=== PATIENT | male | born 1940 | race Caucasian/White ===

== ENCOUNTER → 2023-10-19 09:55 | Outpatient (REF) | payer MEDICARE, OTHER, SELFPAY ==
[2023-10-19 10:10] VITALS: BP 165/54; BP_SYST 64
== END ==
LOC: RADI 09:55
PROVIDERS: ATTENDING PHYSICIAN Student in an Organized Health Care Education/Training Program
DX: Z49.01 Encounter for fitting and adjustment of extracorporeal dialysis catheter (principal); N18.6 End stage renal disease
CPT/HCPCS: 36589

== ENCOUNTER 2023-11-13 21:46 | Emergency (ER) | payer MEDICARE, OTHER, SELFPAY ==
[2023-11-13 21:49] VITALS: BP 161/70
[2023-11-13 22:17] VITALS: BP 190/59
[2023-11-13] MEDS: NSS 1000 IV (22:21)
[2023-11-13] MEDS: ZOFRAN 4 MG IV (22:28)
[2023-11-13 22:29] LABS: % Basophils 0.3 % (0-2); % Eosinophils 1.6 % (0-6); % Immature Granulocytes 0.2 % (0-0.5); % Monocytes 6.4 % (1.7-9.3); % Neutrophils 86.5 % (42.2-75.2); Absolute Eosinophils 0.2 10^3/uL (0-0.7); Absolute Lymphocytes 0.5 10^3/uL (1.2-3.4); Absolute Monocytes 0.6 10^3/uL (0.1-0.6); Absolute Neutrophils 8.4 10^3/uL (1.4-6.5); Hematocrit 34.9 % (39.0-52.0); Mean Corp Hgb Conc. 34.4 g/dL (33.0-37.0); Mean Corpuscular Hgb 33.7 pg (27.0-31.0); Mean Platelet Volume 10.5 fL (7.4-10.4); Nucleated Red Blood Cells % 0 % (-); Platelet Count 221 10^3/uL (130-400); Red Blood Cell Count 3.56 10^6/uL (4.70-6.10); Red Cell Dist. Width 12.8 % (11.5-14.5); White Blood Cell Count 9.7 10^3/uL (4.8-10.8)
[2023-11-13 22:42] LABS: ALT (SGPT) 11 U/L (0-50); AST (SGOT) 19 U/L (17-59); Albumin 4.6 g/dl (3.5-5.0); Alkaline Phosphatase 82 U/L (38-126); Blood Urea Nitrogen 59 mg/dl (9-20); Calcium 10.2 mg/dl (8.4-10.2); Carbon Dioxide 31 mmol/L (22-30); Chloride 93 mmol/L (98-107); Glucose 119 mg/dl (70-99); Lipase 138 U/L (23-300); Potassium 5.3 mmol/L (3.5-5.1); Sodium 133 mmol/L (135-145); Total Bilirubin 0.8 mg/dl (0.2-1.3); Total Protein 7.2 g/dl (6.3-8.2); eGFR 14.86
--- NOTE | 2023-11-13 22:45 | ED.GENMED ---
History of Present Illness
General
Chief Complaint: Abdominal Symptoms
Source: patient and spouse
Exam Limitations: none
Time Seen by Provider: 11/13/23 22:07
Travel History
Have you had any contact with someone who has COVID-19?: No
Do you have any symptoms of coronavirus? Fever > 100 degrees, chills, cough, shortness of breath, sore throat, loss of taste or smell, muscle aches, or headache?: No
History of Present Illness
History of Present Illness:
This is a 82 year old male that comes in with c/o vomiting and diarrhea. states that he went to bed at 8pm and he called her later and said that he was wet and that he had diarrhea. States that he did vomited and had the diarrhea just one.
States that his stool was loose during the week and he was going 3-4 times daily. Denies any fever, chills, chest pain, SOB, abd pain, headache, dizziness, urinary burning.
Past History
Past History
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
ED Past Surgical History: Appendectomy, Cardiac (Angioplasty September 2021, stenting 2020 X 2), Orthopedic (Cervical spine surgery), Tonsilectomy, Urological (Prostatectomy) and Other ( dialysis catheter 2018, port for dialysis March 2021,
deviated septum repair 2004)
Social History
Tobacco: Former smoker
Alcohol: None
Drug: None
Personal:
Living: with family
Employment: Retired
Family History
Family History: Other (reviewed and noncontributory)
Review of Systems
Review of Systems
Other source history: family
All Other Systems: ROS reviewed and negative except as documented in HPI and ROS
Constitutional: Reports no symptoms; Denies fever or chills
EENT: Reports no symptoms
Respiratory: Reports no symptoms; Denies cough or trouble breathing
Cardiac: Reports no symptoms; Denies chest pain
ABD/GI: Reports nausea, vomiting and diarrhea; Denies abdominal pain
: Reports no symptoms
Musculoskeletal: Reports no symptoms
Skin: Reports no symptoms
Neurological: Reports no symptoms; Denies dizzy or headache
Psychiatric: Reports no symptoms
Phy Exam
General Physical Exam
General Presentation: no apparent distress
General age: appears stated age
General Skin: warm and dry
General Habitus: elderly
General Mental: alert
General Hydration: dry mucous membranes
ENT Exam
ENT Exam: pharynx normal and neck supple
Additional ENT: Bilaeral Hearing aids
Eye Exam
Eye Exam: other (Blind and keeps his eyes closed)
Cardiovascular Exam
Cardiovascular Exam: regular rate/rhythm, no edema, normal peripheral pulses and other (Murmur)
Pulmonary Exam
Pulmonary Exam: lungs clear, no respiratory distress, no rales, chest non tender, no crackles, no rhonchi, no wheezing and no cough
Gastrointestinal Exam
Gastrointestinal Exam: normal bowel sounds, soft, no organomegaly, no pulsatile mass, non distended and tender (RUQ tenderness with palpation)
Musculoskeletal Exam
Musculoskeletal Exam: full ROM and no edema
Skin Exam
Skin Exam: normal color, warm/dry, no rash, no petechia and other (Left upper arm dialysis Graft with good bruits and thrill )
Psychiatric Exam
Psychiatric Exam: normal mood/affect
Course
Orders/Labs/Results
Orders:
Orders
11/13/23 22:20
0.9% Sodium Chloride 1000 ml [Nss] 1,000 ml IV BOLUS
11/13/23 22:23
Complete Blood Count/With Diff Urgent
Comprehensive Metabolic Panel Urgent
Lipase Urgent
11/13/23 22:27
Ondansetron Injectable [Zofran] 4 mg .ROUTE .STK-MED ONE
Ondansetron Injectable [Zofran] 4 mg IV NOW STA
11/13/23 22:47
Dicyclomine [Bentyl] 10 mg PO NOW STA
11/13/23 22:58
Electrocardiogram (*1) Urgent
Reason for Study: Abdominal Pain
EKG- Treatment ONCE
11/13/23 22:59
COVID-19 Antigen Urgent
Source: Nasal Swab
11/14/23 22:45
US Abdomen Complete/Upper Urgent
Reason For Exam: Right upper abd pain
Abnormal Lab Results
11/13/23
22:23
RBC 3.56 L 10^6/uL
(4.70-6.10)
Hgb 12.0 L g/dL
(13.0-18.0)
Hct 34.9 L %
(39.0-52.0)
MCV 98.0 H fL
(80.0-94.0)
MCH 33.7 H pg
(27.0-31.0)
MPV 10.5 H fL
(7.4-10.4)
Absolute Neuts (auto) 8.4 H 10^3/uL
(1.4-6.5)
Absolute Lymphs (auto) 0.5 L 10^3/uL
(1.2-3.4)
Neutrophils % 86.5 H %
(42.2-75.2)
Lymphocytes % 5.0 L %
(20.5-51.1)
Sodium 133 L mmol/L
(135-145)
Potassium 5.3 H mmol/L
(3.5-5.1)
Chloride 93 L mmol/L
(98-107)
Carbon Dioxide 31 H mmol/L
(22-30)
BUN 59 H mg/dl
(9-20)
Creatinine 3.9 H mg/dL
(0.7-1.3)
Glucose 119 H mg/dl
(70-99)
11/13/23 22:23
11/13/23 22:23
H/H slighty low. Anemic, Sodium slightly low. Hyperkalemia, Chloride low. Chronic renal failure, Glucose nonfasting. Lipase normal at 138
Vital Signs
Initial and Last Documented VS:
Initial Vital Signs
Temp Pulse Resp BP Pulse Ox
98.1 F 74 19 161/70 99
11/13/23 21:49 11/13/23 21:49 11/13/23 21:49 11/13/23 21:49 11/13/23 21:49
Last Documented Vital Signs
Temp Pulse Resp BP Pulse Ox
98.1 F 85 16 171/69 99
11/13/23 21:49 11/14/23 00:15 11/14/23 00:15 11/14/23 00:00 11/14/23 00:15
MDM/Problems Addressed
Differential Diagnosis Includes:
Gi viral syndrome. Gallbladder disease.
MDM/Problems Addressed:
This is a 82 year old male that comes in with c/o vomiting and diarrhea. state that he went to bed at 8pm and he called her later and said that he went in his pants. States that he had diarrhea and then also vomited.
Will get labs, US.
Back into see patient and family. Explained that his WBC are normal. He has anemia and his Chronic renal failure. Patients US shows that he has gallstones but there is no wall thickening or CBD dilation. This is most likely the GI virusl. Patient to
stay away from milk and milk products until the diarrhea stops. Follow up with the family doctor for recheck Will sent a prescription for Zofran to the Pharmacy to help with any nausea/vomiting. Patient to return with any concerns.
Chronic conditions affecting care: DM and Kidney disease
Acute Exacerbation and/or Progression of Chronic Illness: Kidney disease
*Radiology
Radiology exam reviewed: radiology read reviewed (US [place]=No acute findiings. Cholelithiasis without clear secondary findings to suggest cholecystitis. Multiple gallstones within the gallbladder. No appreciable gallbladder wall thickening or
Pericholecystic fluid. Negatibe sonographic Myers's sign per report. CBD measures 3mm in diameter ) and other (US cont- which is within normal limits. Visualized pancreas and liver appear normal. Atrophc kidneys with increased cortical
echogenicity, in keeping with chronic renal disease. Small cyst in the right kidney. Normal size spleen, No appreciable free fluid. )
*Pulse Oximetry
Patient hypoxic: no
*EKG
Interpreted by ED Provider?: Yes
Heart Rate: 82
Rate: normal
Rhythm: sinus
[place]: left axis deviation
Interval: first degree heart block
QRS Pattern: right bundle branch block
Ischemia: T-wave inversion
*[employer] Interpretation
Rate: normal
Heart Rate: 78
Rhythm: sinus
*Critical Care Note
Total Time (30-74mins, 75-104mins- exclusive of procedures): Not Applicable
ED Attending Note
-
Portions of this chart may have been created with voice recognition software.� Occasional wrong word or��sound alike� substitutions may have occurred due to the inherent limitations of voice recognition software.
Discharge Plan
Departure
Patient Disposition: Home (Routine Discharge)
Date of Disposition: 11/14/23
Time of Disposition: 02:13
Patient with high blood pressure during this ER visit?: Yes
Condition: Good
Covid-19: Negative COVID-19
Discharge Problem:
Vomiting and diarrhea
Instructions: Diarrhea in adolescents and adults, Nausea and Vomiting, Adult (DC)
Prescriptions:
New
ondansetron 4 mg tablet,disintegrating
4 mg PO Q8H PRN (Reason: nausea and vomiting) Qty: 7 0RF
No Action
brinzolamide [Azopt] 1 % Drops,Suspension
1 drp BOTH EYES TID
famotidine [Pepcid] 20 mg Tablet
20 mg PO HS
Livalo 2 mg Tablet
2 mg PO MOTUWETHFR@2200
calcitriol 0.25 mcg Capsule
0.5 mcg PO QPM
sevelamer carbonate 800 mg tablet
3,200 mg PO AC
Lumigan 0.01 % Drops
1 drp BOTH EYES HS
Rhopressa 0.02 % Drops
1 drp BOTH EYES DAILY
docusate sodium [Colace] 100 mg Capsule
200 mg PO DAILY
folic acid 1 mg Tablet
1 mg PO QPM
midodrine 2.5 mg Tablet
2.5 mg PO DAILYPRN PRN (Reason: BP<140/90)
Rx Instructions:
BP < 140/90
polyethylene glycol 3350 [Miralax] 17 gram Powder In Packet
17 g PO DAILY PRN (Reason: constipation)
torsemide 20 mg tablet
80 mg PO DAILY
aspirin 81 mg tablet,delayed release (DR/EC)
81 mg PO DAILY
brimonidine-timolol [Combigan] 0.2-0.5 % drops
1 drp BOTH EYES TID
cholecalciferol (vitamin D3) [Vitamin D3] 50 mcg (2,000 unit) Tablet
50 mcg PO DAILY
sodium chloride [Chris 128] 5 % Drops
1 drp BOTH EYES TID
melatonin 3 mg Tablet
3 mg PO HS
ranolazine 500 mg Tablet Extended Release 12 Hr
500 mg PO BID
Probiotic
1 tab PO DAILY
Liquacel 16-100 gram-kcal/30 mL Liquid
30 ml PO SUTUTHSA
acetaminophen 650 mg Tablet Extended Release
650 mg PO BID PRN (Reason: Pain) Qty: 0 0RF
Rx Instructions:
Pt's states he takes it every morning and he also takes it in the evenings on dialysis days.
isosorbide mononitrate 30 mg tablet extended release 24 hr
30 mg PO DAILY Qty: 0 0RF
Rx Instructions:
hold for SBP<100 or DBP<50
amlodipine 5 mg tablet
5 mg PO QPM Qty: 0 0RF
metoprolol tartrate 25 mg tablet
25 mg PO HS Qty: 0 0RF
Referrals:
Pepe Riley MD [Family Provider] - Follow up in 2-3 days
Activity Restrictions/Additional Instructions:
As discussed, your blood work shows a normal white blood cell count. You are anemic and have chronic renal failure. Your Ultrasound shows that you have gallstones but there is no wall thickening or common bile duct dilation. This may be the GI viral
syndrome that is going around. Please stay away form milk and milk products as long as the diarrhea continues. Nancy has protein, soups and increase his diet as tolerated. Chicken, rice and potatoes are easily digested. Follow up with the family
doctor for recheck. A prescription for Zofran has been sent to your Pharmacy. This will help any nausea/vomiting. IF YOU HAVE ANY OTHER CONCERNS PLEASE RETURN TO THE EMERGENCY ROOM.
Interventions
Interventions:
*Risk Screen - Suicide Last Done: 11/13/23 22:32
*General Assessment Last Done: 11/13/23 21:51
*Neglect/Abuse Screening Last Done: 11/13/23 22:32
ED- Fall Risk Assessment Last Done: 11/13/23 22:32
*ED COVID-19 Vaccine History Last Done: 11/13/23 21:51
NH-Plsvih-Odryclient Assessment Last Done: 11/13/23 22:15
Discharge Date and Time
Print Language: TURKMEN
[2023-11-13] MEDS: BENTYL 10 MG PO (22:52)
[2023-11-13 23:00] VITALS: BP 173/68
[2023-11-13 23:18] LABS: COVID-19 Antigen Negative (Negative)
[2023-11-14] VITALS: BP 171/69
== END 2023-11-14 02:37 | disposition home or self-care (01) ==
LOC: EMR 21:46
PROVIDERS: Clinical Nurse Specialist Family Health; Emergency Medicine; EMERGENCY PHYSICIAN Emergency Medicine; FAMILY PHYSICIAN Internal Medicine Geriatric Medicine
DX: R11.2 Nausea with vomiting, unspecified (principal); R19.7 Diarrhea, unspecified; R10.11 Right upper quadrant pain; D64.9 Anemia, unspecified; Z11.52 Encounter for screening for COVID-19; E87.5 Hyperkalemia; K80.20 Calculus of gallbladder without cholecystitis without obstruction; N28.1 Cyst of kidney, acquired; I44.0 Atrioventricular block, first degree; I45.10 Unspecified right bundle-branch block; I25.10 Atherosclerotic heart disease of native coronary artery without angina pectoris; I12.0 Hypertensive chronic kidney disease with stage 5 chronic kidney disease or end stage renal disease; N18.6 End stage renal disease; E11.22 Type 2 diabetes mellitus with diabetic chronic kidney disease; G47.30 Sleep apnea, unspecified; E11.319 Type 2 diabetes mellitus with unspecified diabetic retinopathy without macular edema; E03.9 Hypothyroidism, unspecified; E78.00 Pure hypercholesterolemia, unspecified; F41.9 Anxiety disorder, unspecified; Z99.2 Dependence on renal dialysis; Z79.82 Long term (current) use of aspirin; Z95.5 Presence of coronary angioplasty implant and graft; Z87.440 Personal history of urinary (tract) infections; Z85.46 Personal history of malignant neoplasm of prostate; Z86.73 Personal history of transient ischemic attack (TIA), and cerebral infarction without residual deficits; Z87.891 Personal history of nicotine dependence; Z90.79 Acquired absence of other genital organ(s); Z88.1 Allergy status to other antibiotic agents; Z88.8 Allergy status to other drugs, medicaments and biological substances; Z91.048 Other nonmedicinal substance allergy status
CPT/HCPCS: 76700; 80053; 83690; 85025; 87811; 93005; 96361; 96374; 99284

== ENCOUNTER → 2023-12-23 08:47 | Outpatient (REF) | payer MEDICARE, OTHER, SELFPAY | LOC: RAD 08:47 | PROVIDERS: ATTENDING PHYSICIAN Podiatrist Foot & Ankle Surgery; FAMILY PHYSICIAN Internal Medicine Geriatric Medicine | DX: E11.51 Type 2 diabetes mellitus with diabetic peripheral angiopathy without gangrene (principal); L97.522 Non-pressure chronic ulcer of other part of left foot with fat layer exposed | CPT/HCPCS: 93922; 93925 ==

== ENCOUNTER → 2024-04-06 12:48 | Outpatient (REF) | payer MEDICARE, OTHER, SELFPAY | LOC: RAD 12:48 | PROVIDERS: ATTENDING PHYSICIAN Registered Nurse; FAMILY PHYSICIAN Internal Medicine Geriatric Medicine | DX: I77.0 Arteriovenous fistula, acquired (principal) | CPT/HCPCS: 93990 ==

== ENCOUNTER 2024-08-10 05:06 | Inpatient (IN) | payer MEDICARE, OTHER, SELFPAY ==
[2024-08-09 22:08] VITALS: BP 159/86
[2024-08-10] VITALS (43 sets, daily range): BP systolic 113–180; BP diastolic 41–98; BMI 23.1; BMI 23.7
--- NOTE | 2024-08-10 01:36 | ED.GENMED ---
History of Present Illness
General
Chief Complaint: Extremity Pain (non-traumatic)
Source: patient (Offers little history as he has dementia), spouse (Reports left arm swelling since 7 or 8 PM tonight. Notes patient had dialysis on Wednesday) and family
Exam Limitations: none
Time Seen by Provider: 08/10/24 01:20
Nursing documentation reviewed up to this point in time: agreed with
History of Present Illness
History of Present Illness:
83-year-old male presents emergency department due to left arm swelling and redness
Past History
Past History
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
ED Past Surgical History: Appendectomy, Cardiac (Angioplasty September 2021, stenting 2020 X 2), Orthopedic (Cervical spine surgery), Tonsilectomy, Urological (Prostatectomy) and Other ( dialysis catheter 2018, port for dialysis March 2021,
deviated septum repair 2004)
Social History
Tobacco: Former smoker
Alcohol: None
Drug: None
Personal:
Living: with family
Employment: Retired
Family History
Family History: Other (reviewed and noncontributory)
Review of Systems
Review of Systems
Allergies reviewed?: Yes
All Other Systems: Not applicable
Constitutional: Reports no symptoms; Denies fever
EENT: Reports no symptoms
Respiratory: Reports no symptoms
Cardiac: Reports no symptoms
ABD/GI: Reports no symptoms
: Reports no symptoms
Musculoskeletal: Reports edema
Skin: Reports rash
Neurological: Reports no symptoms
Endocrine: Reports no symptoms
Hematologic/Lymphatic: Reports no symptoms
Psychiatric: Reports no symptoms
Phy Exam
Physical Exam
Physical Exam:
Physical Exam
General: no apparent distress, not acutely ill
Neck: supple. no meningeal signs. normal posterior pharynx
Heart: s1/s2 regular rate and rhythm, no murmur. equal radial
pulses.
HEENT: Pupils equal round reactive to light, EOMI
Lungs: no acute respiratory distress. clear bilaterally
Abdomen: normal bowel sounds. not tender. no CVAT
Neuro: alert and oriented. no focal neurological deficits cranial nerves II through XII intact
Skin: Erythema and swelling of left arm
Psychiatric: well kept. interactive and cooperative
Extremities: Left arm edema. no calf tenderness. negative homans. good distal pulses, AV fistula with audible bruit left arm
Course
Orders/Labs/Results
Orders:
Orders
08/09/24 22:15
Complete Blood Count/With Diff Urgent
Comprehensive Metabolic Panel Urgent
08/09/24 22:31
US Arms, Left [US Periph Venous UPPER Ext LT] Urgent
Comment:
Reason For Exam: swelling/pain
08/10/24 01:34
Vascular Exam Limited US [US Vascular Exam Limited] Urgent
Comment: evaluate for pseudoaneurysm
Reason For Exam: left AV fistula
08/10/24 03:44
Vancomycin 1 Gram/200 ml [Vancocin] 1 gram in 200 ml IV NOW
08/10/24 03:45
Piperacillin/Tazo 2.25 Gram [Zosyn] 2.25 grams in 50 ml IV NOW
08/10/24 04:00
Flush (0.9% Sodium Chloride) [Flush (Nss)] See Dose Instructions IV PER PROTOCOL
08/10/24 04:48
Admit/Transfer Patient As Directed
Co-Sign Provider:
Level of Care: Inpatient admission
Assign to:: IMU- Intermediate Care
Physician / Group: Roberto
Diagnosis: LUE Hematoma +/- Cellulitis
Reason for Hospitalization: LUE Hematoma +/- Cellulitis
Expected length of stay greater than two midnights?: Yes
ELOS- Estimated Length of Stay in days: 3
I certify the patient meets the requirements for IP care: Yes
08/10/24 04:49
PRN Pain Medication Management As Directed
May give lesser potent ordered pain med per pt: Yes
preference::
Protocol:: Medication orders for pain may be administered in a
manner that supports deferring to patient preference
when the pt is:
- Requesting an ordered lesser potent pain medication.
Least to most potent pain medications are defined
as: acetaminophen < NSAID < tramadol < opioids
(morphine, oxycodone, hydromorphone).
- Requesting a lesser dose of the same medication IF
ORDERED.
- Requesting a less intrusive route of administration
if both routes are prescribed by the provider (PO <
IV).
08/10/24 04:53
Code Status As Directed
Resuscitation Status: Full Code
08/10/24 06:03
Acetaminophen [Tylenol] 650 mg PO Q4HPRN PRN
Abnormal Lab Results
08/10/24
01:33
WBC 16.2 H 10^3/uL
(4.8-10.8)
RBC 3.35 L 10^6/uL
(4.70-6.10)
Hgb 11.1 L g/dL
(13.0-18.0)
Hct 33.3 L %
(39.0-52.0)
MCV 99.4 H fL
(80.0-94.0)
MCH 33.1 H pg
(27.0-31.0)
MPV 10.8 H fL
(7.4-10.4)
Abs Immat Gran (auto) 0.1 H 10^3/uL
(0-0.05)
Absolute Neuts (auto) 15.0 H 10^3/uL
(1.4-6.5)
Absolute Lymphs (auto) 0.5 L 10^3/uL
(1.2-3.4)
Neutrophils % 92.8 H %
(42.2-75.2)
Lymphocytes % 2.8 L %
(20.5-51.1)
Chloride 95 L mmol/L
(98-107)
BUN 71 H mg/dl
(9-20)
Creatinine 4.2 H* mg/dL
(0.7-1.3)
Glucose 160 H mg/dl
(70-99)
Total Protein 6.2 L g/dl
(6.3-8.2)
08/10/24 01:33
08/10/24 01:33
Vital Signs
Initial and Last Documented VS:
Initial Vital Signs
Temp Pulse Resp BP Pulse Ox
97.9 F 97 18 159/86 100
08/09/24 22:08 08/09/24 22:08 08/09/24 22:08 08/09/24 22:08 08/09/24 22:08
Last Documented Vital Signs
Temp Pulse Resp BP Pulse Ox
97.9 F 90 16 132/54 98
08/09/24 22:08 08/10/24 01:44 08/10/24 01:44 08/10/24 01:44 08/10/24 01:44
MDM/Problems Addressed
Differential Diagnosis Includes:
Pseudoaneurysm, thrombosis of fistula
MDM/Problems Addressed:
83-year-old male with cellulitis left arm.
Chronic conditions affecting care: CAD, Arrhythmia and Kidney disease
Acute Exacerbation and/or Progression of Chronic Illness: CAD, Arrhythmia and Kidney disease
*Critical Care Note
Total Time (30-74mins, 75-104mins- exclusive of procedures): Not Applicable
Patient Management
Discussion with other providers: Pack Worker Supervisor (Discussed with Dr. Mcfarland, vascular surgeon, who recommends getting ultrasound to evaluate for pseudoaneurysm/thrombosis)
Escalation/DeEscalation of care consider admission/obs:
admit indicated
ED Attending Note
-
Portions of this chart may have been created with voice recognition software.� Occasional wrong word or��sound alike� substitutions may have occurred due to the inherent limitations of voice recognition software.
Discharge Plan
Departure
Patient Disposition: Admit
Date of Disposition: 08/10/24
Time of Disposition: 03:25
Admit to: Med/Surg
Presentation/result/management discussed w/ accepting MD/DO: Hospitalist
Patient with high blood pressure during this ER visit?: Yes
Condition: Fair
Discharge Problem:
Cellulitis of arm, left
Interventions
Interventions:
*Risk Screen - Suicide Last Done: 08/09/24 22:11
*Neglect/Abuse Screening Last Done: 08/09/24 22:11
ED- Fall Risk Assessment Last Done: 08/10/24 01:55
*ED COVID-19 Vaccine History Last Done: 08/09/24 22:10
ED-Skin Assessment Last Done: 08/10/24 01:55
ED-Peripheral Vascular Assessment Last Done: 08/10/24 01:55
[2024-08-10 02:03] LABS: % Basophils 0.2 % (0-2); % Eosinophils 0.1 % (0-6); % Immature Granulocytes 0.4 % (0-0.5); % Lymphocytes 2.8 % (20.5-51.1); % Monocytes 3.7 % (1.7-9.3); % Neutrophils 92.8 % (42.2-75.2); Absolute Immature Granulocytes 0.1 10^3/uL (0-0.05); Absolute Lymphocytes 0.5 10^3/uL (1.2-3.4); Absolute Monocytes 0.6 10^3/uL (0.1-0.6); Hematocrit 33.3 % (39.0-52.0); Hemoglobin 11.1 g/dL (13.0-18.0); Mean Corp Hgb Conc. 33.3 g/dL (33.0-37.0); Mean Corpuscular Hgb 33.1 pg (27.0-31.0); Mean Corpuscular Volume 99.4 fL (80.0-94.0); Mean Platelet Volume 10.8 fL (7.4-10.4); Nucleated Red Blood Cells % 0.2 % (-); Platelet Count 194 10^3/uL (130-400); Red Blood Cell Count 3.35 10^6/uL (4.70-6.10); Red Cell Dist. Width 13.1 % (11.5-14.5); White Blood Cell Count 16.2 10^3/uL (4.8-10.8)
[2024-08-10 02:23] LABS: ALT (SGPT) 11 U/L (0-50); AST (SGOT) 18 U/L (17-59); Alkaline Phosphatase 89 U/L (38-126); Blood Urea Nitrogen 71 mg/dl (9-20); Calcium 9.8 mg/dl (8.4-10.2); Carbon Dioxide 28 mmol/L (22-30); Chloride 95 mmol/L (98-107); Estimated Creatinine Clearance 14 ml/min; Glucose 160 mg/dl (70-99); Potassium 4.4 mmol/L (3.5-5.1); Sodium 136 mmol/L (135-145); Total Bilirubin 0.7 mg/dl (0.2-1.3); Total Protein 6.2 g/dl (6.3-8.2); eGFR 13.51
--- NOTE | 2024-08-10 03:12 | PTCARENOTE ---
Limited vascular ultrasound preformed (left arm AVF) Prelim, No Pseudaneurysm seen or DVT
[2024-08-10] MEDS: ZOSYN 50 IV (04:17)
[2024-08-10] MEDS: VANCOCIN 200 IV (04:44)
--- NOTE | 2024-08-10 04:57 | HPS.HSE ---
Family Physician
-
Family Physician: Pepe Riley
Chief Complaint
-
LUE Swelling
History of Present Illness
Patient is an 83y M with PMH significant for hypertension, ESRD on HD and blindness who presents to ED for evaluation of LUE swelling. History obtained from ED staff as patient seems confused / unable to contribute to this history. According to
family, patient had HD last on Wednesday of this week with no issues. Over the past 24 hours, they noted marked swelling and discoloration in the LUE from the shoulder to the wrist. Pateint himself complains of some discomfort in the L neck /
shoulder area. He does not offer any other complaints.
No other noted recent symptoms of cough, N/V/D, fevers / chills, etc.
Medical History
Past Medical History
Past Medical History: Reports Other
Additional Past Medical History:
ESRD on HD ([facility])
Cervical Cord Compression with LLE Weakness
Left Heel Gangrene / Wound
ASCVD (CAD, CVA and PAD)
Diabetes Mellitus
Hx PD Site Infections (Recurrent)
Hypothyroidism
Benign Hypertension
SARA on CPAP
SVT
Prostate Cancer s/p Prostatectomy
Past Surgical History: Reports Other
Additional Past Surgical History:
L IJ Tunneled HD Cath
LUE AVF
PTCA with Stents
Appendectomy
Prostatectomy
T&A
Urethral Meatotomy
Herniorrhaphy
Cervical Discectomy / Fusion
Septoplasty
Social History
Tobacco: Former Smoker
Alcohol: None
Living: With Family
Family History
Family History: Not pertinent
Allergies / Home Medications
Allergies reflects when Allergies were last updated in [facility].
Home Medications with original date entered in [facility]
Allergy/Medication List:
Allergies
Allergy/AdvReac Type Severity Reaction Status Date / Time
adhesive tape Allergy blisters Verified 06/07/23 08:06
if kept on
for long
time;rash
ciprofloxacin [From Cipro] Allergy burning of Verified 06/07/23 08:06
vein from
IV
erythromycin base Allergy Hives Verified 06/07/23 08:06
lisinopril Allergy cough Verified 06/07/23 08:06
tetracycline Allergy Hives Verified 06/07/23 08:06
tigecycline [From Tygacil] Allergy patient Verified 06/07/23 08:06
unaware of
this
allergy
Home Medications
bimatoprost 0.01 % eye drops (Lumigan) 1 drp BOTH EYES HS Eye condition 06/29/22
brinzolamide 1 % eye drops,suspension (Azopt) 1 drp BOTH EYES TID Eye condition 06/29/22
calcitriol 0.25 mcg capsule 0.5 mcg PO QPM Kidney Disease 06/29/22
famotidine 20 mg tablet (Pepcid) 20 mg PO HS Gastrointestinal issue 06/29/22
netarsudil 0.02 % eye drops (Rhopressa) 1 drp BOTH EYES DAILY Eye condition 06/29/22
pitavastatin calcium 2 mg tablet (Livalo) 2 mg PO MOTUWETHFR@2200 High cholesterol 06/29/22
sevelamer carbonate 800 mg tablet 3,200 mg PO AC Kidney Disease 06/29/22
docusate sodium 100 mg capsule (Colace) 200 mg PO DAILY Constipation 07/27/22
folic acid 1 mg tablet 1 mg PO QPM Supplement 11/23/22
midodrine 2.5 mg tablet 2.5 mg PO DAILYPRN PRN BP<140/90 11/23/22
aspirin 81 mg tablet,delayed release 81 mg PO DAILY Blood Clot Prevention/Tx 02/08/23
brimonidine 0.2 %-timolol 0.5 % eye drops (Combigan) 1 drp BOTH EYES TID Eye Condition 02/08/23
torsemide 20 mg tablet 80 mg PO DAILY Fluid Retention/Swelling 02/08/23
cholecalciferol (vitamin D3) 50 mcg (2,000 unit) tablet (Vitamin D3) 50 mcg PO DAILY Supplement 05/17/23
ranolazine 500 mg tablet,extended release,12 hr 500 mg PO BID Heart Disease/Condition 05/17/23
sodium chloride 5 % eye drops (Chris 128) 1 drp BOTH EYES TID Eye Condition 05/17/23
Probiotic 1 tab PO DAILY Gastrointestinal Issue 05/20/23
amino acids-protein hydrolysate 16 gram-100 kcal/30 mL oral liquid (Liquacel) 30 ml PO SUTUTHSA Supplement 05/20/23
acetaminophen 650 mg tablet,extended release 650 mg PO BID PRN Pain #0 tabs 06/11/23
isosorbide mononitrate 30 mg tablet,extended release 24 hr 30 mg PO DAILY Heart disease/condition #0 tabs 06/11/23
metoprolol tartrate 25 mg tablet 12.5 mg PO HS Blood pressure 08/10/24
Review of Systems
-
History Source: Patient
A 12 point ROS was completed and negative except as noted: Yes
Constitutional: Denies Fever or Chills
Respiratory: Denies Cough or Trouble Breathing
Cardiac: Denies Chest Pain or Palpitations
Abdomen/GI: Denies Abdominal Pain, Nausea, Vomiting or Diarrhea
Musculoskeletal: Reports Edema and Other (L neck / shoulder pain.)
Psych: Denies Depression or Anxiety
Physical Exam
Vital Signs
Vital Signs
Temp Pulse Resp BP Pulse Ox
97.9 F 90 16 132/54 98
08/09/24 22:08 08/10/24 01:44 08/10/24 01:44 08/10/24 01:44 08/10/24 01:44
Physical Exam
General: Other (83y M in no acute distress.)
HEENT: Moist mucous membranes
Respiratory: Clear; No Wheezes, Rales or Rhonchi
Cardiac: S1/S2 and Regular Rhythm; No Murmur
GI: Soft, Non Tender, Non Distended and Normal Bowel Sounds
Musculoskeletal: Other (Marked LUE edema with ecchymosis and mild increased warmth. )
Neuro: Awake; No Oriented
Hematologic/Lymphatic: Other (Pulses at L wrist / good cap refill.)
Psych: No Agitated or Anxious
Laboratory Results
-
08/10/24:
08/10/24:
Laboratory Results
Total Bilirubin 0.7 mg/dl (0.2-1.3) 08/10/24:
AST 18 U/L (17-59) 08/10/24:
ALT 11 U/L (0-50) 08/10/24:
Alkaline Phosphatase 89 U/L (38-126) 08/10/24:33
Impression/Plan
-
A/P: Patient is an 83y M with PMH significant for ESRD on HD, hypertension and DM-II who presents to ED for evaluation of new LUE swelling.
LUE Swelling / Ecchymosis
- Admit for further evaluation and treatment.
- Appearance seems more c/w subcutaneous bleeding / edema than infection or cellulitis.
- Received initial doses of abx in the ED - hold further dosing for now and can re-dose after next HD if needed.
- US done in the ED this evening reportedly with no evidence of active bleeding / hematoma / collection (unofficial / verbal report).
- Patient not on any OAC.
- Vascular Surgery evaluation for additional recommendations.
- Note prior h/o central stenosis (L brachiocephalic) requiring angioplasty in the past.
- Follow for evidence of neurovascular compromise.
ESRD on HD
- Most recent HD was Wednesday.
- Nephrology evaluation for HD needs during acute hospital stay.
- May require temporary access if LUE AVF cannot be accessed.
Anemia of CKD
- Stable. Follow for changes.
[place]
Blindness
- Patient with limited communication at present due to blindness / hearing loss and absence of his hearing aids at present.
- ? history of dementia but this is unclear.
- Follow for any changes in mood / mentation.
ASCVD
- Stable. No chest pain / dyspnea.
- Continue current CV med regimen including ASA given prior coronary stents.
DM-II
- Stable. Not maintained on any medications for DM.
- Follow glucose and cover with SSI as needed.
- Update A1C.
DVT Prophylaxis: SCDs
Code Status: Full
[2024-08-10] MEDS: TYLENOL 650 MG PO (06:55)
--- NOTE | 2024-08-10 07:47 | W.PN.UPDATE ---
Update Note
Progress Note Update
Seen and examined with PAYAM Sanchez. Full consultation to follow. 83-year-old male known well to me and our service status post multiple left upper extremity AV fistula/AV access interventions. Now presents with swelling in the left arm. 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 From records, patient received dialysis on Wednesday (2 days ago) with no issues. Noted increasing left upper extremity from shoulder to wrist and that is what prompted admission.
On exam/ Tc 101. He is slightly lethargic. He does wake up/arouse. He is hard of hearing so it is difficult to assess how much that is playing into his exam. But he does seem somewhat or slightly confused, although again this may be related to
the hearing issues. His left upper extremity is generally edematous from the shoulder all the way down to the forearm. However, it is very soft. Compartments are all soft. Fistula has an excellent thrill. It is nonpulsatile.
Hand is pink and warm.
WBC 16K.
Duplex reviewed.
Plan/ Left upper extremity swelling. 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 At that time had a catheter
from the left IJ that traversed the left brachiocephalic vein into the SVC. That was likely resulting in stenosis at that time. His presentation now may suggest recurrent stenosis, but not definitively as his arm is very soft and I cannot say
definitively that the physical exam findings appear necessarily acute. However I do not have recent basis for comparison. In addition, I have concerns regarding his overall systemic condition and that he is slightly lethargic and has a fever as
well as elevated white blood cell count. Therefore, while he may benefit from elective fistulogram, would recommend fever workup and then I can perform fistulogram more electively on the next few days (if done during this admission) or
alternatively as outpatient. There is no hematoma or pseudoaneurysm noted on his ultrasound, and therefore I do not think it is unreasonable to continue to access the fistula.
--- NOTE | 2024-08-10 07:57 | CON.VAS ---
Consultation
Consultation Request
Date/Time Consultation Performed: 08/10/24 0800
Requesting Provider: Hospitalist
Performing Provider: Rosy Sanchez, COLLAR STITCHER-C for Sami Cho MD
Reason for Consultation: Left lower extremity swelling with AV fistula
Medical History
-
Chief Complaint: Left upper extremity with AV fistula
History of Present Illness:
This is a 83-year-old male with significant past medical history for SVT, CAD, cancer, stroke, hypertension, hypothyroidism, diabetes, hard of hearing, end-stage renal disease on HD, SARA, PAD, and Cervical Cord Compression who presented to
[facility] today in sampler first hours with reports of LUE swelling. HPI is limited as patient responds minimally to questions, but per chart review patient underwent regularly scheduled HD session on Wednesday without difficulty; however,
over the past 24 hours family has noted marked increase in left upper extremity swelling prompting ED evaluation. Family is currently not at bedside. And patient is awake and oriented to self only. He is minimally interactive, there is some
noting on chart of possible dementia but unclear if this is patient's baseline. When prompted patient offers no complaints, but did endorse that the left upper extremity has more swelling than baseline. Patient is known to our service for multiple
surgical interventions, see history below. ED evaluation significant for leukocytosis and febrile. He does not appear in any pain and is resting in stretcher comfortably.
Past vascular surgical history:
05/22/2021- Aortogram with pelvic angiogram. Left lower extremity arteriogram. Third order vessel catheterization of left posterior tibial artery via right common femoral artery puncture. Balloon angioplasty of left posterior tibial artery and
tibioperoneal trunk with 3 mm angioplasty balloon. - Sami Cho MD
09/25/2021- Aortogram and pelvic angiogram. Left lower extremity arteriogram. Third order vessel catheterization of left posterior tibial and peroneal arteries via right common femoral artery puncture. Balloon angioplasty of left posterior tibial
artery and peroneal artery and tibioperoneal trunk with 3 mm angioplasty balloon. Right femoral angiogram with 6-Macedonian Angio-Seal closure, right groin. Heel debridement approximately 1.5-2 cm diameter circular eschar/gangrene through skin and
subcutaneous tissue. - aSmi Cho MD
11/26/2022- Left upper extremity brachiobasilic arteriovenous fistula creation with single stage basilic vein transposition
12/21/2022- Left upper extremity fistulogram and central venogram. Balloon angioplasty of left brachiocephalic vein severe stenosis with 8 mm, 10 mm, 12 mm angioplasty balloons. Balloon angioplasty of outflow vein stenosis with 8 mm angioplasty
balloon- Sami Cho MD
05/20/2023- Left upper extremity fistulogram and central venogram. Balloon angioplasty of central venous stenosis (central left brachiocephalic vein into the SVC)- Sami Cho MD
Past Medical History
Past Medical History: Arrhythmias (SVT), CAD, Cancer, CVA, HTN, Hypothyroidism, NIDDM, Renal Failure and Other (SARA, PAD, Cervical Cord Compression with LLE Weakness)
Past Surgical History: Tonsilectomy and Other (Urethral Meatotomy, Herniorrhaphy, Cervical Discectomy / Fusion, Septoplasty, L IJ Tunneled HD Cath, Prostatectomy)
Social History
Tobacco: Former Smoker
Alcohol: None
Drug: None
Personal:
Living: With Family
Allergies / Home Medications
Allergy/AdvReac Type Severity Reaction Status Date / Time
adhesive tape Allergy blisters Verified 06/07/23 08:06
if kept on
for long
time;rash
ciprofloxacin [From Cipro] Allergy burning of Verified 06/07/23 08:06
vein from
IV
erythromycin base Allergy Hives Verified 06/07/23 08:06
lisinopril Allergy cough Verified 06/07/23 08:06
tetracycline Allergy Hives Verified 06/07/23 08:06
tigecycline [From Tygacil] Allergy patient Verified 06/07/23 08:06
unaware of
this
allergy
�Medication �Instructions �Recorded �Confirmed �Type
bimatoprost 0.01 % eye drops 1 drp BOTH EYES HS Eye condition 06/29/22 08/10/24 History
(Lumigan)
brinzolamide 1 % eye 1 drp BOTH EYES TID Eye condition 06/29/22 08/10/24 History
drops,suspension (Azopt)
calcitriol 0.25 mcg capsule 0.5 mcg PO QPM Kidney Disease 06/29/22 08/10/24 History
famotidine 20 mg tablet (Pepcid) 20 mg PO HS Gastrointestinal issue 06/29/22 08/10/24 History
netarsudil 0.02 % eye drops 1 drp BOTH EYES DAILY Eye condition 06/29/22 08/10/24 History
(Rhopressa)
pitavastatin calcium 2 mg tablet 2 mg PO MOTUWETHFR@2200 High 06/29/22 08/10/24 History
(Livalo) cholesterol
sevelamer carbonate 800 mg tablet 3,200 mg PO AC Kidney Disease 06/29/22 08/10/24 History
docusate sodium 100 mg capsule 200 mg PO DAILY Constipation 07/27/22 08/10/24 History
(Colace)
folic acid 1 mg tablet 1 mg PO QPM Supplement 11/23/22 08/10/24 History
midodrine 2.5 mg tablet 2.5 mg PO DAILYPRN PRN BP<140/90 11/23/22 08/10/24 History
aspirin 81 mg tablet,delayed 81 mg PO DAILY Blood Clot 02/08/23 08/10/24 History
release Prevention/Tx
brimonidine 0.2 %-timolol 0.5 % 1 drp BOTH EYES TID Eye Condition 02/08/23 08/10/24 History
eye drops (Combigan)
torsemide 20 mg tablet 80 mg PO DAILY Fluid 02/08/23 08/10/24 History
Retention/Swelling
cholecalciferol (vitamin D3) 50 50 mcg PO DAILY Supplement 05/17/23 08/10/24 History
mcg (2,000 unit) tablet (Vitamin
D3)
ranolazine 500 mg tablet,extended 500 mg PO BID Heart 05/17/23 08/10/24 History
release,12 hr Disease/Condition
sodium chloride 5 % eye drops 1 drp BOTH EYES TID Eye Condition 05/17/23 08/10/24 History
(Chris 128)
Probiotic 1 tab PO DAILY Gastrointestinal 05/20/23 08/10/24 History
Issue
amino acids-protein hydrolysate 16 30 ml PO SUTUTHSA Supplement 05/20/23 08/10/24 History
gram-100 kcal/30 mL oral liquid
(Liquacel)
acetaminophen 650 mg 650 mg PO BID PRN Pain #0 tabs 06/11/23 08/10/24 Rx
tablet,extended release
isosorbide mononitrate 30 mg 30 mg PO DAILY Heart 06/11/23 08/10/24 Rx
tablet,extended release 24 hr disease/condition #0 tabs
metoprolol tartrate 25 mg tablet 12.5 mg PO HS Blood pressure 08/10/24 08/10/24 History
Review of Systems
-
Unable to obtain full review of systems at this time due to: Dementia
Physical Exam
Vital Signs
Temp Pulse Resp BP Pulse Ox
101 F H 79 17 123/48 95
08/10/24 06:04 08/10/24 07:30 08/10/24 07:30 08/10/24 07:00 08/10/24 07:30
Lab Results
08/10/24 01:33
08/10/24 01:33
Physical Exam
General: No Apparent Distress and Comfortable
HEENT: Normocephalic, Anicteric and Atraumatic
Respiratory: Non Labored Respirations
Cardiac: Negative JVD
GI: Soft, Non Tender and Non Distended
Musculoskeletal: Edema (eft upper extremity is generally edematous from the shoulder all the way down to the forearm. However, it is very soft. Compartments are all soft. Fistula has an excellent thrill. It is nonpulsatile. Hand is pink and
warm.)
Skin: Warm
Neuro: Awake
Assessment / Plan
-
Assessment: Left upper extremity swelling.
Plan:
Reviewed old records and old imaging with Dr. Sami Cho, he does have prior history of central venous angioplasty due to central venous stenosis. At time of prior swelling catheter from the left IJ that traversed the left brachiocephalic vein into
the SVC. That was likely resulting in stenosis at that time. His presentation now may suggest recurrent stenosis, but not definitively as his arm is very soft and cannot say definitively that the physical exam findings appear necessarily acute.
Additionally, there are concerns regarding his overall systemic condition and that he is slightly lethargic and has a fever as well as elevated white blood cell count. Therefore, while he may benefit from elective fistulogram, would recommend fever
workup and then Dr. Cho can perform fistulogram more electively in the next few days (if done during this admission) or alternatively as outpatient. There is no hematoma or pseudoaneurysm noted on his ultrasound, and therefore it is unreasonable to
continue to access the fistula.
I performed this shared service with the attending. I evaluated the patient [id number] and have entered clinical documentation as shown in the encounter note. I performed the following component(s):�history and physical exam. Note that medical
decision making is not final until attested by vascular attending.
[2024-08-10 10:49] LABS: Glucose - Point of Care 94 mg/dl (70-99)
[2024-08-10] MEDS: NOVOLOG FLEXPEN-LOW RESISTANCE SC ×2 (11:03→13:52)
--- NOTE | 2024-08-10 11:03 | PHA.VAN.IN ---
Assessment
- Assessment
Renal Function: Patient has ESRD, on chronic Hemodialysis
Plan
- Plan
Initial / Loading Dose: 1000mg - 08/10 04:44 - will give additional 500mg for loading dose
Maintenance Regimen: dosing by level / HD
Monitoring: random 08/11 0600
Pharmacokinetics Vancomycin I
- -
Patient Age: 83
Patient Sex: Male
Vancomycin Day #: 1
Indication: Skin And Soft Tissue
Requesting Provider: Dr. Beatrice Adams
Pertinent Antimicrobial Allergies:
ciprofloxacin - burning of vein from IV
erythromycin - hives
tetracycline - hives
tigecycline - unknown
Height / Weight:
Height 5 ft 10 in
Actual Weight 73 kg
Pertinent Past Medical History: ESRD on HD, DM II
- Vital Signs / Lab Results
Temp Pulse Resp BP Pulse Ox
101 F H 79 17 123/48 95
08/10/24 06:04 08/10/24 07:30 08/10/24 07:30 08/10/24 07:00 08/10/24 07:30
Lab Results - Hematology
08/10/24
01:33
WBC 16.2 H
Lab Results - Chemistry
08/10/24
01:33
BUN 71 H
Creatinine 4.2 H*
Estimated Creat Clear 14
Albumin 4.0
[2024-08-10] MEDS: STERILE WATER FOR INJECTION 10 ML IV (11:10)
[2024-08-10] MEDS: MAXIPIME 1000 MG IV (11:10)
[2024-08-10] MEDS: RENVELA PO (11:19)
[2024-08-10] MEDS: ASPIR LOW (ENTERIC COATED) 81 MG PO (11:22)
[2024-08-10] MEDS: AZOPT 1% OPHTHALMIC SUSPENSION 1 DROP BOTH EYES ×3 (11:22→21:20)
[2024-08-10] MEDS: DEMADEX 80 MG PO (11:23)
[2024-08-10] MEDS: RANEXA EXTENDED RELEASE 500 MG PO ×2 (11:23→21:19)
--- NOTE | 2024-08-10 12:06 | W.CON.NEPH ---
Consultation
-
Date/Time Consultation Requested: 08/10/2024 10 AM
Date/Time Consultation Performed: 08/10/2024 12 PM
Requesting Provider: Dr. Adams
Performing Provider: Dr. Johnson
Reason for Consultation: ESRD
Medical History
-
Chief Complaint: Left arm edema
History of Present Illness:
This is an 83-year-old gentleman who is well-known to us for his end-stage renal disease on hemodialysis Wednesdays at [facility]. He dialyzes through a left upper extremity AV fistula. He has had no issues with dialysis. His
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 He does use midodrine as needed as a result. He has diabetes mellitus type 2 though not on insulin therapy at this
time. He also has secondary hyperparathyroidism which is controlled with calcitriol. His family brought him to the hospital because they were concerned regarding rather acute increase of swelling in his left upper arm. Patient reports some pain
in the arm though this has improved with pain medication. In the ER he was also noted to be febrile
Past Medical History
ESRD, Diazemuls type II, hypertension, secondary hyperparathyroidism, anemia, prostate cancer status post prostatectomy, arthritis, coronary artery disease with stenting, cervical arthropathy and neuropathy, left upper extremity AV fistula, history
of central stenosis, sciatica, sleep apnea, hypothyroidism, amatory dysfunction, recurrent myoclonus
Social History
Tobacco: Non-Smoker
Alcohol: None
Family History
Family History: Not Pertinent
Allergies / Home Medications
Allergy/AdvReac Type Severity Reaction Status Date / Time
adhesive tape Allergy blisters Verified 06/07/23 08:06
if kept on
for long
time;rash
ciprofloxacin [From Cipro] Allergy burning of Verified 06/07/23 08:06
vein from
IV
erythromycin base Allergy Hives Verified 06/07/23 08:06
lisinopril Allergy cough Verified 06/07/23 08:06
tetracycline Allergy Hives Verified 06/07/23 08:06
tigecycline [From Tygacil] Allergy patient Verified 06/07/23 08:06
unaware of
this
allergy
�Medication �Instructions �Recorded �Confirmed �Type
bimatoprost 0.01 % eye drops 1 drp BOTH EYES HS Eye condition 06/29/22 08/10/24 History
(Lumigan)
brinzolamide 1 % eye 1 drp BOTH EYES TID Eye condition 06/29/22 08/10/24 History
drops,suspension (Azopt)
calcitriol 0.25 mcg capsule 0.5 mcg PO QPM Kidney Disease 06/29/22 08/10/24 History
famotidine 20 mg tablet (Pepcid) 20 mg PO HS Gastrointestinal issue 06/29/22 08/10/24 History
netarsudil 0.02 % eye drops 1 drp BOTH EYES DAILY Eye condition 06/29/22 08/10/24 History
(Rhopressa)
pitavastatin calcium 2 mg tablet 2 mg PO MOTUWETHFR@2200 High 06/29/22 08/10/24 History
(Livalo) cholesterol
sevelamer carbonate 800 mg tablet 3,200 mg PO AC Kidney Disease 06/29/22 08/10/24 History
docusate sodium 100 mg capsule 200 mg PO DAILY Constipation 07/27/22 08/10/24 History
(Colace)
folic acid 1 mg tablet 1 mg PO QPM Supplement 11/23/22 08/10/24 History
midodrine 2.5 mg tablet 2.5 mg PO DAILYPRN PRN BP<140/90 11/23/22 08/10/24 History
aspirin 81 mg tablet,delayed 81 mg PO DAILY Blood Clot 02/08/23 08/10/24 History
release Prevention/Tx
brimonidine 0.2 %-timolol 0.5 % 1 drp BOTH EYES TID Eye Condition 02/08/23 08/10/24 History
eye drops (Combigan)
torsemide 20 mg tablet 80 mg PO DAILY Fluid 02/08/23 08/10/24 History
Retention/Swelling
cholecalciferol (vitamin D3) 50 50 mcg PO DAILY Supplement 05/17/23 08/10/24 History
mcg (2,000 unit) tablet (Vitamin
D3)
ranolazine 500 mg tablet,extended 500 mg PO BID Heart 05/17/23 08/10/24 History
release,12 hr Disease/Condition
sodium chloride 5 % eye drops 1 drp BOTH EYES TID Eye Condition 05/17/23 08/10/24 History
(Chris 128)
Probiotic 1 tab PO DAILY Gastrointestinal 05/20/23 08/10/24 History
Issue
amino acids-protein hydrolysate 16 30 ml PO SUTUTHSA Supplement 05/20/23 08/10/24 History
gram-100 kcal/30 mL oral liquid
(Liquacel)
acetaminophen 650 mg 650 mg PO BID PRN Pain #0 tabs 06/11/23 08/10/24 Rx
tablet,extended release
isosorbide mononitrate 30 mg 30 mg PO DAILY Heart 06/11/23 08/10/24 Rx
tablet,extended release 24 hr disease/condition #0 tabs
metoprolol tartrate 25 mg tablet 12.5 mg PO HS Blood pressure 08/10/24 08/10/24 History
Review of Systems
-
No chest pain or shortness of breath. No dysfunction of the arm. No numbness or weakness of the arm.
All other systems: Negative unless noted
Physical Exam
Vital Signs
Vital Signs
Temp Pulse Resp BP Pulse Ox
101 F H 77 17 119/73 95
08/10/24 06:04 08/10/24 11:23 08/10/24 07:30 08/10/24 11:23 08/10/24 07:30
Lab Results
WBC 16.2 10^3/uL (4.8-10.8) H 08/10/24 01:33
RBC 3.35 10^6/uL (4.70-6.10) L 08/10/24:33
Hgb 11.1 g/dL (13.0-18.0) L 08/10/24 01:33
Hct 33.3 % (39.0-52.0) L 08/10/24 01:33
Plt Count 194 10^3/uL (130-400) 08/10/24:33
Sodium 136 mmol/L (135-145) 08/10/24:
Potassium 4.4 mmol/L (3.5-5.1) 08/10/24:
Chloride 95 mmol/L (98-107) L 08/10/24:
Carbon Dioxide 28 mmol/L (22-30) 08/10/24:33
BUN 71 mg/dl (9-20) H 08/10/24:33
Creatinine 4.2 mg/dL (0.7-1.3) H* 08/10/24:
eGFR 13.51 08/10/24:
Glucose 160 mg/dl (70-99) H 08/10/24:
Calcium 9.8 mg/dl (8.4-10.2) 08/10/24:33
Albumin 4.0 g/dl (3.5-5.0) 08/10/24:33
Physical Exam
Patient is awake alert oriented and in no distress. Mood and affect were pleasant, insight and judgment were good. Pupils are equal round and unreactive to light, extraocular movements are intact, sclera were anicteric. Hearing was drastically
reduced, ears and nose are intact. Oropharynx was clear. Neck was supple with trachea midline and no thyromegaly. Heart was regular rate and rhythm without rubs. Lower extremities without edema. Left upper arm was with 3+ swelling, erythema and
increased warmth. AV fistula in the left upper arm was with excellent thrill and bruit. Lungs were clear to auscultation bilaterally and with normal excursion. Abdomen was soft, nontender, with normal active bowel sounds, and no
hepatosplenomegaly. Skin was without rash and with normal turgor.
Data Reviewed
-
Ultrasound: Report Reviewed by me (Ultrasound left AV fistula on 08/10/2024 shows patent access, no obvious stenosis, subcutaneous edema)
Labs: Labs Reviewed by me
Old Records: Reviewed
Assessment/Plan
-
Assessment
ESRD
Fever
Left upper arm edema, erythema
Diabetes mellitus type 2
CAD
Plan
Evaluation and treatment of likely cellulitis
Outpatient medications may otherwise be continued
Dialysis tomorrow to remain on outpatient schedule
We may try to challenge weight though this has been difficult with intradialytic hypotension.
Eventual AV fistulogram to evaluate for central stenosis
--- NOTE | 2024-08-10 12:54 | W.PN.UPDATE ---
Update Note
Progress Note Update
evidence of sepsis. osurce lue cellulitis, avf in lue with good thrill and bruit, ultrasound without evidence of abscess. reamins to have a good thrill and bruit. likely still able to use but will discuss with neph if a temp hd line is needed
-iv atb, bcx x2
[2024-08-10 13:46] LABS: Glucose - Point of Care 103 mg/dl (70-99)
[2024-08-10] MEDS: RENVELA 3200 MG PO ×2 (13:53→17:41)
[2024-08-10] MEDS: VANCOCIN HCL 500 MG 100 IV (14:31)
--- NOTE | 2024-08-10 16:33 | TRANSFER ---
pt admitted to ICU as IMU overflow to room 3369. admission completed. pt pulled over from stretcher to bed. Pt very [place]. 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 AAOx3, forgetful at times. slightly drowsy, more awake than this morning. eating with assistance. SR on
telemetry heart rate in 70s. Left upper arm +3 edema, + radial pulse, + bruit/thrill. heels boggy- dressings placed. right upper back with old scab.
[2024-08-10] MEDS: ROCALTROL 0.5 MCG PO (17:41)
[2024-08-10] MEDS: TIMOPTIC 0.5% OPHTHALMIC SOLUTION 1 DROP OPHTH ×2 (17:46→21:20)
[2024-08-10] MEDS: ALPHAGAN 0.2% EYE DROPS 1 DROP BOTH EYES ×2 (17:46→21:20)
[2024-08-10 17:53] LABS: Glucose - Point of Care 159 mg/dl (70-99)
[2024-08-10] MEDS: NOVOLOG FLEXPEN-LOW RESISTANCE 1 UNITS SC (18:27)
[2024-08-10] MEDS: LOPRESSOR 12.5 MG PO (21:19)
[2024-08-10] MEDS: PEPCID 20 MG PO (21:19)
[2024-08-10] MEDS: XALATAN OPHTHALMIC SOLUTION 1 DROP BOTH EYES (21:21)
[2024-08-10 21:50] LABS: Glucose - Point of Care 112 mg/dl (70-99)
[2024-08-11] VITALS (52 sets, daily range): BP systolic 115–181; BP diastolic 45–122; BMI 23.8; BMI 23.5
--- NOTE | 2024-08-11 00:46 | PTCARENOTE ---
Pt assessed. Alert and oriented x3. Forgetful. Moves all extremities. Pt blind and profoundly KOI. Pt endorses (+) sensation to extremities x4. Neurovascular checks performed q2. Weak but palpable pulses noted. LUE with +4 edema and erythema noted.
Extremity placed on pillow. NSR on monitor. Resps easy and even. 2L NC placed HS. Pt uses CPAP HS at home. Lungs CTABL. Abd soft nontender. Scab noted to R shoulder. Heels elevated. Heel foams in place due to erythema and bogginess noted on day
shift. No s/s of distress assessed. All meds provided as ordered. Will continue to monitor.
[2024-08-11 05:10] LABS: Hematocrit 29.2 % (39.0-52.0); Hemoglobin 9.9 g/dL (13.0-18.0); Mean Corp Hgb Conc. 33.9 g/dL (33.0-37.0); Mean Corpuscular Volume 97.3 fL (80.0-94.0); Mean Platelet Volume 11.1 fL (7.4-10.4); Platelet Count 165 10^3/uL (130-400); Red Cell Dist. Width 13.1 % (11.5-14.5); White Blood Cell Count 13.1 10^3/uL (4.8-10.8)
--- NOTE | 2024-08-11 05:15 | PTCARENOTE ---
No change in pt status since last assessment. No s/s of distress assessed. Will continue to monitor.
[2024-08-11 05:17] LABS: INR 1.01; PT 13.8 Sec (11.4-14.6)
[2024-08-11 05:18] LABS: APTT 40.6 Sec (23.4-35.0)
[2024-08-11] MEDS: TYLENOL 650 MG PO ×2 (05:36→14:56)
[2024-08-11 05:49] LABS: Vancomycin Random 17.6 ug/ml
[2024-08-11 06:46] LABS: Blood Urea Nitrogen 85 mg/dl (9-20); Glucose 105 mg/dl (70-99)
[2024-08-11 06:47] LABS: Calcium 9.6 mg/dl (8.4-10.2); Carbon Dioxide 24 mmol/L (22-30); Chloride 94 mmol/L (98-107); Estimated Creatinine Clearance 11 ml/min; Magnesium 2.5 mg/dl (1.6-2.3); Phosphorus 5.1 mg/dl (2.5-4.5); Potassium 4.8 mmol/L (3.5-5.1); Sodium 132 mmol/L (135-145); eGFR 9.57
--- NOTE | 2024-08-11 07:00 | PTCARENOTE ---
received report from previous RN. pt resting in bed. arouses to voice. orientedx3. forgetful at times. very KOI, blind. SR on telemetry heart rate 60-70s. pulses palpable. Left arm with +3 edema, redness, warmth. +radial pulse, +bruit/thrill. pt on
room air, sat 96%. lung sounds diminished. active bowel sounds. denies urge to void, oliguric, for dialysis today at 12:30. see worklist for full nursing assessment and interventions.
[2024-08-11] MEDS: DEMADEX 80 MG PO (07:15)
[2024-08-11] MEDS: RENVELA 3200 MG PO ×3 (07:15→17:36)
[2024-08-11] MEDS: RANEXA EXTENDED RELEASE 500 MG PO ×2 (07:16→21:39)
[2024-08-11] MEDS: TIMOPTIC 0.5% OPHTHALMIC SOLUTION 1 DROP OPHTH ×3 (07:16→21:40)
[2024-08-11] MEDS: ASPIR LOW (ENTERIC COATED) 81 MG PO (07:16)
[2024-08-11] MEDS: ALPHAGAN 0.2% EYE DROPS 1 DROP BOTH EYES ×3 (07:17→21:40)
[2024-08-11] MEDS: AZOPT 1% OPHTHALMIC SUSPENSION 1 DROP BOTH EYES ×3 (07:19→21:40)
--- NOTE | 2024-08-11 08:05 | PTCARENOTE ---
vitals captured from previous shift
--- NOTE | 2024-08-11 08:49 | PHA.VAN.FU ---
Vancomycin Assessment / Plan
- Assessment
Renal Function: SCR Increasing
Hemodialysis Schedule: MWF
WBC's are: Trending Down
In the past 24 hrs, patient has been: Afebrile
Concomitant Antimicrobials: Cefepime 1000mg Q24H
- Assessment - Therapeutic Drug Monitoring
Random Level: 17.6 on 08/11/24
- Dosing Plan
Dosing by Level: Re-dose today (HD today. Will give 500mg post HD)
- Monitoring Plan
No level(s) ordered at this time: Will obtain random level prior next HD session
- Follow Up
Pharmacy will continue to follow.
Vancomycin Follow UP
- -
Patient Age: 83
Patient Sex: Male
Vancomycin Day #: 2
Indication: Skin And Soft Tissue
Requesting Provider: Dr. Beatrice Adams
Pertinent Antimicrobial Allergies:
ciprofloxacin - burning of vein from IV
erythromycin - hives
tetracycline - hives
tigecycline - unknown
Height / Weight:
Height 5 ft 10 in
Actual Weight 75.2 kg
Pertinent Past Medical History: ESRD on HD, DM II
- Vital Signs / Lab Results
Temp Pulse Resp BP Pulse Ox
98.0 F 63 13 168/59 100
08/11/24 08:24 08/11/24 08:00 08/11/24 08:00 08/11/24 08:00 08/11/24 07:30
Lab Results - Hematology
08/10/24 08/11/24
01:33 04:41
WBC 16.2 H 13.1 H
Lab Results - Chemistry
08/10/24 08/11/24
01:33 04:41
BUN 71 H 85 H
Creatinine 4.2 H* 5.6 H*
Estimated Creat Clear 14 11
Albumin 4.0
Therapeutic Drug Monitoring
Random Vancomycin 17.6 ug/ml 08/11/24 04:41
[2024-08-11 09:11] LABS: Glucose - Point of Care 102 mg/dl (70-99)
--- NOTE | 2024-08-11 09:30 | PTCARENOTE ---
pt transferred to IMU, report given to [place] RIZZO
--- NOTE | 2024-08-11 09:47 | PTCARENOTE ---
Received patient from ICU. Patient to get HD today via left AV fistula with Myra RIZZO. Left arm firm and swollen. OK to use for HD. US negative for clot. Patient alert and oriented. 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 VS stable.
[2024-08-11] MEDS: NOVOLOG FLEXPEN-LOW RESISTANCE SC ×2 (09:55→14:31)
[2024-08-11 11:32] LABS: Glycohemoglobin (HgbA1c) 5.1 % (4.0-5.6)
[2024-08-11] MEDS: ProAmatine 10 MG PO (11:50)
--- NOTE | 2024-08-11 12:02 | CM ---
CM following re: discharge planning.
Reviewed chart, met with pt.
Pt is an 83 year old male, admitted with primary dx of LUE Hematoma.
Patient and live in a 2-story home with a ramp to enter and a stair glide to the second floor, they have supportive son.
Per spouse pt has been independent at baseline with ADLs and ambulation using a rolling walker, has a wheelchair. He has mostly been getting around with his transport chair/wheelchair. History of [facility]. History of [facility] and
[facility].
Patient's or private caregiver drive the to [place] [facility] on , , , chair time 11:45 a.m. and his private caregiver assists him in getting in/out of the car. Per spouse private caregiver helps the pt during HD days. Per spouse pt has
13 hours [facility] caregiver services per week provided by [facility]. Pt's spouse stated she feels that pt will return back home at discharge with [facility] and caregiver services. At the same time pt's spouse stated if SNF level of care
recommended than pt needs to go to a SNF.
PT and OT will evaluate the pt to determine a level of care at discharge.
PCP is Dr. Pepe Riley
Pharmacy: [facility] ([facility].
D/C plan: home with [facility], resumptions of outpatient HD treatment and caregiver/family support. Awaiting for PT evaluation to clarify discharge plan.
CM will follow with discharge plan updates as hospitalization progresses
--- NOTE | 2024-08-11 12:23 | W.PN.NEPH.HD ---
Assessment
-
pt seen during HD
vitals stable post midodrine
AVF functions fine so far
AVF gram timing per vascular
abx per primary for cellulitis
Progress Note - Hemodialysis
-
Date of Service: August 11, 2024
Duration: 45 minutes and 3 hours
Potassium Bath: 2
Calcium Bath: 2.5
Opti-Dialyzer: 160
Ultrafiltration: Other (2-2.5kg)
Blood Flow: 400
Dialysate Flow: 600
Heparin: no
EPO: no
[2024-08-11 12:27] LABS: Glucose - Point of Care 101 mg/dl (70-99)
[2024-08-11] MEDS: VANCOCIN 200 IV (13:23)
[2024-08-11] MEDS: VANCOCIN HCL 500 MG 100 IV (14:30)
[2024-08-11] MEDS: MAXIPIME 1000 MG IV (14:31)
[2024-08-11] MEDS: STERILE WATER FOR INJECTION 10 ML IV (14:31)
[2024-08-11] MEDS: FLUSH (NSS) 2 FLUSH IV (14:32)
--- NOTE | 2024-08-11 16:04 | PN.CDI ---
CDI
- -
CDI:
Physician Documentation Request
Admit Date: 08/10/24 05:06
Dear Doctor Bryan,
Please review the following and provide your response in the progress notes.
Clinical Indicators:
Pt admitted with sepsis 2/2 LUE cellulitis
Documented per nursing wound care notes , ' Present on admission bilateral heel... Pressure injury stage 1 ..Heel foams applied.'
Physician documentation of the type and location of wounds is required for compliant documentation. Based on the above clinical findings and your assessment, please provide the following in your progress note:
1. Location of the ulcer/wound, including laterality.
2. Type (etiology) of ulcer/wound:
- Pressure (decubitus) ulcer
- Non-pressure ulcer
- Other ( please specify)
Use of terms such as suspected, likely, concern for, or probable (associated with a specific diagnosis that is being evaluated, monitored, or treated as if it exists) are acceptable and can be coded in the inpatient setting, when documented at the
time of discharge.
Thank you,
Ailyn Seaman RN
CDI Specialist
[place] [facility]
Please use your independent medical judgment in providing your response.
*Source: National Pressure Ulcer Advisory Panel (NPUAP)
--- NOTE | 2024-08-11 17:31 | W.PN.HOSP.TC ---
Today's Communication/Plan
-
Assessment / Plan
Assessment / Plan
Left upper extremity cellulitis
-Continue vancomycin dosed on HD days continue cefepime
-Follow-up blood cultures
ESRD on HD, left upper extremity AV fistula
-Nephrology following continue HD per nephrology recommendations continue binders
Hard of hearing and blind
-Unclear history of dementia
-Follow changes in mood mentation
DM type II
-Accu-Chek sliding scale A1c 1 40-1 80
-Carb controlled diet
CAD
Continue aspirin Ranexa, continue beta-stephan
GERD
-Continue PPI
Anticipated Discharge: 24 - 48 hours
Subjective/Interval History
-
Date of Service: August 11, 2024
Seen and examined. Left upper extremity remains swollen however tolerating hemodialysis well via left upper extremity AV fistula
Extremely hard of hearing have to yell in the ears
Objective Data
-
Labs:
Laboratory Results
08/11/24
04:41
Sodium 132 L
Potassium 4.8
Chloride 94 L
Carbon Dioxide 24
BUN 85 H
Creatinine 5.6 H*
Glucose 105 H
Calcium 9.6
Vital Signs:
Vital Signs
Temp Pulse Resp BP Pulse Ox
97.5 F 66 16 151/55 95
08/11/24 11:05 08/11/24 17:15 08/11/24 17:15 08/11/24 17:00 08/11/24 16:12
Physical Exam
-
General: No Apparent Distress and Appears Chronically Ill
HEENT: Normocephalic and Atraumatic
Respiratory: Clear to Auscultation
Cardiac: Regular Rhythm and S1/S2
GI: Soft, Nontender and Nondistended
Musculoskeletal: Edema, Left Upper Extrem
Neuro: Awake and Alert
Psych: Calm
[2024-08-11] MEDS: ROCALTROL 0.5 MCG PO (17:36)
[2024-08-11] MEDS: NOVOLOG FLEXPEN-LOW RESISTANCE 1 UNITS SC (17:48)
--- NOTE | 2024-08-11 18:00 | PTCARENOTE ---
Patient tolerated HD. 2 KG removed today. Appetite good. Patient needs assistance with meals. He is being transferred to [address] [place] [address] 341. Report given to Ami RIZZO.
[2024-08-11 18:04] LABS: Glucose - Point of Care 152 mg/dl (70-99)
--- NOTE | 2024-08-11 20:11 | PTCARENOTE ---
Patient arrived to 334 from IMU, patient appears to be lethargic, opens eyes to stimuli but not holding conversation at this time. Initiated on bods developer #7 on arrival, HR 60s, NSR with BBBC. Left arm fistula present, +bruit/+thrill, bandage
CDI. Bed alarm applied. Call silva in reach, will continue to monitor.
[2024-08-11] MEDS: LOPRESSOR 12.5 MG PO (21:39)
[2024-08-11] MEDS: XALATAN OPHTHALMIC SOLUTION 1 DROP BOTH EYES (21:40)
[2024-08-11 21:50] LABS: Glucose - Point of Care 110 mg/dl (70-99)
[2024-08-12] VITALS (8 sets, daily range): BP systolic 157–185; BP diastolic 59–89; PULSE 70
--- NOTE | 2024-08-12 08:25 | PHA.VAN.FU ---
Vancomycin Assessment / Plan
- Assessment
Renal Function: No New Labs Today
Hemodialysis Schedule: MWF
In the past 24 hrs, patient has been: Afebrile
Concomitant Antimicrobials: Cefepime
- Dosing Plan
Continue: Dose by level PRN HD MWF
- Monitoring Plan
No level(s) ordered at this time: Will order Random level for 1/6 AM
- Follow Up
Pharmacy will continue to follow.
Vancomycin Follow UP
- -
Patient Age: 83
Patient Sex: Male
Vancomycin Day #: 3
Indication: Skin And Soft Tissue
Requesting Provider: Dr. Beatrice Adams
Pertinent Antimicrobial Allergies:
ciprofloxacin - burning of vein from IV
erythromycin - hives
tetracycline - hives
tigecycline - unknown
Height / Weight:
Height 5 ft 10 in
Actual Weight 74.191 kg
Pertinent Past Medical History: ESRD on HD, DM II
- Vital Signs / Lab Results
Temp Pulse Resp BP Pulse Ox
98.2 F 70 17 166/89 96
08/12/24 03:11 08/12/24 03:11 08/12/24 03:11 08/12/24 03:11 08/12/24 03:11
Lab Results - Hematology
08/10/24 08/11/24
01:33 04:41
WBC 16.2 H 13.1 H
Lab Results - Chemistry
08/10/24 08/11/24
01:33 04:41
BUN 71 H 85 H
Creatinine 4.2 H* 5.6 H*
Estimated Creat Clear 14 11
Albumin 4.0
Microbiology Results
08/10/24 14:30 MRSA Screen - Final
Nose No Methicillin Resistant Staphylococcus aureus isolated.
08/10/24 11:16 Blood Culture - Preliminary
Blood/Venous No Growth in 24 hours- Final report to follow
08/10/24 10:29 Blood Culture - Preliminary
Blood/Venous No Growth in 24 hours- Final report to follow
Therapeutic Drug Monitoring
Random Vancomycin 17.6 ug/ml 08/11/24 04:41
[2024-08-12 09:20] LABS: Glucose - Point of Care 97 mg/dl (70-99)
[2024-08-12] MEDS: RENVELA 3200 MG PO ×2 (09:22→12:41)
[2024-08-12] MEDS: RANEXA EXTENDED RELEASE 500 MG PO ×2 (09:23→21:41)
[2024-08-12] MEDS: ZOFRAN 4 MG IV (09:23)
[2024-08-12] MEDS: DEMADEX 80 MG PO (09:23)
[2024-08-12] MEDS: ASPIR LOW (ENTERIC COATED) 81 MG PO (09:23)
[2024-08-12] MEDS: TIMOPTIC 0.5% OPHTHALMIC SOLUTION 1 DROP OPHTH ×3 (09:24→21:40)
[2024-08-12] MEDS: ALPHAGAN 0.2% EYE DROPS 1 DROP BOTH EYES ×3 (09:24→21:40)
[2024-08-12] MEDS: AZOPT 1% OPHTHALMIC SUSPENSION 1 DROP BOTH EYES ×3 (09:24→21:39)
[2024-08-12] MEDS: NOVOLOG FLEXPEN-LOW RESISTANCE SC ×3 (09:26→18:00)
[2024-08-12 12:24] LABS: Glucose - Point of Care 90 mg/dl (70-99)
[2024-08-12] MEDS: MAXIPIME 1000 MG IV (12:42)
[2024-08-12] MEDS: STERILE WATER FOR INJECTION 10 ML IV (12:42)
--- NOTE | 2024-08-12 14:29 | W.PN.HOSP.TC ---
Today's Communication/Plan
-
Assessment / Plan
Assessment / Plan
General: No Apparent Distress and Appears Chronically Ill
HEENT: Normocephalic and Atraumatic
Respiratory: Clear to Auscultation
Cardiac: Regular Rhythm and S1/S2
GI: Soft, Nontender and Nondistended
Musculoskeletal: Edema, Left Upper Extrem with cellulitis changes
Neuro: Awake and Alert
Psych: Calm
Left upper extremity cellulitis
-Continue vancomycin dosed on HD days continue cefepime
-Follow-up blood cultures
-Vascular surgery considering angiogram. Will discuss this with them of when
ESRD on HD, left upper extremity AV fistula
-Nephrology following continue HD per nephrology recommendations continue binders
Hard of hearing and blind
-Unclear history of dementia
-Follow changes in mood mentation
DM type II
-Accu-Chek sliding scale A1c 1 40-1 80
-Carb controlled diet
CAD
Continue aspirin Ranexa, continue beta-stephan
GERD
-Continue PPI
Anticipated Discharge: > 48 hours
Subjective/Interval History
-
Date of Service: August 12, 2024
Seen and examined. No new complaints. No acute overnight events.
Objective Data
-
Vital Signs:
Vital Signs
Temp Pulse Resp BP Pulse Ox
97.5 F 61 16 157/59 100
08/12/24 11:00 08/12/24 11:00 08/12/24 11:00 08/12/24 11:00 08/12/24 11:00
I&O
08/11/24 08/12/24 08/13/24
06:59 06:59 06:59
Intake Total 1315 / 1315
Balance 1315 / 1315
--- NOTE | 2024-08-12 15:57 | PTCARENOTE ---
Pt continuing to take telemetry monitoring off and getting very agitated about the electrodes sticking on his skin. This RN messaged the MD and asked if pt could come off telemetry. MD said pt can come off telemetry.
--- NOTE | 2024-08-12 16:42 | RESPNOTE ---
1600 - Attempted to initiate CPAP with patient per Neurology suggestion. Patient is partially deaf , partially blind and confused. I could not convince patient to keep mask on as he continually removes mask. RN notified of situation. I suggested
a 1:1 if this tx is required. Hospitalist stated order is QHS and PRN. RN/RT unsuccessful in attempt.
--- NOTE | 2024-08-12 16:51 | W.PN.NEPH.PH ---
Today's Communication / Plan
-
HD Wednesday
Assessment/Plan
-
Assessment
ESRD
Fever
Left upper arm edema, erythema
Diabetes mellitus type 2
CAD
Plan
cont abx for cellulitis of AVF arm, fistula functioning
requests to resume CPAP as he seem to be confused
We may try to challenge weight though this has been difficult with intradialytic hypotension.
Eventual AV fistulogram to evaluate for central stenosis-timing per vasc
renal diet and FR
-
-
Date of Service: August 12, 2024
CC / HPI / ROS
-
Chief Complaint:
ESRD
History of Present Illness:
no fever, BP high but has historically labile trend
Review of Systems:
confused per family and hallucinating
did not use CPAP in 3days
Labs
-
Labs:
WBC 13.1 10^3/uL (4.8-10.8) H 08/11/24 04:41
RBC 3.00 10^6/uL (4.70-6.10) L 08/11/24 04:41
Hgb 9.9 g/dL (13.0-18.0) L 08/11/24 04:41
Hct 29.2 % (39.0-52.0) L 08/11/24 04:41
Plt Count 165 10^3/uL (130-400) 08/11/24 04:41
Sodium 132 mmol/L (135-145) L 08/11/24 04:41
Potassium 4.8 mmol/L (3.5-5.1) 08/11/24 04:41
Chloride 94 mmol/L (98-107) L 08/11/24 04:41
Carbon Dioxide 24 mmol/L (22-30) 08/11/24 04:41
BUN 85 mg/dl (9-20) H 08/11/24 04:41
Creatinine 5.6 mg/dL (0.7-1.3) H* 08/11/24 04:41
eGFR 9.57 08/11/24 04:41
Glucose 105 mg/dl (70-99) H 08/11/24 04:41
Calcium 9.6 mg/dl (8.4-10.2) 08/11/24 04:41
Phosphorus 5.1 mg/dl (2.5-4.5) H 08/11/24 04:41
Albumin 4.0 g/dl (3.5-5.0) 08/10/24 01:33
Physical Exam
-
Vital Signs:
Vital Signs
Temp Pulse Resp BP Pulse Ox
97.7 F 71 16 171/78 97
08/12/24 15:00 08/12/24 15:00 08/12/24 15:00 08/12/24 15:00 08/12/24 15:00
Cardiovascular:: Regular rate and rhythm
Respiratory:: Bilateral: CTA
Lung Excursion:: Normal
Abdomen:: Nontender and Soft
Extremity Edema:: None: Bilateral:
Maguire Catheter: No
Other Findings::
AVF arm edema same, erythema better
[2024-08-12] MEDS: RENVELA PO (18:09)
[2024-08-12] MEDS: ROCALTROL PO (18:10)
[2024-08-12 21:18] LABS: Glucose - Point of Care 93 mg/dl (70-99)
[2024-08-12] MEDS: XALATAN OPHTHALMIC SOLUTION 1 DROP BOTH EYES (21:39)
[2024-08-12] MEDS: PEPCID 20 MG PO (21:39)
[2024-08-12] MEDS: LOPRESSOR 12.5 MG PO (21:39)
[2024-08-13 04:50] VITALS: BP 190/62
--- NOTE | 2024-08-13 05:09 | PTCARENOTE ---
Addendum entered by Radhika Hidalgo RN 08/13/24 06:18:
Tylenol administered, see OCT. BP rechecked, still elevated at 178/62 manual check. Patient is only receiving 12.5mg Lopressor at HS, no morning medications ordered. MICHELLE Mantilla on floor at this time, will discuss with dayshift team regarding
BPs -- have been elevated since admission with no change in medications. Patient in bed, restless and remains with hallucinations at this time. Patient is grabbing at the air and unable to follow commands. Bed alarm maintained. Will continue to
monitor.
Original Note:
Patient with elevated BP, 190/62 manual check after high automatic reading during VS checks. Patient remains restless in bed, was just hallucinating approx 1 hour prior to high BP, stating 'Help me! There are so many cats. There are cats all around
me and I am scared.' Patient responding to simple questions throughout shift, unable to hold a conversation at this time. Left arm +4 pitting edema, very red and firm, elevated on pillows but needing to reposition arm throughout the evening as
patient is too restless for it to stay elevated in place. Notified TRIMMER LOADER Adelaida Mantilla regarding high BPs. Will give PRN Tylenol now, recheck BPs and monitor. Bed alarm in place, will monitor patient.
[2024-08-13] MEDS: TYLENOL 650 MG PO (05:21)
[2024-08-13 06:00] VITALS: BMI 23.3
[2024-08-13 06:01] LABS: Hematocrit 31.1 % (39.0-52.0); Hemoglobin 10.8 g/dL (13.0-18.0); Mean Corp Hgb Conc. 34.7 g/dL (33.0-37.0); Mean Corpuscular Hgb 32.9 pg (27.0-31.0); Mean Corpuscular Volume 94.8 fL (80.0-94.0); Platelet Count 152 10^3/uL (130-400); Red Blood Cell Count 3.28 10^6/uL (4.70-6.10); Red Cell Dist. Width 12.9 % (11.5-14.5); White Blood Cell Count 7.1 10^3/uL (4.8-10.8)
[2024-08-13 06:05] VITALS: BP 178/62
[2024-08-13 06:24] LABS: Blood Urea Nitrogen 63 mg/dl (9-20); Calcium 9.7 mg/dl (8.4-10.2); Carbon Dioxide 26 mmol/L (22-30); Chloride 93 mmol/L (98-107); Estimated Creatinine Clearance 13 ml/min; Glucose 97 mg/dl (70-99); Potassium 4.8 mmol/L (3.5-5.1); Sodium 134 mmol/L (135-145); eGFR 11.81
[2024-08-13 07:00] VITALS: BP 135/68
[2024-08-13 08:23] LABS: Glucose - Point of Care 97 mg/dl (70-99)
[2024-08-13] MEDS: NOVOLOG FLEXPEN-LOW RESISTANCE SC ×3 (08:36→17:46)
--- NOTE | 2024-08-13 08:56 | PHA.VAN.FU ---
Vancomycin Assessment / Plan
- Assessment
Hemodialysis Schedule: MWF
WBC's are: Trending Down
In the past 24 hrs, patient has been: Afebrile
Concomitant Antimicrobials: Cefepime
- Dosing Plan
Continue: PRN HD MWF
Dosing by Level: Hold off on dosing today
- Monitoring Plan
Random Level: 1/6 AM
- Follow Up
Pharmacy will continue to follow.
Vancomycin Follow UP
- -
Patient Age: 83
Patient Sex: Male
Vancomycin Day #: 4
Indication: Skin And Soft Tissue
Requesting Provider: Dr. Beatrice Admas
Pertinent Antimicrobial Allergies:
ciprofloxacin - burning of vein from IV
erythromycin - hives
tetracycline - hives
tigecycline - unknown
Height / Weight:
Height 5 ft 10 in
Actual Weight 73.709 kg
Pertinent Past Medical History: ESRD on HD, DM II
- Vital Signs / Lab Results
Temp Pulse Resp BP Pulse Ox
98.3 F 66 22 135/68 97
08/13/24 07:00 08/13/24 07:00 08/13/24 07:00 08/13/24 07:00 08/13/24 07:00
Lab Results - Hematology
08/11/24 08/13/24
04:41 05:38
WBC 13.1 H 7.1
Lab Results - Chemistry
08/11/24 08/13/24
04:41 05:38
BUN 85 H 63 H
Creatinine 5.6 H* 4.7 H*
Estimated Creat Clear 11 13
Microbiology Results
08/10/24 11:16 Blood Culture - Preliminary
Blood/Venous No Growth in 48 hours- Final report to follow
08/10/24 10:29 Blood Culture - Preliminary
Blood/Venous No Growth in 48 hours- Final report to follow
08/10/24 14:30 MRSA Screen - Final
Nose No Methicillin Resistant Staphylococcus aureus isolated.
Therapeutic Drug Monitoring
Random Vancomycin 17.6 ug/ml 08/11/24 04:41
[2024-08-13] MEDS: RANEXA EXTENDED RELEASE PO ×3 (09:02→20:48)
[2024-08-13] MEDS: DEMADEX PO ×2 (09:02→16:58)
[2024-08-13] MEDS: RENVELA PO ×4 (09:03→17:47)
[2024-08-13] MEDS: ASPIR LOW (ENTERIC COATED) PO ×2 (09:03→16:59)
[2024-08-13] MEDS: ALPHAGAN 0.2% EYE DROPS 1 DROP BOTH EYES ×3 (09:04→21:42)
[2024-08-13] MEDS: AZOPT 1% OPHTHALMIC SUSPENSION 1 DROP BOTH EYES ×3 (09:04→21:42)
[2024-08-13] MEDS: TIMOPTIC 0.5% OPHTHALMIC SOLUTION 1 DROP OPHTH ×3 (09:05→21:42)
[2024-08-13] MEDS: MAXIPIME 1000 MG IV (11:07)
[2024-08-13] MEDS: STERILE WATER FOR INJECTION 10 ML IV (11:09)
[2024-08-13] MEDS: FLUSH (NSS) 2 FLUSH IV (11:11)
[2024-08-13 13:40] LABS: Glucose - Point of Care 97 mg/dl (70-99)
[2024-08-13 15:40] VITALS: BP 186/71
--- NOTE | 2024-08-13 16:14 | W.PN.NEPH.PH ---
Today's Communication / Plan
-
HD tomorrow
Assessment/Plan
-
Assessment
ESRD
Fever
Left upper arm edema, erythema
Diabetes mellitus type 2
CAD
Plan
cont abx for cellulitis of AVF arm, fistula functioning
Emla cream prior HD-ordered
We may try to challenge weight though this has been difficult with intradialytic hypotension.
Eventual AV fistulogram to evaluate for central stenosis-timing per vasc
renal diet and FR
-
-
Date of Service: August 13, 2024
CC / HPI / ROS
-
Chief Complaint:
ESRD
History of Present Illness:
BP labile trend-chronic
hb 10.8, k normal
Review of Systems:
sleeping with CPAP, [place]
no fever
Labs
-
Labs:
WBC 7.1 10^3/uL (4.8-10.8) 08/13/24 05:38
RBC 3.28 10^6/uL (4.70-6.10) L 08/13/24 05:38
Hgb 10.8 g/dL (13.0-18.0) L 08/13/24 05:38
Hct 31.1 % (39.0-52.0) L 08/13/24 05:38
Plt Count 152 10^3/uL (130-400) 08/13/24 05:38
Sodium 134 mmol/L (135-145) L 08/13/24 05:38
Potassium 4.8 mmol/L (3.5-5.1) 08/13/24 05:38
Chloride 93 mmol/L (98-107) L 08/13/24 05:38
Carbon Dioxide 26 mmol/L (22-30) 08/13/24 05:38
BUN 63 mg/dl (9-20) H 08/13/24 05:38
Creatinine 4.7 mg/dL (0.7-1.3) H* 08/13/24 05:38
eGFR 11.81 08/13/24 05:38
Glucose 97 mg/dl (70-99) 08/13/24 05:38
Calcium 9.7 mg/dl (8.4-10.2) 08/13/24 05:38
Phosphorus 5.1 mg/dl (2.5-4.5) H 08/11/24 04:41
Albumin 4.0 g/dl (3.5-5.0) 08/10/24 01:33
Physical Exam
-
Vital Signs:
Vital Signs
Temp Pulse Resp BP Pulse Ox
97.4 F 61 17 186/71 95
08/13/24 15:40 08/13/24 15:40 08/13/24 15:40 08/13/24 15:40 08/13/24 15:40
Cardiovascular:: Regular rate and rhythm
Respiratory:: Bilateral: CTA (anteriorly)
Lung Excursion:: Normal
Abdomen:: Nontender and Soft
Extremity Edema:: None: Bilateral:
Maguire Catheter: No
Other Findings::
left UE edema no change
--- NOTE | 2024-08-13 16:57 | W.PN.HOSP.TC ---
Today's Communication/Plan
-
Continue IV antibiotics
Continue hemodialysis
Will need to rediscuss on Wednesday with vascular surgery if they still want to do a fistulogram
Assessment / Plan
Assessment / Plan
General: No Apparent Distress and Appears Chronically Ill
HEENT: Normocephalic and Atraumatic
Respiratory: Clear to Auscultation
Cardiac: Regular Rhythm and S1/S2
GI: Soft, Nontender and Nondistended
Musculoskeletal: Edema, Left Upper ExtremE with cellulitis changes
Neuro: Awake and Alert
Psych: Calm
Left upper extremity cellulitis�improving
-Continue vancomycin dosed on HD days continue cefepime
-Follow-up blood cultures
-Vascular surgery considering angiogram. Will discuss this with them of when
ESRD on HD, left upper extremity AV fistula
-Nephrology following continue HD per nephrology recommendations continue binders
Hard of hearing and blind
-Unclear history of dementia
-Follow changes in mood mentation
DM type II
-Accu-Chek sliding scale A1c 1 40-1 80
-Carb controlled diet
CAD
Continue aspirin Ranexa, continue beta-stephan
GERD
-Continue PPI
SARA
-Continue CPAP
Anticipated Discharge: 24 - 48 hours
Subjective/Interval History
-
Date of Service: August 13, 2024
Seen and examined. No new complaints. No acute overnight events.
Objective Data
-
Labs:
Laboratory Results
08/13/24
05:38
WBC 7.1
Hgb 10.8 L
Hct 31.1 L
Plt Count 152
Sodium 134 L
Potassium 4.8
Chloride 93 L
Carbon Dioxide 26
BUN 63 H
Creatinine 4.7 H*
Glucose 97
Calcium 9.7
Vital Signs:
Vital Signs
Temp Pulse Resp BP Pulse Ox
97.4 F 61 17 186/71 95
08/13/24 15:40 08/13/24 15:40 08/13/24 15:40 08/13/24 15:40 08/13/24 15:40
I&O
08/12/24 08/13/24 08/14/24
06:59 06:59 06:59
Intake Total 1315 / 1315 120 / 120
Balance 1315 / 1315 120 / 120
[2024-08-13 17:21] LABS: Glucose - Point of Care 97 mg/dl (70-99)
[2024-08-13] MEDS: ROCALTROL PO (17:53)
[2024-08-13 18:34] VITALS: BP 164/68
[2024-08-13 21:25] LABS: Glucose - Point of Care 86 mg/dl (70-99)
[2024-08-13] MEDS: LOPRESSOR PO (21:41)
[2024-08-13] MEDS: XALATAN OPHTHALMIC SOLUTION 1 DROP BOTH EYES (21:42)
[2024-08-13 23:50] VITALS: BP 169/75
[2024-08-14 06:00] VITALS: BMI 23.3
[2024-08-14 06:38] LABS: Vancomycin Random 12.5 ug/ml
[2024-08-14 06:56] LABS: Blood Urea Nitrogen 73 mg/dl (9-20); Calcium 9.6 mg/dl (8.4-10.2); Carbon Dioxide 24 mmol/L (22-30); Chloride 92 mmol/L (98-107); Estimated Creatinine Clearance 10 ml/min; Glucose 76 mg/dl (70-99); Potassium 4.9 mmol/L (3.5-5.1); Sodium 135 mmol/L (135-145); eGFR 8.63
[2024-08-14 07:24] LABS: Hematocrit 33.3 % (39.0-52.0); Hemoglobin 11.1 g/dL (13.0-18.0); Mean Corp Hgb Conc. 33.3 g/dL (33.0-37.0); Mean Corpuscular Hgb 32.7 pg (27.0-31.0); Mean Corpuscular Volume 98.2 fL (80.0-94.0); Mean Platelet Volume 10.6 fL (7.4-10.4); Platelet Count 231 10^3/uL (130-400); Red Blood Cell Count 3.39 10^6/uL (4.70-6.10); Red Cell Dist. Width 12.8 % (11.5-14.5); White Blood Cell Count 8.5 10^3/uL (4.8-10.8)
[2024-08-14 07:47] VITALS: BP 126/99
--- NOTE | 2024-08-14 08:03 | PHA.VAN.FU ---
Vancomycin Assessment / Plan
- Assessment
Hemodialysis Schedule: MWF
WBC's are: WNL
In the past 24 hrs, patient has been: Afebrile
Concomitant Antimicrobials: cefepime
- Dosing Plan
Continue: dosing by random level HD days
Dosing by Level: Re-dose today (500 mg x 1 dose post HD today)
- Monitoring Plan
No level(s) ordered at this time: obtain random level prior to next HD session
- Follow Up
Pharmacy will continue to follow.
Vancomycin Follow UP
- -
Patient Age: 83
Patient Sex: Male
Vancomycin Day #: 5
Indication: Skin And Soft Tissue
Requesting Provider: Dr. Beatrice Adams
Pertinent Antimicrobial Allergies:
ciprofloxacin - burning of vein from IV
erythromycin - hives
tetracycline - hives
tigecycline - unknown
Height / Weight:
Height 5 ft 10 in
Actual Weight 73.652 kg
Pertinent Past Medical History: ESRD on HD, DM II
- Vital Signs / Lab Results
Temp Pulse Resp BP Pulse Ox
97.8 F 89 13 126/99 98
08/14/24 07:47 08/14/24 07:47 08/14/24 07:47 08/14/24 07:47 08/14/24 07:47
Lab Results - Hematology
08/13/24 08/14/24
05:38 05:56
WBC 7.1 8.5
Lab Results - Chemistry
08/13/24 08/14/24
05:38 05:56
BUN 63 H 73 H
Creatinine 4.7 H* 6.1 H*
Estimated Creat Clear 13 10
Microbiology Results
08/10/24 11:16 Blood Culture - Preliminary
Blood/Venous No Growth in 72 hours- Final report to follow
08/10/24 10:29 Blood Culture - Preliminary
Blood/Venous No Growth in 72 hours- Final report to follow
Therapeutic Drug Monitoring
Random Vancomycin 12.5 ug/ml 08/14/24 05:56
--- NOTE | 2024-08-14 08:14 | W.PN.HOSP.TC ---
Today's Communication/Plan
-
.
Assessment / Plan
Assessment / Plan
Mr. Clyde Molina is an 83yo M pmh SVT, ESRD, HTN, NIDDM, HLD, PAD admitted for cellulitis of L arm.
Left upper extremity cellulitis
�improving
-Continue vancomycin dosed on HD days continue cefepime
-blood cx - no growth at 4 days
-Vascular surgery - fistulogram
ESRD on HD, left upper extremity AV fistula
-Nephrology following continue HD per nephrology recommendations continue binders
Hard of hearing and blind
-Unclear history of dementia
-Follow changes in mood mentation
DM type II
-Accu-Chek sliding scale A1c 1 40-1 80
-Carb controlled diet
CAD
-Continue aspirin Ranexa, continue beta-stephan
GERD
-Continue PPI
SARA
-Continue CPAP
Diet: diabetic
DVT ppx: SCDs
Code status: FULL CODE
Anticipated Discharge: > 48 hours
Subjective/Interval History
-
Date of Service: August 14, 2024
Mr. Clyde Molina is an 83yo M pmh SVT, ESRD, HTN, NIDDM, HLD, PAD admitted for cellulitis of L arm. Pt has not been taking all of his medications due to acuity.
Objective Data
-
Labs:
Laboratory Results
08/14/24
05:56
WBC 8.5
Hgb 11.1 L
Hct 33.3 L
Plt Count 231 D
Sodium 135
Potassium 4.9
Chloride 92 L
Carbon Dioxide 24
BUN 73 H
Creatinine 6.1 H*
Glucose 76
Calcium 9.6
Vital Signs:
Vital Signs
Temp Pulse Resp BP Pulse Ox
97.8 F 89 13 126/99 98
01/06/25 07:47 08/14/24 07:47 08/14/24 07:47 08/14/24 07:47 08/14/24 07:47
I&O
08/13/24 08/14/24 08/15/24
06:59 06:59 06:59
Intake Total 120 / 120
Balance 120 / 120
Review of Systems
-
Unable to obtain full review of systems at this time due to: Patient Non-verbal
Physical Exam
-
General: Well Developed and Well Nourished
HEENT: Normocephalic, Atraumatic and Other (CPAP)
Respiratory: Clear to Auscultation
Cardiac: Regular Rhythm and S1/S2
Musculoskeletal: No Clubbing, No Cyanosis and No Edema
Skin: Warm, Dry and Rash
[2024-08-14 09:14] LABS: Glucose - Point of Care 86 mg/dl (70-99)
[2024-08-14] MEDS: NOVOLOG FLEXPEN-LOW RESISTANCE SC ×3 (10:02→17:13)
[2024-08-14] MEDS: RENVELA PO ×3 (10:17→17:18)
[2024-08-14] MEDS: ASPIR LOW (ENTERIC COATED) PO (10:17)
[2024-08-14] MEDS: DEMADEX PO (10:18)
[2024-08-14] MEDS: RANEXA EXTENDED RELEASE PO ×2 (10:18→20:00)
[2024-08-14] MEDS: ALPHAGAN 0.2% EYE DROPS 1 DROP BOTH EYES ×3 (10:21→21:44)
[2024-08-14] MEDS: TIMOPTIC 0.5% OPHTHALMIC SOLUTION 1 DROP OPHTH ×3 (10:22→21:39)
[2024-08-14] MEDS: AZOPT 1% OPHTHALMIC SUSPENSION 1 DROP BOTH EYES ×3 (10:23→21:41)
--- NOTE | 2024-08-14 10:45 | PTCARENOTE ---
Upon AM assessment, RN found patient unable to follow commands, not responding to voice. RN took vital signs- 127/99; HR 89; RR 18; 97.8F; 100% room air. PO medications were not administered due to patient not following swallowing commands. Of note,
patient has not had PO torsemide, aspirin, Ranexa, and Renvela in two days now. Creatinine worse on labs work this am. RN Relayed all the above information to Hospitalist team.
RN also spoke with who endorsed that this presentation is a change from his baseline status, however, it is not uncommon for him to present like this on Mondays as his last HD session is usually on Fridays.
[2024-08-14] MEDS: MAXIPIME 1000 MG IV (11:02)
[2024-08-14] MEDS: STERILE WATER FOR INJECTION 10 ML IV (11:03)
--- NOTE | 2024-08-14 11:21 | W.PN.UPDATE ---
Update Note
Progress Note Update
I saw and evaluated the patient. I reviewed the resident�s note and agree with findings and plan as documented in the resident�s note.
Gen: NAD, appears chronically ill
Neck: supple.
CV: RRR, +S1/S2, no m/r/g.
Resp: CTAB anteriorly, no rales, wheezes, or rhonchi.
Skin: 3+ LUE edema, skin discoloration consistent with resolving cellulitis
Neuro: CN 2-12 intact, non-focal.
Psych: Normal mood and affect.
08/10/24 10:29 Blood/Venous Blood Culture - Preliminary
No Growth in 4 days- Final report to follow
08/10/24 11:16 Blood/Venous Blood Culture - Preliminary
No Growth in 72 hours- Final report to follow
08/10/24 14:30 Nose MRSA Screen - Final
No Methicillin Resistant Staphylococcus aureus isolated.
LUE cellulitis:
-Continue vancomycin/cefepime
-BCxs NGTD
-leukocytosis has resolved
-Vascular surgery considering angiogram
-appears to have intermittent acute metabolic encephalopathy
Other problems:
ESRD: cont HD via AVF, renal following
Hard of hearing and blind
Unclear if h/o dementia
DM2: SSI/accuchecks
CAD: Cont ASA/BB/Ranexa
GERD: cont PPI
SARA: cont CPAP
FULL
Currently not on DVT prophylaxis, start Heparin
[2024-08-14 11:45] LABS: Glucose - Point of Care 89 mg/dl (70-99)
--- NOTE | 2024-08-14 12:42 | CM ---
Patient seen at bedside, resting. Patient may benefit from PT/OT assessment. CM sent tt to physician and resident, await response. CM will call to patient family to confirm plan remains to come home with VN from [facility]. CM will continue to follow
for discharge planning needs.
Plan; home with VN vs SNF pending PT/OT assessment and medical treatment plan
--- NOTE | 2024-08-14 13:41 | W.PN.NEPH.HD ---
Assessment
-
Patient seen on HD
sbp 141 at current u/f
access with good function despite massive LUE edema
remains more confused
Progress Note - Hemodialysis
-
Date of Service: August 14, 2024
Duration: 4 hours
Potassium Bath: 2
Opti-Dialyzer: 160
Ultrafiltration: Other (3kg)
Blood Flow: 400
Dialysate Flow: 600
Heparin: 500 times two
EPO: none
[2024-08-14] MEDS: HEPARIN 500 UNITS IV ×2 (14:23→14:24)
[2024-08-14 15:00] VITALS: BP 184/66
--- NOTE | 2024-08-14 16:32 | PTCARENOTE ---
RN called down to [facility] for tubing for SCD sleeve connection as there are non stocked on unit.
[2024-08-14 17:07] LABS: Glucose - Point of Care 92 mg/dl (70-99)
[2024-08-14] MEDS: VANCOCIN HCL 500 MG 100 IV (17:13)
[2024-08-14] MEDS: ROCALTROL PO (17:18)
[2024-08-14 17:28] VITALS: BP 135/105
[2024-08-14 21:20] VITALS: PULSE 87
[2024-08-14 21:40] LABS: Glucose - Point of Care 100 mg/dl (70-99)
[2024-08-14] MEDS: XALATAN OPHTHALMIC SOLUTION 1 DROP BOTH EYES (21:40)
[2024-08-14] MEDS: HEPARIN 5000 UNITS SC (21:45)
[2024-08-14] MEDS: LOPRESSOR PO (22:00)
[2024-08-14] MEDS: PEPCID PO (22:00)
[2024-08-14 23:19] VITALS: BP 110/86
[2024-08-15 06:00] VITALS: BMI 22.6
[2024-08-15 06:12] LABS: Hematocrit 35.1 % (39.0-52.0); Mean Corp Hgb Conc. 34.2 g/dL (33.0-37.0); Mean Corpuscular Hgb 33.1 pg (27.0-31.0); Mean Platelet Volume 10.7 fL (7.4-10.4); Platelet Count 185 10^3/uL (130-400); Red Blood Cell Count 3.62 10^6/uL (4.70-6.10); White Blood Cell Count 5.7 10^3/uL (4.8-10.8)
[2024-08-15 06:53] LABS: Blood Urea Nitrogen 50 mg/dl (9-20); Calcium 9.7 mg/dl (8.4-10.2); Carbon Dioxide 22 mmol/L (22-30); Chloride 95 mmol/L (98-107); Estimated Creatinine Clearance 13 ml/min; Glucose 80 mg/dl (70-99); Potassium 4.8 mmol/L (3.5-5.1); Sodium 137 mmol/L (135-145); eGFR 12.44
[2024-08-15 08:00] VITALS: BP 124/77
[2024-08-15 08:15] LABS: Glucose - Point of Care 95 mg/dl (70-99)
--- NOTE | 2024-08-15 08:22 | W.PN.HOSP.TC ---
Today's Communication/Plan
-
.
Assessment / Plan
Assessment / Plan
Mr. Clyde Molina is an 83yo M pmh SVT, ESRD, HTN, NIDDM, HLD, PAD admitted for cellulitis of L arm.
Left upper extremity cellulitis
�improving
-Continue vancomycin dosed on HD days continue cefepime
-blood cx - no growth at 4 days
-Vascular surgery - fistulogram
ESRD on HD, left upper extremity AV fistula
-Nephrology following continue HD per nephrology recommendations continue binders
- MWF schedule
Hard of hearing and blind
-Unclear history of dementia
-Follow changes in mood mentation
DM type II
-Accu-Chek sliding scale A1c 1 40-1 80
-Carb controlled diet
CAD
-Continue aspirin Ranexa, continue beta-stephan
GERD
-Continue PPI
SARA
-Continue CPAP
Diet: diabetic
DVT ppx: SCDs
Code status: FULL CODE
Anticipated Discharge: 24 - 48 hours
Subjective/Interval History
-
Date of Service: August 15, 2024
Mr. Clyde Molina is an 83yo M pmh SVT, ESRD, HTN, NIDDM, HLD, PAD admitted for cellulitis of L arm. Swelling in arm is worse today, his wrist band had to be cut and reattached.
Objective Data
-
Labs:
Laboratory Results
08/15/24
05:36
WBC 5.7
Hgb 12.0 L
Hct 35.1 L
Plt Count 185
Sodium 137
Potassium 4.8
Chloride 95 L
Carbon Dioxide 22
BUN 50 H
Creatinine 4.5 H*
Glucose 80
Calcium 9.7
Vital Signs:
Vital Signs
Temp Pulse Resp BP Pulse Ox
97.9 F 90 16 124/77 99
08/15/24 08:00 08/15/24 08:00 08/15/24 08:00 08/15/24 08:00 08/15/24 08:00
I&O
08/14/24 08/15/24 08/16/24
06:59 06:59 06:59
Intake Total 0 / 0
Balance 0 / 0
Review of Systems
-
Unable to obtain full review of systems at this time due to: Acuity and Patient Non-verbal
History Source: Patient
Physical Exam
-
General: Well Developed and Well Nourished
HEENT: Normocephalic and Atraumatic
Respiratory: Clear to Auscultation
Cardiac: Regular Rhythm and S1/S2
GI: Soft, Nontender, Nondistended and Normal Bowel Sounds
Musculoskeletal: Edema, Left Upper Extrem
Skin: Warm, Dry and Rash
[2024-08-15] MEDS: NOVOLOG FLEXPEN-LOW RESISTANCE SC ×3 (09:16→17:22)
[2024-08-15] MEDS: ASPIR LOW (ENTERIC COATED) PO (09:17)
[2024-08-15] MEDS: RENVELA PO ×3 (09:17→16:28)
[2024-08-15] MEDS: DEMADEX PO (09:22)
[2024-08-15] MEDS: RANEXA EXTENDED RELEASE PO ×2 (09:22→20:21)
--- NOTE | 2024-08-15 09:26 | PN.CDI ---
CDI
- -
CDI:
Physician Documentation Request
Admit Date: 08/10/24 05:06
Dear Doctor Jamal,
Please review the following and provide your response in the progress notes.
Clinical Indicators:
Pt admitted with LUE cellulitis/HX of DM/ ESRD on HD
Documented per update note 08/10, ' evidence of sepsis. source lue cellulitis...'
On admission Tmax 101, WBC 16.2,HR 97
Please clarify which of the following most accurately describes the status of the patient's infection:
Sepsis-POA -Still being monitored /treated
- Systemic manifestations of infection, with 2 or more SIRS criteria which include:
- Fever >100.4 degrees F or hypothermia < 96.8 degrees F
- Leukocytosis - WBC > 12,000 or leukopenia - WBC < 4,000 or > 10% bands
- Tachycardia > 90 beats per minute
- Tachypnea - RR > 20 breaths per minute or PaCO2 , 32mmHg
Source: Merck Manual 2013
Sepsis-Resolved
Sepsis -ruled out
Other
Use of terms such as suspected, likely, concern for, or probable (associated with a specific diagnosis that is being evaluated, monitored, or treated as if it exists) are acceptable and can be coded in the inpatient setting, when documented at the
time of discharge.
Thank you,
Ailyn Seaman RN
CDI Specialist
[place] [facility]
Please use your independent medical judgment in providing your response.
--- NOTE | 2024-08-15 09:33 | PN.CDI ---
CDI
- -
CDI:
Physician Documentation Request
Admit Date: 08/10/24 05:06
Dear Doctor Jamal,
Please review the following and provide your response in the progress notes.
Clinical Indicators:
Pt admitted with sepsis 2/2 LUE cellulitis
Documented per nursing wound care notes , ' Present on admission bilateral heel... Pressure injury stage 1 ..Heel foams applied.'
Physician documentation of the type and location of wounds is required for compliant documentation. Based on the above clinical findings and your assessment, please provide the following in your progress note:
1. Location of the ulcer/wound, including laterality.
2. Type (etiology) of ulcer/wound:
- Pressure (decubitus) ulcer
- Non-pressure ulcer
- Other ( please specify)
Use of terms such as suspected, likely, concern for, or probable (associated with a specific diagnosis that is being evaluated, monitored, or treated as if it exists) are acceptable and can be coded in the inpatient setting, when documented at the
time of discharge.
Thank you,
Ailyn Seaman RN
CDI Specialist
[place] [facility]
Please use your independent medical judgment in providing your response.
*Source: National Pressure Ulcer Advisory Panel (NPUAP)
[2024-08-15] MEDS: ALPHAGAN 0.2% EYE DROPS 1 DROP BOTH EYES ×3 (09:59→20:21)
[2024-08-15] MEDS: TIMOPTIC 0.5% OPHTHALMIC SOLUTION 1 DROP OPHTH ×3 (09:59→20:22)
[2024-08-15] MEDS: AZOPT 1% OPHTHALMIC SUSPENSION 1 DROP BOTH EYES ×3 (10:00→20:22)
[2024-08-15] MEDS: HEPARIN 5000 UNITS SC ×2 (10:03→20:20)
--- NOTE | 2024-08-15 10:42 | PTCARENOTE ---
Relayed to MD Shetty that pt has worsening LUE edema- just had to cut off his wrist band because it was digging into edema. He is moving his left arm less this morning compared to yesterday. Also, this is his 3rd day now without any of his PO meds;
fluids; food. RN asked UC to call ICU and see if we can get our unit doppler back to RN can check radial pulse.
[2024-08-15 12:22] LABS: Glucose - Point of Care 102 mg/dl (70-99)
[2024-08-15] MEDS: STERILE WATER FOR INJECTION 10 ML IV (12:26)
[2024-08-15] MEDS: MAXIPIME 1000 MG IV (12:26)
--- NOTE | 2024-08-15 12:34 | W.PN.UPDATE ---
Addendum entered and electronically signed by Jay Berry MD 08/15/24 14:48:
B/L heels with stage 1 PIs, POA
sepsis, POA
Original Note:
Update Note
Progress Note Update
I saw and evaluated the patient. I reviewed the resident�s note and agree with findings and plan as documented in the resident�s note.
Gen: NAD, appears chronically ill
Neck: supple.
CV: remains RRR, +S1/S2, no m/r/g.
Resp: remains CTAB anteriorly, no rales, wheezes, or rhonchi.
Skin: 3+ LUE edema, skin discoloration consistent with resolved cellulitis
Neuro: CN 2-12 intact, non-focal.
Psych: Normal mood and affect.
08/10/24 11:16 Blood/Venous Blood Culture - Final
No Growth - Final Report
08/10/24 10:29 Blood/Venous Blood Culture - Final
No Growth - Final Report
08/10/24 14:30 Nose MRSA Screen - Final
No Methicillin Resistant Staphylococcus aureus isolated.
LUE cellulitis:
-Continue cefepime
-BCxs NGTD
-leukocytosis has resolved
-Vascular surgery to do angiogram/fistulogram tomorrow
Acute encephalopathy:
-etiology unclear
-electrolytes unremarkable for a dialysis pt
-afebrile, hemodynamically stable
-c/s neuro
-check CT brain
-could be acute toxic encephalopathy due to Cefepime. Stop Cefepime, start Ancef
Other problems:
ESRD: cont HD via AVF, renal following
Hard of hearing and blind
Unclear if h/o dementia
DM2: SSI/accuchecks
CAD: Cont ASA/BB/Ranexa
GERD: cont PPI
SARA: cont CPAP
Pt's and son updated extensively at bedside.
FULL/Heparin
Total time spent on today's encounter was 50 minutes which included time spent in counseling the patient/family regarding diagnosis and treatment plan as listed above, goals of care, and symptom management. Case was discussed with nursing staff,
specialists, and care coordinators/case management. All labs and imaging personally reviewed by me. Remainder the time spent in detailed review of previous records, lab data, imaging, and other medical provider documentation.
[2024-08-15] MEDS: NSS 1000 IV (13:30)
--- NOTE | 2024-08-15 15:21 | W.PN.NEPH.PH ---
Today's Communication / Plan
-
Dialysis tomorrow
Okay to continue low-dose IV fluids while n.p.o.
For CAT scan of head
Assessment/Plan
-
Assessment
ESRD
Fever
Left upper arm edema, erythema
Diabetes mellitus type 2
CAD
Plan
continue abx for cellulitis of AVF arm, fistula functioning
Emla cream prior HD-ordered
We may try to challenge weight though this has been difficult with intradialytic hypotension.
Eventual AV fistulogram to evaluate for central stenosis-timing per vasc
renal diet and FR
Patient mental status remains significantly depressed
He has poor p.o. intake
IV fluids running all essentially n.p.o.
Dialysis tomorrow orders written
-
-
Date of Service: August 15, 2024
CC / HPI / ROS
-
Chief Complaint:
ESRD
History of Present Illness:
BP labile -chronic due to autonomic dysfunction
hb 12, k normal
Review of Systems:
sleeping , [place]
Blind
no fever
Mental status remains compromised
Labs
-
Labs:
WBC 5.7 10^3/uL (4.8-10.8) 08/15/24 05:36
RBC 3.62 10^6/uL (4.70-6.10) L 08/15/24 05:36
Hgb 12.0 g/dL (13.0-18.0) L 08/15/24 05:36
Hct 35.1 % (39.0-52.0) L 08/15/24 05:36
Plt Count 185 10^3/uL (130-400) 08/15/24 05:36
Sodium 137 mmol/L (135-145) 08/15/24 05:36
Potassium 4.8 mmol/L (3.5-5.1) 08/15/24 05:36
Chloride 95 mmol/L (98-107) L 08/15/24 05:36
Carbon Dioxide 22 mmol/L (22-30) 08/15/24 05:36
BUN 50 mg/dl (9-20) H 08/15/24 05:36
Creatinine 4.5 mg/dL (0.7-1.3) H* 08/15/24 05:36
eGFR 12.44 08/15/24 05:36
Glucose 80 mg/dl (70-99) 08/15/24 05:36
Calcium 9.7 mg/dl (8.4-10.2) 08/15/24 05:36
Phosphorus 5.1 mg/dl (2.5-4.5) H 08/11/24 04:41
Albumin 4.0 g/dl (3.5-5.0) 08/10/24 01:33
Physical Exam
-
Vital Signs:
Vital Signs
Temp Pulse Resp BP Pulse Ox
97.9 F 90 16 124/77 99
08/15/24 08:00 08/15/24 08:00 08/15/24 08:00 08/15/24 08:00 08/15/24 08:00
Cardiovascular:: Regular rate and rhythm
Respiratory:: Bilateral: CTA (anteriorly)
Lung Excursion:: Normal
Abdomen:: Nontender and Soft
Extremity Edema:: None: Bilateral:
Maguire Catheter: No
Other Findings::
left UE edema no change
[2024-08-15 15:27] VITALS: BP 131/86
--- NOTE | 2024-08-15 16:00 | CM ---
Addendum entered by Mare Mckeon 08/15/24 16:08:
Patient , called back to indicated that [facility] and she had not been unhappy there and would like to consider [facility]. Patient states that patient has a brace for his drop foot at home and she will bring brace
from home when therapy is ready to do assessment. Patient had home care supports previously per but she is hopeful that therapy assessment will confirm need for VN vs SNF when able to be completed.
Original Note:
Patient has not been participating with therapy, pending further testing. VM left for patient to follow up on discharge planning needs. CM will continue to follow for discharge planning needs.
Plan: SNF vs home with VN
[2024-08-15] MEDS: ROCALTROL PO (16:30)
--- NOTE | 2024-08-15 16:31 | PTCARENOTE ---
IVF initiated per order, patient taken to CT head scan, antibiotics switched, new order for NPO tomorrow 08/16 at breakfast per vascular.
[2024-08-15 17:09] LABS: Glucose - Point of Care 94 mg/dl (70-99)
[2024-08-15] MEDS: ANCEF 5 IV (17:34)
--- NOTE | 2024-08-15 19:33 | CON.NEURO ---
Consultation
Order
Date of Consultation: 08/15/24
Requesting Provider: Jay Berry MD
Reason for Consult: Acute encephalopathy
Neurology Consultation Note.
HPI: This is an 83-year-old man who presented to [facility] on 08/09/2024 with left upper arm cellulitis.
According to medical personnel Mr. Molina he was reportedly following commands three days ago. The patient has not been taking any oral medications, food, or fluids for the past two days. He is arousable and will open his eyes to deep pain.
The patient has a history of left MCA stroke in 2021 that he was discharged on Brilinta.
EKG: Normal sinus rhythm with first-degree AV block, QTc Int : 486 ms
PDMP: No recently prescribed medication
Labs: Creatinine�4.5, normal sodium, WBCs, platelets, glucose,
CT head wo contrast(08/15/2024)-chronic 3 mm lacunar infarct in the right globus pallidus, moderate diffuse cortical atrophy
CTA head/neck
PMH: Left MCA stroke (2021) cervical myelopathy, PAD, ESRD on HD, CHF, Hypothyroidism , SARA, GERD, Vitamin D insufficiency , glaucoma, chronic pain syndrome
PSH: C 5-6 ACDF, tonsillectomy, prostatectomy, deviated septum repair, AV fistula, Urethral meatotomy, left [employer]SEKEEPING STAFF and tibioperoneal trunk
SH: ; former smoker
All: Lisinopril, tetracycline, erythromycin, ciprofloxacin,tigecycline, Morphine
ROS: Unable due to encephalopathy
General: Well developed. In no acute distress.
Cardio: Regular rate. Extremities are without cyanosis or edema.
Neuro:
Mental Status: Stuporous. Does not follow requests. No verbal output
Cranial Nerves: Orthophoric primary gaze. Bilateral corneal opacification. No nystagmus. Corneals�positive bilaterally.
Motor: Distal and proximal leg atrophy. Minimal movements within bed plane of upper extremities
Reflexes: Bilateral patellar's 1+
Sensory: Does not localize noxious stimuli
Coordination: Intermittent myoclonic movements in upper extremities.
Gait: deferred
Bilateral pes cavus, hammertoes.
Assessment and Plan:
I. Multifactorial encephalopathy (metabolic, infectious).
II. Probable metabolic myoclonus
III. History of L MCA stroke(05/2022)
IV. History of cervical myelopathy, s/p remote C5-6 ACDF
-Aspiration precautions.
-please check ABG, TSH, free T4, vit B12, ammonia, CK
-Avoid medications, known to lower seizure threshold(cefepime).
-Brain MRI wo roxann
-Routine EEG
-Will consider CSF testing if the above results are unremarkable.
-Will obtain collateral history from patient's family regarding cognitive and functional baseline.
-DVT prophylaxis.
I personally reviewed all radiology and labs along with past medical records pertinent to current medical problems. Total time spent in patient care is 61 minutes.
Thank you for allowing us to participate in the care of this patient. We will continue to follow. Please do not hesitate to contact us with any questions or concerns.
Subjective/Objective
Subjective Data
Date of Service: August 15, 2024
Objective Data
Vital Signs
Temp Pulse Resp BP Pulse Ox
36.6 C 88 16 131/86 97
08/15/24 15:27 08/15/24 15:27 08/15/24 15:27 08/15/24 15:27 08/15/24 15:27
Lab Results
08/15/24 05:36
08/15/24 05:36
PT 13.8 Sec (11.4-14.6) 08/11/24 04:41
INR 1.01 08/11/24 04:41
APTT 40.6 Sec (23.4-35.0) H 08/11/24 04:41
Sodium 137 mmol/L (135-145) 08/15/24 05:36
Potassium 4.8 mmol/L (3.5-5.1) 08/15/24 05:36
BUN 50 mg/dl (9-20) H 08/15/24 05:36
Glucose 80 mg/dl (70-99) 08/15/24 05:36
Calcium 9.7 mg/dl (8.4-10.2) 08/15/24 05:36
Phosphorus 5.1 mg/dl (2.5-4.5) H 08/11/24 04:41
Patient Allergies
adhesive tape Allergy (Verified 06/07/23 08:06)
blisters if kept on for long time;rash
ciprofloxacin [From Cipro] Allergy (Verified 06/07/23 08:06)
burning of vein from IV
erythromycin base Allergy (Verified 06/07/23 08:06)
Hives
lisinopril Allergy (Verified 06/07/23 08:06)
cough
tetracycline Allergy (Verified 06/07/23 08:06)
Hives
tigecycline [From Tygacil] Allergy (Verified 06/07/23 08:06)
patient unaware of this allergy
Medications
-
Active Medications
Generic Name Dose Route Start Last Admin
Trade Name Freq PRN Reason Stop Dose Admin
Acetaminophen 650 mg 08/10/24 06:03 08/13/24 05:21
Acetaminophen 325 Mg Tablet PO 09/07/24 06:02 650 mg
Q4HPRN PRN Administration
Mild Pain / Temp > 101
Aspirin 81 mg 08/10/24 08:21 08/15/24 09:17
Aspirin 81 Mg (Enteric Coated) Tablet PO 09/07/24 08:20 Not Given
DAILY JOVON
Brimonidine Tartrate 0 drop 08/10/24 16:00 08/15/24 16:29
Brimonidine 0.2% (Ophthalmic Solution) Bottle BOTH EYES 09/07/24 15:59 1 drop
TID JOVON Administration
Brinzolamide 0 drop 08/10/24 08:21 08/15/24 16:29
Brinzolamide 1% (Ophthalmic Suspension) 15 Ml Bottle BOTH EYES 09/07/24 08:20 1 drop
TID JOVON Administration
Calcitriol 0.5 mcg 08/10/24 18:00 08/15/24 16:30
Calcitriol 0.25 Microgram Capsule PO 09/07/24 17:59 Not Given
QPM JOVON
Dextrose 12.5 grams 08/10/24 08:21
Dextrose 50% (0.5 Grams/Ml) 50 Ml Syringe IV 09/07/24 08:20
[id number] PRN
hypoglycemia
Protocol
Famotidine 20 mg 08/12/24 22:00 08/14/24 22:00
Famotidine 20 Mg Tablet PO 09/09/24 21:59 Not Given
Q48H JOVON
Glucagon 1 mg 08/10/24 08:21
Glucagon 1 Mg Vial IM 09/07/24 08:20
PRN PRN
hypoglycemia
Protocol
Heparin Sodium 5,000 units 08/14/24 20:00 08/15/24 10:03
Heparin 5,000 Units/Ml 1 Ml Vial SC 09/11/24 19:59 5,000 units
Q12 JOVON Administration
Heparin Sodium 500 units 08/16/24 08:00
Heparin (1000 Units/Ml) 10,000 Units/10 Ml Vial IV 08/16/24 08:01
HD-ONCE ONE
Heparin Sodium 500 units 08/16/24 08:00
Heparin (1000 Units/Ml) 10,000 Units/10 Ml Vial IV 08/16/24 08:01
HD-ONCE ONE
Cefazolin Sodium 1 gram in 5 mls @ 60 mls/hr 08/15/24 18:00 08/15/24 17:34
Ancef IV 5 mls
Q24H JOVON Administration
Sodium Chloride 1,000 mls @ 60 mls/hr 08/15/24 13:15 08/15/24 13:30
Nss IV 1,000 mls
[id number] JOVON Administration
Insulin Aspart 0 units 08/10/24 08:21 08/15/24 17:22
Insulin Aspart Low Resistance 300 Units/3 Ml Pen.Injctr SC 09/07/24 08:20 Not Given
AC JOVON
Protocol
Latanoprost 0 drop 08/10/24 22:00 08/14/24 21:40
Latanoprost 0.005% (Ophthalmic Solution) 2.5 Ml Bottle BOTH EYES 09/07/24 21:59 1 drop
HS JOVON Administration
Lidocaine/Prilocaine 0 gram 08/13/24 11:48
Lidocaine 2.5%/Prilocaine 2.5% (Cream) 5 Gram Tube TOPICAL 09/10/24 11:47
PRN PRN
30min prior HD
Mannitol 12.5 grams 08/16/24 08:00
Mannitol 25% (12.5 Grams/50 Ml) Vial IV 08/16/24 23:59
HD-Q1HPRN PRN
SBP < 90 mmHg
Metoprolol Tartrate 12.5 mg 08/10/24 22:00 08/14/24 22:00
Metoprolol 25 Mg Regular Release Tablet PO 09/07/24 21:59 Not Given
HS JOVON
Midodrine 2.5 mg 08/10/24 08:21
Midodrine 2.5 Mg Tablet PO
DAILYPRN PRN
BP<140/90
Netarsudil [ 0 drop 08/10/24 22:00
Rhopressa] 0.02 % BOTH EYES 09/07/24 21:59
Drops - 1 Drop Both HS JOVON
Eyes Hs
Ondansetron HCl 4 mg 08/12/24 08:41 08/12/24 09:23
Ondansetron 4 Mg/2 Ml Vial IV 09/09/24 08:40 4 mg
Q6HPRN PRN Administration
NAUSEA/VOMITING
Ranolazine 500 mg 08/10/24 08:21 08/15/24 09:22
Ranolazine 500 Mg Extended Release Tablet PO 09/07/24 08:20 Not Given
BID JOVON
Sevelamer Carbonate 3,200 mg 08/10/24 08:21 08/15/24 16:28
Sevelamer Carbonate (Renvela) 800 Mg Tablet PO 09/07/24 08:20 Not Given
AC JOVON
Sodium Chloride 0 flush 08/10/24 04:00 08/13/24 11:11
Sodium Chloride 0.9% (Flush) Syringe IV 09/07/24 03:59 2 flush
PER PROTOCOL JOVON Administration
Sodium Chloride 10 ml 08/16/24 08:00
Sodium Chloride (4 Meq/Ml) 30 Ml Vial *For Hemodialysis* IV 08/16/24 23:59
HD-Q1HPRN PRN
cramps
Timolol Maleate 0 drop 08/10/24 16:00 08/15/24 16:28
Timolol 0.5% (Ophthalmic Solution) Bottle OPHTH 09/07/24 15:59 1 drop
TID JOVON Administration
Torsemide 80 mg 08/10/24 08:21 08/15/24 09:22
Torsemide 20 Mg Tablet PO 09/07/24 08:20 Not Given
DAILY JOVON
Home Medications
�Medication �Instructions �Recorded
bimatoprost 0.01 % eye drops 1 drp BOTH EYES HS Eye condition 06/29/22
(Lumigan)
brinzolamide 1 % eye 1 drp BOTH EYES TID Eye condition 06/29/22
drops,suspension (Azopt)
calcitriol 0.25 mcg capsule 0.5 mcg PO QPM Kidney Disease 06/29/22
famotidine 20 mg tablet (Pepcid) 20 mg PO HS Gastrointestinal issue 06/29/22
netarsudil 0.02 % eye drops 1 drp BOTH EYES DAILY Eye condition 06/29/22
(Rhopressa)
pitavastatin calcium 2 mg tablet 2 mg PO MOTUWETHFR@2200 High 06/29/22
(Livalo) cholesterol
sevelamer carbonate 800 mg tablet 3,200 mg PO AC Kidney Disease 06/29/22
docusate sodium 100 mg capsule 200 mg PO DAILY Constipation 07/27/22
(Colace)
folic acid 1 mg tablet 1 mg PO QPM Supplement 11/23/22
midodrine 2.5 mg tablet 2.5 mg PO DAILYPRN PRN BP<140/90 11/23/22
aspirin 81 mg tablet,delayed 81 mg PO DAILY Blood Clot 02/08/23
release Prevention/Tx
brimonidine 0.2 %-timolol 0.5 % 1 drp BOTH EYES TID Eye Condition 02/08/23
eye drops (Combigan)
torsemide 20 mg tablet 80 mg PO DAILY Fluid 02/08/23
Retention/Swelling
cholecalciferol (vitamin D3) 50 50 mcg PO DAILY Supplement 05/17/23
mcg (2,000 unit) tablet (Vitamin
D3)
ranolazine 500 mg tablet,extended 500 mg PO BID Heart 05/17/23
release,12 hr Disease/Condition
sodium chloride 5 % eye drops 1 drp BOTH EYES TID Eye Condition 05/17/23
(Chris 128)
Probiotic 1 tab PO DAILY Gastrointestinal 05/20/23
Issue
amino acids-protein hydrolysate 16 30 ml PO SUTUTHSA Supplement 05/20/23
gram-100 kcal/30 mL oral liquid
(Liquacel)
acetaminophen 650 mg 650 mg PO BID PRN Pain #0 tabs 06/11/23
tablet,extended release
isosorbide mononitrate 30 mg 30 mg PO DAILY Heart 06/11/23
tablet,extended release 24 hr disease/condition #0 tabs
metoprolol tartrate 25 mg tablet 12.5 mg PO HS Blood pressure 08/10/24
[2024-08-15] MEDS: LOPRESSOR PO (20:21)
[2024-08-15] MEDS: XALATAN OPHTHALMIC SOLUTION 1 DROP BOTH EYES (20:23)
[2024-08-15 20:31] VITALS: PULSE 78
[2024-08-15 22:10] LABS: Glucose - Point of Care 86 mg/dl (70-99)
[2024-08-15 22:40] LABS: Ammonia < 9 umol/L (9-30)
[2024-08-15 22:45] LABS: Creatine Phosphokinase 61 U/L (55-170)
[2024-08-15 23:16] LABS: TSH Reflex To Free T4 1.71 uIU/ml (0.47-4.68)
[2024-08-15 23:25] VITALS: BP 182/78
[2024-08-15 23:45] VITALS: BP 182/66
--- NOTE | 2024-08-15 23:51 | PTCARENOTE ---
Orion MARTINEZ made aware of pt's elevated BP, inability to take PO meds, including BP meds since Wednesday. No new orders received.
[2024-08-16 06:20] LABS: Hematocrit 34.1 % (39.0-52.0); Hemoglobin 11.3 g/dL (13.0-18.0); Mean Corp Hgb Conc. 33.1 g/dL (33.0-37.0); Mean Corpuscular Hgb 32.9 pg (27.0-31.0); Mean Corpuscular Volume 99.4 fL (80.0-94.0); Mean Platelet Volume 10.5 fL (7.4-10.4); Platelet Count 191 10^3/uL (130-400); Red Blood Cell Count 3.43 10^6/uL (4.70-6.10); White Blood Cell Count 5.2 10^3/uL (4.8-10.8)
[2024-08-16 06:23] VITALS: BMI 23.4
[2024-08-16] MEDS: NSS 1000 IV (06:32)
[2024-08-16 06:48] LABS: Blood Urea Nitrogen 66 mg/dl (9-20); Calcium 9.5 mg/dl (8.4-10.2); Carbon Dioxide 23 mmol/L (22-30); Chloride 97 mmol/L (98-107); Estimated Creatinine Clearance 9 ml/min; Glucose 86 mg/dl (70-99); Sodium 138 mmol/L (135-145); eGFR 8.31
--- NOTE | 2024-08-16 07:09 | W.PN.UPDATE ---
Update Note
Progress Note Update
I saw and evaluated the patient. I reviewed the resident�s note and agree with findings and plan as documented in the resident�s note.
Currently encephalopathic.
Gen: NAD, appears chronically ill
Neck: supple.
CV: continues to remain RRR, +S1/S2, no m/r/g.
Resp: continues to remain CTAB anteriorly, no rales, wheezes, or rhonchi.
Skin: 3+ LUE edema, skin discoloration consistent with resolved cellulitis
Neuro: CN 2-12 intact, non-focal.
Psych: Normal mood and affect.
08/10/24 11:16 Blood/Venous Blood Culture - Final
No Growth - Final Report
08/10/24 10:29 Blood/Venous Blood Culture - Final
No Growth - Final Report
08/10/24 14:30 Nose MRSA Screen - Final
No Methicillin Resistant Staphylococcus aureus isolated.
CT brain: No acute intracranial abnormalities. Old 3 mm lacunar infarct in the right globus pallidus. There is moderate diffuse cortical atrophy with mild nonspecific white matter changes.
LUE cellulitis:
-Continue Ancef for today
-BCxs NGTD
-leukocytosis has resolved
-Vascular surgery to do angiogram/fistulogram today
Acute encephalopathy:
-could be acute toxic encephalopathy due to Cefepime which was stopped 08/15/24, pt now on Ancef
-electrolytes unremarkable for a dialysis pt
-afebrile, hemodynamically stable
-TSH, NH3, CPK normal
-check MRI brain, EEG
-neuro following
Other problems:
ESRD: cont HD via AVF, renal following
Hard of hearing and blind
Unclear if h/o dementia
DM2: SSI/accuchecks
CAD: Cont ASA/BB/Ranexa
GERD: cont PPI
SARA: cont CPAP
Pt's and son updated extensively at bedside.
FULL/Heparin
Total time spent on today's encounter was 51 minutes which included time spent in counseling the patient/family regarding diagnosis and treatment plan as listed above, goals of care, and symptom management. Case was discussed with nursing staff,
specialists, and care coordinators/case management. All labs and imaging personally reviewed by me. Remainder the time spent in detailed review of previous records, lab data, imaging, and other medical provider documentation.
[2024-08-16 08:05] VITALS: BP 204/103
[2024-08-16 08:21] LABS: Glucose - Point of Care 89 mg/dl (70-99)
[2024-08-16] MEDS: HEPARIN 500 UNITS IV ×2 (08:25→09:25)
[2024-08-16] MEDS: NOVOLOG FLEXPEN-LOW RESISTANCE SC ×3 (08:39→16:43)
--- NOTE | 2024-08-16 08:41 | W.PN.HOSP.TC ---
Today's Communication/Plan
-
.
Assessment / Plan
Assessment / Plan
Mr. Clyde Molina is an 83yo M pmh SVT, ESRD, HTN, NIDDM, HLD, PAD admitted for cellulitis of L arm.
Left upper extremity cellulitis
�improving
-Continue vancomycin dosed on HD days continue ancef
-blood cx - no growth at 4 days
-Vascular surgery - fistulogram today
Acute encephalopathy
- could be from cefepime, switched abx to ancef
- electrolyte wnl for dialysis pt
- TSH, ammonia, CK wnl
- MRI brain, EEG
- neurology following
Anemia
- stable
ESRD on HD, left upper extremity AV fistula
-Nephrology following continue HD per nephrology recommendations continue binders
- MWF schedule
Hard of hearing and blind
-Unclear history of dementia
-Follow changes in mood mentation
DM type II
-Accu-Chek sliding scale A1c 1 40-1 80
-Carb controlled diet
CAD
-Continue aspirin Ranexa, continue beta-stephan
GERD
-Continue PPI
SARA
-Continue CPAP
Diet: diabetic
DVT ppx: SCDs
Code status: FULL CODE
Anticipated Discharge: 24 - 48 hours
Subjective/Interval History
-
Date of Service: August 16, 2024
Mr. Clyde Molina is an 83yo M pmh SVT, ESRD, HTN, NIDDM, HLD, PAD admitted for cellulitis of L arm. No acute overnight events. Pt receiving dialysis.
Objective Data
-
Labs:
Laboratory Results
08/16/24
05:46
WBC 5.2
Hgb 11.3 L
Hct 34.1 L
Plt Count 191
Sodium 138
Potassium 5.0
Chloride 97 L
Carbon Dioxide 23
BUN 66 H
Creatinine 6.3 H*
Glucose 86
Calcium 9.5
Vital Signs:
Vital Signs
Temp Pulse Resp BP Pulse Ox
97.7 F 82 16 204/103 97
08/16/24 08:05 08/16/24 08:05 08/16/24 08:05 08/16/24 08:05 08/16/24 08:05
I&O
08/15/24 08/16/24 08/17/24
06:59 06:59 06:59
Intake Total 0 / 0 1080 / 1080
Output Total 0 / 0
Balance 0 / 0 1080 / 1080
Review of Systems
-
Unable to obtain full review of systems at this time due to: Patient Non-verbal
Physical Exam
-
General: Well Developed and Well Nourished
HEENT: Normocephalic, Atraumatic and Anicteric
Respiratory: Clear to Auscultation
Cardiac: Regular Rhythm and S1/S2
GI: Soft, Nontender, Nondistended and Normal Bowel Sounds
Musculoskeletal: Edema, Left Upper Extrem
Skin: Warm, Dry, Rash and IV Access / Catheter Site
--- NOTE | 2024-08-16 10:07 | W.PN.NEPH.HD ---
Addendum entered and electronically signed by Katie Sorensen MD 08/16/24 14:19:
since pt is NPO, ok for gentle IVF
Original Note:
Assessment
-
pt seen during HD
vitals stable
UF as toelrates
PO intake is poor with AMS-for MRI per neuro
AVF functions well
potential fistulogram tomorrow
Progress Note - Hemodialysis
-
Date of Service: August 16, 2024
Duration: 4 hours
Potassium Bath: 2
Calcium Bath: 2.5
Opti-Dialyzer: 160
Ultrafiltration: Other (2-2.5kg)
Blood Flow: 400
Dialysate Flow: 600
Heparin: yesx2
EPO: no
--- NOTE | 2024-08-16 10:42 | W.PN.NEURO.1 ---
Today's Communication / Plan
-
.
Subjective/Objective
Subjective Data
Date of Service: August 16, 2024
Neurology follow-up note.
24h events: hypertensive up to 204/103, afebrile, 97% on room air
According to Ms. Ana Gamboa prior to admission patient was ambulating with a walker, required assistance with medication administration and ADLs due to blindness and was able to hold conversation and had no perceivable cognitive deficits.
CT head wo contrast(08/15/2024)-chronic 3 mm lacunar infarct in the right globus pallidus, moderate diffuse cortical atrophy.
Labs: Creatinine�6.3, ammonia less than 9, creatinine kinase�61, normal TSH.
PMH: Left MCA stroke (2021), autonomic dysfunction, PAD, ESRD on HD, CHF, Hypothyroidism, SARA, GERD, Vitamin D insufficiency, glaucoma, chronic pain syndrome
PSH: C5-6 ACDF(2017), tonsillectomy, prostatectomy, deviated septum repair, AV fistula, Urethral meatotomy, left [employer] PULLER and tibioperoneal trunk
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
All: Lisinopril, tetracycline, erythromycin, ciprofloxacin,tigecycline, Morphine
ROS: Unable due to encephalopathy, positive for chronic L foot drop
General: Getting dialysis.
Cardio: Regular rate. Extremities are without cyanosis or edema.
Neuro:
Mental Status: Stuporous. Does not follow requests. No verbal o.utput
Cranial Nerves: Orthophoric primary gaze. Bilateral corneal opacification. No nystagmus. Corneals�positive bilaterally.
Motor: Distal and proximal leg atrophy. Minimal movements within bed plane of upper extremities
Reflexes: Bilateral patellar's 1+.
Sensory: Does not localize noxious stimuli
Coordination: Intermittent myoclonic movements in upper extremities.
Gait: deferred
Bilateral pes cavus, hammertoes.
Assessment and Plan:
I. Multifactorial encephalopathy (metabolic, infectious).
II. Probable metabolic myoclonus
III. History of L MCA stroke(05/2022)
IV. History of C5-6 ACDF
-Aspiration precautions.
-Avoid medications, known to lower seizure threshold(cefepime).
-Brain MRI wo roxann
-Routine EEG
-Will consider CSF testing if the above results are unremarkable.
-Will obtain collateral history from patient's family regarding cognitive and functional baseline.
-DVT prophylaxis.
I personally reviewed all radiology and labs along with past medical records pertinent to current medical problems. Total time spent in patient care is 36 minutes.
Thank you for allowing us to participate in the care of this patient. We will continue to follow. Please do not hesitate to contact us with any questions or concerns.
Objective Data
Vital Signs
Temp Pulse Resp BP Pulse Ox
36.5 C 82 16 204/103 97
08/16/24 08:05 08/16/24 08:05 08/16/24 08:05 08/16/24 08:05 08/16/24 08:05
Lab Results
08/16/24 05:46
08/16/24 05:46
PT 13.8 Sec (11.4-14.6) 08/11/24 04:41
INR 1.01 08/11/24 04:41
APTT 40.6 Sec (23.4-35.0) H 08/11/24 04:41
Sodium 138 mmol/L (135-145) 08/16/24 05:46
Potassium 5.0 mmol/L (3.5-5.1) 08/16/24 05:46
BUN 66 mg/dl (9-20) H 08/16/24 05:46
Glucose 86 mg/dl (70-99) 08/16/24 05:46
Calcium 9.5 mg/dl (8.4-10.2) 08/16/24 05:46
Phosphorus 5.1 mg/dl (2.5-4.5) H 08/11/24 04:41
Patient Allergies
adhesive tape Allergy (Verified 06/07/23 08:06)
blisters if kept on for long time;rash
ciprofloxacin [From Cipro] Allergy (Verified 06/07/23 08:06)
burning of vein from IV
erythromycin base Allergy (Verified 06/07/23 08:06)
Hives
lisinopril Allergy (Verified 06/07/23 08:06)
cough
tetracycline Allergy (Verified 06/07/23 08:06)
Hives
tigecycline [From Tygacil] Allergy (Verified 06/07/23 08:06)
patient unaware of this allergy
[2024-08-16] MEDS: ASPIR LOW (ENTERIC COATED) PO (11:29)
[2024-08-16] MEDS: DEMADEX PO (11:29)
[2024-08-16] MEDS: HEPARIN SC (11:29)
[2024-08-16] MEDS: RENVELA PO ×3 (11:29→15:36)
[2024-08-16] MEDS: RANEXA EXTENDED RELEASE PO ×2 (11:30→20:43)
[2024-08-16] MEDS: TIMOPTIC 0.5% OPHTHALMIC SOLUTION 1 DROP OPHTH ×3 (11:30→21:07)
[2024-08-16] MEDS: AZOPT 1% OPHTHALMIC SUSPENSION 1 DROP BOTH EYES ×3 (11:31→21:07)
[2024-08-16] MEDS: ALPHAGAN 0.2% EYE DROPS 1 DROP BOTH EYES ×3 (11:31→21:06)
[2024-08-16 12:02] LABS: Glucose - Point of Care 85 mg/dl (70-99)
--- NOTE | 2024-08-16 14:22 | CM ---
Patient lethargic and has not participated in therapy per Physical therapy. Patient intrested in [facility] when medically appropriate. Patient would benefit from PT/OT assessments. CM will continue to follow for discharge planning needs.
Plan; SNF pending functional assessments
--- NOTE | 2024-08-16 14:37 | EEGC.RPT ---
Continuous EEG Report
Recording
Start Date of Data Reviewed: 08/16/24
Done with Video Recording: Yes
Electrocardiogram: Unremarkable
Report
�TECHNICAL REMARKS:��This is a technically satisfactory eighteen channel record employing 21 disc electrodes applied according to a measured international 10-20 electrode placement system.��There were no significant technical difficulties.��The
study was done on a [employer] System.
STUDY DURATION: 29 min 35 sec
MEDICATIONS: off Cefepime
CLINICAL HISTORY: This is an 83-year-old man with encephalopathy this study was requested to look for epileptiform activity.
REPORT: �At the onset of the EEG, the patient is in altered mental status. The background activity consists of 4-4.5 Hz, impersistent, posteriorly dominant, moderate amplitude, symmetric, and rhythmic activity. Continuous generalized, 2-3 Hz, 30-50
uV polymorphic delta activity with frequent triphasic waves was seen.� Stepwise intermittent photic stimulation did not induce additional abnormalities. Hyperventilation was not performed. No epileptiform activity was seen.
�
IMPRESSION: �This is an abnormal EEG recorded in altered mental status due to a moderate to severe generalized slowing and triphasic waves. This finding indicates diffuse cerebral dysfunction, nonspecific in terms of etiology.
--- NOTE | 2024-08-16 14:40 | PTCARENOTE ---
RN called bed transporter to get air bed for patient sure to stage one sacral ulcer. RN was informed we do not have any extra beds at this time, RN placed a bariatric air chair cushion under patient's sacrum to alleviate pressure. B/l heel protector
foams in place as well as sacral foam changed.
[2024-08-16 15:30] VITALS: BP 176/73
[2024-08-16 16:41] LABS: Glucose - Point of Care 102 mg/dl (70-99)
[2024-08-16] MEDS: ROCALTROL PO (17:39)
[2024-08-16] MEDS: ANCEF 5 IV (17:40)
[2024-08-16] MEDS: HEPARIN 5000 UNITS SC (20:43)
[2024-08-16] MEDS: PEPCID PO (21:06)
[2024-08-16] MEDS: LOPRESSOR PO (21:06)
[2024-08-16] MEDS: XALATAN OPHTHALMIC SOLUTION 1 DROP BOTH EYES (21:07)
[2024-08-16 21:18] LABS: Glucose - Point of Care 87 mg/dl (70-99)
[2024-08-16 23:19] VITALS: BP 110/73
[2024-08-17] VITALS: PULSE 77
[2024-08-17 03:38] VITALS: BP 144/60
[2024-08-17 04:00] VITALS: PULSE 79
[2024-08-17 05:53] LABS: Hematocrit 36.8 % (39.0-52.0); Hemoglobin 12.4 g/dL (13.0-18.0); Mean Corp Hgb Conc. 33.7 g/dL (33.0-37.0); Mean Corpuscular Hgb 33.1 pg (27.0-31.0); Mean Corpuscular Volume 98.1 fL (80.0-94.0); Mean Platelet Volume 10.5 fL (7.4-10.4); Platelet Count 187 10^3/uL (130-400); Red Blood Cell Count 3.75 10^6/uL (4.70-6.10); White Blood Cell Count 5.8 10^3/uL (4.8-10.8)
[2024-08-17 06:00] VITALS: BMI 22.5
[2024-08-17 06:17] LABS: Blood Urea Nitrogen 38 mg/dl (9-20); Calcium 9.3 mg/dl (8.4-10.2); Carbon Dioxide 25 mmol/L (22-30); Chloride 98 mmol/L (98-107); Estimated Creatinine Clearance 15 ml/min; Glucose 80 mg/dl (70-99); Potassium 4.3 mmol/L (3.5-5.1); Sodium 140 mmol/L (135-145); eGFR 14.33
[2024-08-17 06:34] LABS: Glucose - Point of Care 79 mg/dl (70-99)
[2024-08-17 07:10] VITALS: BP 165/70
[2024-08-17 08:12] LABS: Glucose - Point of Care 73 mg/dl (70-99)
[2024-08-17] MEDS: AZOPT 1% OPHTHALMIC SUSPENSION 1 DROP BOTH EYES ×3 (08:13→21:14)
[2024-08-17] MEDS: ALPHAGAN 0.2% EYE DROPS 1 DROP BOTH EYES ×3 (08:13→21:14)
[2024-08-17] MEDS: HEPARIN 5000 UNITS SC ×2 (08:13→19:32)
[2024-08-17] MEDS: RENVELA PO ×3 (08:13→15:49)
[2024-08-17] MEDS: TIMOPTIC 0.5% OPHTHALMIC SOLUTION 1 DROP OPHTH ×3 (08:13→21:14)
[2024-08-17] MEDS: DEMADEX PO (08:14)
[2024-08-17] MEDS: ASPIR LOW (ENTERIC COATED) PO (08:14)
[2024-08-17] MEDS: RANEXA EXTENDED RELEASE PO ×2 (08:14→19:32)
--- NOTE | 2024-08-17 08:23 | W.PN.HOSP.TC ---
Today's Communication/Plan
-
.
Assessment / Plan
Assessment / Plan
Mr. Clyde Molina is an 83yo M pmh SVT, ESRD, HTN, NIDDM, HLD, PAD admitted for cellulitis of L arm.
Left upper extremity cellulitis
�improving
-Continue vancomycin dosed on HD days continue ancef
-blood cx - no growth at 4 days
-Vascular surgery - fistulogram today
Acute encephalopathy
- could be from cefepime, switched abx to ancef
- electrolyte wnl for dialysis pt
- TSH, ammonia, CK wnl
- EEG: abnormal EEG recorded in altered mental status due to a moderate to severe generalized slowing and triphasic waves. This finding indicates diffuse cerebral dysfunction, nonspecific in terms of etiology.
- MRI brain pending
- neurology following
Normocytic Anemia
- stable
- monitor cbc
ESRD on HD, left upper extremity AV fistula
-Nephrology following continue HD per nephrology recommendations continue binders
- MWF schedule
Hard of hearing and blind
-Unclear history of dementia
-Follow changes in mood mentation
DM type II
-Accu-Chek sliding scale A1c 1 40-1 80
-Carb controlled diet
CAD
-Continue aspirin Ranexa, continue beta-stephan
GERD
-Continue PPI
SARA
-Continue CPAP
Diet: diabetic
DVT ppx: SCDs
Code status: FULL CODE
Anticipated Discharge: > 48 hours
Subjective/Interval History
-
Date of Service: August 17, 2024
Mr. Clyde Molina is an 83yo M pmh SVT, ESRD, HTN, NIDDM, HLD, PAD admitted for cellulitis of L arm. No acute overnight events
Objective Data
-
Labs:
Laboratory Results
08/17/24
05:28
WBC 5.8
Hgb 12.4 L
Hct 36.8 L
Plt Count 187
Sodium 140
Potassium 4.3
Chloride 98
Carbon Dioxide 25
BUN 38 H
Creatinine 4.0 H
Glucose 80
Calcium 9.3
Vital Signs:
Vital Signs
Temp Pulse Resp BP Pulse Ox
97.6 F 71 16 165/70 92
08/17/24 07:10 08/17/24 07:10 08/17/24 07:10 08/17/24 07:10 08/17/24 07:10
I&O
08/16/24 08/17/24 08/18/24
06:59 06:59 06:59
Intake Total 1080 / 1080
Output Total 0 / 0
Balance 1080 / 1080
Review of Systems
-
Unable to obtain full review of systems at this time due to: Patient Non-verbal
History Source: Patient
Physical Exam
-
General: Well Developed and Well Nourished
HEENT: Normocephalic, Atraumatic and Anicteric
Respiratory: Clear to Auscultation
Cardiac: Regular Rhythm and S1/S2
GI: Soft, Nontender, Nondistended and Normal Bowel Sounds
Musculoskeletal: No Clubbing, No Cyanosis and Edema, Left Upper Extrem
Skin: Warm, Dry, Rash and IV Access / Catheter Site
--- NOTE | 2024-08-17 09:48 | W.PN.UPDATE ---
Update Note
Progress Note Update
I saw and evaluated the patient. I reviewed the resident�s note and agree with findings and plan as documented in the resident�s note.
Currently encephalopathic.
Gen: NAD, appears chronically ill
Neck: supple.
CV: RRR, +S1/S2, no m/r/g.
Resp: CTAB anteriorly, no rales, wheezes, or rhonchi.
Skin: 3+ LUE edema, skin discoloration consistent with resolved cellulitis
Neuro: CN 2-12 intact, non-focal.
Psych: calm
08/10/24 11:16 Blood/Venous Blood Culture - Final
No Growth - Final Report
08/10/24 10:29 Blood/Venous Blood Culture - Final
No Growth - Final Report
08/10/24 14:30 Nose MRSA Screen - Final
No Methicillin Resistant Staphylococcus aureus isolated.
CT brain: No acute intracranial abnormalities. Old 3 mm lacunar infarct in the right globus pallidus. There is moderate diffuse cortical atrophy with mild nonspecific white matter changes.
MRI brain: No evidence of acute intracranial abnormality. 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 Moderate stable atrophy. Moderate leukomalacia. Of note, the callosal angle appears normal, and findings are not considered highly
suggestive of normal pressure hydrocephalus.
Transverse focus of signal abnormality traversing the inferior aspect of the dens, suggestive of a fracture, age uncertain. This appears to be new compared to MRI examination in 2021. As warranted, consider further evaluation with CT of the cervical
spine.
LUE cellulitis:
-stop Ancef at the end of today's date
-BCxs NGTD
-leukocytosis has resolved
-Vascular surgery to do angiogram/fistulogram today
Acute encephalopathy:
-could be acute toxic encephalopathy due to Cefepime which was stopped 08/15/24, pt now on Ancef
-electrolytes unremarkable for a dialysis pt
-afebrile, hemodynamically stable
-TSH, NH3, CPK normal
-EEG without seizure activity
-MRI brain above, checking CT C-spine regarding possible dens fx (discussed with radiology and neurology)
-neuro following
Other problems:
ESRD: cont HD via AVF, renal following
Hard of hearing and blind
Unclear if h/o dementia
DM2: SSI/accuchecks
CAD: Cont ASA/BB/Ranexa
GERD: cont PPI
SARA: cont CPAP
FULL/Heparin
Total time spent on today's encounter was 53 minutes which included time spent in counseling the patient/family regarding diagnosis and treatment plan as listed above, goals of care, and symptom management. Case was discussed with nursing staff,
specialists, and care coordinators/case management. All labs and imaging personally reviewed by me. Remainder the time spent in detailed review of previous records, lab data, imaging, and other medical provider documentation.
--- NOTE | 2024-08-17 10:35 | CM ---
Patient off floor for further testing. CM will continue to follow for discharge planning needs.
Plan; SNF vs home with VN pending medical treatment plan
[2024-08-17 11:18] LABS: Glucose - Point of Care 72 mg/dl (70-99)
--- NOTE | 2024-08-17 11:50 | W.PN.NEURO.1 ---
Today's Communication / Plan
-
.
Subjective/Objective
Subjective Data
Date of Service: August 17, 2024
Neurology follow-up note.
24h events: hypertensive up to 204/103, afebrile, 97% on room air
Brain MRI showed chronic multiple lacunar infarcts, atrophy and possible inferior fracture of the dens, age-indeterminate
According to Eliza Ana Gamboa prior to admission patient was ambulating with a walker, required assistance with medication administration and ADLs due to blindness and was able to hold conversation and had no perceivable cognitive deficits.
Routine EEG(08/16/2024) generalized slowing, triphasic's.
Labs: Creatinine 6.3�4.0
PMH: Left MCA stroke (2021), autonomic dysfunction, PAD, ESRD on HD, CHF, Hypothyroidism, SARA, GERD, Vitamin D insufficiency, glaucoma, chronic pain syndrome
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
All: Lisinopril, tetracycline, erythromycin, ciprofloxacin,tigecycline, Morphine
ROS: Unable due to encephalopathy, positive for chronic L foot drop
General: Getting dialysis.
Cardio: Regular rate. Extremities are without cyanosis or edema.
Neuro:
Mental Status: Awakens to tactile stimuli. Attends briefly. Oriented to name, perseverates 'I am Clyde'. Follows simple requests intermittently.
Cranial Nerves: Orthophoric primary gaze. Bilateral corneal opacification. No nystagmus. No clear facial weakness. Hearing is preserved.
Motor: Distal and proximal leg atrophy. Minimal movements within bed plane of upper extremities
Reflexes: Bilateral patellar's 1+.
Sensory: Does not localize noxious stimuli
Coordination: Intermittent myoclonic movements in upper extremities.
Gait: deferred
Bilateral pes cavus, hammertoes.
Assessment and Plan:
I. Multifactorial encephalopathy (metabolic, infectious, chronic vascular), clinically improved
II. Probable metabolic myoclonus
III. History of L MCA stroke(05/2022)
IV. History of C5-6 ACDF
V. Possible inferior fracture of the dens
-Aspiration precautions.
-Avoid neurotoxic medications
-Please contact neurology service with any questions or concerns
I personally reviewed all radiology and labs along with past medical records pertinent to current medical problems. Total time spent in patient care is 36 minutes.
Thank you for allowing us to participate in the care of this patient. Please do not hesitate to contact us with any questions or concerns.
Objective Data
Vital Signs
Temp Pulse Resp BP Pulse Ox
36.4 C 71 16 165/70 92
08/17/24 07:10 08/17/24 07:10 08/17/24 07:10 08/17/24 07:10 08/17/24 07:10
Lab Results
08/17/24 05:28
08/17/24 05:28
PT 13.8 Sec (11.4-14.6) 08/11/24 04:41
INR 1.01 08/11/24 04:41
APTT 40.6 Sec (23.4-35.0) H 08/11/24 04:41
Sodium 140 mmol/L (135-145) 08/17/24 05:28
Potassium 4.3 mmol/L (3.5-5.1) 08/17/24 05:28
BUN 38 mg/dl (9-20) H 08/17/24 05:28
Glucose 80 mg/dl (70-99) 08/17/24 05:28
Calcium 9.3 mg/dl (8.4-10.2) 08/17/24 05:28
Phosphorus 5.1 mg/dl (2.5-4.5) H 08/11/24 04:41
Patient Allergies
adhesive tape Allergy (Verified 06/07/23 08:06)
blisters if kept on for long time;rash
ciprofloxacin [From Cipro] Allergy (Verified 06/07/23 08:06)
burning of vein from IV
erythromycin base Allergy (Verified 06/07/23 08:06)
Hives
lisinopril Allergy (Verified 06/07/23 08:06)
cough
tetracycline Allergy (Verified 06/07/23 08:06)
Hives
tigecycline [From Tygacil] Allergy (Verified 06/07/23 08:06)
patient unaware of this allergy
Vital Signs and Labs
-
Vital Signs and Labs:
Vital Signs
Temp Pulse Resp BP Pulse Ox
36.4 C 71 16 165/70 92
08/17/24 07:10 08/17/24 07:10 08/17/24 07:10 08/17/24 07:10 08/17/24 07:10
Lab Results
08/17/24 05:28
08/17/24 05:28
PT 13.8 Sec (11.4-14.6) 08/11/24 04:41
INR 1.01 08/11/24 04:41
APTT 40.6 Sec (23.4-35.0) H 08/11/24 04:41
Sodium 140 mmol/L (135-145) 08/17/24 05:28
Potassium 4.3 mmol/L (3.5-5.1) 08/17/24 05:28
BUN 38 mg/dl (9-20) H 08/17/24 05:28
Glucose 80 mg/dl (70-99) 08/17/24 05:28
Calcium 9.3 mg/dl (8.4-10.2) 08/17/24 05:28
Phosphorus 5.1 mg/dl (2.5-4.5) H 08/11/24 04:41
Medications
-
Medications:
Generic Name Dose Route Start Last Admin
Trade Name Freq PRN Reason Stop Dose Admin
Acetaminophen 650 mg 08/10/24 06:03 08/13/24 05:21
Acetaminophen 325 Mg Tablet PO 09/07/24 06:02 650 mg
Q4HPRN PRN Administration
Mild Pain / Temp > 101
Aspirin 81 mg 08/10/24 08:21 08/17/24 08:14
Aspirin 81 Mg (Enteric Coated) Tablet PO 09/07/24 08:20 Not Given
DAILY JOVON
Brimonidine Tartrate 0 drop 08/10/24 16:00 08/17/24 08:13
Brimonidine 0.2% (Ophthalmic Solution) Bottle BOTH EYES 09/07/24 15:59 1 drop
TID JOVON Administration
Brinzolamide 0 drop 08/10/24 08:21 08/17/24 08:13
Brinzolamide 1% (Ophthalmic Suspension) 15 Ml Bottle BOTH EYES 09/07/24 08:20 1 drop
TID JOVON Administration
Calcitriol 0.5 mcg 08/10/24 18:00 08/16/24 17:39
Calcitriol 0.25 Microgram Capsule PO 09/07/24 17:59 Not Given
QPM JOVON
Dextrose 12.5 grams 08/10/24 08:21
Dextrose 50% (0.5 Grams/Ml) 50 Ml Syringe IV 09/07/24 08:20
[id number] PRN
hypoglycemia
Protocol
Famotidine 20 mg 08/12/24 22:00 08/16/24 21:06
Famotidine 20 Mg Tablet PO 09/09/24 21:59 Not Given
Q48H JOVON
Glucagon 1 mg 08/10/24 08:21
Glucagon 1 Mg Vial IM 09/07/24 08:20
PRN PRN
hypoglycemia
Protocol
Heparin Sodium 5,000 units 08/14/24 20:00 08/17/24 08:13
Heparin 5,000 Units/Ml 1 Ml Vial SC 09/11/24 19:59 5,000 units
Q12 JOVON Administration
Cefazolin Sodium 1 gram in 5 mls @ 60 mls/hr 08/15/24 18:00 08/16/24 17:40
Ancef IV 5 mls
Q24H JOVON Administration
Insulin Aspart 0 units 08/17/24 07:00 08/17/24 11:20
Insulin Aspart Low Resistance 300 Units/3 Ml Pen.Injctr SC 09/14/24 06:59 Not Given
Q6 JOVON
Protocol
Latanoprost 0 drop 08/10/24 22:00 08/16/24 21:07
Latanoprost 0.005% (Ophthalmic Solution) 2.5 Ml Bottle BOTH EYES 09/07/24 21:59 1 drop
HS JOVON Administration
Lidocaine/Prilocaine 0 gram 08/13/24 11:48
Lidocaine 2.5%/Prilocaine 2.5% (Cream) 5 Gram Tube TOPICAL 09/10/24 11:47
PRN PRN
30min prior HD
Metoprolol Tartrate 12.5 mg 08/10/24 22:00 08/16/24 21:06
Metoprolol 25 Mg Regular Release Tablet PO 09/07/24 21:59 Not Given
HS JOVON
Midodrine 2.5 mg 08/10/24 08:21
Midodrine 2.5 Mg Tablet PO
DAILYPRN PRN
BP<140/90
Netarsudil [ 0 drop 08/10/24 22:00
Rhopressa] 0.02 % BOTH EYES 09/07/24 21:59
Drops - 1 Drop Both HS JOVON
Eyes Hs
Ondansetron HCl 4 mg 08/12/24 08:41 08/12/24 09:23
Ondansetron 4 Mg/2 Ml Vial IV 09/09/24 08:40 4 mg
Q6HPRN PRN Administration
NAUSEA/VOMITING
Ranolazine 500 mg 08/10/24 08:21 08/17/24 08:14
Ranolazine 500 Mg Extended Release Tablet PO 09/07/24 08:20 Not Given
BID JOVON
Sevelamer Carbonate 3,200 mg 08/10/24 08:21 08/17/24 10:31
Sevelamer Carbonate (Renvela) 800 Mg Tablet PO 09/07/24 08:20 Not Given
AC JOVON
Sodium Chloride 0 flush 08/10/24 04:00 08/13/24 11:11
Sodium Chloride 0.9% (Flush) Syringe IV 09/07/24 03:59 2 flush
PER PROTOCOL JOVON Administration
Timolol Maleate 0 drop 08/10/24 16:00 08/17/24 08:13
Timolol 0.5% (Ophthalmic Solution) Bottle OPHTH 09/07/24 15:59 1 drop
TID JOVON Administration
Torsemide 80 mg 08/10/24 08:21 08/17/24 08:14
Torsemide 20 Mg Tablet PO 09/07/24 08:20 Not Given
DAILY JOVON
Home Medications
-
Home Medications
bimatoprost 0.01 % eye drops (Lumigan) 1 drp BOTH EYES HS Eye condition 06/29/22
brinzolamide 1 % eye drops,suspension (Azopt) 1 drp BOTH EYES TID Eye condition 06/29/22
calcitriol 0.25 mcg capsule 0.5 mcg PO QPM Kidney Disease 06/29/22
famotidine 20 mg tablet (Pepcid) 20 mg PO HS Gastrointestinal issue 06/29/22
netarsudil 0.02 % eye drops (Rhopressa) 1 drp BOTH EYES DAILY Eye condition 06/29/22
pitavastatin calcium 2 mg tablet (Livalo) 2 mg PO MOTUWETHFR@2200 High cholesterol 06/29/22
sevelamer carbonate 800 mg tablet 3,200 mg PO AC Kidney Disease 06/29/22
docusate sodium 100 mg capsule (Colace) 200 mg PO DAILY Constipation 07/27/22
folic acid 1 mg tablet 1 mg PO QPM Supplement 11/23/22
midodrine 2.5 mg tablet 2.5 mg PO DAILYPRN PRN BP<140/90 11/23/22
aspirin 81 mg tablet,delayed release 81 mg PO DAILY Blood Clot Prevention/Tx 02/08/23
brimonidine 0.2 %-timolol 0.5 % eye drops (Combigan) 1 drp BOTH EYES TID Eye Condition 02/08/23
torsemide 20 mg tablet 80 mg PO DAILY Fluid Retention/Swelling 02/08/23
cholecalciferol (vitamin D3) 50 mcg (2,000 unit) tablet (Vitamin D3) 50 mcg PO DAILY Supplement 05/17/23
ranolazine 500 mg tablet,extended release,12 hr 500 mg PO BID Heart Disease/Condition 05/17/23
sodium chloride 5 % eye drops (Chris 128) 1 drp BOTH EYES TID Eye Condition 05/17/23
Probiotic 1 tab PO DAILY Gastrointestinal Issue 05/20/23
amino acids-protein hydrolysate 16 gram-100 kcal/30 mL oral liquid (Liquacel) 30 ml PO SUTUTHSA Supplement 05/20/23
acetaminophen 650 mg tablet,extended release 650 mg PO BID PRN Pain #0 tabs 06/11/23
isosorbide mononitrate 30 mg tablet,extended release 24 hr 30 mg PO DAILY Heart disease/condition #0 tabs 06/11/23
metoprolol tartrate 25 mg tablet 12.5 mg PO HS Blood pressure 08/10/24
--- NOTE | 2024-08-17 11:50 | W.PN.UPDATE ---
Update Note
Progress Note Update
Patient presented to the preoperative area for fistulogram. He is lethargic. I noted now that he has had mental status changes over the last couple days. Has been seen by neurology. Being worked up. I was not made aware of this prior. Just
looking at him and trying to arouse him, is sometimes difficult. He is not fully responsive. I have great concerns about doing this elective procedure in this state. If we do it under sedation, the sedative medications could make his situation
worse and certainly would pose a potential aspiration risk. I think general anesthesia is high risk for him. In addition if we did it just under local anesthesia which may not be sufficient, he still would be an aspiration risk. From the notes
from nephrology from yesterday the fistula is working well. The main impetus for performing procedure was due to recurrent arm swelling. Therefore this can be done more electively. Would wait for full recovery from a cognitive/mental status
standpoint. Discussed with hospitalist. He is in agreement.
[2024-08-17 11:56] VITALS: BMI 22.5
[2024-08-17 15:10] VITALS: BP 165/59
[2024-08-17 17:08] LABS: Glucose - Point of Care 62 mg/dl (70-99)
[2024-08-17] MEDS: DEXTROSE 50% SYRINGE 12.5 GRAMS IV (17:11)
[2024-08-17] MEDS: ROCALTROL PO (17:23)
[2024-08-17] MEDS: ANCEF 5 IV (17:29)
[2024-08-17 17:36] LABS: Glucose - Point of Care 106 mg/dl (70-99)
--- NOTE | 2024-08-17 17:48 | W.PN.NEPH.PH ---
Today's Communication / Plan
-
HD tomorrow
Assessment/Plan
-
Assessment
ESRD
Fever
Left upper arm edema, erythema
Diabetes mellitus type 2
CAD
Plan
continue abx for cellulitis of AVF arm, fistula functioning
Emla cream prior HD-ordered
Eventual AV fistulogram to evaluate for central stenosis-likely out pt per vasc
AMS-MRI no acute finding but dens fx -?old
renal diet and FR
He has poor p.o. intake
IV fluids running essentially n.p.o.
Dialysis tomorrow orders written
-
-
Date of Service: August 17, 2024
CC / HPI / ROS
-
Chief Complaint:
ESRD
History of Present Illness:
BP labile -chronic due to autonomic dysfunction
unable to take po meds with current MS
hb 12, k normal
Review of Systems:
sleeping , RAMONA
Blind
no fever
Mental status remains compromised
asking to drink fluids
Labs
-
Labs:
WBC 5.8 10^3/uL (4.8-10.8) 08/17/24 05:28
RBC 3.75 10^6/uL (4.70-6.10) L 08/17/24 05:28
Hgb 12.4 g/dL (13.0-18.0) L 08/17/24 05:28
Hct 36.8 % (39.0-52.0) L 08/17/24 05:28
Plt Count 187 10^3/uL (130-400) 08/17/24 05:28
Sodium 140 mmol/L (135-145) 08/17/24 05:28
Potassium 4.3 mmol/L (3.5-5.1) 08/17/24 05:28
Chloride 98 mmol/L (98-107) 08/17/24 05:28
Carbon Dioxide 25 mmol/L (22-30) 08/17/24 05:28
BUN 38 mg/dl (9-20) H 08/17/24 05:28
Creatinine 4.0 mg/dL (0.7-1.3) H 08/17/24 05:28
eGFR 14.33 08/17/24 05:28
Glucose 80 mg/dl (70-99) 08/17/24 05:28
Calcium 9.3 mg/dl (8.4-10.2) 08/17/24 05:28
Phosphorus 5.1 mg/dl (2.5-4.5) H 08/11/24 04:41
Albumin 4.0 g/dl (3.5-5.0) 08/10/24 01:33
Physical Exam
-
Vital Signs:
Vital Signs
Temp Pulse Resp BP Pulse Ox
98.3 F 72 16 165/59 98
08/17/24 15:10 08/17/24 15:10 08/17/24 15:10 08/17/24 15:10 08/17/24 15:10
Cardiovascular:: Regular rate and rhythm
Respiratory:: Bilateral: CTA (anteriorly)
Lung Excursion:: Normal
Abdomen:: Nontender and Soft
Extremity Edema:: None: Bilateral:
Maguire Catheter: No
Other Findings::
left arm edema improving slowly,erythema better
--- NOTE | 2024-08-17 17:56 | PTCARENOTE ---
Pt blood glucose 62 at 1705. Pt lethargic and only arousable to painful stimuli, which is baseline for the past few days. Pt has poor PO intake and on Aspiration precautions, so IV dextrose given. Repeat blood glucose taken 15 minutes later; 102.
[2024-08-17] MEDS: NSS 1000 IV (18:35)
[2024-08-17] MEDS: XALATAN OPHTHALMIC SOLUTION 1 DROP BOTH EYES (21:14)
[2024-08-17] MEDS: LOPRESSOR PO (21:35)
[2024-08-17 23:00] VITALS: BP 163/66
[2024-08-17 23:06] LABS: Glucose - Point of Care 95 mg/dl (70-99)
[2024-08-18 00:22] LABS: Glucose - Point of Care 70 mg/dl (70-99)
[2024-08-18 05:08] LABS: Glucose - Point of Care 76 mg/dl (70-99)
[2024-08-18 05:36] VITALS: BMI 22.1
[2024-08-18 06:43] LABS: Hematocrit 35.1 % (39.0-52.0); Hemoglobin 11.8 g/dL (13.0-18.0); Mean Corp Hgb Conc. 33.6 g/dL (33.0-37.0); Mean Corpuscular Hgb 32.8 pg (27.0-31.0); Mean Corpuscular Volume 97.5 fL (80.0-94.0); Mean Platelet Volume 10.6 fL (7.4-10.4); Platelet Count 192 10^3/uL (130-400); White Blood Cell Count 4.2 10^3/uL (4.8-10.8)
[2024-08-18 07:13] LABS: Blood Urea Nitrogen 50 mg/dl (9-20); Calcium 9.2 mg/dl (8.4-10.2); Carbon Dioxide 23 mmol/L (22-30); Chloride 100 mmol/L (98-107); Estimated Creatinine Clearance 11 ml/min; Glucose 70 mg/dl (70-99); Potassium 4.5 mmol/L (3.5-5.1); Sodium 140 mmol/L (135-145); eGFR 9.99
--- NOTE | 2024-08-18 08:38 | W.PN.HOSP.TC ---
Today's Communication/Plan
-
.
Assessment / Plan
Assessment / Plan
Mr. Clyde Molina is an 83yo M pmh SVT, ESRD, HTN, NIDDM, HLD, PAD admitted for cellulitis of L arm.
Left upper extremity cellulitis
�improving
-Continue vancomycin dosed on HD days continue ancef
-blood cx - no growth
-Vascular surgery - fistulogram postponed due to acute encephalopathy progressing
Acute encephalopathy
- could be from cefepime, switched abx to ancef
- electrolyte wnl for dialysis pt
- TSH, ammonia, CK wnl
- EEG: abnormal EEG recorded in altered mental status due to a moderate to severe generalized slowing and triphasic waves. This finding indicates diffuse cerebral dysfunction, nonspecific in terms of etiology.
- MRI brain: No evidence of acute intracranial abnormality. 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 Moderate stable atrophy. Moderate leukomalacia. Of note, the callosal angle appears normal, and findings are not considered highly
suggestive of normal pressure hydrocephalus. Transverse focus of signal abnormality traversing the inferior aspect of the dens, suggestive of a fracture, age uncertain. This appears to be new compared to MRI examination in 2021. As warranted,
consider further evaluation with CT of the cervical spine.
- cervical spine CT pending
- neurology following
Normocytic Anemia
- stable
- monitor cbc
ESRD on HD, left upper extremity AV fistula
-Nephrology following continue HD per nephrology recommendations continue binders
- MWF schedule
Hard of hearing and blind
-Unclear history of dementia
-Follow changes in mood mentation
DM type II
-Accu-Chek sliding scale A1c 1 40-1 80
-Carb controlled diet
CAD
-Continue aspirin Ranexa, continue beta-stephan
GERD
-Continue PPI
SARA
-Continue CPAP
Diet: diabetic
DVT ppx: SCDs
Code status: FULL CODE
Anticipated Discharge: > 48 hours
Subjective/Interval History
-
Date of Service: August 18, 2024
Mr. Clyde Molina is an 83yo M pmh SVT, ESRD, HTN, NIDDM, HLD, PAD admitted for cellulitis of L arm. Pt able to follow directions with eye drop administration. Pt receiving dialysis today.
Objective Data
-
Labs:
Laboratory Results
08/18/24
05:52
WBC 4.2 L
Hgb 11.8 L
Hct 35.1 L
Plt Count 192
Sodium 140
Potassium 4.5
Chloride 100
Carbon Dioxide 23
BUN 50 H
Creatinine 5.4 H*
Glucose 70
Calcium 9.2
Vital Signs:
Vital Signs
Temp Pulse Resp BP Pulse Ox
97.8 F 66 12 163/66 99
08/17/24 23:00 08/17/24 23:00 08/17/24 23:00 08/17/24 23:00 08/17/24 23:00
Review of Systems
-
Unable to obtain full review of systems at this time due to: Acuity and Patient Non-verbal
Physical Exam
-
General: Well Developed and Well Nourished
HEENT: Normocephalic, Atraumatic and Anicteric
Respiratory: Clear to Auscultation
Cardiac: Regular Rhythm, S1/S2, Murmur and Other (b/l radial pulse 2+)
GI: Soft, Nontender, Nondistended and Normal Bowel Sounds
Musculoskeletal: No Clubbing, No Cyanosis and Edema, Left Upper Extrem
Skin: Warm, Dry and Rash
Hematologic / Lymphatic: Other
[2024-08-18] MEDS: RENVELA PO ×3 (08:41→17:19)
[2024-08-18] MEDS: HEPARIN SC (08:42)
[2024-08-18] MEDS: HEPARIN 500 UNITS IV (08:43)
[2024-08-18] MEDS: ALPHAGAN 0.2% EYE DROPS 1 DROP BOTH EYES ×3 (08:43→22:00)
[2024-08-18] MEDS: AZOPT 1% OPHTHALMIC SUSPENSION 1 DROP BOTH EYES ×3 (08:44→21:50)
[2024-08-18] MEDS: TIMOPTIC 0.5% OPHTHALMIC SOLUTION 1 DROP OPHTH ×3 (08:44→22:01)
[2024-08-18] MEDS: RANEXA EXTENDED RELEASE PO ×2 (08:45→20:41)
[2024-08-18] MEDS: ASPIR LOW (ENTERIC COATED) PO (08:45)
[2024-08-18] MEDS: DEMADEX PO (08:45)
--- NOTE | 2024-08-18 09:28 | W.PN.NEPH.HD ---
Assessment
-
Systolic blood pressure stable at 154 current UF
Patient seen on dialysis
Mental status seems to be slowly improving
Question if patient is candidate for rehab if he can participate in physical therapy
Progress Note - Hemodialysis
-
Date of Service: August 18, 2024
Duration: 4 hours
Potassium Bath: 2
Calcium Bath: 2.5
Opti-Dialyzer: 160
Ultrafiltration: Other (2 kg as hemodynamically tolerated)
Blood Flow: 400
Dialysate Flow: 600
Heparin: 500 x 2
EPO: None
--- NOTE | 2024-08-18 10:37 | CM ---
Patient continues with lethargy but did respond today with nursing, currently on HD, awaiting PT/OT assessment to confirm discharge planning needs. Patient family would be open to [facility] referral when medically appropriate. CM will continue
to follow for discharge planning needs.
Plan; SNF referral when medically appropriate.
[2024-08-18 11:42] LABS: Glucose - Point of Care 59 mg/dl (70-99)
[2024-08-18] MEDS: DEXTROSE 50% SYRINGE 12.5 GRAMS IV ×2 (11:49→18:18)
--- NOTE | 2024-08-18 11:51 | W.PN.UPDATE ---
Update Note
Progress Note Update
I saw and evaluated the patient. I reviewed the resident�s note and agree with findings and plan as documented in the resident�s note.
Patient currently not answering questions but as per discussion with the dialysis nurse at bedside the patient's alertness has improved. She states he is 'selective' as to when he answers questions.
Gen: NAD, appears chronically ill
Neck: supple.
CV: Remains RRR, +S1/S2, no m/r/g.
Resp: Remains CTAB anteriorly, no rales, wheezes, or rhonchi.
Skin: 3+ LUE edema, skin discoloration consistent with resolved cellulitis
Neuro: CN 2-12 intact, non-focal.
Psych: calm
08/10/24 11:16 Blood/Venous Blood Culture - Final
No Growth - Final Report
08/10/24 10:29 Blood/Venous Blood Culture - Final
No Growth - Final Report
08/10/24 14:30 Nose MRSA Screen - Final
No Methicillin Resistant Staphylococcus aureus isolated.
CT brain: No acute intracranial abnormalities. Old 3 mm lacunar infarct in the right globus pallidus. There is moderate diffuse cortical atrophy with mild nonspecific white matter changes.
MRI brain: No evidence of acute intracranial abnormality. 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 Moderate stable atrophy. Moderate leukomalacia. Of note, the callosal angle appears normal, and findings are not considered highly
suggestive of normal pressure hydrocephalus.
Transverse focus of signal abnormality traversing the inferior aspect of the dens, suggestive of a fracture, age uncertain. This appears to be new compared to MRI examination in 2021. As warranted, consider further evaluation with CT of the cervical
spine.
LUE cellulitis:
-stop Ancef
-BCxs NGTD
-leukocytosis has resolved
Acute encephalopathy:
-could be acute toxic encephalopathy due to Cefepime which was stopped 08/15/24, pt now on Ancef
-electrolytes unremarkable for a dialysis pt
-afebrile, hemodynamically stable
-TSH, NH3, CPK normal
-EEG without seizure activity
-MRI brain above, checking CT C-spine regarding possible dens fx (discussed with radiology and neurology)
-neuro following
Other problems:
ESRD: cont HD via AVF, renal following
Hard of hearing and blind
Unclear if h/o dementia
DM2: SSI/accuchecks
CAD: Cont ASA/BB/Ranexa
GERD: cont PPI
SARA: cont CPAP
FULL/Heparin
[2024-08-18 12:18] LABS: Glucose - Point of Care 81 mg/dl (70-99)
--- NOTE | 2024-08-18 13:01 | PTCARENOTE ---
Pt blood glucose 59 at 1141. Pt lethargic and arousable to voice and moderate stimuli. Pt was on HD at the time. Pt has poor PO intake and on Aspiration precautions, so IV dextrose given. Repeat blood glucose taken 15 minutes later, 81.
[2024-08-18] MEDS: D5/0.9% SODIUM CHLORIDE 1000 IV (14:05)
[2024-08-18 15:40] VITALS: BP 168/62
[2024-08-18] MEDS: ROCALTROL PO (17:20)
[2024-08-18 18:09] LABS: Glucose - Point of Care 66 mg/dl (70-99)
[2024-08-18 18:44] LABS: Glucose - Point of Care 103 mg/dl (70-99)
[2024-08-18] MEDS: PEPCID PO (20:41)
[2024-08-18] MEDS: LOPRESSOR PO (20:41)
[2024-08-18] MEDS: HEPARIN 5000 UNITS SC (20:44)
[2024-08-18 21:41] LABS: Glucose - Point of Care 95 mg/dl (70-99)
[2024-08-18] MEDS: XALATAN OPHTHALMIC SOLUTION 1 DROP BOTH EYES (22:01)
[2024-08-18 23:28] VITALS: BP 153/58
[2024-08-18 23:56] LABS: Glucose - Point of Care 97 mg/dl (70-99)
[2024-08-19 05:40] LABS: Glucose - Point of Care 92 mg/dl (70-99)
[2024-08-19 06:00] VITALS: BMI 21.8
[2024-08-19 07:00] VITALS: BP 183/74
[2024-08-19 07:02] LABS: Hematocrit 35.3 % (39.0-52.0); Mean Corpuscular Hgb 32.6 pg (27.0-31.0); Mean Corpuscular Volume 95.9 fL (80.0-94.0); Mean Platelet Volume 10.3 fL (7.4-10.4); Platelet Count 192 10^3/uL (130-400); Red Blood Cell Count 3.68 10^6/uL (4.70-6.10); White Blood Cell Count 3.8 10^3/uL (4.8-10.8)
--- NOTE | 2024-08-19 07:04 | PTCARENOTE ---
Pt awake this am asking for staff to call his because he needs to eat. Cursing at staff. Explained to pt that physician needs to see him and clear him to eat. Continues to be belligerent with staff.
[2024-08-19] MEDS: RENVELA PO ×3 (07:38→17:33)
[2024-08-19] MEDS: DEMADEX PO (07:39)
[2024-08-19] MEDS: ASPIR LOW (ENTERIC COATED) PO (07:39)
[2024-08-19] MEDS: RANEXA EXTENDED RELEASE PO (07:41)
--- NOTE | 2024-08-19 09:04 | W.PN.HOSP.TC ---
Today's Communication/Plan
-
speech and swallow eval
Assessment / Plan
Assessment / Plan
Mr. Clyde Molina is an 83yo M pmh SVT, ESRD, HTN, NIDDM, HLD, PAD admitted for cellulitis of L arm.
Left upper extremity cellulitis
�improving
-Continue vancomycin dosed on HD days continue ancef
-blood cx - no growth
-Vascular surgery - fistulogram postponed due to acute encephalopathy progressing
Acute encephalopathy
- could be from cefepime, switched abx to ancef
- electrolyte wnl for dialysis pt
- TSH, ammonia, CK wnl
- EEG: abnormal EEG recorded in altered mental status due to a moderate to severe generalized slowing and triphasic waves. This finding indicates diffuse cerebral dysfunction, nonspecific in terms of etiology.
- MRI brain: No evidence of acute intracranial abnormality. 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 Moderate stable atrophy. Moderate leukomalacia. Of note, the callosal angle appears normal, and findings are not considered highly
suggestive of normal pressure hydrocephalus. Transverse focus of signal abnormality traversing the inferior aspect of the dens, suggestive of a fracture, age uncertain. This appears to be new compared to MRI examination in 2021. As warranted,
consider further evaluation with CT of the cervical spine.
- cervical spine CT: Type II odontoid fracture
- neurology following
- speech and swallow eval
Normocytic Anemia
- stable
- monitor cbc
ESRD on HD, left upper extremity AV fistula
-Nephrology following continue HD per nephrology recommendations continue binders
- MWF schedule
Hard of hearing and blind
-Unclear history of dementia
-Follow changes in mood mentation
DM type II
-Accu-Chek sliding scale A1c 1 40-1 80
-Carb controlled diet
CAD
-Continue aspirin Ranexa, continue beta-stephan
GERD
-Continue PPI
SARA
-Continue CPAP
Diet: diabetic
DVT ppx: SCDs
Code status: FULL CODE
Anticipated Discharge: > 48 hours
Subjective/Interval History
-
Date of Service: August 19, 2024
Mr. Clyde Molina is an 83yo M h SVT, ESRD, HTN, NIDDM, HLD, PAD admitted for cellulitis of L arm. Pt awake and agitated with staff. Pt nonverbal with this provider.
Objective Data
-
Labs:
Laboratory Results
08/19/24 08/19/24 08/19/24
06:27 08:25 08:41
WBC 3.8 L
Hgb 12.0 L
Hct 35.3 L
Plt Count 192
Sodium Cancelled Cancelled Pending
Potassium Cancelled Cancelled Pending
Chloride Cancelled Cancelled Pending
Carbon Dioxide Cancelled Cancelled Pending
BUN Cancelled Cancelled Pending
Creatinine Cancelled Cancelled Pending
Glucose Cancelled Cancelled Pending
Calcium Cancelled Cancelled Pending
Vital Signs:
Vital Signs
Temp Pulse Resp BP Pulse Ox
98.0 F 73 17 183/74 92
08/19/24 07:00 08/19/24 07:00 08/19/24 07:00 08/19/24 07:00 08/19/24 07:00
I&O
08/18/24 08/19/24 08/20/24
06:59 06:59 06:59
Intake Total 600 / 600
Balance 600 / 600
Review of Systems
-
Unable to obtain full review of systems at this time due to: Patient Non-verbal
Physical Exam
-
General: Well Developed and Well Nourished
HEENT: Normocephalic, Atraumatic and Anicteric
Respiratory: Clear to Auscultation
Cardiac: Regular Rhythm, S1/S2 and Murmur
GI: Soft, Nontender, Nondistended and Normal Bowel Sounds
Musculoskeletal: No Clubbing, No Cyanosis and Edema, Left Upper Extrem
Skin: Warm, Dry, Rash and IV Access / Catheter Site
[2024-08-19] MEDS: HEPARIN 5000 UNITS SC ×2 (09:24→22:13)
[2024-08-19] MEDS: TIMOPTIC 0.5% OPHTHALMIC SOLUTION 1 DROP OPHTH ×2 (09:27→22:12)
[2024-08-19] MEDS: ALPHAGAN 0.2% EYE DROPS 1 DROP BOTH EYES ×2 (09:27→22:12)
[2024-08-19] MEDS: AZOPT 1% OPHTHALMIC SUSPENSION 1 DROP BOTH EYES ×2 (09:28→22:12)
[2024-08-19 09:39] LABS: Blood Urea Nitrogen 28 mg/dl (9-20); Carbon Dioxide 30 mmol/L (22-30); Chloride 97 mmol/L (98-107); Estimated Creatinine Clearance 15 ml/min; Glucose 118 mg/dl (70-99); Potassium 3.4 mmol/L (3.5-5.1); Sodium 138 mmol/L (135-145); eGFR 15.24
--- NOTE | 2024-08-19 10:45 | W.PN.UPDATE ---
Update Note
Progress Note Update
I saw and evaluated the patient. I reviewed the resident�s note and agree with findings and plan as documented in the resident�s note.
Patient awake and talking but is confused
Gen: NAD, awake and alert, appears chronically ill
Neck: supple.
CV: RRR, +S1/S2, no m/r/g.
Resp: CTAB, no rales, wheezes, or rhonchi.
Abd: +BS, soft, NT, ND
Skin: No rashes.
Neuro: CN 2-12 intact, non-focal.
Psych: Normal mood and affect.
08/10/24 11:16 Blood/Venous Blood Culture - Final
No Growth - Final Report
08/10/24 10:29 Blood/Venous Blood Culture - Final
No Growth - Final Report
08/10/24 14:30 Nose MRSA Screen - Final
No Methicillin Resistant Staphylococcus aureus isolated.
CT brain: No acute intracranial abnormalities. Old 3 mm lacunar infarct in the right globus pallidus. There is moderate diffuse cortical atrophy with mild nonspecific white matter changes.
MRI brain: No evidence of acute intracranial abnormality. 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 Moderate stable atrophy. Moderate leukomalacia. Of note, the callosal angle appears normal, and findings are not considered highly
suggestive of normal pressure hydrocephalus. Transverse focus of signal abnormality traversing the inferior aspect of the dens, suggestive of a fracture, age uncertain. This appears to be new compared to MRI examination in 2021. As warranted,
consider further evaluation with CT of the cervical spine.
CT C-spine: Type II odontoid fracture with approximately 5 cm of distraction. Anterior fusion change at C5-6 without overt complication. Grade 1 anterolisthesis of C4 on C5. Moderate multilevel degenerative disc disease. The prevertebral soft
tissues are unremarkable. Hypoattenuating left thyroid lobe nodule measures up to 1.7 cm.
Acute encephalopathy:
-could be acute toxic encephalopathy due to Cefepime which was stopped 08/15/24, pt now on Ancef
-electrolytes unremarkable for a dialysis pt
-afebrile, hemodynamically stable
-TSH, NH3, CPK normal
-EEG without seizure activity
-MRI brain above and without acute findings to explain encephalopathy
-neuro following
Type II Odontoid fx:
[facility] will see in [facility]/s
LUE cellulitis:
-completed a course of Ancef
-BCxs NG
-leukocytosis has resolved
Other problems:
ESRD: cont HD via AVF, renal following
Hard of hearing and blind
Unclear if h/o dementia
DM2: SSI/accuchecks
CAD: Cont ASA/BB/Ranexa
GERD: cont PPI
SARA: cont CPAP
FULL/Heparin
Total time spent on today's encounter was 50 minutes which included time spent in counseling the patient/family regarding diagnosis and treatment plan as listed above, goals of care, and symptom management. Case was discussed with nursing staff,
specialists, and care coordinators/case management. All labs and imaging personally reviewed by me. Remainder the time spent in detailed review of previous records, lab data, imaging, and other medical provider documentation.
--- NOTE | 2024-08-19 11:57 | W.PN.UPDATE ---
Update Note
Progress Note Update
Case discussed with Dr. Cruz. 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 Recommends soft C-collar which has been ordered. Full c/s to follow.
[2024-08-19 12:22] LABS: Glucose - Point of Care 100 mg/dl (70-99)
--- NOTE | 2024-08-19 12:40 | W.PN.NEPH.PH ---
Today's Communication / Plan
-
Next dialysis will be on Wednesday
Assessment/Plan
-
Assessment
ESRD
Fever
Left upper arm edema, erythema
Diabetes mellitus type 2
CAD
Plan
Status post antibiotic for cellulitis of AVF arm, fistula functioning
Emla cream prior HD-ordered
Eventual AV fistulogram to evaluate for central stenosis-likely out pt per vasc
AMS-MRI no acute finding but dens fx -?old: for surgical evaluation now with C collar
renal diet and FR
He has poor p.o. intake
IV fluids running essentially n.p.o.
Dialysis next will be on Wednesday
-
-
Date of Service: August 19, 2024
CC / HPI / ROS
-
Chief Complaint:
ESRD
History of Present Illness:
BP labile -chronic due to autonomic dysfunction
unable to take po meds with current MS
hb 12, k normal
Review of Systems:
sleeping , [employer] [place]
Blind
no fever
Mental status remains compromised but improving, now swearing at nursing staff
asking to drink fluids
Labs
-
Labs:
WBC 3.8 10^3/uL (4.8-10.8) L 08/19/24 06:27
RBC 3.68 10^6/uL (4.70-6.10) L 08/19/24 06:27
Hgb 12.0 g/dL (13.0-18.0) L 08/19/24 06:27
Hct 35.3 % (39.0-52.0) L 08/19/24 06:27
Plt Count 192 10^3/uL (130-400) 08/19/24 06:27
Sodium 138 mmol/L (135-145) 08/19/24 09:14
Potassium 3.4 mmol/L (3.5-5.1) L 08/19/24 09:14
Chloride 97 mmol/L (98-107) L 08/19/24 09:14
Carbon Dioxide 30 mmol/L (22-30) 08/19/24 09:14
BUN 28 mg/dl (9-20) H 08/19/24 09:14
Creatinine 3.8 mg/dL (0.7-1.3) H 08/19/24 09:14
eGFR 15.24 08/19/24 09:14
Glucose 118 mg/dl (70-99) H 08/19/24 09:14
Calcium 9.0 mg/dl (8.4-10.2) 08/19/24 09:14
Phosphorus 5.1 mg/dl (2.5-4.5) H 08/11/24 04:41
Albumin 4.0 g/dl (3.5-5.0) 08/10/24 01:33
Physical Exam
-
Vital Signs:
Vital Signs
Temp Pulse Resp BP Pulse Ox
98.0 F 73 17 183/74 92
08/19/24 07:00 08/19/24 07:00 08/19/24 07:00 08/19/24 07:00 08/19/24 07:00
Cardiovascular:: Regular rate and rhythm
Respiratory:: Bilateral: CTA (anteriorly)
Lung Excursion:: Normal
Abdomen:: Nontender and Soft
Extremity Edema:: None: Bilateral:
Maguire Catheter: No
Other Findings::
left arm edema improving slowly,erythema better
[2024-08-19 14:42] VITALS: BP 130/60; BP 176/66; PULSE 65; O2SAT 92
[2024-08-19 15:00] VITALS: BP 169/59
[2024-08-19] MEDS: D5/0.9% SODIUM CHLORIDE 1000 IV (15:47)
--- NOTE | 2024-08-19 16:49 | PTOTSP ---
SPEECH THERAPY SWALLOW EVALUATION:
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 Patient is at risk for aspiration and related
complications due to confusion and impulsivity. Recommend IDDSI Level 4 Puree diet, thin liquids. Medications crushed in puree. Aspiration and Reflux precautions: Upright positioning; Small single sips/bites; Slow rate of intake; 100% supervision
and assistance to ensure use of safe swallow strategies; Ensure pt swallows prior to next bite; Remain upright 30 minutes after eating/drinking; Only feed when awake/alert; Monitor for signs of aspiration and d/c oral diet if ANY decline in
mental/respiratory status. Oral care 3x/day to reduce risk for nosocomial infection. ST to follow, assess diet tolerance, determine indication for instrumental assessment of swallowing as appropriate.
RECOMMEND:
1) IDDSI Level 4 Puree diet, thin liquids
2) Medications crushed in puree
3) Aspiration and Reflux precautions: Upright positioning; Small single sips/bites; Slow rate of intake; 100% supervision and assistance to ensure use of safe swallow strategies; Ensure pt swallows prior to next bite; Remain upright 30 minutes after
eating/drinking; Only feed when awake/alert; Monitor for signs of aspiration and d/c oral diet if ANY decline in mental/respiratory status
4) Oral care 3x/day
5) ST to follow
[2024-08-19] MEDS: TIMOPTIC 0.5% OPHTHALMIC SOLUTION OPHTH (17:37)
[2024-08-19] MEDS: AZOPT 1% OPHTHALMIC SUSPENSION BOTH EYES (17:38)
[2024-08-19] MEDS: ALPHAGAN 0.2% EYE DROPS BOTH EYES (17:38)
[2024-08-19 18:33] LABS: Glucose - Point of Care 109 mg/dl (70-99)
[2024-08-19] MEDS: ROCALTROL 0.5 MCG PO (18:43)
[2024-08-19 21:37] LABS: Glucose - Point of Care 137 mg/dl (70-99)
[2024-08-19] MEDS: XALATAN OPHTHALMIC SOLUTION 1 DROP BOTH EYES (22:12)
[2024-08-19] MEDS: RANEXA EXTENDED RELEASE 500 MG PO (22:12)
[2024-08-19] MEDS: LOPRESSOR 12.5 MG PO (22:13)
[2024-08-19 23:00] VITALS: BP 167/63
[2024-08-20 06:00] VITALS: BMI 22.1
[2024-08-20 07:00] VITALS: BP 141/80
[2024-08-20 07:20] LABS: Hematocrit 34.8 % (39.0-52.0); Hemoglobin 11.5 g/dL (13.0-18.0); Mean Corpuscular Hgb 32.8 pg (27.0-31.0); Mean Corpuscular Volume 99.1 fL (80.0-94.0); Mean Platelet Volume 10.5 fL (7.4-10.4); Platelet Count 201 10^3/uL (130-400); Red Blood Cell Count 3.51 10^6/uL (4.70-6.10); White Blood Cell Count 4.1 10^3/uL (4.8-10.8)
--- NOTE | 2024-08-20 08:03 | W.PN.HOSP.TC ---
Today's Communication/Plan
-
.
Assessment / Plan
Assessment / Plan
Mr. Clyde Molina is an 83yo M pmh SVT, ESRD, HTN, NIDDM, HLD, PAD admitted for cellulitis of L arm.
Left upper extremity cellulitis
�improving
-Continue vancomycin dosed on HD days continue ancef
-blood cx - no growth
-Vascular surgery - fistulogram postponed due to acute encephalopathy progressing
Acute encephalopathy
- could be from cefepime, switched abx to ancef
- electrolyte wnl for dialysis pt
- TSH, ammonia, CK wnl
- EEG: abnormal EEG recorded in altered mental status due to a moderate to severe generalized slowing and triphasic waves. This finding indicates diffuse cerebral dysfunction, nonspecific in terms of etiology.
- MRI brain: No evidence of acute intracranial abnormality. 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 Moderate stable atrophy. Moderate leukomalacia. Of note, the callosal angle appears normal, and findings are not considered highly
suggestive of normal pressure hydrocephalus. Transverse focus of signal abnormality traversing the inferior aspect of the dens, suggestive of a fracture, age uncertain. This appears to be new compared to MRI examination in 2021. As warranted,
consider further evaluation with CT of the cervical spine.
- cervical spine CT: Type II odontoid fracture
- neurology following
- speech and swallow eval
Type II odontoid fracture
- neurosurgery consult
- soft c-collar
Normocytic Anemia
- stable
- monitor cbc
ESRD on HD, left upper extremity AV fistula
-Nephrology following continue HD per nephrology recommendations continue binders
- MWF schedule
Hard of hearing and blind
-Unclear history of dementia
-Follow changes in mood mentation
DM type II
-Accu-Chek sliding scale A1c 1 40-1 80
-Carb controlled diet
CAD
-Continue aspirin Ranexa, continue beta-stephan
GERD
-Continue PPI
SARA
-Continue CPAP
Diet: pureed
DVT ppx: SCDs
Code status: FULL CODE
Anticipated Discharge: > 48 hours
Subjective/Interval History
-
Date of Service: August 20, 2024
Mr. Clyde Molina is an 83yo M pmh SVT, ESRD, HTN, NIDDM, HLD, PAD admitted for cellulitis of L arm. Pt selectively talking, does not always make sense. Refuses to wear soft c-collar.
Objective Data
-
Labs:
Laboratory Results
08/20/24
06:52
WBC 4.1 L
Hgb 11.5 L
Hct 34.8 L
Plt Count 201
Sodium Pending
Potassium Pending
Chloride Pending
Carbon Dioxide Pending
BUN Pending
Creatinine Pending
Glucose Pending
Calcium Pending
Vital Signs:
Vital Signs
Temp Pulse Resp BP Pulse Ox
98.2 F 76 14 167/63 97
08/20/24 01:20 08/19/24 23:00 08/19/24 23:00 08/19/24 23:00 08/19/24 23:00
I&O
08/19/24 08/20/24 08/21/24
06:59 06:59 06:59
Intake Total 600 / 600 1140 / 1140
Balance 600 / 600 1140 / 1140
Review of Systems
-
Unable to obtain full review of systems at this time due to: Patient Non-verbal
Physical Exam
-
General: Well Developed and Well Nourished
HEENT: Normocephalic, Atraumatic and Anicteric
Respiratory: Clear to Auscultation
Cardiac: Regular Rhythm, S1/S2 and Murmur
GI: Soft, Nontender, Nondistended and Normal Bowel Sounds
Musculoskeletal: No Clubbing, No Cyanosis and Edema, Left Upper Extrem
Skin: Warm, Dry and Rash
Neuro: Awake
--- NOTE | 2024-08-20 08:10 | W.PN.UPDATE ---
Update Note
Progress Note Update
I saw and evaluated the patient. I reviewed the resident�s note and agree with findings and plan as documented in the resident�s note.
Patient awake and talking but remains confused
Gen: NAD, awake and alert, appears chronically ill
Neck: supple.
CV: RRR, +S1/S2, 1/6 systolic murmur
Resp: CTAB anteriorly, no rales, wheezes, or rhonchi.
Abd: +BS, soft, NT, ND
Skin: No rashes.
Neuro: CN 2-12 intact, non-focal.
Psych: Normal mood and affect.
08/10/24 11:16 Blood/Venous Blood Culture - Final
No Growth - Final Report
08/10/24 10:29 Blood/Venous Blood Culture - Final
No Growth - Final Report
08/10/24 14:30 Nose MRSA Screen - Final
No Methicillin Resistant Staphylococcus aureus isolated.
CT brain: No acute intracranial abnormalities. Old 3 mm lacunar infarct in the right globus pallidus. There is moderate diffuse cortical atrophy with mild nonspecific white matter changes.
MRI brain: No evidence of acute intracranial abnormality. 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 Moderate stable atrophy. Moderate leukomalacia. Of note, the callosal angle appears normal, and findings are not considered highly
suggestive of normal pressure hydrocephalus. Transverse focus of signal abnormality traversing the inferior aspect of the dens, suggestive of a fracture, age uncertain. This appears to be new compared to MRI examination in 2021. As warranted,
consider further evaluation with CT of the cervical spine.
CT C-spine: Type II odontoid fracture with approximately 5 cm of distraction. Anterior fusion change at C5-6 without overt complication. Grade 1 anterolisthesis of C4 on C5. Moderate multilevel degenerative disc disease. The prevertebral soft
tissues are unremarkable. Hypoattenuating left thyroid lobe nodule measures up to 1.7 cm.
Acute encephalopathy:
-could have been acute toxic encephalopathy due to Cefepime which was stopped 08/15/24
-electrolytes unremarkable for a dialysis pt
-afebrile, hemodynamically stable
-TSH, NH3, CPK normal
-EEG without seizure activity
-MRI brain above and without acute findings to explain encephalopathy
-neuro saw in consult and signed off
-currently confusion is likely hospital acquired delirium
Type II Odontoid fx:
-Case discussed with Dr. Cruz on 08/19/24 and 08/20/24. 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 Recommends soft C-collar which has been ordered. Full c/s to follow.
LUE cellulitis:
-completed a course of Ancef
-BCxs NG
-leukocytosis has resolved
Other problems:
ESRD: cont HD via AVF, renal following
Hard of hearing and blind
Unclear if h/o dementia
DM2: SSI/accuchecks
CAD: Cont ASA/BB/Ranexa
GERD: cont PPI
SARA: cont CPAP
FULL/Heparin
Dispo: neurosurgical c/s. Discharge planning.
[2024-08-20 08:17] LABS: Blood Urea Nitrogen 38 mg/dl (9-20); Calcium 9.6 mg/dl (8.4-10.2); Carbon Dioxide 28 mmol/L (22-30); Chloride 96 mmol/L (98-107); Estimated Creatinine Clearance 11 ml/min; Glucose 119 mg/dl (70-99); Potassium 3.6 mmol/L (3.5-5.1); Sodium 140 mmol/L (135-145); eGFR 10.96
[2024-08-20] MEDS: RANEXA EXTENDED RELEASE PO ×2 (08:17→20:53)
[2024-08-20] MEDS: RENVELA PO ×3 (08:18→16:37)
[2024-08-20] MEDS: DEMADEX 80 MG PO (08:25)
[2024-08-20] MEDS: HEPARIN 5000 UNITS SC ×2 (08:26→20:44)
[2024-08-20] MEDS: TIMOPTIC 0.5% OPHTHALMIC SOLUTION 1 DROP OPHTH ×3 (08:26→21:26)
[2024-08-20] MEDS: ALPHAGAN 0.2% EYE DROPS 1 DROP BOTH EYES ×3 (08:26→21:26)
[2024-08-20] MEDS: AZOPT 1% OPHTHALMIC SUSPENSION 1 DROP BOTH EYES ×3 (08:26→21:26)
[2024-08-20] MEDS: ASPIR LOW (ENTERIC COATED) 81 MG PO (08:27)
[2024-08-20] MEDS: NOVOLOG FLEXPEN-LOW RESISTANCE SC ×2 (08:27→13:37)
[2024-08-20 08:30] LABS: Glucose - Point of Care 102 mg/dl (70-99)
--- NOTE | 2024-08-20 08:44 | CM ---
Addendum entered by Anna Anthony 08/20/24 14:43:
, Dolores, notified via phone #[phone] (she was happy to hear that referral was accepted)
will follow up with patient and spouse when bed is available
Addendum entered by Anna Anthony 08/20/24 14:34:
[facility] accepted SNF referral pending bed availability and will submit for onsite HD approval
Addendum entered by Anna Anthony 08/20/24 14:26:
Per Attending, patient is stable for discharge
Original Note:
Referral sent to [facility]
Plan: Discharge to SNF that can support HD treatments when medically stable; pending bed availability
--- NOTE | 2024-08-20 09:56 | CON.NS ---
Chief Complaint
-
C2 fracture
History of Present Illness
This is [id number] male admitted with cellulitis of the left upper extremity. He was found to be encephalopathic and MRI of the brain was completed. On sagittal imaging there was question of a C2 fracture which led to a CT of the cervical spine.
CT of the cervical spine show type II odontoid fracture. Currently denies any neck pain. He is unable to provide any history.
Review of Systems
-
10 point review of systems is unable to be completed secondary to patient's mental status
Medication and Allergies
Home Medications
Home Medications
�Medication �Instructions �Recorded
bimatoprost 0.01 % eye drops 1 drp BOTH EYES HS Eye condition 06/29/22
(Lumigan)
brinzolamide 1 % eye 1 drp BOTH EYES TID Eye condition 06/29/22
drops,suspension (Azopt)
calcitriol 0.25 mcg capsule 0.5 mcg PO QPM Kidney Disease 06/29/22
famotidine 20 mg tablet (Pepcid) 20 mg PO HS Gastrointestinal issue 06/29/22
netarsudil 0.02 % eye drops 1 drp BOTH EYES DAILY Eye condition 06/29/22
(Rhopressa)
pitavastatin calcium 2 mg tablet 2 mg PO MOTUWETHFR@2200 High 06/29/22
(Livalo) cholesterol
sevelamer carbonate 800 mg tablet 3,200 mg PO AC Kidney Disease 06/29/22
docusate sodium 100 mg capsule 200 mg PO DAILY Constipation 07/27/22
(Colace)
folic acid 1 mg tablet 1 mg PO QPM Supplement 11/23/22
midodrine 2.5 mg tablet 2.5 mg PO DAILYPRN PRN BP<140/90 11/23/22
aspirin 81 mg tablet,delayed 81 mg PO DAILY Blood Clot 02/08/23
release Prevention/Tx
brimonidine 0.2 %-timolol 0.5 % 1 drp BOTH EYES TID Eye Condition 02/08/23
eye drops (Combigan)
torsemide 20 mg tablet 80 mg PO DAILY Fluid 02/08/23
Retention/Swelling
cholecalciferol (vitamin D3) 50 50 mcg PO DAILY Supplement 05/17/23
mcg (2,000 unit) tablet (Vitamin
D3)
ranolazine 500 mg tablet,extended 500 mg PO BID Heart 05/17/23
release,12 hr Disease/Condition
sodium chloride 5 % eye drops 1 drp BOTH EYES TID Eye Condition 05/17/23
(Chris 128)
Probiotic 1 tab PO DAILY Gastrointestinal 05/20/23
Issue
amino acids-protein hydrolysate 16 30 ml PO SUTUTHSA Supplement 05/20/23
gram-100 kcal/30 mL oral liquid
(Liquacel)
acetaminophen 650 mg 650 mg PO BID PRN Pain #0 tabs 06/11/23
tablet,extended release
isosorbide mononitrate 30 mg 30 mg PO DAILY Heart 06/11/23
tablet,extended release 24 hr disease/condition #0 tabs
metoprolol tartrate 25 mg tablet 12.5 mg PO HS Blood pressure 08/10/24
Allergies
Allergies
Allergy/AdvReac Type Severity Reaction Status Date / Time
adhesive tape Allergy blisters Verified 06/07/23 08:06
if kept on
for long
time;rash
ciprofloxacin [From Cipro] Allergy burning of Verified 06/07/23 08:06
vein from
IV
erythromycin base Allergy Hives Verified 06/07/23 08:06
lisinopril Allergy cough Verified 06/07/23 08:06
tetracycline Allergy Hives Verified 06/07/23 08:06
tigecycline [From Tygacil] Allergy patient Verified 06/07/23 08:06
unaware of
this
allergy
Physical Exam
-
Exam:
He is moving all extremities however does not follow commands fully
He is able to move his upper extremities and his lower extremities however unable to cooperate fully for full motor strength testing.
There is no pain to palpation at the craniocervical junction.
Passive and active range of motion of the neck does not elicit pain
CT of the cervical spine shows distracted type II odontoid fracture. C1-C2 articulations appear well aligned. In my opinion there appears to be cortical healing of both fracture fragments suggesting that this fracture is old
Problems
-
Problem Status Onset Code
Cellulitis of arm, left L03.114
Assessment / Plan
-
Type II odontoid fracture
1. Given patient's lack of neck pain and CT findings which in my opinion represent old chronic fracture recommend patient wear soft cervical collar when out of bed at all times. We will have him follow-up as an outpatient to conduct
flexion-extension x-rays to see if there is any instability.
2. No acute neurosurgical interventions at this time.
3. Neurosurgery will sign off, patient to follow-up in 6 weeks as outpatient
--- NOTE | 2024-08-20 11:24 | W.PN.NEPH.PH ---
Today's Communication / Plan
-
Dialysis tomorrow
Assessment/Plan
-
Assessment
ESRD
Fever
Left upper arm edema, erythema
Diabetes mellitus type 2
CAD
Plan
Status post antibiotic for cellulitis of AVF arm, fistula functioning
Emla cream prior HD-ordered, dialysis tomorrow, orders provided
Eventual AV fistulogram to evaluate for central stenosis-likely out pt per vasc
AMS-MRI no acute finding but dens fx -?old: S/p surgical evaluation, now with C collar
renal diet and FR
He has poor p.o. intake
Mental status waxes and wanes
-
-
Date of Service: August 20, 2024
CC / HPI / ROS
-
Chief Complaint:
ESRD
History of Present Illness:
BP labile -chronic due to autonomic dysfunction
ESRD Wednesday
Review of Systems:
sleeping , [facility]
Blind
no fever
Mental status remains compromised but improving,
asking to drink fluids
Labs
-
Labs:
WBC 4.1 10^3/uL (4.8-10.8) L 08/20/24 06:52
RBC 3.51 10^6/uL (4.70-6.10) L 08/20/24 06:52
Hgb 11.5 g/dL (13.0-18.0) L 08/20/24 06:52
Hct 34.8 % (39.0-52.0) L 08/20/24 06:52
Plt Count 201 10^3/uL (130-400) 08/20/24 06:52
Sodium 140 mmol/L (135-145) 08/20/24 06:52
Potassium 3.6 mmol/L (3.5-5.1) 08/20/24 06:52
Chloride 96 mmol/L (98-107) L 08/20/24 06:52
Carbon Dioxide 28 mmol/L (22-30) 08/20/24 06:52
BUN 38 mg/dl (9-20) H 08/20/24 06:52
Creatinine 5.0 mg/dL (0.7-1.3) H* 08/20/24 06:52
eGFR 10.96 08/20/24 06:52
Glucose 119 mg/dl (70-99) H 08/20/24 06:52
Calcium 9.6 mg/dl (8.4-10.2) 08/20/24 06:52
Phosphorus 5.1 mg/dl (2.5-4.5) H 08/11/24 04:41
Albumin 4.0 g/dl (3.5-5.0) 08/10/24 01:33
Physical Exam
-
Vital Signs:
Vital Signs
Temp Pulse Resp BP Pulse Ox
98.4 F 70 18 141/80 96
08/20/24 07:00 08/20/24 07:00 08/20/24 07:00 08/20/24 08:25 08/20/24 07:00
Cardiovascular:: Regular rate and rhythm
Respiratory:: Bilateral: CTA (anteriorly)
Lung Excursion:: Normal
Abdomen:: Nontender and Soft
Extremity Edema:: None: Bilateral:
Maguire Catheter: No
Other Findings::
left arm edema improving slowly,erythema better
[2024-08-20 13:04] LABS: Glucose - Point of Care 136 mg/dl (70-99)
[2024-08-20 15:00] VITALS: BP 165/66
[2024-08-20] MEDS: ROCALTROL 0.5 MCG PO (16:37)
[2024-08-20] MEDS: NOVOLOG FLEXPEN-LOW RESISTANCE 1 UNITS SC (16:41)
[2024-08-20 16:42] LABS: Glucose - Point of Care 171 mg/dl (70-99)
[2024-08-20] MEDS: XALATAN OPHTHALMIC SOLUTION 1 DROP BOTH EYES (21:26)
[2024-08-20 21:27] LABS: Glucose - Point of Care 148 mg/dl (70-99)
[2024-08-20] MEDS: PEPCID 20 MG PO (21:38)
[2024-08-20] MEDS: LOPRESSOR 12.5 MG PO (21:38)
[2024-08-20 23:36] VITALS: BP 124/87
[2024-08-21 05:47] LABS: Hematocrit 33.5 % (39.0-52.0); Hemoglobin 11.3 g/dL (13.0-18.0); Mean Corp Hgb Conc. 33.7 g/dL (33.0-37.0); Mean Corpuscular Hgb 33.1 pg (27.0-31.0); Mean Corpuscular Volume 98.2 fL (80.0-94.0); Mean Platelet Volume 10.7 fL (7.4-10.4); Platelet Count 191 10^3/uL (130-400); Red Blood Cell Count 3.41 10^6/uL (4.70-6.10); Red Cell Dist. Width 12.9 % (11.5-14.5); White Blood Cell Count 6.6 10^3/uL (4.8-10.8)
[2024-08-21 06:00] VITALS: BMI 23.0
[2024-08-21 06:12] LABS: Blood Urea Nitrogen 48 mg/dl (9-20); Calcium 9.2 mg/dl (8.4-10.2); Carbon Dioxide 28 mmol/L (22-30); Chloride 99 mmol/L (98-107); Estimated Creatinine Clearance 10 ml/min; Glucose 110 mg/dl (70-99); Potassium 4.4 mmol/L (3.5-5.1); Sodium 140 mmol/L (135-145); eGFR 8.99
[2024-08-21 08:53] LABS: B.E. 3.4 mmol/L; HCO3 26.7 mmol/L (21-28); O2 Saturation % 96.6 % (94-98); PCO2 35 mmHg (35-48); PO2 121 mmHg (83-108); pH 7.49 (7.35-7.45)
[2024-08-21 09:28] VITALS: BP 142/80
[2024-08-21 09:33] LABS: Glucose - Point of Care 101 mg/dl (70-99)
[2024-08-21] MEDS: NOVOLOG FLEXPEN-LOW RESISTANCE SC ×3 (09:43→17:15)
[2024-08-21] MEDS: ALPHAGAN 0.2% EYE DROPS BOTH EYES (09:44)
[2024-08-21] MEDS: RENVELA PO ×3 (09:44→17:00)
[2024-08-21] MEDS: RANEXA EXTENDED RELEASE PO (09:45)
[2024-08-21] MEDS: ASPIR LOW (ENTERIC COATED) PO (09:45)
[2024-08-21] MEDS: AZOPT 1% OPHTHALMIC SUSPENSION BOTH EYES (09:45)
[2024-08-21] MEDS: DEMADEX PO (09:45)
[2024-08-21] MEDS: TIMOPTIC 0.5% OPHTHALMIC SOLUTION OPHTH (09:46)
[2024-08-21] MEDS: HEPARIN SC (09:51)
[2024-08-21] MEDS: TYLENOL 650 MG PO (10:47)
--- NOTE | 2024-08-21 11:34 | W.PN.NEPH.HD ---
Assessment
-
Seen on dialysis tolerating treatment
Progress Note - Hemodialysis
-
Date of Service: August 21, 2024
Duration: 4 hours
Potassium Bath: 2
Calcium Bath: 2.5
Opti-Dialyzer: 160
Ultrafiltration: Other (2 kg as hemodynamically tolerated)
Blood Flow: 400
Dialysate Flow: 600
Heparin: 500 x 2
EPO: None
[2024-08-21 11:39] LABS: Glucose - Point of Care 95 mg/dl (70-99)
--- NOTE | 2024-08-21 12:43 | W.PN.HOSP.TC ---
Today's Communication/Plan
-
Assessment / Plan
Assessment / Plan
Mr. Clyde Molina is an 83yo M pmh SVT, ESRD, HTN, NIDDM, HLD, PAD admitted for cellulitis of L arm.
Left upper extremity cellulitis
�improving
-Continue vancomycin dosed on HD days continue ancef
-blood cx - no growth
-Vascular surgery - fistulogram postponed due to acute encephalopathy progressing
Acute encephalopathy
- could be from cefepime, switched abx to ancef
- electrolyte wnl for dialysis pt
- TSH, ammonia, CK wnl
- EEG: abnormal EEG recorded in altered mental status due to a moderate to severe generalized slowing and triphasic waves. This finding indicates diffuse cerebral dysfunction, nonspecific in terms of etiology.
- MRI brain: No evidence of acute intracranial abnormality. 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 Moderate stable atrophy. Moderate leukomalacia. Of note, the callosal angle appears normal, and findings are not considered highly
suggestive of normal pressure hydrocephalus. Transverse focus of signal abnormality traversing the inferior aspect of the dens, suggestive of a fracture, age uncertain. This appears to be new compared to MRI examination in 2021. As warranted,
consider further evaluation with CT of the cervical spine.
- cervical spine CT: Type II odontoid fracture
- neurology following, asked neurology to reevaluate
- speech and swallow eval
-Consult psychiatry
-Avoid sedatives
-Ordered ABG to assess for hypercapnia, however CO2 was 35
Type II odontoid fracture
- neurosurgery consult
- soft c-collar when out of bed
Normocytic Anemia
- stable
- monitor cbc
ESRD on HD, left upper extremity AV fistula
-Nephrology following continue HD per nephrology recommendations continue binders
- MWF schedule
Hard of hearing and blind
-Unclear history of dementia
-Follow changes in mood mentation
DM type II
-Accu-Chek sliding scale A1c 1 40-1 80
-Carb controlled diet
CAD
-Continue aspirin Ranexa, continue beta-stephan
GERD
-Continue PPI
SARA
-Continue CPAP
Diet: pureed
DVT ppx: SCDs
Code status: FULL CODE
Anticipated Discharge: > 48 hours
Subjective/Interval History
-
Date of Service: August 21, 2024
Seen and examined. Definitely significant change in mental status compared to previous 1 week ago. Now verbally abusive. In restraints while on hemodialysis.
Objective Data
-
Labs:
Laboratory Results
08/21/24 08/21/24
05:16 08:42
WBC 6.6
Hgb 11.3 L
Hct 33.5 L
Plt Count 191
HCO3 26.7
Sodium 140
Potassium 4.4
Chloride 99
Carbon Dioxide 28
BUN 48 H
Creatinine 5.9 H*
Glucose 110 H
Calcium 9.2
Vital Signs:
Vital Signs
Temp Pulse Resp BP Pulse Ox
97.4 F 72 18 142/80 91
08/20/24 23:36 08/21/24 09:28 08/21/24 09:28 08/21/24 09:28 08/21/24 09:28
I&O
08/20/24 08/21/24 08/22/24
06:59 06:59 06:59
Intake Total 1140 / 1140 1260 / 1260
Balance 1140 / 1140 1260 / 1260
Physical Exam
-
General: No Apparent Distress and Other (Blind and hard of hearing, restrained on hemodialysis)
HEENT: Atraumatic and Hearing Impaired
Respiratory: Clear to Auscultation
Cardiac: Regular Rhythm, S1/S2 and Murmur (Right upper sternal border THANH)
GI: Soft, Nontender, Nondistended and Normal Bowel Sounds
Skin: Warm and Dry
Neuro: Awake, Alert, Oriented and AO x 3
Psych: Calm
--- NOTE | 2024-08-21 14:36 | W.PN.NEURO.1 ---
Today's Communication / Plan
-
.
Subjective/Objective
Subjective Data
Date of Service: August 21, 2024
\\Neurology Follow up Note.
No acute events overnight.
Routine EEG(08/16/2024) generalized slowing, triphasic's.
Labs: Creatinine 6.3�4.0
PMH: Left MCA stroke (2021), autonomic dysfunction, PAD, ESRD on HD, CHF, Hypothyroidism, SARA, GERD, Vitamin D insufficiency, glaucoma, chronic pain syndrome
PSH: C5-6 ACDF(2017), tonsillectomy, prostatectomy, deviated septum repair, AV fistula, Urethral meatotomy, left [employer] CLERK and tibioperoneal trunk
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
All: Lisinopril, tetracycline, erythromycin, ciprofloxacin,tigecycline, Morphine
ROS: Unable due to encephalopathy, positive for chronic L foot drop
General: Getting dialysis.
Cardio: Regular rate. Extremities are without cyanosis or edema.
Neuro:
Mental Status: Awakens to verbal stimuli. Attends briefly. Oriented to name, hospital. Labile mood. Follows simple requests intermittently.
Cranial Nerves: Orthophoric primary gaze. Bilateral corneal opacification. No nystagmus. No clear facial weakness. Hearing is poor
Motor: Distal and proximal leg atrophy. Minimal movements within bed plane of upper extremities
Reflexes: Bilateral patellar's 1+.
Sensory: Does not localize noxious stimuli
Coordination:no tremors or myoclonic movements
Gait: deferred
Bilateral pes cavus, hammertoes.
Assessment and Plan:
I. Multifactorial encephalopathy (metabolic, infectious, chronic vascular), clinically improved
II. Probable metabolic myoclonus
III. History of L MCA stroke(05/2022)
IV. History of C5-6 ACDF
V. Possible inferior fracture of the dens
-Aspiration precautions.
-Avoid neurotoxic medications
-PT
-Please contact neurology service with any questions or concerns
I personally reviewed all radiology and labs along with past medical records pertinent to current medical problems. Total time spent in patient care is 36 minutes.
Thank you for allowing us to participate in the care of this patient. Please do not hesitate to contact us with any questions or concerns
Objective Data
Vital Signs
Temp Pulse Resp BP Pulse Ox
36.3 C 72 18 142/80 91
08/20/24 23:36 08/21/24 09:28 08/21/24 09:28 08/21/24 09:28 08/21/24 09:28
Lab Results
08/21/24 05:16
08/21/24 05:16
PT 13.8 Sec (11.4-14.6) 08/11/24 04:41
INR 1.01 08/11/24 04:41
APTT 40.6 Sec (23.4-35.0) H 08/11/24 04:41
Sodium 140 mmol/L (135-145) 08/21/24 05:16
Potassium 4.4 mmol/L (3.5-5.1) 08/21/24 05:16
BUN 48 mg/dl (9-20) H 08/21/24 05:16
Glucose 110 mg/dl (70-99) H 08/21/24 05:16
Calcium 9.2 mg/dl (8.4-10.2) 08/21/24 05:16
Phosphorus 5.1 mg/dl (2.5-4.5) H 08/11/24 04:41
Patient Allergies
adhesive tape Allergy (Verified 06/07/23 08:06)
blisters if kept on for long time;rash
ciprofloxacin [From Cipro] Allergy (Verified 06/07/23 08:06)
burning of vein from IV
erythromycin base Allergy (Verified 06/07/23 08:06)
Hives
lisinopril Allergy (Verified 06/07/23 08:06)
cough
tetracycline Allergy (Verified 06/07/23 08:06)
Hives
tigecycline [From Tygacil] Allergy (Verified 06/07/23 08:06)
patient unaware of this allergy
--- NOTE | 2024-08-21 14:45 | CM ---
JONNY follwojbg re: discharge planning.
Reviewed pt's chart, met with pt.
JONNY spoke to [facility] liaison Blank and she confirmed that pt will be accepted for a short term rehab and she is working on approval for their onsite dialysis unit.
D/C plan: [facility] with onsite HD treatment when medically stable.
CM will follow to assist pt with discharge to [facility] with HD onsite.
[2024-08-21 15:07] LABS: Glucose - Point of Care 85 mg/dl (70-99)
[2024-08-21 15:09] VITALS: BP 166/64
[2024-08-21 15:28] VITALS: BP 160/74
[2024-08-21 16:02] VITALS: BP 130/60; BP 176/66; PULSE 65; O2SAT 92
[2024-08-21 16:29] LABS: B.E. 6.3 mmol/L; HCO3 30.6 mmol/L (21-28); O2 Saturation % 96.1 % (94-98); O2 Therapy 21; PCO2 42 mmHg (35-48); PO2 100 mmHg (83-108); pH 7.47 (7.35-7.45)
[2024-08-21 16:45] LABS: Glucose - Point of Care 117 mg/dl (70-99)
[2024-08-21] MEDS: ROCALTROL 0.5 MCG PO (17:10)
[2024-08-21] MEDS: AZOPT 1% OPHTHALMIC SUSPENSION 1 DROP BOTH EYES ×2 (17:11→21:07)
[2024-08-21] MEDS: ALPHAGAN 0.2% EYE DROPS 1 DROP BOTH EYES ×2 (17:11→21:07)
[2024-08-21] MEDS: TIMOPTIC 0.5% OPHTHALMIC SOLUTION 1 DROP OPHTH ×2 (17:12→21:07)
[2024-08-21] MEDS: HEPARIN 5000 UNITS SC (21:05)
[2024-08-21] MEDS: RANEXA EXTENDED RELEASE 500 MG PO (21:06)
[2024-08-21] MEDS: XALATAN OPHTHALMIC SOLUTION 1 DROP BOTH EYES (21:08)
[2024-08-21] MEDS: LOPRESSOR 12.5 MG PO (21:09)
[2024-08-22 00:22] VITALS: BP 162/58
[2024-08-22 06:21] LABS: Hematocrit 34.2 % (39.0-52.0); Hemoglobin 11.6 g/dL (13.0-18.0); Mean Corp Hgb Conc. 33.9 g/dL (33.0-37.0); Mean Corpuscular Hgb 33.2 pg (27.0-31.0); Mean Platelet Volume 10.6 fL (7.4-10.4); Platelet Count 196 10^3/uL (130-400); Red Blood Cell Count 3.49 10^6/uL (4.70-6.10); Red Cell Dist. Width 12.9 % (11.5-14.5)
[2024-08-22 07:05] VITALS: BP 125/66
[2024-08-22 07:10] LABS: Blood Urea Nitrogen 27 mg/dl (9-20); Calcium 9.3 mg/dl (8.4-10.2); Carbon Dioxide 28 mmol/L (22-30); Chloride 96 mmol/L (98-107); Estimated Creatinine Clearance 17 ml/min; Glucose 99 mg/dl (70-99); Potassium 4.1 mmol/L (3.5-5.1); Sodium 136 mmol/L (135-145); eGFR 16.26
[2024-08-22 07:53] LABS: Glucose - Point of Care 89 mg/dl (70-99)
[2024-08-22] MEDS: NOVOLOG FLEXPEN-LOW RESISTANCE SC (08:58)
--- NOTE | 2024-08-22 10:04 | CM ---
JONNY spoke with Clyde's , Dolores, via telephone today. She was advised by JONNY that [facility] has confirmed that Clyde will be accepted for a short term rehab and [facility] is currently working on approval for their onsite dialysis unit.
plans to visit today since Clyde does not have dialysis today and they will be able to be together.
Plan: [facility] SNF with dialysis once approval obtained by dialysis unit.
[2024-08-22] MEDS: RANEXA EXTENDED RELEASE PO (10:22)
[2024-08-22] MEDS: TIMOPTIC 0.5% OPHTHALMIC SOLUTION 1 DROP OPHTH ×3 (10:22→22:18)
[2024-08-22] MEDS: HEPARIN 5000 UNITS SC ×2 (10:22→22:17)
[2024-08-22] MEDS: ASPIR LOW (ENTERIC COATED) 81 MG PO (10:23)
[2024-08-22] MEDS: RENVELA PO ×2 (10:23→14:40)
[2024-08-22] MEDS: ALPHAGAN 0.2% EYE DROPS 1 DROP BOTH EYES ×3 (10:23→22:19)
[2024-08-22] MEDS: AZOPT 1% OPHTHALMIC SUSPENSION 1 DROP BOTH EYES ×3 (10:23→22:19)
[2024-08-22] MEDS: DEMADEX 80 MG PO (10:23)
--- NOTE | 2024-08-22 10:31 | CS.PSYCHR ---
Consult Summary - Psychiatry
-
Pt is an 83 yo male, with ESRD on HD for years, blindness and severe hearing impairment, admitted with LUE cellulitis. Psychiatry asked to see for progressive encephalopathy, reviewed with nursing staff. Pt was more agitated yesterday, yelling
and cursing for hours, pulling at lines and his neck collar. Pt reportedly c/o that he hates HD, that his coerced him into it. HD nurse knows pt well, reported that he goes through cycles of encephalopathy, becomes more irritable, then clears.
Pt seen resting/sleeping quietly, not able to interview. Nursing reports pt appeared 'unresponsive' after HD yesterday, but then nurse was able to wake him and he ate. Head CT was done- showed no acute abnormality, small old lacunar infarcts,
diffuse cortical atrophy, ischemic changes in the periventricular and subcortical white matter bilaterally.
Psych Hx: none known. Pt has hx of TME with hallucination
PMH: ESRD on HD, Cervical Cord Compression with LLE Weakness, ASCVD (CAD, CVA and PAD) Diabetes Mellitus, Hx of PD Site Infections (Recurrent), Hypothyroidism, Hypertension, SARA on CPAP, SVT, hx of Prostate Cancer s/p Prostatectomy
SH: lives with , has private caregiver
MSE: very hard of hearing, currently calm, sleeping. No signs of psychosis, no agitation at present
Imp: Encephalopathy, with intermittent agitation
Rec: would continue current management and avoid sedating agents as much as possible
If agitation compromises pt's care, would try low dose of Ativan prn
Psychiatry will sign off
--- NOTE | 2024-08-22 11:46 | W.PN.NEPH.PH ---
Today's Communication / Plan
-
Dialysis tomorrow
Assessment/Plan
-
Assessment
ESRD
Fever
Left upper arm edema, erythema
Diabetes mellitus type 2
CAD
Plan
Status post antibiotic for cellulitis of AVF arm, fistula functioning
Emla cream prior HD-ordered, dialysis tomorrow, orders provided
Eventual AV fistulogram to evaluate for central stenosis-likely out pt per vasc
AMS-MRI no acute finding but dens fx -?old: S/p surgical evaluation, now with C collar
renal diet and FR
He has poor p.o. intake
Mental status waxes and wanes
No acute need for dialysis today
-
-
Date of Service: August 22, 2024
CC / HPI / ROS
-
Chief Complaint:
ESRD
History of Present Illness:
BP labile -chronic due to autonomic dysfunction
ESRD Wednesday
Review of Systems:
sleeping , [place]
Blind
no fever
Labs
-
Labs:
WBC 5.0 10^3/uL (4.8-10.8) 08/22/24 05:40
RBC 3.49 10^6/uL (4.70-6.10) L 08/22/24 05:40
Hgb 11.6 g/dL (13.0-18.0) L 08/22/24 05:40
Hct 34.2 % (39.0-52.0) L 08/22/24 05:40
Plt Count 196 10^3/uL (130-400) 08/22/24 05:40
Sodium 136 mmol/L (135-145) 08/22/24 05:40
Potassium 4.1 mmol/L (3.5-5.1) 08/22/24 05:40
Chloride 96 mmol/L (98-107) L 08/22/24 05:40
Carbon Dioxide 28 mmol/L (22-30) 08/22/24 05:40
BUN 27 mg/dl (9-20) H 08/22/24 05:40
Creatinine 3.6 mg/dL (0.7-1.3) H 08/22/24 05:40
eGFR 16.26 08/22/24 05:40
Glucose 99 mg/dl (70-99) 08/22/24 05:40
Calcium 9.3 mg/dl (8.4-10.2) 08/22/24 05:40
Phosphorus 5.1 mg/dl (2.5-4.5) H 08/11/24 04:41
Albumin 4.0 g/dl (3.5-5.0) 08/10/24 01:33
Physical Exam
-
Vital Signs:
Vital Signs
Temp Pulse Resp BP Pulse Ox
98.0 F 76 19 125/66 93
08/22/24 07:05 08/22/24 07:05 08/22/24 07:05 08/22/24 07:05 08/22/24 07:05
Cardiovascular:: Regular rate and rhythm
Respiratory:: Bilateral: CTA (anteriorly)
Lung Excursion:: Normal
Abdomen:: Nontender and Soft
Extremity Edema:: None: Bilateral:
Maguire Catheter: No
Other Findings::
left arm edema improving slowly,erythema better
--- NOTE | 2024-08-22 12:14 | PTOTSP ---
ST Follow-Up
Pt currently presenting with clinical signs of mild oropharyngeal dysphagia characterized by prolonged mastication and bolus formation, need for single sips of thin liquid ingestion as well as occasional brief throat clearing with thin liquid
ingestion. Pt is at an elevated risk for aspiration given pt's waxing and waning mental status as well as his occasional impulsivity with bite/sip sizes.
Recommendations:
- Upgrade diet to SOFT BITE SIZED SOLIDS, continue with thin liquids with SINGLE SIPS ONLY, and continue with meds WHOLE IN PUREE.
- Aspiration precautions: close supervision/assistance, small bites/sips, alternate bites/sips, and slow intake rate.
- POSTPARTUM NURSE to f/u re: diet tolerance and to determine if pt would benefit from an instrumental swallow study.
--- NOTE | 2024-08-22 12:51 | W.PN.HOSP.TC ---
Today's Communication/Plan
-
DC to SNF when bed available.
More than 30 minutes spent in discharge including
Final examination of the patient
Summarizing hospital stay
Instructions for continuing care to all relevant caregivers
Preparation of discharge records, prescriptions, and referral forms
Total time spent (in minutes): 33min
Assessment / Plan
Assessment / Plan
Mr. Clyde Molina is an 83yo M pmh SVT, ESRD, HTN, NIDDM, HLD, PAD admitted for cellulitis of L arm.
NAD
Scleral Anicteric, cornea cloudy
MMM
No JVD
CTABL
RRR, S1/S2, murmur at the right upper sternal border
Soft, NT, ND, BS+
Warm, Dry, left arm swollen however without erythema no warmth, AV fistula with good thrill bruit
AAOx3
Calm
Left upper extremity cellulitis
�improving
-Continue vancomycin dosed on HD days continue ancef
-blood cx - no growth
-Vascular surgery - fistulogram postponed due to acute encephalopathy progressing
Acute encephalopathy - Resolved, back at baseline
- could be from cefepime, switched abx to ancef
- electrolyte wnl for dialysis pt
- TSH, ammonia, CK wnl
- EEG: abnormal EEG recorded in altered mental status due to a moderate to severe generalized slowing and triphasic waves. This finding indicates diffuse cerebral dysfunction, nonspecific in terms of etiology.
- MRI brain: No evidence of acute intracranial abnormality. 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 Moderate stable atrophy. Moderate leukomalacia. Of note, the callosal angle appears normal, and findings are not considered highly
suggestive of normal pressure hydrocephalus. Transverse focus of signal abnormality traversing the inferior aspect of the dens, suggestive of a fracture, age uncertain. This appears to be new compared to MRI examination in 2021. As warranted,
consider further evaluation with CT of the cervical spine.
- cervical spine CT: Type II odontoid fracture
Type II odontoid fracture
- neurosurgery consult
- soft c-collar when out of bed
Normocytic Anemia
- stable
- monitor cbc
ESRD on HD, left upper extremity AV fistula
-Nephrology following continue HD per nephrology recommendations continue binders
- MWF schedule
Hard of hearing and blind
-Unclear history of dementia
-Follow changes in mood mentation
DM type II
-Accu-Chek sliding scale A1c 1 40-1 80
-Carb controlled diet
CAD
-Continue aspirin Ranexa, continue beta-stephan
GERD
-Continue PPI
SARA
-Continue CPAP
Diet: pureed
DVT ppx: SCDs
Code status: FULL CODE
I called his Dolores update was provided. Reviewed what was baseline for him in terms of his mental status. Suspect he is getting frustrated just being in the hospital. She states that he gets annoyed and frustrated while on hemodialysis. But
he is eating better which is a good sign. He will need to continue wearing his CPAP with a setting of 4.
Anticipated Discharge: Today
Subjective/Interval History
-
Date of Service: August 22, 2024
Seen and examined. No new complaints. No acute overnight events.
States he is at [facility] knows that we are in 2024
Eating breakfast tolerating pur�ed diet well
Per nursing staff when drinking/using straw began coughing violently.
Objective Data
-
Labs:
Laboratory Results
08/22/24
05:40
WBC 5.0
Hgb 11.6 L
Hct 34.2 L
Plt Count 196
Sodium 136
Potassium 4.1
Chloride 96 L
Carbon Dioxide 28
BUN 27 H
Creatinine 3.6 H
Glucose 99
Calcium 9.3
Vital Signs:
Vital Signs
Temp Pulse Resp BP Pulse Ox
98.0 F 76 19 125/66 93
08/22/24 07:05 08/22/24 07:05 08/22/24 07:05 08/22/24 07:05 08/22/24 07:05
I&O
08/21/24 08/22/24 08/23/24
06:59 06:59 06:59
Intake Total 1260 / 1260 60 / 60
Balance 1260 / 1260 60 60
--- NOTE | 2024-08-22 12:55 | W.DCSUMMARY ---
Discharge Summary
Discharge Data
Date of Admission: 08/10/24
Date of Discharge: 08/22/24
-
Pending Results: No
Hospital Course
Presented with left arm swelling was found to have cellulitis started on IV antibiotics with cefepime and transition to Ancef. Hospital course was complicated by acute encephalopathy that was initially suspected to be related to cefepime. An
extensive workup was completed with EEG and MRI without acute abnormalities noted. Though on the MRI multiple foci of old lacunar infarcts were described. Additionally noted to have a age-indeterminate fracture of the inferior aspect of the
denssuggestiveoffracture followed up with neurosurgery and CT of cervical spine. Neurosurgery did not believe any surgical intervention was required and recommended soft c-collar with activity and outpatient neurosurgical follow-up.
Was evaluated by physical therapy that recommended discharge to SNF.
Has a history of CPAP he uses CPAP nightly with a setting of 4
Is active while sleeping and can roll out of bed therefore he will need railings when he sleeps to prevent any further falls
Evaluated by speech therapy recommended IDDSI 4 pur�ed diet thin liquids no straw
Will need outpatient follow-up with PCP neurosurgery nephrology speech therapy PT OT
CTBrain
IMPRESSION:
There are no acute intracranial abnormalities.
There is old 3 mm lacunar infarct in the right globus pallidus
There is moderate diffuse cortical atrophy with mild nonspecific white matter changes as described above.
MRIBrain
IMPRESSION: No evidence of acute intracranial abnormality.
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
Moderate stable atrophy. Moderate leukomalacia. Of note, the callosal angle appears normal, and findings are not considered highly suggestive of normal pressure hydrocephalus.
Transverse focus of signal abnormality traversing the inferior aspect of the dens, suggestive of a fracture, age uncertain. This appears to be new compared to MRI examination in 2021. As warranted, consider further evaluation with CT of the cervical
spine.
C-spine CT
IMPRESSION:
Type II odontoid fracture.
Hypoattenuating left thyroid lobe nodule measures up to 1.7 cm. Recommend outpatient workup with dedicated thyroid ultrasound if not previously performed.
HeadCT
IMPRESSION:
No acute intracranial hemorrhage.
Suspected small bilateral old lacunar infarcts, as noted above.
Discharge Plan
-
Patient Disposition: [facility]/SNF
Discharge Diagnosis/Procedures: Cellulitis of left arm, acute encephalopathy
Condition: Fair
Diet: As tolerated and Diabetic, Carb Controlled
Activity: With assistance and As tolerated
Driving Restrictions: No driving
Activity Restrictions/Additional Instructions:
83y M with PMH significant for hypertension, ESRD on HD and blindness
Presented with left arm swelling was found to have cellulitis started on IV antibiotics with cefepime and transition to Ancef. Hospital course was complicated by acute encephalopathy that was initially suspected to be related to cefepime. An
extensive workup was completed with EEG and MRI without acute abnormalities noted. Though on the MRI multiple foci of old lacunar infarcts were described. Additionally noted to have a age-indeterminate fracture of the inferior aspect of the
denssuggestiveoffracture followed up with neurosurgery and CT of cervical spine. Neurosurgery did not believe any surgical intervention was required and recommended soft c-collar with activity and outpatient neurosurgical follow-up.
Was evaluated by physical therapy that recommended discharge to SNF.
Has a history of CPAP he uses CPAP nightly with a setting of 4
Is active while sleeping and can roll out of bed therefore he will need railings when he sleeps to prevent any further falls
Evaluated by speech therapy recommended IDDSI 4 pur�ed diet thin liquids no straw
Will need outpatient follow-up with PCP neurosurgery nephrology speech therapy PT OT
CTBrain
IMPRESSION:
There are no acute intracranial abnormalities.
There is old 3 mm lacunar infarct in the right globus pallidus
There is moderate diffuse cortical atrophy with mild nonspecific white matter changes as described above.
MRIBrain
IMPRESSION: No evidence of acute intracranial abnormality.
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
Moderate stable atrophy. Moderate leukomalacia. Of note, the callosal angle appears normal, and findings are not considered highly suggestive of normal pressure hydrocephalus.
Transverse focus of signal abnormality traversing the inferior aspect of the dens, suggestive of a fracture, age uncertain. This appears to be new compared to MRI examination in 2021. As warranted, consider further evaluation with CT of the cervical
spine.
C-spine CT
IMPRESSION:
Type II odontoid fracture.
Hypoattenuating left thyroid lobe nodule measures up to 1.7 cm. Recommend outpatient workup with dedicated thyroid ultrasound if not previously performed.
HeadCT
IMPRESSION:
No acute intracranial hemorrhage.
Suspected small bilateral old lacunar infarcts, as noted above.
Instructions: Neck Fracture (DC), Cellulitis (skin infection) in adults - Discharge instructions, Toxic-metabolic encephalopathy
Referrals:
Jerzy Cruz DO [Active] - in six weeks
Pepe Riley MD [Family Provider] - in one week
Prescriptions:
Continued
brinzolamide [Azopt] 1 % Drops,Suspension
1 drp BOTH EYES TID
famotidine [Pepcid] 20 mg Tablet
20 mg PO HS
pitavastatin calcium [Livalo] 2 mg Tablet
2 mg PO MOTUWETHFR@2200
calcitriol 0.25 mcg Capsule
0.5 mcg PO QPM
sevelamer carbonate 800 mg tablet
3,200 mg PO AC
Rx Instructions:
10 min before he eats
Lumigan 0.01 % Drops
1 drp BOTH EYES HS
Rhopressa 0.02 % Drops
1 drp BOTH EYES DAILY
docusate sodium [Colace] 100 mg Capsule
200 mg PO DAILY
folic acid 1 mg Tablet
1 mg PO QPM
midodrine 2.5 mg Tablet
2.5 mg PO DAILYPRN PRN (Reason: BP<140/90)
Rx Instructions:
BP < 140/90
torsemide 20 mg tablet
80 mg PO DAILY
aspirin 81 mg tablet,delayed release (DR/EC)
81 mg PO DAILY
brimonidine-timolol [Combigan] 0.2-0.5 % drops
1 drp BOTH EYES TID
cholecalciferol (vitamin D3) [Vitamin D3] 50 mcg (2,000 unit) Tablet
50 mcg PO DAILY
sodium chloride [Chris 128] 5 % Drops
1 drp BOTH EYES TID
ranolazine 500 mg Tablet Extended Release 12 Hr
500 mg PO BID
Probiotic
1 tab PO DAILY
Liquacel 16-100 gram-kcal/30 mL Liquid
30 ml PO SUTUTHSA
acetaminophen 650 mg Tablet Extended Release
650 mg PO BID PRN (Reason: Pain) Qty: 0 0RF
Rx Instructions:
Pt's states he takes it every morning and he also takes it in the evenings on dialysis days.
isosorbide mononitrate 30 mg tablet extended release 24 hr
30 mg PO DAILY Qty: 0 0RF
Rx Instructions:
hold for SBP<100 or DBP<50
metoprolol tartrate 25 mg tablet
12.5 mg PO HS
Discharge Orders:
Discharge Patient (As Directed); Ordered 08/22/24
Ordered By: Erick Adams
Discharge Date and Time
Print Language: JAPANESE
--- NOTE | 2024-08-22 14:10 | CM ---
Addendum entered by Cheryl Acosta 08/22/24 14:42:
CM following for transfer to [facility] once dialysis has been arranged and bed available (anticipated bed availability is 08/25/2024). Dialysis records requested to be sent have not been received per [facility] Liaison
([phone]). CM contacted prior CM to check on status of records which were not received. Prior CM advised he was not asked for records.
This CM contacted [facility] and spoke with Pat ([phone]) who advised she would send the requested records (HD Flow Sheets, Hep B surface antibodies, Renal Consult and H&P). CM will send Nephrology consult and current
hospitalization H&P via fax ([phone]).
Original Note:
CM following for transfer to [facility] once dialysis has been arranged. Dialysis records requested to be sent have not been received per [facility] Liaison ([phone]) CM contacted prior CM to check on status of records; he
will follow up.
[2024-08-22] MEDS: TYLENOL 650 MG PO (14:21)
[2024-08-22] MEDS: NOVOLOG FLEXPEN-LOW RESISTANCE 1 UNITS SC ×2 (14:35→17:19)
[2024-08-22 14:40] LABS: Glucose - Point of Care 181 mg/dl (70-99)
[2024-08-22 15:08] VITALS: BP 154/66
[2024-08-22 17:14] LABS: Glucose - Point of Care 150 mg/dl (70-99)
[2024-08-22] MEDS: RENVELA 3200 MG PO (17:19)
[2024-08-22] MEDS: ROCALTROL 0.5 MCG PO (17:22)
[2024-08-22 21:36] LABS: Glucose - Point of Care 115 mg/dl (70-99)
[2024-08-22] MEDS: RANEXA EXTENDED RELEASE 500 MG PO (22:17)
[2024-08-22] MEDS: LOPRESSOR 12.5 MG PO (22:17)
[2024-08-22] MEDS: PEPCID 20 MG PO (22:17)
[2024-08-22] MEDS: XALATAN OPHTHALMIC SOLUTION 1 DROP BOTH EYES (22:19)
[2024-08-22 23:26] VITALS: BP 170/67
[2024-08-23] MEDS: TYLENOL 650 MG PO (06:03)
[2024-08-23 06:29] VITALS: BMI 22.3
[2024-08-23] MEDS: DEMADEX 80 MG PO (08:02)
[2024-08-23] MEDS: RENVELA 3200 MG PO ×3 (08:02→16:07)
[2024-08-23] MEDS: RANEXA EXTENDED RELEASE 500 MG PO ×2 (08:02→20:30)
[2024-08-23] MEDS: ALPHAGAN 0.2% EYE DROPS 1 DROP BOTH EYES ×3 (08:03→21:23)
[2024-08-23] MEDS: AZOPT 1% OPHTHALMIC SUSPENSION 1 DROP BOTH EYES ×3 (08:03→21:23)
[2024-08-23] MEDS: TIMOPTIC 0.5% OPHTHALMIC SOLUTION 1 DROP OPHTH ×3 (08:03→21:23)
[2024-08-23] MEDS: ASPIR LOW (ENTERIC COATED) 81 MG PO (08:03)
[2024-08-23] MEDS: HEPARIN 5000 UNITS SC ×2 (08:04→20:29)
[2024-08-23 08:12] VITALS: BP 194/78
[2024-08-23 08:26] LABS: Glucose - Point of Care 101 mg/dl (70-99)
[2024-08-23] MEDS: NOVOLOG FLEXPEN-LOW RESISTANCE SC ×2 (08:44→12:42)
[2024-08-23 08:51] LABS: Hemoglobin 10.6 g/dL (13.0-18.0); Mean Corp Hgb Conc. 33.1 g/dL (33.0-37.0); Mean Corpuscular Hgb 32.9 pg (27.0-31.0); Mean Corpuscular Volume 99.4 fL (80.0-94.0); Mean Platelet Volume 10.9 fL (7.4-10.4); Platelet Count 207 10^3/uL (130-400); Red Blood Cell Count 3.22 10^6/uL (4.70-6.10); Red Cell Dist. Width 12.8 % (11.5-14.5); White Blood Cell Count 3.9 10^3/uL (4.8-10.8)
[2024-08-23] MEDS: MANNITOL 25% 12.5 GRAMS IV ×2 (09:14→10:20)
[2024-08-23 10:58] LABS: Blood Urea Nitrogen 41 mg/dl (9-20); Calcium 9.3 mg/dl (8.4-10.2); Carbon Dioxide 28 mmol/L (22-30); Chloride 94 mmol/L (98-107); Estimated Creatinine Clearance 11 ml/min; Glucose 104 mg/dl (70-99); Potassium 4.4 mmol/L (3.5-5.1); Sodium 134 mmol/L (135-145)
--- NOTE | 2024-08-23 11:17 | W.PN.NEPH.HD ---
Assessment
-
Patient seen on dialysis
Systolic blood pressure 119 at current UF
Patient will be discharged after dialysis
Access with good function
Progress Note - Hemodialysis
-
Date of Service: August 23, 2024
Duration: 4 hours
Potassium Bath: 2
Opti-Dialyzer: 160
Ultrafiltration: Other (1 kilogram as hemodynamically top)
Blood Flow: 400
Dialysate Flow: 600
Heparin: None
EPO: None
[2024-08-23 11:41] LABS: Glucose - Point of Care 130 mg/dl (70-99)
--- NOTE | 2024-08-23 15:26 | W.PN.HOSP.TC ---
Today's Communication/Plan
-
Assessment / Plan
Assessment / Plan
Mr. Clyde Molina is an 83yo M pmh SVT, ESRD, HTN, NIDDM, HLD, PAD admitted for cellulitis of L arm.
NAD
Scleral Anicteric, cornea cloudy
MMM
No JVD
CTABL
RRR, S1/S2, murmur at the right upper sternal border
Soft, NT, ND, BS+
Warm, Dry, left arm swollen however without erythema no warmth, AV fistula with good thrill bruit
AAOx3
Calm
Left upper extremity cellulitis
�improving
-Continue vancomycin dosed on HD days continue ancef
-blood cx - no growth
-Vascular surgery - fistulogram postponed due to acute encephalopathy progressing
Acute encephalopathy - Resolved, back at baseline
- could be from cefepime, switched abx to ancef
- electrolyte wnl for dialysis pt
- TSH, ammonia, CK wnl
- EEG: abnormal EEG recorded in altered mental status due to a moderate to severe generalized slowing and triphasic waves. This finding indicates diffuse cerebral dysfunction, nonspecific in terms of etiology.
- MRI brain: No evidence of acute intracranial abnormality. 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 Moderate stable atrophy. Moderate leukomalacia. Of note, the callosal angle appears normal, and findings are not considered highly
suggestive of normal pressure hydrocephalus. Transverse focus of signal abnormality traversing the inferior aspect of the dens, suggestive of a fracture, age uncertain. This appears to be new compared to MRI examination in 2021. As warranted,
consider further evaluation with CT of the cervical spine.
- cervical spine CT: Type II odontoid fracture
Type II odontoid fracture
- neurosurgery consult
- soft c-collar when out of bed
Normocytic Anemia
- stable
- monitor cbc
ESRD on HD, left upper extremity AV fistula
-Nephrology following continue HD per nephrology recommendations continue binders
- MWF schedule
Hard of hearing and blind
-Unclear history of dementia
-Follow changes in mood mentation
DM type II
-Accu-Chek sliding scale A1c 1 40-1 80
-Carb controlled diet
CAD
-Continue aspirin Ranexa, continue beta-stephan
GERD
-Continue PPI
SARA
-Continue CPAP - EPAP 4
Diet: pureed
DVT ppx: SCDs
Code status: FULL CODE
Awaiting DC to SNF when bed available
Anticipated Discharge: > 48 hours
Subjective/Interval History
-
Date of Service: August 23, 2024
Seen and examined on bedside hemodialysis
Objective Data
-
Labs:
Laboratory Results
08/23/24
08:32
WBC 3.9 L
Hgb 10.6 L
Hct 32.0 L
Plt Count 207
Sodium 134 L
Potassium 4.4
Chloride 94 L
Carbon Dioxide 28
BUN 41 H
Creatinine 5.1 H*
Glucose 104 H
Calcium 9.3
Vital Signs:
Vital Signs
Temp Pulse Resp BP Pulse Ox
97.5 F 63 16 194/78 99
08/23/24 08:12 08/23/24 08:12 08/23/24 08:12 08/23/24 08:12 08/23/24 08:12
I&O
08/22/24 08/23/24 08/24/24
06:59 06:59 06:59
Intake Total 60 / 60 900 / 900
Balance 60 / 60 900 / 900
[2024-08-23 15:32] VITALS: BP 143/54
[2024-08-23] MEDS: ROCALTROL 0.5 MCG PO (16:08)
[2024-08-23 16:29] LABS: Glucose - Point of Care 152 mg/dl (70-99)
[2024-08-23] MEDS: NOVOLOG FLEXPEN-LOW RESISTANCE 1 UNITS SC (16:40)
[2024-08-23 20:40] VITALS: BP 153/58
[2024-08-23] MEDS: LOPRESSOR 12.5 MG PO (21:22)
[2024-08-23] MEDS: XALATAN OPHTHALMIC SOLUTION 1 DROP BOTH EYES (21:24)
[2024-08-23 21:34] LABS: Glucose - Point of Care 134 mg/dl (70-99)
[2024-08-23 23:00] VITALS: BP 153/58
[2024-08-24 06:00] VITALS: BMI 22.1
[2024-08-24 07:05] VITALS: BP 168/69
[2024-08-24] MEDS: RANEXA EXTENDED RELEASE 500 MG PO ×2 (07:23→19:35)
[2024-08-24] MEDS: RENVELA 3200 MG PO ×3 (07:23→15:53)
[2024-08-24] MEDS: HEPARIN 5000 UNITS SC ×2 (07:24→19:34)
[2024-08-24] MEDS: ALPHAGAN 0.2% EYE DROPS 1 DROP BOTH EYES ×3 (07:24→20:52)
[2024-08-24] MEDS: ASPIR LOW (ENTERIC COATED) 81 MG PO (07:24)
[2024-08-24] MEDS: DEMADEX 80 MG PO (07:25)
[2024-08-24] MEDS: AZOPT 1% OPHTHALMIC SUSPENSION 1 DROP BOTH EYES ×3 (07:25→20:51)
[2024-08-24] MEDS: TIMOPTIC 0.5% OPHTHALMIC SOLUTION 1 DROP OPHTH ×3 (07:25→20:51)
[2024-08-24 08:01] LABS: Glucose - Point of Care 101 mg/dl (70-99)
[2024-08-24] MEDS: NOVOLOG FLEXPEN-LOW RESISTANCE SC ×3 (08:05→17:16)
--- NOTE | 2024-08-24 11:26 | CM ---
Addendum entered by Gillian Hilliard 08/24/24 15:10:
Blank poole called states the patient needs updated (within 30 days) Hep B - Surface AB & Surface AG-Dr. Che made aware.
Awaiting chair approval-will notify CM tomorrow
Original Note:
Spoke with Blank poole at [facility] - states still waiting approval for HD chair
She states she has all information needed. She states she will call CM back.
Spoke with Dolores & updated.
PLAN: [facility] - waiting for approval for HD chair
Report #: [phone] Fax #: [phone]
[2024-08-24 12:11] LABS: Glucose - Point of Care 133 mg/dl (70-99)
--- NOTE | 2024-08-24 12:53 | W.PN.NEPH.PH ---
Today's Communication / Plan
-
Dialysis tomorrow
Assessment/Plan
-
Assessment
ESRD
Fever
Left upper arm edema, erythema
Diabetes mellitus type 2
CAD
Plan
Status post antibiotic for cellulitis of AVF arm, fistula functioning
Emla cream prior HD-ordered, dialysis tomorrow, orders provided
Eventual AV fistulogram to evaluate for central stenosis-likely out pt per vasc
Midodrine support for autonomic dysfunction secondary neuropathy
AMS-MRI no acute finding but dens fx -?old: S/p surgical evaluation, now with C collar
renal diet and FR
He has poor p.o. intake
Mental status waxes and wanes
Dialysis tomorrow
Placement issues and plan
DILAN provided for anemia
-
-
Date of Service: August 24, 2024
CC / HPI / ROS
-
Chief Complaint:
ESRD
History of Present Illness:
BP labile -chronic due to autonomic dysfunction
ESRD Wednesday
Review of Systems:
sleeping , PECHANGA
Blind
no fever
Labs
-
Labs:
WBC 3.9 10^3/uL (4.8-10.8) L 08/23/24 08:32
RBC 3.22 10^6/uL (4.70-6.10) L 08/23/24 08:32
Hgb 10.6 g/dL (13.0-18.0) L 08/23/24 08:32
Hct 32.0 % (39.0-52.0) L 08/23/24 08:32
Plt Count 207 10^3/uL (130-400) 08/23/24 08:32
Sodium 134 mmol/L (135-145) L 08/23/24 08:32
Potassium 4.4 mmol/L (3.5-5.1) 08/23/24 08:32
Chloride 94 mmol/L (98-107) L 08/23/24 08:32
Carbon Dioxide 28 mmol/L (22-30) 08/23/24 08:32
BUN 41 mg/dl (9-20) H 08/23/24 08:32
Creatinine 5.1 mg/dL (0.7-1.3) H* 08/23/24 08:32
eGFR 10.70 08/23/24 08:32
Glucose 104 mg/dl (70-99) H 08/23/24 08:32
Calcium 9.3 mg/dl (8.4-10.2) 08/23/24 08:32
Phosphorus 5.1 mg/dl (2.5-4.5) H 08/11/24 04:41
Albumin 4.0 g/dl (3.5-5.0) 08/10/24 01:33
Physical Exam
-
Vital Signs:
Vital Signs
Temp Pulse Resp BP Pulse Ox
97.8 F 66 17 168/69 99
08/24/24 07:05 08/24/24 07:25 08/24/24 07:05 08/24/24 07:25 08/24/24 07:05
Cardiovascular:: Regular rate and rhythm
Respiratory:: Bilateral: CTA (anteriorly)
Lung Excursion:: Normal
Abdomen:: Nontender and Soft
Extremity Edema:: None: Bilateral:
Maguire Catheter: No
Other Findings::
left arm edema improving slowly,erythema better
--- NOTE | 2024-08-24 14:56 | W.PN.HOSP.TC ---
Today's Communication/Plan
-
Assessment / Plan
Assessment / Plan
Mr. Clyde Molina is an 83yo M pmh SVT, ESRD, HTN, NIDDM, HLD, PAD admitted for cellulitis of L arm.
NAD
Scleral Anicteric, cornea cloudy
MMM
No JVD
CTABL
RRR, S1/S2, murmur at the right upper sternal border
Soft, NT, ND, BS+
Warm, Dry, left arm swollen however without erythema no warmth, AV fistula with good thrill bruit
AAOx3
Calm
Left upper extremity cellulitis
�improving
-Continue vancomycin dosed on HD days continue ancef
-blood cx - no growth
-Vascular surgery - fistulogram postponed due to acute encephalopathy progressing
Acute encephalopathy - Resolved, back at baseline
- could be from cefepime, switched abx to ancef
- electrolyte wnl for dialysis pt
- TSH, ammonia, CK wnl
- EEG: abnormal EEG recorded in altered mental status due to a moderate to severe generalized slowing and triphasic waves. This finding indicates diffuse cerebral dysfunction, nonspecific in terms of etiology.
- MRI brain: No evidence of acute intracranial abnormality. 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 Moderate stable atrophy. Moderate leukomalacia. Of note, the callosal angle appears normal, and findings are not considered highly
suggestive of normal pressure hydrocephalus. Transverse focus of signal abnormality traversing the inferior aspect of the dens, suggestive of a fracture, age uncertain. This appears to be new compared to MRI examination in 2021. As warranted,
consider further evaluation with CT of the cervical spine.
- cervical spine CT: Type II odontoid fracture
Type II odontoid fracture
- neurosurgery consult
- soft c-collar when out of bed
Normocytic Anemia
- stable
- monitor cbc
ESRD on HD, left upper extremity AV fistula
-Nephrology following continue HD per nephrology recommendations continue binders
- MWF schedule
Hard of hearing and blind
-Unclear history of dementia
-Follow changes in mood mentation
DM type II
-Accu-Chek sliding scale A1c 1 40-1 80
-Carb controlled diet
CAD
-Continue aspirin Ranexa, continue beta-stephan
GERD
-Continue PPI
SARA
-Continue CPAP - EPAP 4
Diet: pureed
DVT ppx: SCDs
Code status: FULL CODE
Awaiting DC to SNF when bed available
Anticipated Discharge: Within 24 hours
Subjective/Interval History
-
Date of Service: August 24, 2024
Seen and examined. No new complaints. No acute overnight events
Objective Data
-
Vital Signs:
Vital Signs
Temp Pulse Resp BP Pulse Ox
97.8 F 66 17 168/69 99
08/24/24 07:05 08/24/24 07:25 08/24/24 07:05 08/24/24 07:25 08/24/24 07:05
I&O
08/23/24 08/24/24 08/25/24
06:59 06:59 06:59
Intake Total 900 / 900 420 / 420
Balance 900 / 900 420 / 420
[2024-08-24 15:05] VITALS: BP 139/52
[2024-08-24] MEDS: ROCALTROL 0.5 MCG PO (15:52)
[2024-08-24 17:12] LABS: Glucose - Point of Care 148 mg/dl (70-99)
[2024-08-24] MEDS: PEPCID 20 MG PO (20:50)
[2024-08-24] MEDS: LOPRESSOR 12.5 MG PO (20:51)
[2024-08-24] MEDS: XALATAN OPHTHALMIC SOLUTION 1 DROP BOTH EYES (20:51)
[2024-08-24] MEDS: TYLENOL 650 MG PO (20:53)
[2024-08-24 21:30] LABS: Glucose - Point of Care 150 mg/dl (70-99)
[2024-08-24 23:26] VITALS: BP 168/60
[2024-08-25 05:14] VITALS: BMI 22.2
[2024-08-25 08:18] VITALS: BP 186/75
[2024-08-25 08:32] LABS: Hemoglobin 10.4 g/dL (13.0-18.0)
[2024-08-25 08:41] LABS: Carbon Dioxide 28 mmol/L (22-30); Chloride 93 mmol/L (98-107); Potassium 4.4 mmol/L (3.5-5.1); Sodium 133 mmol/L (135-145)
[2024-08-25 08:46] LABS: Glucose - Point of Care 95 mg/dl (70-99)
[2024-08-25] MEDS: RETACRIT 6000 UNITS IV (09:05)
--- NOTE | 2024-08-25 09:40 | W.PN.NEPH.HD ---
Progress Note - Hemodialysis
-
Date of Service: August 25, 2024
Duration: 4 hours
Potassium Bath: 2
Opti-Dialyzer: 160
Ultrafiltration: Other (1 kilogram as hemodynamically top)
Blood Flow: 400
Dialysate Flow: 600
Heparin: None
EPO: None
[2024-08-25] MEDS: TYLENOL 650 MG PO (09:49)
--- NOTE | 2024-08-25 11:02 | W.PN.HOSP.TC ---
Today's Communication/Plan
-
dc gto snf today
More than 30 minutes spent in discharge including
Final examination of the patient
Summarizing hospital stay
Instructions for continuing care to all relevant caregivers
Preparation of discharge records, prescriptions, and referral forms
Total time spent (in minutes): 33mins
Assessment / Plan
Assessment / Plan
Mr. Clyde Molina is an 83yo M pmh SVT, ESRD, HTN, NIDDM, HLD, PAD admitted for cellulitis of L arm.
NAD
Scleral Anicteric, cornea cloudy
MMM
No JVD
CTABL
RRR, S1/S2, murmur at the right upper sternal border
Soft, NT, ND, BS+
Warm, Dry, left arm swollen however without erythema no warmth, AV fistula with good thrill bruit
AAOx3
Calm
Left upper extremity cellulitis
�improving
-Continue vancomycin dosed on HD days continue ancef
-blood cx - no growth
-Vascular surgery - fistulogram postponed due to acute encephalopathy progressing
Acute encephalopathy - Resolved, back at baseline
- could be from cefepime, switched abx to ancef
- electrolyte wnl for dialysis pt
- TSH, ammonia, CK wnl
- EEG: abnormal EEG recorded in altered mental status due to a moderate to severe generalized slowing and triphasic waves. This finding indicates diffuse cerebral dysfunction, nonspecific in terms of etiology.
- MRI brain: No evidence of acute intracranial abnormality. 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 Moderate stable atrophy. Moderate leukomalacia. Of note, the callosal angle appears normal, and findings are not considered highly
suggestive of normal pressure hydrocephalus. Transverse focus of signal abnormality traversing the inferior aspect of the dens, suggestive of a fracture, age uncertain. This appears to be new compared to MRI examination in 2021. As warranted,
consider further evaluation with CT of the cervical spine.
- cervical spine CT: Type II odontoid fracture
Type II odontoid fracture
- neurosurgery consult
- soft c-collar when out of bed
Normocytic Anemia
- stable
- monitor cbc
ESRD on HD, left upper extremity AV fistula
-Nephrology following continue HD per nephrology recommendations continue binders
- MWF schedule
Hard of hearing and blind
-Unclear history of dementia
-Follow changes in mood mentation
DM type II
-Accu-Chek sliding scale A1c 1 40-1 80
-Carb controlled diet
CAD
-Continue aspirin Ranexa, continue beta-stephan
GERD
-Continue PPI
SARA
-Continue CPAP - EPAP 4
Diet: pureed
DVT ppx: SCDs
Code status: FULL CODE
DC to SNF
Anticipated Discharge: Today
Subjective/Interval History
-
Date of Service: August 25, 2024
Seen and examined on hemodialysis that was at bedside. Without evidence of agitation. Again states that he [facility]
Objective Data
-
Labs:
Laboratory Results
08/25/24
08:06
Hgb 10.4 L
Hct 31.0 L
Sodium 133 L
Potassium 4.4
Chloride 93 L
Carbon Dioxide 28
Vital Signs:
Vital Signs
Temp Pulse Resp BP Pulse Ox
98.1 F 67 14 186/75 98
08/24/24 23:26 08/25/24 08:18 08/25/24 08:18 08/25/24 08:18 08/25/24 08:18
I&O
08/24/24 08/25/24 08/26/24
06:59 06:59 06:59
Intake Total 420 / 420 780 / 780
Balance 420 / 420 780 / 780
--- NOTE | 2024-08-25 11:04 | W.DCSUMMARY ---
Discharge Summary
Discharge Data
Date of Admission: 08/10/24
Date of Discharge: 08/25/24
-
Pending Results: No
Hospital Course
83y M with PMH significant for hypertension, ESRD on HD and blindness
Presented with left arm swelling was found to have cellulitis started on IV antibiotics with cefepime and transition to Ancef. Hospital course was complicated by acute encephalopathy that was initially suspected to be related to cefepime. An
extensive workup was completed with EEG and MRI without acute abnormalities noted. Though on the MRI multiple foci of old lacunar infarcts were described. Additionally noted to have a age-indeterminate fracture of the inferior aspect of the
denssuggestiveoffracture followed up with neurosurgery and CT of cervical spine. Neurosurgery did not believe any surgical intervention was required and recommended soft c-collar with activity and outpatient neurosurgical follow-up.
Was evaluated by physical therapy that recommended discharge to SNF.
Has a history of CPAP he uses CPAP nightly with a setting of 4
Is active while sleeping and can roll out of bed therefore he will need railings when he sleeps to prevent any further falls
Evaluated by speech therapy recommended soft bite sized, thin liquids, meds whole in pur�e as well as aspiration precautions head of bed fully upright, single sips only, alternate solids/slips
Will need outpatient follow-up with PCP neurosurgery nephrology speech therapy PT OT
CTBrain
IMPRESSION:
There are no acute intracranial abnormalities.
There is old 3 mm lacunar infarct in the right globus pallidus
There is moderate diffuse cortical atrophy with mild nonspecific white matter changes as described above.
MRIBrain
IMPRESSION: No evidence of acute intracranial abnormality.
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
Moderate stable atrophy. Moderate leukomalacia. Of note, the callosal angle appears normal, and findings are not considered highly suggestive of normal pressure hydrocephalus.
Transverse focus of signal abnormality traversing the inferior aspect of the dens, suggestive of a fracture, age uncertain. This appears to be new compared to MRI examination in 2021. As warranted, consider further evaluation with CT of the cervical
spine.
C-spine CT
IMPRESSION:
Type II odontoid fracture.
Hypoattenuating left thyroid lobe nodule measures up to 1.7 cm. Recommend outpatient workup with dedicated thyroid ultrasound if not previously performed.
HeadCT
IMPRESSION:
No acute intracranial hemorrhage.
Suspected small bilateral old lacunar infarcts, as noted above.
Discharge Plan
-
Patient Disposition: Skilled Nursing/SNF
Discharge Diagnosis/Procedures: Cellulitis of left arm, acute encephalopathy
Condition: Fair
Diet: As tolerated and Diabetic, Carb Controlled
Activity: With assistance and As tolerated
Driving Restrictions: No driving
Activity Restrictions/Additional Instructions:
83y M with PMH significant for hypertension, ESRD on HD and blindness
Presented with left arm swelling was found to have cellulitis started on IV antibiotics with cefepime and transition to Ancef. Hospital course was complicated by acute encephalopathy that was initially suspected to be related to cefepime. An
extensive workup was completed with EEG and MRI without acute abnormalities noted. Though on the MRI multiple foci of old lacunar infarcts were described. Additionally noted to have a age-indeterminate fracture of the inferior aspect of the
denssuggestiveoffracture followed up with neurosurgery and CT of cervical spine. Neurosurgery did not believe any surgical intervention was required and recommended soft c-collar with activity and outpatient neurosurgical follow-up.
Was evaluated by physical therapy that recommended discharge to SNF.
Has a history of CPAP he uses CPAP nightly with a setting of 4
Is active while sleeping and can roll out of bed therefore he will need railings when he sleeps to prevent any further falls
Evaluated by speech therapy recommended soft bite sized, thin liquids, meds whole in pur�e as well as aspiration precautions head of bed fully upright, single sips only, alternate solids/slips
Will need outpatient follow-up with PCP neurosurgery nephrology speech therapy PT OT
CTBrain
IMPRESSION:
There are no acute intracranial abnormalities.
There is old 3 mm lacunar infarct in the right globus pallidus
There is moderate diffuse cortical atrophy with mild nonspecific white matter changes as described above.
MRIBrain
IMPRESSION: No evidence of acute intracranial abnormality.
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
Moderate stable atrophy. Moderate leukomalacia. Of note, the callosal angle appears normal, and findings are not considered highly suggestive of normal pressure hydrocephalus.
Transverse focus of signal abnormality traversing the inferior aspect of the dens, suggestive of a fracture, age uncertain. This appears to be new compared to MRI examination in 2021. As warranted, consider further evaluation with CT of the cervical
spine.
C-spine CT
IMPRESSION:
Type II odontoid fracture.
Hypoattenuating left thyroid lobe nodule measures up to 1.7 cm. Recommend outpatient workup with dedicated thyroid ultrasound if not previously performed.
HeadCT
IMPRESSION:
No acute intracranial hemorrhage.
Suspected small bilateral old lacunar infarcts, as noted above.
Instructions: Neck Fracture (DC), Cellulitis (skin infection) in adults - Discharge instructions, Toxic-metabolic encephalopathy
Referrals:
Jerzy Cruz DO [Active] - in six weeks
Pepe Riley MD [Family Provider] - in one week
Prescriptions:
Continued
brinzolamide [Azopt] 1 % Drops,Suspension
1 drp BOTH EYES TID
famotidine [Pepcid] 20 mg Tablet
20 mg PO HS
pitavastatin calcium [Livalo] 2 mg Tablet
2 mg PO MOTUWETHFR@2200
calcitriol 0.25 mcg Capsule
0.5 mcg PO QPM
sevelamer carbonate 800 mg tablet
3,200 mg PO AC
Rx Instructions:
10 min before he eats
Lumigan 0.01 % Drops
1 drp BOTH EYES HS
Rhopressa 0.02 % Drops
1 drp BOTH EYES DAILY
docusate sodium [Colace] 100 mg Capsule
200 mg PO DAILY
folic acid 1 mg Tablet
1 mg PO QPM
midodrine 2.5 mg Tablet
2.5 mg PO DAILYPRN PRN (Reason: BP<140/90)
Rx Instructions:
BP < 140/90
torsemide 20 mg tablet
80 mg PO DAILY
aspirin 81 mg tablet,delayed release (DR/EC)
81 mg PO DAILY
brimonidine-timolol [Combigan] 0.2-0.5 % drops
1 drp BOTH EYES TID
cholecalciferol (vitamin D3) [Vitamin D3] 50 mcg (2,000 unit) Tablet
50 mcg PO DAILY
sodium chloride [Chris 128] 5 % Drops
1 drp BOTH EYES TID
ranolazine 500 mg Tablet Extended Release 12 Hr
500 mg PO BID
Probiotic
1 tab PO DAILY
Liquacel 16-100 gram-kcal/30 mL Liquid
30 ml PO SUTUTHSA
acetaminophen 650 mg Tablet Extended Release
650 mg PO BID PRN (Reason: Pain) Qty: 0 0RF
Rx Instructions:
Pt's states he takes it every morning and he also takes it in the evenings on dialysis days.
isosorbide mononitrate 30 mg tablet extended release 24 hr
30 mg PO DAILY Qty: 0 0RF
Rx Instructions:
hold for SBP<100 or DBP<50
metoprolol tartrate 25 mg tablet
12.5 mg PO HS
Discharge Orders:
Discharge Patient (As Directed); Ordered 08/25/24
Ordered By: Erick Adams
Discharge Date and Time
Print Language: COOK ISLANDER
[2024-08-25 11:06] LABS: Glucose - Point of Care 93 mg/dl (70-99)
--- NOTE | 2024-08-25 11:47 | CM ---
Addendum entered by Karli Benito 08/25/24 15:46:
CM spoke with facility, unable to accept until Wednesday due to safety concerns as expressed concern for patient climbing out of bed/falling out of bed at facilities in the past. Update to , update to Hospitalist.
Plan; [facility] 08/28/24
Addendum entered by Karli Benito 08/25/24 14:12:
[facility]. CM spoke with patients , Dolores, agreeable to discharge to [facility], patient will require ambulance transport. IMM reviewed verbally, placed in chart.
[facility]:
Report: [phone]

[facility]
Original Note:
CM placed call to Blank at [facility], per Blank, no available HD chair and unsure at this time when will have availability. Call to patients , Dolores, additional referrals sent to [facility] and [facility], inquiring if
[facility] can transport patient to dialysis center. CM will continue to follow for all discharge planning needs.
Plan; SNF pending accepting facility, will need HD
[2024-08-25] MEDS: NOVOLOG FLEXPEN-LOW RESISTANCE SC ×3 (12:03→18:45)
[2024-08-25] MEDS: RENVELA 3200 MG PO ×2 (12:47→16:15)
[2024-08-25] MEDS: RENVELA PO (12:47)
[2024-08-25] MEDS: DEMADEX 80 MG PO (12:48)
[2024-08-25] MEDS: RANEXA EXTENDED RELEASE 500 MG PO (12:55)
[2024-08-25] MEDS: ASPIR LOW (ENTERIC COATED) 81 MG PO (12:55)
[2024-08-25] MEDS: ALPHAGAN 0.2% EYE DROPS 1 DROP BOTH EYES ×2 (12:56→16:20)
[2024-08-25] MEDS: TIMOPTIC 0.5% OPHTHALMIC SOLUTION 1 DROP OPHTH ×2 (12:56→16:20)
[2024-08-25] MEDS: HEPARIN 5000 UNITS SC (12:56)
[2024-08-25] MEDS: AZOPT 1% OPHTHALMIC SUSPENSION 1 DROP BOTH EYES ×2 (12:57→16:20)
[2024-08-25 14:57] VITALS: BP 117/43
--- NOTE | 2024-08-25 15:39 | CM ---
Spoke with liaison from [facility].
After spouse spoke with nursing supervisor sanding at the facility, nursing supervisor sanding said they are unable to accept until Wednesday due to safety concerns.
Spouse told facility patient has had multiple falls at the prior facility and needed side rails and mats for patient, and patient is blind.
Per liaison, Physical therapy will need to evaluate patient on arrival to the facility to set up safety measures.
Per liaison they will be able to accept Wednesday even though it is a holiday.
[2024-08-25] MEDS: ROCALTROL 0.5 MCG PO (16:16)
[2024-08-25 18:46] LABS: Glucose - Point of Care 120 mg/dl (70-99)
[2024-08-25] MEDS: HEPARIN SC (20:59)
[2024-08-25] MEDS: RANEXA EXTENDED RELEASE PO (21:00)
[2024-08-25] MEDS: ALPHAGAN 0.2% EYE DROPS BOTH EYES (21:12)
[2024-08-25] MEDS: AZOPT 1% OPHTHALMIC SUSPENSION BOTH EYES (21:13)
[2024-08-25] MEDS: TIMOPTIC 0.5% OPHTHALMIC SOLUTION OPHTH (21:14)
[2024-08-25] MEDS: XALATAN OPHTHALMIC SOLUTION BOTH EYES (21:14)
[2024-08-25] MEDS: LOPRESSOR PO (21:14)
--- NOTE | 2024-08-26 02:52 | PTCARENOTE ---
Patient agitated from start of shift. Refusing any care including vital signs, case managers, accucheck. When staff encourages patient to cooperate with care, patient states 'fucking bitch, get the fuck out!' will continue to monitor.
[2024-08-26 07:00] VITALS: BP 175/68
[2024-08-26 08:22] LABS: Glucose - Point of Care 92 mg/dl (70-99)
--- NOTE | 2024-08-26 10:58 | CM ---
Received call from patient's , Dolores, who had questions about patient transport on Wednesday. She was advised that patient will most likely have to take a w/c van and she agreed to pay the approx fee. She stated that she will meet patient over at
facility to sign paperwork.
Plan: Case management will continue to follow and assist with discharge planning. [facility] on Wednesday.
[2024-08-26] MEDS: RENVELA PO (11:02)
[2024-08-26] MEDS: NOVOLOG FLEXPEN-LOW RESISTANCE SC ×3 (11:02→17:07)
[2024-08-26] MEDS: ALPHAGAN 0.2% EYE DROPS 1 DROP BOTH EYES ×2 (11:03→17:00)
[2024-08-26] MEDS: AZOPT 1% OPHTHALMIC SUSPENSION 1 DROP BOTH EYES ×2 (11:03→17:00)
[2024-08-26] MEDS: DEMADEX 80 MG PO (11:03)
[2024-08-26] MEDS: TIMOPTIC 0.5% OPHTHALMIC SOLUTION 1 DROP OPHTH ×2 (11:03→17:00)
[2024-08-26] MEDS: HEPARIN 5000 UNITS SC ×2 (11:06→21:26)
[2024-08-26] MEDS: ASPIR LOW (ENTERIC COATED) 81 MG PO (11:07)
[2024-08-26] MEDS: RANEXA EXTENDED RELEASE 500 MG PO ×2 (11:07→21:27)
--- NOTE | 2024-08-26 11:08 | W.PN.HOSP.TC ---
Today's Communication/Plan
-
Assessment / Plan
Assessment / Plan
Mr. Clyde Molina is an 83yo M pmh SVT, ESRD, HTN, NIDDM, HLD, PAD admitted for cellulitis of L arm.
NAD
Scleral Anicteric, cornea cloudy
MMM
No JVD
CTABL
RRR, S1/S2, murmur at the right upper sternal border
Soft, NT, ND, BS+
Warm, Dry, left arm swollen however without erythema no warmth, AV fistula with good thrill bruit
AAOx3
Calm
Left upper extremity cellulitis
�improving
-Continue vancomycin dosed on HD days continue ancef
-blood cx - no growth
-Vascular surgery - fistulogram postponed due to acute encephalopathy progressing
Acute encephalopathy - Resolved, back at baseline
- could be from cefepime, switched abx to ancef
- electrolyte wnl for dialysis pt
- TSH, ammonia, CK wnl
- EEG: abnormal EEG recorded in altered mental status due to a moderate to severe generalized slowing and triphasic waves. This finding indicates diffuse cerebral dysfunction, nonspecific in terms of etiology.
- MRI brain: No evidence of acute intracranial abnormality. 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 Moderate stable atrophy. Moderate leukomalacia. Of note, the callosal angle appears normal, and findings are not considered highly
suggestive of normal pressure hydrocephalus. Transverse focus of signal abnormality traversing the inferior aspect of the dens, suggestive of a fracture, age uncertain. This appears to be new compared to MRI examination in 2021. As warranted,
consider further evaluation with CT of the cervical spine.
- cervical spine CT: Type II odontoid fracture
Type II odontoid fracture
- neurosurgery consult
- soft c-collar when out of bed
Normocytic Anemia
- stable
- monitor cbc
ESRD on HD, left upper extremity AV fistula
-Nephrology following continue HD per nephrology recommendations continue binders
- MWF schedule
Hard of hearing and blind
-Unclear history of dementia
-Follow changes in mood mentation
DM type II
-Accu-Chek sliding scale A1c 1 40-1 80
-Carb controlled diet
CAD
-Continue aspirin Ranexa, continue beta-stephan
GERD
-Continue PPI
SARA
-Continue CPAP - EPAP 4
Diet: pureed
DVT ppx: SCDs
Code status: FULL CODE
DC to SNF
Plan was to discharge to SNF yesterday however [facility] called back stating that they were unable to take him until Wednesday as they would need physical therapy to evaluate him once he is at the facility as his had called [facility] stating
that he would need a bed with bed rails and precautions as he is a fall risk and falls out of bed
Anticipated Discharge: > 48 hours
Subjective/Interval History
-
Date of Service: August 26, 2024
seen and exmaned.
askibg for codd
no acue overnight events
Objective Data
-
Vital Signs:
Vital Signs
Temp Pulse Resp BP Pulse Ox
97.7 F 66 16 175/68 100
08/26/24 07:00 08/26/24 07:00 08/26/24 07:00 08/26/24 07:00 08/26/24 07:00
I&O
08/25/24 08/26/24 08/27/24
06:59 06:59 06:59
Intake Total 780 / 780
Balance 780 / 780
[2024-08-26 11:58] LABS: Glucose - Point of Care 123 mg/dl (70-99)
[2024-08-26] MEDS: RENVELA 3200 MG PO ×2 (12:51→17:07)
--- NOTE | 2024-08-26 13:55 | W.PN.NEPH.PH ---
Today's Communication / Plan
-
dialysis Wednesday
Assessment/Plan
-
Assessment
ESRD
Fever
Left upper arm edema, erythema
Diabetes mellitus type 2
CAD
Plan
Status post antibiotic for cellulitis of AVF arm, fistula functioning
Emla cream prior HD-ordered, dialysis tomorrow, orders provided
Eventual AV fistulogram to evaluate for central stenosis-likely out pt per vasc
Midodrine support for autonomic dysfunction secondary neuropathy
AMS-MRI no acute finding but dens fx -?old: S/p surgical evaluation, now with C collar
renal diet and FR
He has poor p.o. intake
Mental status waxes and wanes
Dialysis Wednesday and likely discharge after dialysis to rehab
DILAN provided for anemia
-
-
Date of Service: August 26, 2024
CC / HPI / ROS
-
Chief Complaint:
ESRD
History of Present Illness:
BP labile -chronic due to autonomic dysfunction
ESRD Wednesday
Review of Systems:
sleeping , [place]
Blind
no fever
Labs
-
Labs:
WBC 3.9 10^3/uL (4.8-10.8) L 08/23/24 08:32
RBC 3.22 10^6/uL (4.70-6.10) L 08/23/24 08:32
Hgb 10.4 g/dL (13.0-18.0) L 08/25/24 08:06
Hct 31.0 % (39.0-52.0) L 08/25/24 08:06
Plt Count 207 10^3/uL (130-400) 08/23/24 08:32
Sodium 133 mmol/L (135-145) L 08/25/24 08:06
Potassium 4.4 mmol/L (3.5-5.1) 08/25/24 08:06
Chloride 93 mmol/L (98-107) L 08/25/24 08:06
Carbon Dioxide 28 mmol/L (22-30) 08/25/24 08:06
BUN 41 mg/dl (9-20) H 08/23/24 08:32
Creatinine 5.1 mg/dL (0.7-1.3) H* 08/23/24 08:32
eGFR 10.70 08/23/24 08:32
Glucose 104 mg/dl (70-99) H 08/23/24 08:32
Calcium 9.3 mg/dl (8.4-10.2) 08/23/24 08:32
Phosphorus 5.1 mg/dl (2.5-4.5) H 08/11/24 04:41
Albumin 4.0 g/dl (3.5-5.0) 08/10/24 01:33
Physical Exam
-
Vital Signs:
Vital Signs
Temp Pulse Resp BP Pulse Ox
97.7 F 66 16 175/68 100
08/26/24 07:00 08/26/24 11:03 08/26/24 07:00 08/26/24 11:03 08/26/24 07:00
Cardiovascular:: Regular rate and rhythm
Respiratory:: Bilateral: CTA
Lung Excursion:: Normal
Abdomen:: Nontender and Soft
Extremity Edema:: None: Bilateral:
Maguire Catheter: No
Other Findings::
left arm edema improving slowly,erythema better
[2024-08-26 15:00] VITALS: BP 141/51
[2024-08-26 16:59] LABS: Glucose - Point of Care 143 mg/dl (70-99)
[2024-08-26] MEDS: ROCALTROL 0.5 MCG PO (17:16)
[2024-08-26] MEDS: PEPCID 20 MG PO (21:30)
[2024-08-26] MEDS: XALATAN OPHTHALMIC SOLUTION BOTH EYES ×2 (21:34→22:12)
[2024-08-26] MEDS: ALPHAGAN 0.2% EYE DROPS BOTH EYES ×2 (21:34→22:13)
[2024-08-26] MEDS: TIMOPTIC 0.5% OPHTHALMIC SOLUTION OPHTH ×2 (21:35→22:12)
[2024-08-26] MEDS: AZOPT 1% OPHTHALMIC SUSPENSION BOTH EYES ×2 (21:35→22:13)
[2024-08-26 21:44] LABS: Glucose - Point of Care 119 mg/dl (70-99)
[2024-08-26] MEDS: LOPRESSOR PO (22:08)
[2024-08-26 23:16] VITALS: BP 175/57
[2024-08-27 07:37] VITALS: BP 183/66
[2024-08-27 07:53] LABS: Glucose - Point of Care 90 mg/dl (70-99)
[2024-08-27] MEDS: ASPIR LOW (ENTERIC COATED) 81 MG PO (08:39)
[2024-08-27] MEDS: RANEXA EXTENDED RELEASE 500 MG PO ×2 (08:39→20:42)
[2024-08-27] MEDS: DEMADEX 80 MG PO (08:39)
[2024-08-27] MEDS: ALPHAGAN 0.2% EYE DROPS 1 DROP BOTH EYES ×3 (08:41→22:49)
[2024-08-27] MEDS: RENVELA 3200 MG PO ×3 (08:41→17:22)
[2024-08-27] MEDS: AZOPT 1% OPHTHALMIC SUSPENSION 1 DROP BOTH EYES ×3 (08:41→22:49)
[2024-08-27] MEDS: HEPARIN 5000 UNITS SC ×2 (08:42→20:42)
[2024-08-27] MEDS: TIMOPTIC 0.5% OPHTHALMIC SOLUTION 1 DROP OPHTH ×3 (08:42→22:49)
[2024-08-27] MEDS: NOVOLOG FLEXPEN-LOW RESISTANCE SC ×3 (08:43→17:23)
--- NOTE | 2024-08-27 09:11 | W.PN.HOSP.TC ---
Today's Communication/Plan
-
Pending bed at [facility] and nursing staff at the facility. Case management following.
Continue hemodialysis per nephrology recommendation
Assessment / Plan
Assessment / Plan
Mr. Clyde Molina is an 83yo M pmh SVT, ESRD, HTN, NIDDM, HLD, PAD admitted for cellulitis of L arm.
NAD
Scleral Anicteric, cornea cloudy
MMM
No JVD
CTABL
RRR, S1/S2, murmur at the right upper sternal border
Soft, NT, ND, BS+
Warm, Dry, left arm swollen however without erythema no warmth, AV fistula with good thrill bruit
AAOx3
Calm
Left upper extremity cellulitis
�improving
-Continue vancomycin dosed on HD days continue ancef
-blood cx - no growth
-Vascular surgery - fistulogram postponed due to acute encephalopathy progressing
Acute encephalopathy - Resolved, back at baseline
- could be from cefepime, switched abx to ancef
- electrolyte wnl for dialysis pt
- TSH, ammonia, CK wnl
- EEG: abnormal EEG recorded in altered mental status due to a moderate to severe generalized slowing and triphasic waves. This finding indicates diffuse cerebral dysfunction, nonspecific in terms of etiology.
- MRI brain: No evidence of acute intracranial abnormality. 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 Moderate stable atrophy. Moderate leukomalacia. Of note, the callosal angle appears normal, and findings are not considered highly
suggestive of normal pressure hydrocephalus. Transverse focus of signal abnormality traversing the inferior aspect of the dens, suggestive of a fracture, age uncertain. This appears to be new compared to MRI examination in 2021. As warranted,
consider further evaluation with CT of the cervical spine.
- cervical spine CT: Type II odontoid fracture
Type II odontoid fracture
- neurosurgery consult
- soft c-collar when out of bed
Normocytic Anemia
- stable
- monitor cbc
ESRD on HD, left upper extremity AV fistula
-Nephrology following continue HD per nephrology recommendations continue binders
- MWF schedule
Hard of hearing and blind
-Unclear history of dementia
-Follow changes in mood mentation
DM type II
-Accu-Chek sliding scale A1c 1 40-1 80
-Carb controlled diet
CAD
-Continue aspirin Ranexa, continue beta-stephan
GERD
-Continue PPI
SARA
-Continue CPAP - EPAP 4
Diet: pureed
DVT ppx: SCDs
Code status: FULL CODE
DC to SNF
Plan was to discharge to SNF yesterday however [facility] called back stating that they were unable to take him until Wednesday as they would need physical therapy to evaluate him once he is at the facility as his had called [facility] stating
that he would need a bed with bed rails and precautions as he is a fall risk and falls out of bed
Anticipated Discharge: 24 - 48 hours
Subjective/Interval History
-
Date of Service: August 27, 2024
Seen and examined. No new complaints. No acute events.
Objective Data
-
Vital Signs:
Vital Signs
Temp Pulse Resp BP Pulse Ox
97.5 F 61 16 183/66 99
08/27/24 07:37 08/27/24 08:39 08/27/24 07:37 08/27/24 08:39 08/27/24 07:37
I&O
08/26/24 08/27/24 08/28/24
06:59 06:59 06:59
Intake Total 250 / 250
Output Total 0 / 0
Balance 250 / 250
[2024-08-27 12:07] LABS: Glucose - Point of Care 128 mg/dl (70-99)
--- NOTE | 2024-08-27 14:24 | W.PN.NEPH.PH ---
Today's Communication / Plan
-
dialysis tomorrow
Assessment/Plan
-
Assessment
ESRD
Fever
Left upper arm edema, erythema
Diabetes mellitus type 2
CAD
Plan
Status post antibiotic for cellulitis of AVF arm, fistula functioning
Emla cream prior HD-ordered, dialysis tomorrow, orders provided
Eventual AV fistulogram to evaluate for central stenosis-likely out pt per vasc
Midodrine support for autonomic dysfunction secondary neuropathy
AMS-MRI no acute finding but dens fx -?old: S/p surgical evaluation, now with C collar
renal diet and FR
He has poor p.o. intake
Mental status waxes and wanes
Dialysis Wednesday and likely discharge after dialysis to rehab
DILAN provided for anemia
-
-
Date of Service: August 27, 2024
CC / HPI / ROS
-
Chief Complaint:
ESRD
History of Present Illness:
BP labile -chronic due to autonomic dysfunction
ESRD Wednesday
Review of Systems:
sleeping , [place]
Blind
no fever
Labs
-
Labs:
WBC 3.9 10^3/uL (4.8-10.8) L 08/23/24 08:32
RBC 3.22 10^6/uL (4.70-6.10) L 08/23/24 08:32
Hgb 10.4 g/dL (13.0-18.0) L 08/25/24 08:06
Hct 31.0 % (39.0-52.0) L 08/25/24 08:06
Plt Count 207 10^3/uL (130-400) 08/23/24 08:32
Sodium 133 mmol/L (135-145) L 08/25/24 08:06
Potassium 4.4 mmol/L (3.5-5.1) 08/25/24 08:06
Chloride 93 mmol/L (98-107) L 08/25/24 08:06
Carbon Dioxide 28 mmol/L (22-30) 08/25/24 08:06
BUN 41 mg/dl (9-20) H 08/23/24 08:32
Creatinine 5.1 mg/dL (0.7-1.3) H* 08/23/24 08:32
eGFR 10.70 08/23/24 08:32
Glucose 104 mg/dl (70-99) H 08/23/24 08:32
Calcium 9.3 mg/dl (8.4-10.2) 08/23/24 08:32
Phosphorus 5.1 mg/dl (2.5-4.5) H 08/11/24 04:41
Albumin 4.0 g/dl (3.5-5.0) 08/10/24 01:33
Physical Exam
-
Vital Signs:
Vital Signs
Temp Pulse Resp BP Pulse Ox
97.5 F 61 16 183/66 99
08/27/24 07:37 08/27/24 08:39 08/27/24 07:37 08/27/24 08:39 08/27/24 07:37
Cardiovascular:: Regular rate and rhythm
Respiratory:: Bilateral: CTA
Lung Excursion:: Normal
Abdomen:: Nontender and Soft
Extremity Edema:: None: Bilateral:
Maguire Catheter: No
Other Findings::
left arm edema improving slowly,erythema better
[2024-08-27 15:15] VITALS: BP 174/67
[2024-08-27 17:03] LABS: Glucose - Point of Care 124 mg/dl (70-99)
[2024-08-27] MEDS: ROCALTROL 0.5 MCG PO (17:22)
[2024-08-27] MEDS: XALATAN OPHTHALMIC SOLUTION 1 DROP BOTH EYES (20:43)
[2024-08-27 21:08] LABS: Glucose - Point of Care 110 mg/dl (70-99)
[2024-08-27] MEDS: LOPRESSOR 12.5 MG PO (22:48)
[2024-08-27 23:37] VITALS: BP 166/70
[2024-08-28 07:32] LABS: Glucose - Point of Care 87 mg/dl (70-99)
[2024-08-28 08:00] VITALS: BP 195/80
[2024-08-28] MEDS: NOVOLOG FLEXPEN-LOW RESISTANCE SC ×2 (09:00→11:52)
[2024-08-28] MEDS: RENVELA PO ×2 (09:01→15:41)
[2024-08-28] MEDS: AZOPT 1% OPHTHALMIC SUSPENSION 1 DROP BOTH EYES ×2 (09:11→15:43)
[2024-08-28] MEDS: TIMOPTIC 0.5% OPHTHALMIC SOLUTION 1 DROP OPHTH ×2 (09:11→15:43)
[2024-08-28] MEDS: ALPHAGAN 0.2% EYE DROPS 1 DROP BOTH EYES ×2 (09:11→15:42)
[2024-08-28] MEDS: ASPIR LOW (ENTERIC COATED) 81 MG PO (09:12)
[2024-08-28] MEDS: RANEXA EXTENDED RELEASE 500 MG PO (09:15)
[2024-08-28] MEDS: HEPARIN SC (09:16)
[2024-08-28] MEDS: RETACRIT 6000 UNITS IV (09:16)
--- NOTE | 2024-08-28 09:27 | W.PN.HOSP.TC ---
Addendum entered and electronically signed by Amilcar Mckinnon MD 08/28/24 12:30:
# left thyroid lobe nodule measures up to 1.7 cm
outpatient follow up with US
Original Note:
Today's Communication/Plan
-
waxing and waning mental status
repeat labs
control BP
US venous LUE
Assessment / Plan
Assessment / Plan
83yo M with PMHx of SVT, CVA, ESRD on HD via L AVF, HTN, preDM, HLD, PAD, legally blind came with AMS, found LUE cellulitis and type 2 odontoid Fx. Initially planned for fistulogram, but due to ongoing lethargy, non-responsive status - VascSx
elected to proceed upon mentation recovery. Neurology contributed encephalopathy to multifactorial (metabolic, infectious, vascular) causes. MRI without acute intracranial abnormality. NeuroSx advised soft collar on neck for odontoid Fx.
A/P:
#Acute metabolic encephalopathy, recurrent
MRI brain without caute findings
Neurology followed
TSH WNL
Ammonia WNL
#LUE swelling, posible cellulitis
completed Abx
Art US showed swelling, AVF functioning, concern for venous pathology - US venous LUE
VascSx -postponed fistulogram due to AMS
#Essential HTN with poor BP control
adjust meds
#ESRD on HD
cont HD
midodrine for HD-induced hypotension PRN
Nephrology consult
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
Epo as per nephro
follow CBC
#type II odontoid Fx
soft collar as per neuroSx
#HLD
#Hx of CVA
#PAD
#CAD stable
#Cataract
cont home meds
#PreDM
DM diet, insult SS
Hgba1c 5.1% on 08/11/24
DVT ppx hep
Full code
I have spent at least 55min reviewing chart, test results, communication with consultants and direct patient care
Anticipated Discharge: 24 - 48 hours
Subjective/Interval History
-
Date of Service: August 28, 2024
Objective Data
-
Labs:
Laboratory Results
08/28/24
09:21
WBC Pending
Hgb Pending
Hct Pending
Plt Count Pending
Sodium Pending
Potassium Pending
Chloride Pending
Carbon Dioxide Pending
BUN Pending
Creatinine Pending
Glucose Pending
Calcium Pending
Total Bilirubin Pending
AST Pending
ALT Pending
Alkaline Phosphatase Pending
Vital Signs:
Vital Signs
Temp Pulse Resp BP Pulse Ox
97.6 F 64 14 195/80 100
08/28/24 08:00 08/28/24 08:00 08/28/24 08:00 08/28/24 08:00 08/28/24 08:00
I&O
08/27/24 08/28/24 08/29/24
06:59 06:59 06:59
Intake Total 250 / 250
Output Total 0 / 0
Balance 250 / 250
Review of Systems
-
Unable to obtain full review of systems at this time due to: Patient Non-verbal
Physical Exam
-
General: No Apparent Distress
Respiratory: Clear to Auscultation
Cardiac: Regular Rhythm
Neuro: Alert and Other (lethargic)
Psych: Calm
[2024-08-28 09:43] LABS: % Basophils 1.9 % (0-2); % Eosinophils 2.1 % (0-6); % Immature Granulocytes 0.3 % (0-0.5); % Monocytes 17.2 % (1.7-9.3); % Neutrophils 52.5 % (42.2-75.2); Absolute Basophils 0.1 10^3/uL (0-0.2); Absolute Eosinophils 0.1 10^3/uL (0-0.7); Absolute Monocytes 0.6 10^3/uL (0.1-0.6); Hematocrit 30.3 % (39.0-52.0); Hemoglobin 10.2 g/dL (13.0-18.0); Mean Corp Hgb Conc. 33.7 g/dL (33.0-37.0); Mean Corpuscular Hgb 33.1 pg (27.0-31.0); Mean Corpuscular Volume 98.4 fL (80.0-94.0); Mean Platelet Volume 11.2 fL (7.4-10.4); Nucleated Red Blood Cells % 0 % (-); Platelet Count 230 10^3/uL (130-400); Red Blood Cell Count 3.08 10^6/uL (4.70-6.10); Red Cell Dist. Width 13.1 % (11.5-14.5); White Blood Cell Count 3.7 10^3/uL (4.8-10.8)
[2024-08-28 10:07] LABS: ALT (SGPT) < 10 U/L (0-50); AST (SGOT) 25 U/L (17-59); Albumin 3.3 g/dl (3.5-5.0); Alkaline Phosphatase 74 U/L (38-126); Blood Urea Nitrogen 35 mg/dl (9-20); Calcium 9.3 mg/dl (8.4-10.2); Carbon Dioxide 29 mmol/L (22-30); Chloride 91 mmol/L (98-107); Estimated Creatinine Clearance 11 ml/min; Glucose 91 mg/dl (70-99); Potassium 4.9 mmol/L (3.5-5.1); Sodium 131 mmol/L (135-145); Total Bilirubin 0.5 mg/dl (0.2-1.3); Total Protein 5.5 g/dl (6.3-8.2); eGFR 9.99
[2024-08-28] MEDS: ProAmatine 2.5 MG PO (10:22)
--- NOTE | 2024-08-28 10:50 | PN.CDI ---
CDI
- -
CDI:
Physician Documentation Request
Admit Date: 08/10/24 05:06
Dear Doctor Ino,
Please review the following and provide your response in the progress notes.
Clinical Indicators:
Pt admitted with sepsis 2/2 LUE cellulitis /ESRD on HD
Sodium levels are as below
08/23/24 08/25/24 08/28/24
08:32 08:06 08:00
Sodium 134 L 133 L 131 L
Based on the above, could you clarify in the progress notes, the appropriate diagnosis, if significant, that supports the above abnormalities and additional evaluation, monitoring and/or treatment rendered:
Hyponatremia
Abnormal lab value onlu
Other ( please specify)
Use of terms such as suspected, likely, concern for, or probable (associated with a specific diagnosis that is being evaluated, monitored, or treated as if it exists) are acceptable and can be coded in the inpatient setting, when documented at the
time of discharge.
Thank you,
Ailyn Seaman RN
CDI Specialist
Tony Text
Please use your independent medical judgment in providing your response.
[2024-08-28 11:41] LABS: Glucose - Point of Care 135 mg/dl (70-99)
--- NOTE | 2024-08-28 11:48 | W.PN.NEPH.HD ---
Assessment
-
Seen on HD. no new issues. VSS, access ok
Progress Note - Hemodialysis
-
Date of Service: August 28, 2024
Duration: 4 hours
Potassium Bath: 2
Calcium Bath: 2.5
Opti-Dialyzer: 160
Ultrafiltration: Other (2kg)
Blood Flow: 400
Dialysate Flow: 600
Heparin: no
EPO: 6000 units
--- NOTE | 2024-08-28 13:20 | W.DCSUMMARY ---
Addendum entered and electronically signed by Amilcar Mckinnon MD 08/28/24 13:45:
Will not start Hydralazine as BP significantly dropped after HD
Original Note:
Discharge Summary
Discharge Data
Date of Admission: 08/10/24
Date of Discharge: 08/28/24
-
Pending Results: No
Hospital Course
83yo M with PMHx of SVT, CVA, ESRD on HD via L AVF, HTN, preDM, HLD, PAD, legally blind came with AMS, found LUE cellulitis and type 2 odontoid Fx. Initially planned for fistulogram, but due to ongoing lethargy, non-responsive status - VascSx
elected to proceed upon mentation recovery. Neurology contributed encephalopathy to multifactorial (metabolic, infectious, vascular) causes. MRI without acute intracranial abnormality. NeuroSx advised soft collar on neck for odontoid Fx.Outpatient
thyroid US and neuroSx follow up discussed with over the phone - she verbalized understanding. VascSx will plan for outpatient fistulogram due to recurrent LUE swelling. Medically stable for d/c. Awake and conversant on the day of d/c.
Verbalized no symptoms
I have spent at least 55min reviewing chart, test results, communication with consultants and direct patient care
Patient was managed for:
#mild leukopenia - reactive
#mild hyponatremia - managed with HD
#Acute metabolic encephalopathy, recurrent
#LUE swelling, possible cellulitis
#Essential HTN with poor BP control
#ESRD on HD
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
#type II odontoid Fx
#HLD
#Hx of CVA
#PAD
#CAD stable
#Cataract
#PreDM
#SARA
Discharge Plan
-
Patient Disposition: [facility]/SNF
Discharge Diagnosis/Procedures: Cellulitis of left arm, acute encephalopathy
Condition: Fair
Diet: As tolerated and Diabetic, Carb Controlled
Activity: With assistance and As tolerated
Driving Restrictions: No driving
Instructions: Neck Fracture (DC), Cellulitis (skin infection) in adults - Discharge instructions, Toxic-metabolic encephalopathy
Referrals:
Jerzy Cruz DO [Active] - in six weeks (for odontoid fracture)
Pepe Riley MD [Family Provider] - in one week (schedule US of thyroid for left thyroid lobe nodule measures up to 1.7 cm)
Sami Cho MD [Active] - in three to four weeks (for fistulogram)
Prescriptions:
Continued
brinzolamide [Azopt] 1 % Drops,Suspension
1 drp BOTH EYES TID
famotidine [Pepcid] 20 mg Tablet
20 mg PO HS
pitavastatin calcium [Livalo] 2 mg Tablet
2 mg PO MOTUWETHFR@2200
calcitriol 0.25 mcg Capsule
0.5 mcg PO QPM
sevelamer carbonate 800 mg tablet
3,200 mg PO AC
Rx Instructions:
10 min before he eats
Lumigan 0.01 % Drops
1 drp BOTH EYES HS
Rhopressa 0.02 % Drops
1 drp BOTH EYES DAILY
docusate sodium [Colace] 100 mg Capsule
200 mg PO DAILY
folic acid 1 mg Tablet
1 mg PO QPM
midodrine 2.5 mg Tablet
2.5 mg PO DAILYPRN PRN (Reason: BP<140/90)
Rx Instructions:
BP < 140/90
torsemide 20 mg tablet
80 mg PO DAILY
aspirin 81 mg tablet,delayed release (DR/EC)
81 mg PO DAILY
brimonidine-timolol [Combigan] 0.2-0.5 % drops
1 drp BOTH EYES TID
cholecalciferol (vitamin D3) [Vitamin D3] 50 mcg (2,000 unit) Tablet
50 mcg PO DAILY
sodium chloride [Chris 128] 5 % Drops
1 drp BOTH EYES TID
ranolazine 500 mg Tablet Extended Release 12 Hr
500 mg PO BID
Probiotic
1 tab PO DAILY
Liquacel 16-100 gram-kcal/30 mL Liquid
30 ml PO SUTUTHSA
acetaminophen 650 mg Tablet Extended Release
650 mg PO BID PRN (Reason: Pain) Qty: 0 0RF
Rx Instructions:
Pt's states he takes it every morning and he also takes it in the evenings on dialysis days.
isosorbide mononitrate 30 mg tablet extended release 24 hr
30 mg PO DAILY Qty: 0 0RF
Rx Instructions:
hold for SBP<100 or DBP<50
metoprolol tartrate 25 mg tablet
12.5 mg PO HS
Discharge Orders:
Discharge Patient (As Directed); Ordered 08/28/24
Ordered By: Amilcar Mckinnon
Discharge Date and Time
Print Language: ROMANSH
[2024-08-28 15:30] VITALS: BP 150/47
[2024-08-28] MEDS: DEMADEX PO (15:40)
--- NOTE | 2024-08-28 15:43 | CM ---
entered order for discharge.
Pt had DH today.
Baseline Pt has out pt [facility] at [facility] 11:45 am
Spoke with Kelly Parr she confirmed that pt will be transported to [facility] for HD while at [facility].
Spoke with Dolores several times. She agrees with Dc to [facility] today . She agrees with [facility].
She agrees with [place] continue HD while he is in rehab.
Confirmed with Tisha at out pt [facility] that pt will resume he normal HD starting Wednesday 3 x weekly.
requested ambulance [facility] form completed
[facility]
report [phone]
fax [phone]
PLAN To [facility] Pt
[2024-08-28 16:34] LABS: Glucose - Point of Care 148 mg/dl (70-99)
--- NOTE | 2024-08-28 16:46 | PTCARENOTE ---
called Karolyn Issa 2x to give report, put on hold both times. Call disconnects after approx 5 mins. No one picked up
== END 2024-08-28 16:57 | DRG 871 ==
LOC: 3 WEST ACU 05:06
PROVIDERS: Hospitalist; Internal Medicine; Specialist; Student in an Organized Health Care Education/Training Program; ADMITTING PHYSICIAN Hospitalist; ATTENDING PHYSICIAN Internal Medicine; CONSULT PHYSICIAN Psychiatry & Neurology Neurology; EMERGENCY PHYSICIAN Emergency Medicine; FAMILY PHYSICIAN Internal Medicine Geriatric Medicine; OTHER PHYSICIAN Neurological Surgery; OTHER PHYSICIAN Psychiatry & Neurology Psychiatry; OTHER PHYSICIAN Specialist
PROC: 5A1D70Z Performance of Urinary Filtration, Intermittent, Less than 6 Hours Per Day (ICD-10-PCS; 2024-08-11)
PROC: 5A09357 Assistance with Respiratory Ventilation, Less than 24 Consecutive Hours, Continuous Positive Airway Pressure (ICD-10-PCS; 2024-08-12)
DX: A41.9 Sepsis, unspecified organism (principal); G92.8 Other toxic encephalopathy; N18.6 End stage renal disease; L03.114 Cellulitis of left upper limb; I47.10 Supraventricular tachycardia, unspecified; E87.1 Hypo-osmolality and hyponatremia; M48.52XA Collapsed vertebra, not elsewhere classified, cervical region, initial encounter for fracture; N25.81 Secondary hyperparathyroidism of renal origin; I12.0 Hypertensive chronic kidney disease with stage 5 chronic kidney disease or end stage renal disease; D63.1 Anemia in chronic kidney disease; H54.8 Legal blindness, as defined in USA; I25.10 Atherosclerotic heart disease of native coronary artery without angina pectoris; T36.1X5A Adverse effect of cephalosporins and other beta-lactam antibiotics, initial encounter; L89.621 Pressure ulcer of left heel, stage 1; L89.611 Pressure ulcer of right heel, stage 1; E55.9 Vitamin D deficiency, unspecified; E78.00 Pure hypercholesterolemia, unspecified; R45.1 Restlessness and agitation; E03.9 Hypothyroidism, unspecified; G47.33 Obstructive sleep apnea (adult) (pediatric); G89.4 Chronic pain syndrome; K21.9 Gastro-esophageal reflux disease without esophagitis; R73.03 Prediabetes; Z99.2 Dependence on renal dialysis; Z86.73 Personal history of transient ischemic attack (TIA), and cerebral infarction without residual deficits; Z95.5 Presence of coronary angioplasty implant and graft; Z88.1 Allergy status to other antibiotic agents; Z87.891 Personal history of nicotine dependence; Z85.46 Personal history of malignant neoplasm of prostate; Z79.82 Long term (current) use of aspirin; Z88.8 Allergy status to other drugs, medicaments and biological substances
CPT/HCPCS: 36600; 70450; 70551; 72125; 80048; 80051; 80053; 80202; 82140; 82550; 82805; 82962; 83036; 83735; 84100; 84443; 85014; 85018; 85025; 85027; 85610; 85730; 87040; 87070; 92526; 92610; 93926; 93990; 94660; 95816; 96365; 96367; 97163; 97167; 97530; 97535; 99284; G0257; J1610; P9047; Q5106

== ENCOUNTER 2024-09-25 04:20 | Inpatient (IN) | payer MEDICARE, OTHER, SELFPAY ==
[2024-09-25] VITALS (13 sets, daily range): BP systolic 93–185; BP diastolic 53–90; BMI 25.2; BMI 25.1
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
[2024-09-25 02:24] LABS: % Eosinophils 0.9 % (0-6); % Immature Granulocytes 0.4 % (0-0.5); % Lymphocytes 11.7 % (20.5-51.1); % Monocytes 8.2 % (1.7-9.3); % Neutrophils 77.8 % (42.2-75.2); Absolute Basophils 0.1 10^3/uL (0-0.2); Absolute Eosinophils 0.1 10^3/uL (0-0.7); Absolute Lymphocytes 0.9 10^3/uL (1.2-3.4); Absolute Monocytes 0.6 10^3/uL (0.1-0.6); Hematocrit 34.3 % (39.0-52.0); Hemoglobin 11.6 g/dL (13.0-18.0); Mean Corp Hgb Conc. 33.8 g/dL (33.0-37.0); Mean Corpuscular Hgb 32.9 pg (27.0-31.0); Mean Corpuscular Volume 97.2 fL (80.0-94.0); Mean Platelet Volume 10.5 fL (7.4-10.4); Nucleated Red Blood Cells % 0 % (-); Platelet Count 277 10^3/uL (130-400); Red Blood Cell Count 3.53 10^6/uL (4.70-6.10); Red Cell Dist. Width 14.1 % (11.5-14.5); White Blood Cell Count 7.7 10^3/uL (4.8-10.8)
[2024-09-25] MEDS: PROTONIX IV 80 MG IV (02:24)
[2024-09-25] MEDS: PROTONIX 100 IV (02:25)
[2024-09-25 02:28] LABS: INR 0.91; PT 12.6 Sec (11.4-14.6)
[2024-09-25 02:29] LABS: APTT 30.4 Sec (23.4-35.0)
[2024-09-25 02:37] LABS: ALT (SGPT) 12 U/L (0-50); AST (SGOT) 30 U/L (17-59); Albumin 4.1 g/dl (3.5-5.0); Alkaline Phosphatase 92 U/L (38-126); Blood Urea Nitrogen 65 mg/dl (9-20); Calcium 10.3 mg/dl (8.4-10.2); Carbon Dioxide 30 mmol/L (22-30); Chloride 91 mmol/L (98-107); Estimated Creatinine Clearance 11 ml/min; Glucose 122 mg/dl (70-99); Lipase 90 U/L (23-300); Potassium 4.9 mmol/L (3.5-5.1); Sodium 133 mmol/L (135-145); Total Bilirubin 0.9 mg/dl (0.2-1.3); Total Protein 6.6 g/dl (6.3-8.2); eGFR 11.23
--- NOTE | 2024-09-25 03:44 | HPS.HSE ---
Family Physician
-
Family Physician: Aurelio Navarrete
Chief Complaint
-
Coffee-ground emesis
History of Present Illness
This is 83-year-old with past medical history significant for end-stage renal disease on hemodialysis,Type 2 diabetes, blindness, hearing loss, obstructive sleep apnea, GERD, history of prior prostate cancer, CAD status post NE and a prior CVA who
presents to the emergency department from custodial facility with episode of coffee-ground emesis.
Patient is a fairly poor historian. He remembers getting up in usual state of health. He remembers having breakfast when he attempted to lift breakfast. He reported vomiting all the contents of the breakfast. He stated that he vomited 5 times.
Thereafter he was unable to provide much more history. At the time of my evaluation he reports some nausea. Denies abdominal pain. He is blind and is not aware of any melena. He denies lightheadedness or dizziness. Patient is not on any blood
thinners.
Per the custodial records, he was complaining of nausea and began vomiting coffee-ground emesis. His vitals were stable. He was reported to appear lethargic. Initial vital signs at the custodial showed elevated blood pressure and a normal
oxygen saturation on room air with a blood glucose of 168. Lungs are clear. They noted the nausea and vomiting with hyperactive bowel sounds. He reported to have pain and appeared to be in pain.
He was recently admitted and had an extensive hospital stay for cellulitis. At that time was evaluated for a fistula placement which is still pending. He had a trauma to the odontoid process. He was placed on a c-collar which was ultimately
released. He has ultrasound of the thyroid gland pending.
In the emergency department today, initial blood pressure was 185/70 with a pulse of 75 satting 98% on room air. Temperature was 98.7. CBC had a hemoglobin of 11.6 which is unchanged from prior, platelet count was normal at 277. INR was normal.
Electrolytes with normal and consistent with end-stage renal disease on hemodialysis. Creatinine was 4.9 with a BUN of 65. Glucose was 132.
Medical History
Past Medical History
Past Medical History: Reports Arrhythmia (SVT), CAD (Status post NE, status post stents to LAD), Cancer (History of prostate cancer), CVA, GERD, HTN, NIDDM, Renal Failure (End-stage renal disease on hemodialysis via a left upper extremity AV
fistula) and Other (Macular degeneration,)
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
Social History
Tobacco: Non-smoker
Alcohol: None
Drug: None
Personal:
Living: [facility]
Employment: Retired
Family History
Family History: Not pertinent
Allergies / Home Medications
Allergies reflects when Allergies were last updated in [employer].
Home Medications with original date entered in [employer]
Allergy/Medication List:
Allergies
Allergy/AdvReac Type Severity Reaction Status Date / Time
adhesive tape Allergy blisters Verified 09/25/24 02:00
if kept on
for long
time;rash
ciprofloxacin [From Cipro] Allergy burning of Verified 09/25/24 02:00
vein from
IV
erythromycin base Allergy Hives Verified 09/25/24 02:00
lisinopril Allergy cough Verified 09/25/24 02:00
tetracycline Allergy Hives Verified 09/25/24 02:00
tigecycline [From Tygacil] Allergy patient Verified 09/25/24 02:00
unaware of
this
allergy
Home Medications
bimatoprost 0.01 % eye drops (Lumigan) 1 drp BOTH EYES HS Eye condition 06/29/22
brinzolamide 1 % eye drops,suspension (Azopt) 1 drp BOTH EYES TID Eye condition 06/29/22
calcitriol 0.25 mcg capsule 0.5 mcg PO QPM Kidney Disease 06/29/22
famotidine 20 mg tablet (Pepcid) 20 mg PO HS Gastrointestinal issue 06/29/22
netarsudil 0.02 % eye drops (Rhopressa) 1 drp BOTH EYES DAILY Eye condition 06/29/22
pitavastatin calcium 2 mg tablet (Livalo) 2 mg PO MOTUWETHFR@2200 High cholesterol 06/29/22
sevelamer carbonate 800 mg tablet 3,200 mg PO AC Kidney Disease 06/29/22
docusate sodium 100 mg capsule (Colace) 200 mg PO DAILY Constipation 07/27/22
folic acid 1 mg tablet 1 mg PO QPM Supplement 11/23/22
midodrine 2.5 mg tablet 2.5 mg PO DAILYPRN PRN BP<140/90 11/23/22
aspirin 81 mg tablet,delayed release 81 mg PO DAILY Blood Clot Prevention/Tx 02/08/23
brimonidine 0.2 %-timolol 0.5 % eye drops (Combigan) 1 drp BOTH EYES TID Eye Condition 02/08/23
torsemide 20 mg tablet 80 mg PO DAILY Fluid Retention/Swelling 02/08/23
cholecalciferol (vitamin D3) 50 mcg (2,000 unit) tablet (Vitamin D3) 50 mcg PO DAILY Supplement 05/17/23
ranolazine 500 mg tablet,extended release,12 hr 500 mg PO BID Heart Disease/Condition 05/17/23
sodium chloride 5 % eye drops (Chris 128) 1 drp BOTH EYES TID Eye Condition 05/17/23
Probiotic 1 tab PO DAILY Gastrointestinal Issue 05/20/23
amino acids-protein hydrolysate 16 gram-100 kcal/30 mL oral liquid (Liquacel) 30 ml PO SUTUTHSA Supplement 05/20/23
acetaminophen 650 mg tablet,extended release 650 mg PO BID PRN Pain #0 tabs 06/11/23
isosorbide mononitrate 30 mg tablet,extended release 24 hr 30 mg PO DAILY Heart disease/condition #0 tabs 06/11/23
metoprolol tartrate 25 mg tablet 12.5 mg PO HS Blood pressure 08/10/24
Review of Systems
-
History Source: Patient
Constitutional: Reports No Symptoms
EENT: Reports No Symptoms
Respiratory: Reports No Symptoms
Cardiac: Reports No Symptoms
Abdomen/GI: Reports Nausea and Vomiting
: Reports No Symptoms
Musculoskeletal: Reports No Symptoms
Skin: Reports No Symptoms
Neurological: Reports No Symptoms
Endocrine: Reports No Symptoms
Hematologic/Lymphatic: Reports No Symptoms
Psych: Reports No Symptoms
Physical Exam
Vital Signs
Vital Signs
Temp Pulse Resp BP Pulse Ox
98.7 F 75 20 185/75 98
09/25/24 02:16 09/25/24 02:16 09/25/24 02:16 09/25/24 02:16 09/25/24 02:16
Physical Exam
General: No Apparent Distress and Appears Chronically Ill
HEENT: NormoCephalic, Anicteric, Moist mucous membranes and Atraumatic
Respiratory: Clear
Cardiac: S1/S2 and Regular Rhythm
Breast: Deferred by me
GI: Soft, Non Tender, Non Distended and Normal Bowel Sounds
Rectal: Deferred by Provider
Genito-urinary: Deferred by me
Musculoskeletal: No Clubbing, No Cyanosis and No Edema
Skin: Warm, Dry and Other (LUE AVF)
Neuro: AO x 3 and Nonfocal/grossly intact
Hematologic/Lymphatic: No Lymphadenopathy
Psych: Calm
Laboratory Results
-
09/25/24 02:09
09/25/24 02:09
Laboratory Results
PT 12.6 Sec (11.4-14.6) 09/25/24 02:09
INR 0.91 09/25/24 02:09
APTT 30.4 Sec (23.4-35.0) 09/25/24 02:09
Total Bilirubin 0.9 mg/dl (0.2-1.3) 09/25/24 02:09
AST 30 U/L (17-59) 09/25/24 02:09
ALT 12 U/L (0-50) 09/25/24 02:09
Alkaline Phosphatase 92 U/L (38-126) 09/25/24 02:09
Lipase 90 U/L (23-300) 09/25/24 02:09
Data Reviewed
-
Lab Data: Labs Reviewed by me
Old Records: Reviewed
Impression/Plan
-
IMPRESSION:
83-year-old male with complex past medical history and multiple comorbidities presents to the emergency department with episode of vomiting thought to be coffee-ground emesis x 4. Denies having any abdominal pain currently. Mild nausea.
Hemoglobin is unchanged from prior at 11.6. He is hemodynamically stable with a blood pressure of 150 systolic. Eaves generally ill-appearing but seems to be at baseline. Abdominal exam is benign without any abdominal distention or tenderness to
palpation. His labs are otherwise unremarkable and consistent with ESRD. He is on low-dose aspirin, no blood thinners, reported history of GERD but no history of peptic ulcer disease.
PLAN:
Coffee Ground Emesis -hemodynamically stable, no acute distress, hemoglobin unchanged from prior. No known melena. 4 episodes with no additional episode in the emergency department.
- admit to telemetry
- clear liquid diet for now
- ppi iv bid
- trend h&h q 8
- monitor vitals q 4
- typed and screened
- fecal occult
- hold aspirin for now
ESRD - No indication for emergent HD. [facility]
- nephrology consult
- continue mbd management
- fluid restriction, renal diet when tolerating po
- pending fistulogram as outpatient
SARA
- CPAP 4 HS
DVT PPX - SCDs for now
Code status - full code
--- NOTE | 2024-09-25 07:12 | CON.GI ---
Addendum entered and electronically signed by Mame Franklin MD 09/25/24 13:51:
asking for updates via phone
Addendum entered and electronically signed by Mame Franklin MD 09/25/24 13:50:
The patient was seen and examined by me independently in collaboration with the nurse practitioner.
Past medical history/social history/medications/allergies/family history reviewed.
Lab data and imaging data reviewed.
83 yo M multiple medical issues ESRD on HD here with coffee ground emesis. Patient not able to give much of a history. D/w as well. Abd Xray full of stool suspect cause of vomiting. Plan for bowel regimen.
No need for EGD right now.
Trend Hb low suspicion for GIB.
Defer to hospitalist about mild increase pulmonary vasculature.
Addendum entered and electronically signed by MICHELLE John 09/25/24 13:23:
09/25 obs series
1. There is a mild increase in pulmonary vasculature suggesting congestive heart failure. Please correlate clinically.
2. There is air throughout the small bowel, however loops are nondistended with no evidence of obstruction or perforation. There is much stool in the colon suggesting constipation.
3. There are gallstones.
will add bowel regiment with enema and oral laxatives
will review with hosptialist service with possible CHF
Original Note:
Consultation
-
Date/Time Consultation Requested: 09/25/24 0600
Date/Time Consultation Performed: 09/25/24 0920
Requesting Provider: Celia Berry MD
Performing Provider: MICHELLE Monteiro, Yenny Franklin MD
Reason for Consultation: coffee ground emesis
Medical History
Chief Complaint / HPI
Chief Complaint: vomiting
History of Present Illness:
Pt is a 83yo with hx SVT, CAD with prior stenting, prostates CA with prior prostatectomy, CVA GERD, HTN, NIDDM, ESRD on HD presents with coffee ground emesis. Pt with recent admission in August with lethargy multi factorial related with metabolic,
infection and vascular etiology. Noted Odontoid fx, left upper cellulitis, and midodrine support with hypotension. He was discharged to SNF and now returns with coffee ground emesis. On admission noted with hbg 11.6 with last 10.2 on 08/28/24.
Pt is blind and hard of hearing but per family noted with some constipation and occasional diarrhea. Some hx hemorrhoidal bleeding in past but denies dysphagia, GERD, abdominal pain, or current bleeding. Hx colonoscopy family recalls as stable, No
prior EGD.
Past Medical History
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
retinopathy, orthostatic hypotension, PAD, Sleep apnea, CPAP, UTI, Sciatica)
Past Surgical History: Cardiac (prior angioplasty and stenting), Orthopedic (cervical spine surgery), Tonsilectomy, Urological (prostatectomy) and Other (PD catheter 2018, HD port 2020, deviated septum repair 2004 )
Social History
Tobacco: Non-Smoker
Alcohol: None
Drug: None
Personal:
Living: [facility]
Employment: Retired
Family History
Family History: Other (no family hx GI issues )
Allergies / Home Medications
Allergy/AdvReac Type Severity Reaction Status Date / Time
adhesive tape Allergy blisters Verified 09/25/24 02:00
if kept on
for long
time;rash
ciprofloxacin [From Cipro] Allergy burning of Verified 09/25/24 02:00
vein from
IV
erythromycin base Allergy Hives Verified 09/25/24 02:00
lisinopril Allergy cough Verified 09/25/24 02:00
tetracycline Allergy Hives Verified 09/25/24 02:00
tigecycline [From Tygacil] Allergy patient Verified 09/25/24 02:00
unaware of
this
allergy
�Medication �Instructions �Recorded
bimatoprost 0.01 % eye drops 1 drp BOTH EYES HS Eye condition 06/29/22
(Lumigan)
brinzolamide 1 % eye 1 drp BOTH EYES TID Eye condition 06/29/22
drops,suspension (Azopt)
calcitriol 0.25 mcg capsule 0.5 mcg PO QPM Kidney Disease 06/29/22
famotidine 20 mg tablet (Pepcid) 20 mg PO HS Gastrointestinal issue 06/29/22
netarsudil 0.02 % eye drops 1 drp BOTH EYES DAILY Eye condition 06/29/22
(Rhopressa)
pitavastatin calcium 2 mg tablet 2 mg PO MOTUWETHFR@2200 High 06/29/22
(Livalo) cholesterol
sevelamer carbonate 800 mg tablet 3,200 mg PO AC Kidney Disease 06/29/22
docusate sodium 100 mg capsule 200 mg PO DAILY Constipation 07/27/22
(Colace)
folic acid 1 mg tablet 1 mg PO QPM Supplement 11/23/22
midodrine 2.5 mg tablet 2.5 mg PO DAILYPRN PRN BP<140/90 11/23/22
aspirin 81 mg tablet,delayed 81 mg PO DAILY Blood Clot 02/08/23
release Prevention/Tx
brimonidine 0.2 %-timolol 0.5 % 1 drp BOTH EYES TID Eye Condition 02/08/23
eye drops (Combigan)
torsemide 20 mg tablet 80 mg PO DAILY Fluid 02/08/23
Retention/Swelling
cholecalciferol (vitamin D3) 50 50 mcg PO DAILY Supplement 05/17/23
mcg (2,000 unit) tablet (Vitamin
D3)
ranolazine 500 mg tablet,extended 500 mg PO BID Heart 05/17/23
release,12 hr Disease/Condition
sodium chloride 5 % eye drops 1 drp BOTH EYES TID Eye Condition 05/17/23
(Chris 128)
Probiotic 1 tab PO DAILY Gastrointestinal 05/20/23
Issue
amino acids-protein hydrolysate 16 30 ml PO SUTUTHSA Supplement 05/20/23
gram-100 kcal/30 mL oral liquid
(Liquacel)
acetaminophen 650 mg 650 mg PO BID PRN Pain #0 tabs 06/11/23
tablet,extended release
isosorbide mononitrate 30 mg 30 mg PO DAILY Heart 06/11/23
tablet,extended release 24 hr disease/condition #0 tabs
metoprolol tartrate 25 mg tablet 12.5 mg PO HS Blood pressure 08/10/24
Review of Systems
-
Unable to obtain full review of systems at this time due to: Other (hard of hearing )
History Source: Patient and Family
Constitutional: Reports Weight Loss
EENT: Reports No Symptoms
Respiratory: Reports No Symptoms
Cardiac: Reports No Symptoms
Abdomen/GI: Reports Nausea, Vomiting (coffee ground emesis prior to admission), Diarrhea and Constipated
: Reports Other (chronic HD)
Musculoskeletal: Reports No Symptoms
Skin: Reports No Symptoms and Other (left arm swelling with ongoing issues )
Neurological: Reports Weakness
Endocrine: Reports No Symptoms
Hematologic/Lymphatic: Reports No Symptoms
Vital Signs
Temp Pulse Resp BP Pulse Ox
98.7 F 77 16 173/68 98
09/25/24 02:16 09/25/24 06:00 09/25/24 06:00 09/25/24 05:00 09/25/24 03:45
Physical Exam
Exam
General: Other (elderly male no acute distress, hard of hearing )
HEENT: Normocephalic and Anicteric
Respiratory: Clear
Cardiac: Regular Rhythm
GI: Soft, Non Tender and Non Distended
Skin: Warm and Dry
Neuro: Awake, Alert and Other (answering some questions)
Psych: Calm
Results
WBC 7.7 10^3/uL (4.8-10.8) 09/25/24 02:09
Hgb 11.6 g/dL (13.0-18.0) L 09/25/24 02:09
Hct 34.3 % (39.0-52.0) L 09/25/24 02:09
MCV 97.2 fL (80.0-94.0) H 09/25/24 02:09
Plt Count 277 10^3/uL (130-400) 09/25/24 02:09
Absolute Neuts (auto) 6.0 10^3/uL (1.4-6.5) 09/25/24 02:09
PT 12.6 Sec (11.4-14.6) 09/25/24 02:09
INR 0.91 09/25/24 02:09
APTT 30.4 Sec (23.4-35.0) 09/25/24 02:09
Sodium 133 mmol/L (135-145) L 09/25/24 02:09
Potassium 4.9 mmol/L (3.5-5.1) 09/25/24 02:09
Chloride 91 mmol/L (98-107) L 09/25/24 02:09
Carbon Dioxide 30 mmol/L (22-30) 09/25/24 02:09
BUN 65 mg/dl (9-20) H 09/25/24 02:09
Creatinine 4.9 mg/dL (0.7-1.3) H* 09/25/24 02:09
Calcium 10.3 mg/dl (8.4-10.2) H 09/25/24 02:09
Total Bilirubin 0.9 mg/dl (0.2-1.3) 09/25/24 02:09
AST 30 U/L (17-59) 09/25/24 02:09
ALT 12 U/L (0-50) 09/25/24 02:09
Alkaline Phosphatase 92 U/L (38-126) 09/25/24 02:09
Lipase 90 U/L (23-300) 09/25/24 02:09
Diagnostic Image Results:
11/13- US abdomen
1. There are multiple moderate-sized gallstones but no evidence of acute cholecystitis
2. Both kidneys are small and increased echogenicity suggesting chronic renal disease
3. There is a coarse echotexture of the liver
Prior GI Procedures:
EGD: none
Colonoscopy: in past family recalls as normal
Assessment / Plan
-
Pt is a 83yo with hx SVT, CAD with prior stenting, prostates CA with prior prostatectomy, CVA, GERD, HTN, NIDDM, ESRD on HD presents with coffee ground emesis. Pt with recent admission in August with lethargy multi factorial related with metabolic,
infection and vascular etiology. Noted Odontoid fx, left upper cellulitis, and midodrine support with hypotension. He was discharged to SNF and now returns with coffee ground emesis. On admission noted with hbg 11.6 with last 10.2 on 08/28/24.
Pt is blind and hard of hearing but per family noted with some constipation and occasional diarrhea. Some hx hemorrhoidal bleeding in past but denies dysphagia, GERD, abdominal pain, or current bleeding. Hx colonoscopy family recalls as stable, No
prior EGD.
-coffee ground emesis
-hx occasional constipation and diarrhea
-mild anemia
-recent left upper arm cellulitis
-SVT
-CAD with prior stenting
-prostate CA with prior prostatectomy
-GERD
-HTN
-NIDDM
-ESRD on HD
PLAN:
etiology of coffee ground related constipation, Upper GI bleeding vs other
plan for obstruction series this am
if neg consider EGD
cont PPI
trend hbg
cont NPO
renal to see for timing of HD
updated via phone
-
-
Thank you for consultation and allowing me to participate in the patient's care. Please call the master fire control technician GI physician during the after hours with any questions or concerns.
--- NOTE | 2024-09-25 07:46 | PHANOTE ---
MED REC NOTE- UNABLE TO LOCATE PATIENT [facility] PAPERWORK, PATIENT WAS MOVED FROM TO A DIFFERENT ROOM, BUT STILL CAN NOT FIND PAPERWORK. CALLED OVER TO [facility].
--- NOTE | 2024-09-25 08:30 | PTCARENOTE ---
pt had one episode of moderate coffee ground emesis. md dolan.
--- NOTE | 2024-09-25 08:47 | W.PN.HOSP.TC ---
Addendum entered and electronically signed by Anup Garza MD 09/26/24 11:34:
This is note of 09/26
Original Note:
Today's Communication/Plan
-
f/w neurology recommendations
discharge planning
Assessment / Plan
Assessment / Plan
Physical Exam
General: Awake, No Distress and Nontoxic
HEENT: Anicteric and Facial Symmetry
Respiratory: Clear, Normal Excursion and Nonlabored Respirations
Cardiac: S1/S2 and Regular Rate/Rhythm
Breast: Deferred by me
Abdomen: Soft, Nontender and Nondistended
Musculoskeletal: No Cyanosis, No Edema and Other (left UE edema chronic)
Skin: No Rash
Neuro: Other (difficult to assess )
Psych: Appropriate
# Vomiting, hx of coffee ground emesis.
Seems to resolve
HGB stable
tolerating oral diet
Was seen by GI, seems vomiting caused by nausea/ constipation
Given Laxatives with good response
d/w GI
No indication for EGD
# Possible seizure activity over night
No confusions
seems at baseline which is poor and not very active
reported similar activity during HD in the past
No hypotension during the episode per nurse.
alarm security or surveillance monitor sinus rhythm
CT head no acute findings
Consulted neurology, appreciate help
ESRD - Does get HD via LUE AVF/ M/W/F at [facility]
- nephrology consulted, appreciate help
- continue mbd management
- fluid restriction, renal diet when tolerating po
- pending fistulogram as outpatient
#SARA
- CPAP 4 HS
# Chronic hyponatremia
#HLD
#Hx of CVA
#PAD
#CAD stable
#Cataract, poor vision
# Hard hearing, deaf
DVT PPX - SCDs for now
Code status - full code
Total time spent to see the patient on the floor, examine the patient, review data and lab results, discuss treatment plan with patient, nursing staff around 55 minutes
Anticipated Discharge: Within 24 hours
Subjective/Interval History
-
Date of Service: September 25, 2024
He denies chest pain
Events over night noted
Objective Data
-
Labs:
Laboratory Results
09/25/24 09/25/24 09/25/24
02:09 10:00 18:00
WBC 7.7
Hgb 11.6 L Pending Pending
Hct 34.3 L Pending Pending
Plt Count 277
PT 12.6
INR 0.91
APTT 30.4
Sodium 133 L
Potassium 4.9
Chloride 91 L
Carbon Dioxide 30
BUN 65 H
Creatinine 4.9 H*
Glucose 122 H
Calcium 10.3 H
Total Bilirubin 0.9
AST 30
ALT 12
Alkaline Phosphatase 92
Vital Signs:
Vital Signs
Temp Pulse Resp BP Pulse Ox
98.7 F 77 16 173/68 98
09/25/24 02:16 09/25/24 06:00 09/25/24 06:00 09/25/24 05:00 09/25/24 03:45
[2024-09-25] MEDS: RENVELA PO ×4 (09:28→17:02)
[2024-09-25] MEDS: IMDUR (EXTENDED RELEASE) PO (09:28)
[2024-09-25] MEDS: RANEXA EXTENDED RELEASE PO ×2 (09:28→22:24)
[2024-09-25] MEDS: TIMOPTIC 0.5% OPHTHALMIC SOLUTION 1 DROP BOTH EYES ×3 (09:50→22:28)
[2024-09-25] MEDS: ALPHAGAN 0.2% EYE DROPS 1 DROP BOTH EYES ×3 (09:50→22:28)
[2024-09-25] MEDS: AZOPT 1% OPHTHALMIC SUSPENSION 1 DROP BOTH EYES ×3 (09:50→22:28)
[2024-09-25] MEDS: MURO 128/ADSORBONAC 5% EYE DROPS 1 DROP BOTH EYES ×3 (09:51→22:27)
[2024-09-25 10:34] LABS: Hematocrit 31.3 % (39.0-52.0); Hemoglobin 10.6 g/dL (13.0-18.0)
--- NOTE | 2024-09-25 13:17 | CM ---
Reviewed the chart notes and spoke with the patient's spouse via telephone. Patient was recently hospitalized and discharged to [facility] (08/10-08/28). Prior to SNF stay patient resided with his spouse in a two story home with a ramp to enter.
The patient has a stair glide, rolling walker, wheelchair, and toilet rails in the home. The patient has had [facility] in the past. The patient has been to [facility], and [facility]. The patient receives HD M-W- at [place]
[facility]. continues to be available to patient/family and is monitoring medical plan for needs at discharge.
Plan: Discharge back to [facility] when medically stable to continue with rehab. Referral sent via [facility]. No precert required.
--- NOTE | 2024-09-25 14:20 | W.CON.NEPH ---
Consultation
-
Date/Time Consultation Requested: 09/25/24 0603
Date/Time Consultation Performed: 09/25/24 1330
Requesting Provider: Celia Phillips
Performing Provider: Katie Owens
Reason for Consultation: ESRD
Medical History
-
Chief Complaint: hematemesis
History of Present Illness:
This is an 83-year-old gentleman who is well-known to us for his end-stage renal disease on hemodialysis Wednesdays at [facility]. He dialyzes through a left upper extremity AV fistula. known intradialytic hypotension with
midodrine as needed as a result. He has diabetes mellitus type 2 though not on insulin therapy at this time. He also has secondary hyperparathyroidism which is controlled with calcitriol. Who was recently d/c on 08/28 after treating for U LE AVf
arm cellulitis and AMS which felt to be from metabolic TME. he also incidentally noted odontoid fx for which he is to wear soft c collar. He was supposed to have out pt fistulogram of AVF currently still functioning brought from [place] for hematemesis
of 1 day duration. Pt is poor historial due to [place] and blind. Hb was at 11.6 down to 10.6 since admit. Nephrology asked for HD needs. GI saw the pt and felt possible constipation likely cause of vomiting.
Past Medical History
ESRD, Diazemuls type II, hypertension, secondary hyperparathyroidism, anemia, prostate cancer status post prostatectomy, arthritis, coronary artery disease with stenting, cervical arthropathy and neuropathy, left upper extremity AV fistula, history
of central stenosis, sciatica, sleep apnea, hypothyroidism, amatory dysfunction, recurrent myoclonus
Social History
Tobacco: Non-Smoker
Alcohol: None
Drug: None
Personal:
Living: Half-Way
Family History
Family History: Not Pertinent
Allergies / Home Medications
Allergy/AdvReac Type Severity Reaction Status Date / Time
adhesive tape Allergy blisters Verified 09/25/24 02:00
if kept on
for long
time;rash
ciprofloxacin [From Cipro] Allergy burning of Verified 09/25/24 02:00
vein from
IV
erythromycin base Allergy Hives Verified 09/25/24 02:00
lisinopril Allergy cough Verified 09/25/24 02:00
tetracycline Allergy Hives Verified 09/25/24 02:00
tigecycline [From Tygacil] Allergy patient Verified 09/25/24 02:00
unaware of
this
allergy
�Medication �Instructions �Recorded �Confirmed �Type
bimatoprost 0.01 % eye drops 1 drp BOTH EYES HS Eye condition 06/29/22 08/10/24 History
(Lumigan)
brinzolamide 1 % eye 1 drp BOTH EYES TID Eye condition 06/29/22 08/10/24 History
drops,suspension (Azopt)
calcitriol 0.25 mcg capsule 0.5 mcg PO QPM Kidney Disease 06/29/22 09/25/24 History
famotidine 20 mg tablet (Pepcid) 20 mg PO HS Gastrointestinal issue 06/29/22 08/10/24 History
netarsudil 0.02 % eye drops 1 drp BOTH EYES DAILY Eye condition 06/29/22 08/10/24 History
(Rhopressa)
pitavastatin calcium 2 mg tablet 2 mg PO MOTUWETHFR@2200 High 06/29/22 08/10/24 History
(Livalo) cholesterol
sevelamer carbonate 800 mg tablet 3,200 mg PO AC Kidney Disease 06/29/22 08/10/24 History
docusate sodium 100 mg capsule 200 mg PO DAILY Constipation 07/27/22 09/25/24 History
(Colace)
folic acid 1 mg tablet 1 mg PO QPM Supplement 11/23/22 08/10/24 History
midodrine 2.5 mg tablet 2.5 mg PO DAILYPRN PRN BP<140/90 11/23/22 08/10/24 History
aspirin 81 mg tablet,delayed 81 mg PO DAILY Blood Clot 07/03/23 01/02/25 History
release Prevention/Tx
brimonidine 0.2 %-timolol 0.5 % 1 drp BOTH EYES TID Eye Condition 02/08/23 09/25/24 History
eye drops (Combigan)
torsemide 20 mg tablet 80 mg PO DAILY Fluid 02/08/23 08/10/24 History
Retention/Swelling
cholecalciferol (vitamin D3) 50 50 mcg PO DAILY Supplement 05/17/23 08/10/24 History
mcg (2,000 unit) tablet (Vitamin
D3)
ranolazine 500 mg tablet,extended 500 mg PO BID Heart 05/17/23 08/10/24 History
release,12 hr Disease/Condition
sodium chloride 5 % eye drops 1 drp BOTH EYES TID Eye Condition 05/17/23 08/10/24 History
(Chris 128)
Probiotic 1 tab PO DAILY Gastrointestinal 05/20/23 09/25/24 History
Issue
amino acids-protein hydrolysate 16 30 ml PO SUTUTHSA Supplement 05/20/23 08/10/24 History
gram-100 kcal/30 mL oral liquid
(Liquacel)
acetaminophen 650 mg 650 mg PO BID PRN Pain #0 tabs 06/11/23 09/25/24 Rx
tablet,extended release
isosorbide mononitrate 30 mg 30 mg PO DAILY Heart 06/11/23 08/10/24 Rx
tablet,extended release 24 hr disease/condition #0 tabs
metoprolol tartrate 25 mg tablet 12.5 mg PO HS Blood pressure 08/10/24 09/25/24 History
Review of Systems
-
unable to obtain pt is very [place]
Physical Exam
Vital Signs
Vital Signs
Temp Pulse Resp BP Pulse Ox
97.5 F 77 18 158/61 98
09/25/24 11:49 09/25/24 11:49 09/25/24 11:49 09/25/24 11:49 09/25/24 11:49
Lab Results
WBC 7.7 10^3/uL (4.8-10.8) 09/25/24 02:09
RBC 3.53 10^6/uL (4.70-6.10) L 09/25/24 02:09
Plt Count 277 10^3/uL (130-400) 09/25/24 02:09
Sodium 133 mmol/L (135-145) L 09/25/24 02:09
Potassium 4.9 mmol/L (3.5-5.1) 09/25/24 02:09
Chloride 91 mmol/L (98-107) L 09/25/24 02:09
Carbon Dioxide 30 mmol/L (22-30) 09/25/24 02:09
BUN 65 mg/dl (9-20) H 09/25/24 02:09
Creatinine 4.9 mg/dL (0.7-1.3) H* 09/25/24 02:09
eGFR 11.23 09/25/24 02:09
Glucose 122 mg/dl (70-99) H 09/25/24 02:09
Calcium 10.3 mg/dl (8.4-10.2) H 09/25/24 02:09
Albumin 4.1 g/dl (3.5-5.0) 09/25/24 02:09
chest, abd Xray:
IMPRESSION:
1. There is a mild increase in pulmonary vasculature suggesting congestive heart failure. Please correlate clinically.
2. There is air throughout the small bowel, however loops are nondistended with no evidence of obstruction or perforation. There is much stool in the colon suggesting constipation.
3. There are gallstones.
Physical Exam
General: Awake, No Distress and Nontoxic
HEENT: Anicteric and Facial Symmetry
Respiratory: Clear, Normal Excursion and Nonlabored Respirations
Cardiac: S1/S2 and Regular Rate/Rhythm
Breast: Deferred by me
Abdomen: Soft, Nontender and Nondistended
Musculoskeletal: No Cyanosis, No Edema and Other (left UE edema chronic)
Skin: No Rash
Neuro: Other (difficult to assess )
Psych: Appropriate
Assessment/Plan
-
Assessment:
Coffee Ground Emesis
constipation
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
History CVA
Chronic cerebrovascular disease
Left brachiobasilic AV fistula November 26, 2022,basilic vein angioplasty December 2022.,� s/p angioplasty of central vein stenosis on 05/20
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
Hypertension with orthostatic hypotension in setting of advanced diabetes mellitus
Advanced diabetic retinopathy/neuropathy/blindness
Chronic pain
Anemia of CKD
Secondary hyperparathyroidism
SARA on CPAP
Cervical cord compression with LLE Weakness
odontoid fx-c collar
Ambulatory dysfunction
Hyperphosphatemia
Multivessel CAD and severe PAD
Blind
Bilateral sensorineural hearing loss
Plan
A/w hematemesis from NH
arrange HD today per schedule
AVF arm edema is chronic so far AVF functioned well
need out pt f/u with vasc for AVFgram
Midodrine support for autonomic dysfunction secondary neuropathy when starts PO
UF as able, CXR noted
when resume diet-renal and FR
resume CPAP-known h/o SARA
treat constipation per GI
[2024-09-25] MEDS: MIRALAX 34 GRAMS PO (14:47)
--- NOTE | 2024-09-25 15:44 | W.PN.NEPH.HD ---
Assessment
-
pt seen during HD
vitals stable
UF as tolerates
AVF functions fine
Progress Note - Hemodialysis
-
Date of Service: September 25, 2024
Duration: 30 minutes and 3 hours
Potassium Bath: 2
Calcium Bath: 2.5
Opti-Dialyzer: 160
Ultrafiltration: Other (1.5-2)
Blood Flow: 400
Dialysate Flow: 600
Heparin: no
EPO: no
[2024-09-25] MEDS: ROCALTROL PO (17:02)
[2024-09-25] MEDS: DULCOLAX 10 MG RECTAL (17:02)
[2024-09-25 19:15] LABS: Glucose - Point of Care 117 mg/dl (70-99)
--- NOTE | 2024-09-25 19:34 | W.PN.UPDATE ---
Update Note
Progress Note Update
TAB MACHINE OPERATOR
-Staff is walking into the room for vital signs and noticed the patient with rolling eyes upwards and involuntary body movement for around 1 min and half. Vital signs Bp 105/90, hr 67, 97.8, Spo2 94% RA. Bs 117.
-Patient is not responding to verbal stimuli. Post ictal phase? hard hearing? fatigue after dialysis? currently vital signs within limit. No seizure activity when TAB MACHINE OPERATOR team arrived.
-No history of seizure listed and not currently on seizure meds
Plan
Head CT, chest x-ray, stat lab (CBC, bmp, procalcitonin, mag)
Ativan PRN.
Neurology consult and recommended to check CK
Lab results
(Wbc 6.5, hgb10.6, Na 132, Cr 2.8, K 3.8, Bs 125, procalcitonin 0.23, CK 44)
Head CT No evidence of acute intracranial abnormality.
-Patient started to respond gradually and back to his baseline.
Per chart review patient has similar episode 05/18/2022 during dialysis time. EEG done ( Myoclonic jerking without epileptiform correlate. No seizures were recorded)
[2024-09-25 19:46] LABS: Hematocrit 29.8 % (39.0-52.0); Hemoglobin 10.1 g/dL (13.0-18.0); Mean Corp Hgb Conc. 33.9 g/dL (33.0-37.0); Mean Corpuscular Hgb 33.1 pg (27.0-31.0); Mean Corpuscular Volume 97.7 fL (80.0-94.0); Mean Platelet Volume 10.5 fL (7.4-10.4); Platelet Count 250 10^3/uL (130-400); Red Blood Cell Count 3.05 10^6/uL (4.70-6.10); Red Cell Dist. Width 14.2 % (11.5-14.5); White Blood Cell Count 6.5 10^3/uL (4.8-10.8)
[2024-09-25 19:59] LABS: Blood Urea Nitrogen 37 mg/dl (9-20); Calcium 9.1 mg/dl (8.4-10.2); Carbon Dioxide 32 mmol/L (22-30); Chloride 92 mmol/L (98-107); Estimated Creatinine Clearance 19 ml/min; Glucose 125 mg/dl (70-99); Magnesium 2.2 mg/dl (1.6-2.3); Potassium 3.8 mmol/L (3.5-5.1); Sodium 132 mmol/L (135-145); eGFR 21.98
--- NOTE | 2024-09-25 20:04 | RR ---
A Rapid Response was called on this patient, please see Rapid Response form.
Tech walked into patient convulsing with eyes rolling back in head. Patient had seizure activity for a minute and a half. Rapid response called. Labs ordered and drawn. Patient minimally responsive to sternal rub. CAT scan of head and CXR ordered.
[2024-09-25 20:17] LABS: Procalcitonin 0.23 ng/ml (0.0-0.25)
--- NOTE | 2024-09-25 20:38 | RESPNOTE ---
pt ordered cpap but pt is here for emesis---contraindicated
[2024-09-25 22:00] LABS: Creatine Phosphokinase 44 U/L (55-170)
[2024-09-25] MEDS: XALATAN OPHTHALMIC SOLUTION 1 DROP BOTH EYES (22:28)
[2024-09-25] MEDS: LOPRESSOR PO (23:10)
[2024-09-25] MEDS: SENOKOT PO (23:11)
[2024-09-26 02:27] LABS: Hematocrit 29.3 % (39.0-52.0); Hemoglobin 10.1 g/dL (13.0-18.0)
[2024-09-26 03:27] VITALS: BP 145/56
[2024-09-26 06:00] VITALS: BMI 23.4
[2024-09-26 07:15] VITALS: BP 141/47
[2024-09-26] MEDS: MIRALAX 17 GRAMS PO (09:28)
[2024-09-26] MEDS: RANEXA EXTENDED RELEASE 500 MG PO ×2 (09:28→22:19)
[2024-09-26] MEDS: MURO 128/ADSORBONAC 5% EYE DROPS 1 DROP BOTH EYES ×3 (09:28→22:22)
[2024-09-26] MEDS: IMDUR (EXTENDED RELEASE) 30 MG PO (09:28)
[2024-09-26] MEDS: ALPHAGAN 0.2% EYE DROPS 1 DROP BOTH EYES ×3 (09:29→22:22)
[2024-09-26] MEDS: AZOPT 1% OPHTHALMIC SUSPENSION 1 DROP BOTH EYES ×3 (09:29→22:22)
[2024-09-26] MEDS: TIMOPTIC 0.5% OPHTHALMIC SOLUTION 1 DROP BOTH EYES ×3 (09:29→22:22)
[2024-09-26] MEDS: RENVELA 3200 MG PO ×3 (09:33→16:21)
--- NOTE | 2024-09-26 11:17 | W.PN.NEPH.PH ---
Today's Communication / Plan
-
HD tomorrow
Assessment/Plan
-
Assessment:
Coffee Ground Emesis
constipation
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
History CVA
Chronic cerebrovascular disease
Left brachiobasilic AV fistula November 26, 2022,basilic vein angioplasty December 2022.,� s/p angioplasty of central vein stenosis on 05/20
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
Hypertension with orthostatic hypotension in setting of advanced diabetes mellitus
Advanced diabetic retinopathy/neuropathy/blindness
Chronic pain
Anemia of CKD
Secondary hyperparathyroidism
SARA on CPAP
Cervical cord compression with LLE Weakness
odontoid fx-c collar
Ambulatory dysfunction
Hyperphosphatemia
Multivessel CAD and severe PAD
Blind
Bilateral sensorineural hearing loss
Plan
A/w vomiting from NH
HD tomorrow
need out pt f/u with vasc for AVFgram
constipation treatment per GI
-
-
Date of Service: September 26, 2024
CC / HPI / ROS
-
Chief Complaint:
ESRD
History of Present Illness:
tolerated HD yesterday
BP stable
no Nausea today
Review of Systems:
no CP/SOB
Labs
-
Labs:
WBC 6.5 10^3/uL (4.8-10.8) 09/25/24 19:33
RBC 3.05 10^6/uL (4.70-6.10) L 09/25/24 19:33
Hgb 10.1 g/dL (13.0-18.0) L 09/26/24 02:21
Hct 29.3 % (39.0-52.0) L 09/26/24 02:21
Plt Count 250 10^3/uL (130-400) 09/25/24 19:33
Sodium 132 mmol/L (135-145) L 09/25/24 19:33
Potassium 3.8 mmol/L (3.5-5.1) 09/25/24 19:33
Chloride 92 mmol/L (98-107) L 09/25/24 19:33
Carbon Dioxide 32 mmol/L (22-30) H 09/25/24 19:33
BUN 37 mg/dl (9-20) H 09/25/24 19:33
Creatinine 2.8 mg/dL (0.7-1.3) H 09/25/24 19:
eGFR 21.98 09/25/24 19:
Glucose 125 mg/dl (70-99) H 09/25/24 19:
Calcium 9.1 mg/dl (8.4-10.2) 09/25/24 19:
Albumin 4.1 g/dl (3.5-5.0) 09/25/24 02:09
Physical Exam
-
Vital Signs:
Vital Signs
Temp Pulse Resp BP Pulse Ox
98.2 F 65 16 141/47 100
09/26/24 07:15 09/26/24 07:15 09/26/24 07:15 09/26/24 07:15 09/26/24 07:15
Cardiovascular:: Regular rate and rhythm
Respiratory:: Bilateral: Coarse
Lung Excursion:: Normal
Abdomen:: Nontender and Soft
Bowel Sounds:: Normal
Extremity Edema:: +3: Left: (UE)
--- NOTE | 2024-09-26 11:34 | W.PN.HOSP.TC ---
Addendum entered and electronically signed by Anup Garza MD 09/26/24 13:17:
Addendum
Patient has tendency to roll back his eyes at times. Not sure report of shaking at night. Doubt seizure. We will observe for another 24 hours. Discussed with . She reported some restless behavior with drastic change in potassium level, will
check basic metabolic panel.
Will hold off on further neurologic workup and continue monitoring in the hospital another 24 hours
Original Note:
Today's Communication/Plan
-
f/w neurology recommendations
wants neurologist to call her or talk to her
Assessment / Plan
Assessment / Plan
Physical Exam
General: Awake, No Distress and Nontoxic
HEENT: Anicteric and Facial Symmetry
Respiratory: Clear, Normal Excursion and Nonlabored Respirations
Cardiac: S1/S2 and Regular Rate/Rhythm
Breast: Deferred by me
Abdomen: Soft, Nontender and Nondistended
Musculoskeletal: No Cyanosis, No Edema and Other (left UE edema chronic)
Skin: No Rash
Neuro: Other (difficult to assess )
Psych: Appropriate
# Vomiting, hx of coffee ground emesis.
Seems to resolve
HGB stable
tolerating oral diet
Was seen by GI, seems vomiting caused by nausea/ constipation
Given Laxatives with good response
d/w GI
No indication for EGD
# Possible seizure activity over night
No confusions
seems at baseline which is poor and not very active
reported similar activity during HD in the past
No hypotension during the episode per nurse.
playground monitor sinus rhythm
CT head no acute findings
Consulted neurology, appreciate help
ESRD - Does get HD via LUE AVF/ M/W/F at [facility]
- nephrology consulted, appreciate help
- continue mbd management
- fluid restriction, renal diet when tolerating po
- pending fistulogram as outpatient
#SARA
- CPAP 4 HS
# Chronic hyponatremia
#HLD
#Hx of CVA
#PAD
#CAD stable
#Cataract, poor vision
# Hard hearing, deaf
DVT PPX - SCDs for now
Code status - full code
Total time spent to see the patient on the floor, examine the patient, review data and lab results, discuss treatment plan with patient, nursing staff around 55 minutes
Anticipated Discharge: Within 24 hours
Subjective/Interval History
-
Date of Service: September 26, 2024
Events over night noted
Objective Data
-
Labs:
Laboratory Results
09/26/24
02:21
Hgb 10.1 L
Hct 29.3 L
Vital Signs:
Vital Signs
Temp Pulse Resp BP Pulse Ox
98.2 F 65 16 141/47 100
09/26/24 07:15 09/26/24 07:15 09/26/24 07:15 09/26/24 07:15 09/26/24 07:15
I&O
09/25/24 09/26/24 09/27/24
06:59 06:59 06:59
Intake Total 0 / 0
Balance 0 / 0
--- NOTE | 2024-09-26 11:34 | CM ---
Reviewed the chart notes. Referral to [facility] sent and accepted in [facility]. CM continues to be available to patient/family and is monitoring medical plan for needs at discharge.
Plan: Discharge to [facility] when medically stable and bed available. No precert required.
[2024-09-26 11:38] VITALS: BP 125/48
--- NOTE | 2024-09-26 12:32 | W.PN.GI.CBS2 ---
Addendum entered and electronically signed by Maye Miramontes Do, MD 09/26/24 13:37:
I saw and examined the patient.
The IT PROJECT COORDINATOR's note was reviewed and I agree with the note.
Comment: He has several bowel movements per nursing. Exam VS minimally responsive sleeping with mouth open. NTTP soft abdomen. Labs reviewed.
C/w current bowel regimen miralax and senna. C/w low residue diet. updated today by GI IT PROJECT COORDINATOR. All questions answered. He can follow up with GI outpatient basis.
Original Note:
Today's Communication / Plan
-
Etiology of symptoms likely related to constipation
09/25 obstruction series with increased stool burden
no further vomiting
s/p suppository with large stool per staff
cont Miralax and senna adjust as needed
cont low residue diet advance to regular on discharge
hold on EGD
cont PPI
hbg stable 10.1
updated via phone 09/25 and 09/26
Assessment / Plan
-
Pt is a 83yo with hx SVT, CAD with prior stenting, prostates CA with prior prostatectomy, CVA, GERD, HTN, NIDDM, ESRD on HD presents with coffee ground emesis. Pt with recent admission in August with lethargy multi factorial related with metabolic,
infection and vascular etiology. Noted Odontoid fx, left upper cellulitis, and midodrine support with hypotension. He was discharged to SNF and now returns with coffee ground emesis. On admission noted with hbg 11.6 with last 10.2 on 08/28/24.
Pt is blind and hard of hearing but per family noted with some constipation and occasional diarrhea. Some hx hemorrhoidal bleeding in past but denies dysphagia, GERD, abdominal pain, or current bleeding. Hx colonoscopy family recalls as stable, No
prior EGD.
09/25 obs series
1. There is a mild increase in pulmonary vasculature suggesting congestive heart failure. Please correlate clinically.
2. There is air throughout the small bowel, however loops are nondistended with no evidence of obstruction or perforation. There is much stool in the colon suggesting constipation.
3. There are gallstones.
-coffee ground emesis
-hx occasional constipation and diarrhea
-mild anemia
-recent left upper arm cellulitis
-SVT
-CAD with prior stenting
-prostate CA with prior prostatectomy
-GERD
-HTN
-NIDDM
-ESRD on HD
-cholelithiasis
PLAN:
Etiology of symptoms likely related to constipation
09/25 obstruction series with increased stool burden
no further vomiting
s/p suppository with large stool per staff
cont Miralax and senna adjust as needed
cont low residue diet advance to regular on discharge
hold on EGD
cont PPI
hbg stable 10.1
updated via phone 09/25 and 09/26
Subjective
Subjective
Date of Service: September 26, 2024
09/26 brown stool on low residue diet
Objective
Data Reviewed
Laboratory Data:
Laboratory Results
09/26/24 02:21
09/25/24 19:33
Laboratory Results
PT 12.6 Sec (11.4-14.6) 09/25/24 02:09
INR 0.91 09/25/24 02:09
APTT 30.4 Sec (23.4-35.0) 09/25/24 02:09
Magnesium 2.2 mg/dl (1.6-2.3) 09/25/24 19:33
Total Bilirubin 0.9 mg/dl (0.2-1.3) 09/25/24 02:09
AST 30 U/L (17-59) 09/25/24 02:09
ALT 12 U/L (0-50) 09/25/24 02:09
Alkaline Phosphatase 92 U/L (38-126) 09/25/24 02:09
Lipase 90 U/L (23-300) 09/25/24 02:09
Vital Signs and I&O:
Vital Signs
Temp Pulse Resp BP Pulse Ox
97.1 F 60 16 125/48 100
09/26/24 11:38 09/26/24 11:38 09/26/24 11:38 09/26/24 11:38 09/26/24 11:38
I&O
09/25/24 09/26/24 09/27/24
06:59 06:59 06:59
Intake Total 0 / 0
Balance 0 / 0
Physical Exam
Physical Exam
HEENT: Anicteric and Moist mucous membranes
Cardiology: Normal Sinus Rhythm
Pulmonary: Clear
GI: Soft, Non Distended and Non Tender
Extremities: No Edema
Neuro: Other (non verbal in exam but eating well without complaints )
[2024-09-26 14:47] LABS: Blood Urea Nitrogen 47 mg/dl (9-20); Carbon Dioxide 32 mmol/L (22-30); Chloride 93 mmol/L (98-107); Estimated Creatinine Clearance 15 ml/min; Glucose 144 mg/dl (70-99); Potassium 3.7 mmol/L (3.5-5.1); Sodium 131 mmol/L (135-145); eGFR 16.26
[2024-09-26 15:39] VITALS: BP 133/54
--- NOTE | 2024-09-26 15:54 | EEG.RPT ---
Electroencephalogram Report
Recording
Date of EE09/26/24
Type of EEG: Routine
Length of EEG recordin minutes
Done with Video Recording: Yes
Patient Status: Inpatient
Recording Conditions: Awake and Drowsy
Hyperventilation Performed: No
Photic Stimulation Performed: Yes
Report
LESS THAN 1 HOUR EEG REPORT
LESS THAN 1 HOUR EEG INTERPRETATION:
Mildly abnormal study for age based on generalized slowing demonstrated bihemispherically equally
CLINICAL CORRELATION:
Although normative values not been established for a person of this advanced age the patient�s symmetry of the background suggests that this study was suggestive of mild bihemispheric cortical dysfunction. No epileptiform features were demonstrated.
If concerns remain regarding epilepsy, prolonged monitoring may be of assistance.
Clinical correlation is advised.
METHODS:
A 21-channel digital electroencephalogram (EEG) was performed in the Clinical Neurophysiology Laboratory. The 10/20 international system of electrode placement was used with ECG and lateral/vertical eye movements recorded. The Fundly quantitative
system was utilized.
IMPRESSION(S):
Quality of study
Fair
Background
Expected amplitude
Anterior-posterior voltage gradient differentiation: Fair
Theta frequency maximal, typically delta, background demonstrated
Sleep
Drowsiness present
Hyperventilation
Not performed
Photic Stimulation
Failed to activate the record
ECG
Normal rhythm
Abnormal Activity
None
[2024-09-26] MEDS: ROCALTROL 0.5 MCG PO (17:49)
[2024-09-26 19:29] LABS: Glucose - Point of Care 137 mg/dl (70-99)
[2024-09-26 19:38] VITALS: BP 138/52
[2024-09-26 21:22] LABS: Glucose - Point of Care 121 mg/dl (70-99)
[2024-09-26] MEDS: LOPRESSOR 12.5 MG PO (22:19)
[2024-09-26] MEDS: SENOKOT 17.2 MG PO (22:19)
[2024-09-26] MEDS: XALATAN OPHTHALMIC SOLUTION 1 DROP BOTH EYES (22:22)
[2024-09-26 23:35] VITALS: BP 163/60
--- NOTE | 2024-09-27 03:11 | DOWNTIME ---
There was a [employer] Downtime on 09/27/2024 from 0100 to 09/27/2023 at 0235 . Downtime documentation of patient's care, including medication administrations, has been reconciled in the electronic record per guidelines. Refer to the
patient's paper chart under the miscellaneous tab to see printed paper medication records and downtime forms.
[2024-09-27 03:20] VITALS: BP 167/63
[2024-09-27 05:28] VITALS: BMI 23.5
[2024-09-27 07:55] LABS: Glucose - Point of Care 108 mg/dl (70-99)
[2024-09-27 07:59] VITALS: BP 147/58
[2024-09-27] MEDS: MIRALAX 17 GRAMS PO (08:37)
[2024-09-27] MEDS: RENVELA 3200 MG PO ×2 (08:37→16:05)
[2024-09-27] MEDS: RANEXA EXTENDED RELEASE 500 MG PO (08:37)
[2024-09-27] MEDS: IMDUR (EXTENDED RELEASE) 30 MG PO (08:37)
[2024-09-27] MEDS: ALPHAGAN 0.2% EYE DROPS 1 DROP BOTH EYES ×2 (08:38→16:06)
[2024-09-27] MEDS: TIMOPTIC 0.5% OPHTHALMIC SOLUTION 1 DROP BOTH EYES ×2 (08:38→16:06)
[2024-09-27] MEDS: AZOPT 1% OPHTHALMIC SUSPENSION 1 DROP BOTH EYES ×2 (08:38→16:06)
[2024-09-27] MEDS: MURO 128/ADSORBONAC 5% EYE DROPS 1 DROP BOTH EYES ×2 (08:38→16:06)
--- NOTE | 2024-09-27 10:31 | W.PN.HOSP.TC ---
Today's Communication/Plan
-
dc after HD
Assessment / Plan
Assessment / Plan
Physical Exam
General: Awake, No Distress and Nontoxic
HEENT: Anicteric and Facial Symmetry
Respiratory: Clear, Normal Excursion and Nonlabored Respirations
Cardiac: S1/S2 and Regular Rate/Rhythm
Breast: Deferred by me
Abdomen: Soft, Nontender and Nondistended
Musculoskeletal: No Cyanosis, No Edema and Other (left UE edema chronic)
Skin: No Rash
Neuro: he follows commands,
Psych: Appropriate
# Vomiting, hx of coffee ground emesis.
Seems to resolve
HGB stable
tolerating oral diet
Was seen by GI, seems vomiting caused by nausea/ constipation
Given Laxatives with good response
d/w GI
No indication for EGD
# Possible seizure activity over night
No confusion
No recurrence
Patient has tendency to roll back his eyes at times. Not sure report of shaking at night. Doubt seizure. EEG no seizure activity. Discussed with . She reported some restless behavior with drastic change in potassium level, Potassium was
normal.
seems at baseline which is poor and not very active
reported similar activity during HD in the past
No hypotension during the episode per nurse.
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
CT head no acute findings
Can f/w neurology as OP
ESRD - Does get HD via LUE AVF/ M/W/F at [facility]
- nephrology consulted, appreciate help
- continue mbd management
- fluid restriction, renal diet when tolerating po
- pending fistulogram as outpatient
#SARA
- CPAP 4 HS
# Chronic hyponatremia
#HLD
#Hx of CVA
#PAD
#CAD stable
#Cataract, poor vision
# Hard hearing, deaf
DVT PPX - SCDs for now
Code status - full code
Total discharge time spent to see the patient on the floor, examine the patient, review data and lab results, discuss discharge plan with patient, nursing staff around 65 minutes
Anticipated Discharge: Today
Subjective/Interval History
-
Date of Service: September 27, 2024
No seizure like activity over night
Objective Data
-
Labs:
Laboratory Results
09/27/24
07:00
Hgb Pending
Hct Pending
Sodium Pending
Potassium Pending
Chloride Pending
Carbon Dioxide Pending
Vital Signs:
Vital Signs
Temp Pulse Resp BP Pulse Ox
98 F 61 16 147/58 100
09/27/24 07:59 09/27/24 07:59 09/27/24 07:59 09/27/24 07:59 09/27/24 07:59
I&O
09/26/24 09/27/24 09/28/24
06:59 06:59 06:59
Intake Total 0 / 0 480 / 480
Balance 0 / 0 480 / 480
[2024-09-27] MEDS: RENVELA PO (10:38)
--- NOTE | 2024-09-27 10:48 | CM ---
Reviewed the chart notes and spoke with the patient's spouse via telephone. IMM reviewed. CM continues to be available to patient/family and is monitoring medical plan for needs at discharge.
Plan: Discharge back to [facility].
Call report to: [phone]
Fax report to: [phone]
Medical necessity and transport forms on chart.
[2024-09-27 11:00] VITALS: BP 138/64
[2024-09-27 11:16] LABS: Hematocrit 26.6 % (39.0-52.0); Hemoglobin 8.9 g/dL (13.0-18.0)
[2024-09-27 11:28] LABS: Carbon Dioxide 30 mmol/L (22-30); Chloride 90 mmol/L (98-107); Potassium 4.1 mmol/L (3.5-5.1); Sodium 128 mmol/L (135-145)
[2024-09-27] MEDS: MANNITOL 25% 12.5 GRAMS IV ×2 (12:10→13:40)
[2024-09-27] MEDS: FLEXBUMIN 25% FOR HEMODIALYSIS 12.5 GRAMS IV ×2 (12:34→13:40)
[2024-09-27 12:41] LABS: Glucose - Point of Care 123 mg/dl (70-99)
--- NOTE | 2024-09-27 13:10 | W.PN.NEPH.HD ---
Assessment
-
Blood pressure low given albumin and IV fluid bolus with improved
Isovolemic treatment
Progress Note - Hemodialysis
-
Date of Service: September 27, 2024
Duration: 30 minutes and 3 hours
Potassium Bath: 2
Calcium Bath: 2.5
Opti-Dialyzer: 160
Ultrafiltration: Other (1.5-2)
Blood Flow: 400
Dialysate Flow: 600
Heparin: no
EPO: no
--- NOTE | 2024-09-27 14:23 | W.DCSUMMARY ---
Discharge Summary
Discharge Data
Date of Admission: 09/25/24
Date of Discharge: 09/27/24
-
Pending Results: No
Hospital Course
83 years old male presented with coffee ground emesis. On admission, he had hemoglobin 11.6 with last 10.2 on 08/28/24. Family noted some constipation and occasional diarrhea. Patient did not have leukocytosis. Hemoglobin remained stable
between 10 and 8.9. Patient had history of anemia of chronic disease related to his kidney failure. He did not have recurrent vomiting or diarrhea in the hospital. No hemodynamic instability. He underwent hemodialysis and was followed by
flavorings compounder. Gastroenterology service was consulted. Patient was given laxative regimen with resolution of constipation. He did not have black or bloody stools in the hospital. Gastroenterology recommended to continue Protonix pump inhibitor
and to consider further GI workup as needed. He had an episode of shaking resembling seizure activity reported by staff at night. Head CAT scan no acute abnormality. EEG did not show seizure activity. Recommendation to follow-up with neurology
as outpatient if needed. The activity was thought to be related to metabolic induced myoclonus. Patient did not have confusion. He seemed at baseline per his family. Patient remained hemodynamically stable. He was discharged back to nursing
home in a stable condition.
Discharge Plan
-
Patient Disposition: Shelter/SNF
Discharge Diagnosis/Procedures: Constipation, started on Miralax & Senna
Anemia of chronic disease, follow with nephrology for treatment
Diet: As tolerated
Referrals:
Aurelio Navarrete DO [Family Provider] -
Mame Franklin MD [Active] - (4-6 weeks constipation and anemia)
Prescriptions:
New
sennosides [Tala-carolyn] 8.6 mg Tablet
17.2 mg PO HS Qty: 60 0RF
pantoprazole [Protonix] 40 mg tablet,delayed release (DR/EC)
40 mg PO DAILY Qty: 30 0RF
polyethylene glycol 3350 17 gram Powder In Packet
17 g PO DAILY Qty: 30 0RF
Continued
brinzolamide [Azopt] 1 % Drops,Suspension
1 drp BOTH EYES TID
famotidine [Pepcid] 20 mg Tablet
20 mg PO HS
pitavastatin calcium [Livalo] 2 mg Tablet
2 mg PO MOTUWETHFR@2200
calcitriol 0.25 mcg Capsule
0.5 mcg PO QPM
sevelamer carbonate 800 mg tablet
3,200 mg PO AC
Rx Instructions:
10 min before he eats
Lumigan 0.01 % Drops
1 drp BOTH EYES HS
Rhopressa 0.02 % Drops
1 drp BOTH EYES DAILY
folic acid 1 mg Tablet
1 mg PO QPM
midodrine 2.5 mg Tablet
2.5 mg PO DAILYPRN PRN (Reason: BP<140/90)
Rx Instructions:
BP < 140/90
torsemide 20 mg tablet
80 mg PO DAILY
aspirin 81 mg tablet,delayed release (DR/EC)
81 mg PO DAILY
brimonidine-timolol [Combigan] 0.2-0.5 % drops
1 drp BOTH EYES TID
cholecalciferol (vitamin D3) [Vitamin D3] 50 mcg (2,000 unit) Tablet
50 mcg PO DAILY
sodium chloride [Chris 128] 5 % Drops
1 drp BOTH EYES TID
ranolazine 500 mg Tablet Extended Release 12 Hr
500 mg PO BID
Probiotic
1 tab PO DAILY
Liquacel 16-100 gram-kcal/30 mL Liquid
30 ml PO SUTUTHSA
acetaminophen 650 mg Tablet Extended Release
650 mg PO BID PRN (Reason: Pain) Qty: 0 0RF
Rx Instructions:
Pt's states he takes it every morning and he also takes it in the evenings on dialysis days.
isosorbide mononitrate 30 mg tablet extended release 24 hr
30 mg PO DAILY Qty: 0 0RF
Rx Instructions:
hold for SBP<100 or DBP<50
metoprolol tartrate 25 mg tablet
12.5 mg PO HS
Discontinued
docusate sodium [Colace] 100 mg Capsule
200 mg PO DAILY
Discharge Orders:
Discharge Patient (As Directed); Ordered 09/27/24
Ordered By: Anup Garza
Discharge Date and Time
Print Language: AZERI
[2024-09-27 15:23] VITALS: BP 153/60
[2024-09-27 16:34] LABS: Glucose - Point of Care 111 mg/dl (70-99)
== END 2024-09-27 17:14 | DRG 391 ==
LOC: 2 NORTH 04:20
PROVIDERS: Nurse Practitioner Family; Specialist; ADMITTING PHYSICIAN Internal Medicine; ATTENDING PHYSICIAN Internal Medicine; CONSULT PHYSICIAN Internal Medicine Gastroenterology; EMERGENCY PHYSICIAN Student in an Organized Health Care Education/Training Program; FAMILY PHYSICIAN Internal Medicine; OTHER PHYSICIAN Internal Medicine
PROC: 5A1D70Z Performance of Urinary Filtration, Intermittent, Less than 6 Hours Per Day (ICD-10-PCS; 2024-09-25)
DX: K59.00 Constipation, unspecified (principal); N18.6 End stage renal disease; K92.0 Hematemesis; E87.1 Hypo-osmolality and hyponatremia; I47.10 Supraventricular tachycardia, unspecified; N25.81 Secondary hyperparathyroidism of renal origin; I12.0 Hypertensive chronic kidney disease with stage 5 chronic kidney disease or end stage renal disease; F03.94 Unspecified dementia, unspecified severity, with anxiety; E11.22 Type 2 diabetes mellitus with diabetic chronic kidney disease; E03.9 Hypothyroidism, unspecified; D63.1 Anemia in chronic kidney disease; I25.10 Atherosclerotic heart disease of native coronary artery without angina pectoris; I95.1 Orthostatic hypotension; I95.3 Hypotension of hemodialysis; G47.33 Obstructive sleep apnea (adult) (pediatric); H90.3 Sensorineural hearing loss, bilateral; H54.7 Unspecified visual loss; E11.319 Type 2 diabetes mellitus with unspecified diabetic retinopathy without macular edema; E11.43 Type 2 diabetes mellitus with diabetic autonomic (poly)neuropathy; E78.00 Pure hypercholesterolemia, unspecified; E83.39 Other disorders of phosphorus metabolism; K21.9 Gastro-esophageal reflux disease without esophagitis; Z99.2 Dependence on renal dialysis; Z95.5 Presence of coronary angioplasty implant and graft; I25.2 Old myocardial infarction; Z88.1 Allergy status to other antibiotic agents; Z79.899 Other long term (current) drug therapy; Z79.82 Long term (current) use of aspirin; Z90.79 Acquired absence of other genital organ(s); Z88.8 Allergy status to other drugs, medicaments and biological substances; Z87.891 Personal history of nicotine dependence; Z86.73 Personal history of transient ischemic attack (TIA), and cerebral infarction without residual deficits; Z86.11 Personal history of tuberculosis; Z85.46 Personal history of malignant neoplasm of prostate
CPT/HCPCS: 70450; 71045; 74022; 80048; 80051; 80053; 82550; 82962; 83690; 83735; 84145; 85014; 85018; 85025; 85027; 85610; 85730; 86850; 86900; 86901; 93005; 95816; 96374; 99285; G0257; P9047

== ENCOUNTER 2024-11-17 23:52 | Inpatient (IN) | payer MEDICARE, OTHER, SELFPAY ==
[2024-11-17 19:36] VITALS: BP 190/80
[2024-11-17 19:39] VITALS: BMI 22.1
--- NOTE | 2024-11-17 19:49 | ED.GENMED ---
History of Present Illness
General
Chief Complaint: Seizure
Source: ambulance crew
Time Seen by Provider: 11/17/24 19:37
History of Present Illness
History of Present Illness:
83-year-old male presents to the emergency room after having what is described as a seizure at home. Patient was observed by his having tonic-clonic activity of the upper extremities. He was not responsive to her. Seizure activity lasted
about a minute. 911 was called. Medics arrived to find the patient confused and what they described as postictal. His mental status is typically oriented evidently. Patient does not take any seizure medications. He evidently had an episode
while hospitalized here in September that was suspicious for seizure. Notes at that time indicate the patient had an EEG which did not show any seizure activity. The episode was thought to be metabolically related and not a true seizure. Patient
is reportedly blind in both eyes.
Past History
Past History
ED Past Medical History: Arrthythmia (SVT), CAD, Cancer (Prostate CA), CVA (May 2022 left MCA ischemic stroke), HTN, Hypercholesterolemia, NIDDM (Diet controlled ), [place], Renal failure (Hemodialysis), Hypothyroidism, Psychiatric (Anxiety Paic )
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
ED Past Surgical History: Appendectomy, Cardiac (Angioplasty September 2021, stenting 2020 X 2), Orthopedic (Cervical spine surgery), Tonsilectomy, Urological (Prostatectomy) and Other ( dialysis catheter 2018, port for dialysis March 2021,
deviated septum repair 2004)
Social History
Tobacco: Former smoker
Alcohol: None
Drug: None
Personal:
Living: with family
Employment: Retired
Family History
Family History: Other (reviewed and noncontributory)
Phy Exam
Physical Exam
Physical Exam:
General: Awake, confused, appears chronically ill
Vitals: unremarkable
Head: Atraumatic
Eyes: Pupils equal, EOMI
Throat: Airway intact, no exudates, dry mucosa
Neck: Trachea midline
Lungs: Clear and equal b/l
Heart: Regular rate, no murmurs
Abd: Soft, Nontender, No pulsatile mass
Neuro: Cranial nerves intact, muscle strength equal bilaterally,
Skin: Warm, dry, no rash
Extremities: pulses equal b/l, no edema
Course
Orders/Labs/Results
Orders:
Orders
11/17/24 19:46
CT Head W/o Iv Contrast Urgent
Comment:
Reason For Exam: altered mental status
11/17/24 19:51
Electrocardiogram (*1) Urgent
Reason for Study: Fatigue / Weakness
EKG- Treatment ONCE
11/17/24 19:58
Complete Blood Count/With Diff Urgent
Comprehensive Metabolic Panel Urgent
11/17/24 21:28
Levetiracetam Injectable [Keppra] 1,000 mg IV NOW STA
11/17/24 22:45
Admit/Transfer Patient As Directed
Co-Sign Provider:
Level of Care: Inpatient admission
Assign to:: Telemetry
Physician / Group: Kristi
Diagnosis: Seizure
Reason for Telemetry: Arrhythmia
Date to Stop Telemetry: 11/20/24
Time to Stop Telemetry: 11:00
Reason for Hospitalization: Seizure
Expected length of stay greater than two midnights?: Yes
ELOS- Estimated Length of Stay in days: 3
I certify the patient meets the requirements for IP care: Yes
11/17/24 22:46
PRN Pain Medication Management As Directed
May give lesser potent ordered pain med per pt: Yes
preference::
Protocol:: Medication orders for pain may be administered in a
manner that supports deferring to patient preference
when the pt is:
- Requesting an ordered lesser potent pain medication.
Least to most potent pain medications are defined
as: acetaminophen < NSAID < tramadol < opioids
(morphine, oxycodone, hydromorphone).
- Requesting a lesser dose of the same medication IF
ORDERED.
- Requesting a less intrusive route of administration
if both routes are prescribed by the provider (PO <
IV).
11/17/24 22:49
Code Status As Directed
Resuscitation Status: Full Code
11/17/24 23:00
Flush (0.9% Sodium Chloride) [Flush (Nss)] See Dose Instructions IV PER PROTOCOL
11/20/24 11:00
DC Protocol for Telemetry ONCE
Abnormal Lab Results
11/17/24
19:58
RBC 3.36 L 10^6/uL
(4.70-6.10)
Hgb 10.9 L g/dL
(13.0-18.0)
Hct 32.7 L %
(39.0-52.0)
MCV 97.3 H fL
(80.0-94.0)
MCH 32.4 H pg
(27.0-31.0)
MPV 10.9 H fL
(7.4-10.4)
Absolute Lymphs (auto) 0.7 L 10^3/uL
(1.2-3.4)
Neutrophils % 76.5 H %
(42.2-75.2)
Lymphocytes % 12.8 L %
(20.5-51.1)
Chloride 95 L mmol/L
(98-107)
Carbon Dioxide 36 H mmol/L
(22-30)
BUN 31 H mg/dl
(9-20)
Creatinine 2.0 H mg/dL
(0.7-1.3)
Glucose 129 H mg/dl
(70-99)
AST 16 L U/L
(17-59)
Total Protein 5.8 L g/dl
(6.3-8.2)
Albumin 3.4 L g/dl
(3.5-5.0)
11/17/24 19:58
11/17/24 19:58
Vital Signs
Initial and Last Documented VS:
Initial Vital Signs
Pulse Resp BP Pulse Ox
85 17 190/80 98
11/17/24 19:36 11/17/24 19:36 11/17/24 19:36 11/17/24 19:36
Last Documented Vital Signs
Temp Pulse Resp BP Pulse Ox
98.2 F 87 10 158/68 97
11/17/24 19:48 11/17/24 21:30 11/17/24 21:30 11/17/24 22:00 11/17/24 22:15
MDM/Problems Addressed
Differential Diagnosis Includes:
seizure, cardiac dysrythmia, electrolyte abn
MDM/Problems Addressed:
Patient presents via ambulance after having what is described as a seizure at home. Patient does appear to be postictal. Family describes his baseline to be awake and interactive to at least a certain degree. Patient's labs do not show any
specific abnormality to explain a seizure. His head CT does not show any acute ischemic changes. No dysrhythmia noted on the monitor. Patient will require hospitalization for monitoring until he returns to baseline mental status, neurology
evaluation. Communicated with Dr. Voss who is on-call for neurology. He agrees with a 1000 mg dose of Keppra at this time.
*Radiology
Radiology exam reviewed: radiology read reviewed
*Pulse Oximetry
Patient hypoxic: no
*EKG
Interpreted by ED Provider?: Yes
Heart Rate: 83
Rate: normal
Rhythm: sinus
[place]: left axis deviation
Interval: first degree heart block
QRS Pattern: right bundle branch block
Ischemia: non-specific ST changes
*Server Interpretation
Rate: normal
Heart Rate: 83
Rhythm: sinus
*Critical Care Note
Total Time (30-74mins, 75-104mins- exclusive of procedures): Not Applicable
ED Attending Note
-
Portions of this chart may have been created with voice recognition software.� Occasional wrong word or��sound alike� substitutions may have occurred due to the inherent limitations of voice recognition software.
Discharge Plan
Departure
Patient Disposition: Admit
Date of Disposition: 11/17/24
Time of Disposition: 21:31
Admit to: Med/Surg
Presentation/result/management discussed w/ accepting MD/DO: Hospitalist
Condition: Fair
Discharge Problem:
New onset seizure, Acute confusion
Prescriptions:
No Action
brinzolamide [Azopt] 1 % Drops,Suspension
1 drp BOTH EYES TID
famotidine [Pepcid] 20 mg Tablet
20 mg PO HS
pitavastatin calcium [Livalo] 2 mg Tablet
2 mg PO MOTUWETHFR@2200
calcitriol 0.25 mcg Capsule
0.5 mcg PO QPM
sevelamer carbonate 800 mg tablet
3,200 mg PO AC
Rx Instructions:
10 min before he eats
Lumigan 0.01 % Drops
1 drp BOTH EYES HS
Rhopressa 0.02 % Drops
1 drp BOTH EYES DAILY
folic acid 1 mg Tablet
1 mg PO QPM
midodrine 2.5 mg Tablet
2.5 mg PO DAILYPRN PRN (Reason: BP<140/90)
Rx Instructions:
BP < 140/90
torsemide 20 mg tablet
80 mg PO DAILY
aspirin 81 mg tablet,delayed release (DR/EC)
81 mg PO DAILY
brimonidine-timolol [Combigan] 0.2-0.5 % drops
1 drp BOTH EYES TID
cholecalciferol (vitamin D3) [Vitamin D3] 50 mcg (2,000 unit) Tablet
50 mcg PO DAILY
sodium chloride [Chris 128] 5 % Drops
1 drp BOTH EYES TID
ranolazine 500 mg Tablet Extended Release 12 Hr
500 mg PO BID
Liquacel 16-100 gram-kcal/30 mL Liquid
30 ml PO SUTUTHSA
acetaminophen 650 mg Tablet Extended Release
650 mg PO BID PRN (Reason: Pain) Qty: 0 0RF
Rx Instructions:
Pt's states he takes it every morning and he also takes it in the evenings on dialysis days.
isosorbide mononitrate 30 mg tablet extended release 24 hr
30 mg PO DAILY Qty: 0 0RF
Rx Instructions:
hold for SBP<100 or DBP<50
metoprolol tartrate 25 mg tablet
12.5 mg PO HS
sennosides [Tala-carolyn] 8.6 mg Tablet
17.2 mg PO HS Qty: 60 0RF
pantoprazole [Protonix] 40 mg tablet,delayed release (DR/EC)
40 mg PO DAILY Qty: 30 0RF
polyethylene glycol 3350 17 gram Powder In Packet
17 g PO DAILY Qty: 30 0RF
Referrals:
Aurelio Navarrete I., DO [Family Provider] -
Interventions
Interventions:
*Risk Screen - Suicide Last Done: 11/17/24 19:42
*General Assessment Last Done: 11/17/24 19:42
*Neglect/Abuse Screening Last Done: 11/17/24 19:42
*ED- Fall Risk Assessment Last Done: 11/17/24 22:37
*ED COVID-19 Vaccine History Last Done: 11/17/24 22:37
ED- Cardiac Assessment Last Done: 11/17/24 21:27
ED- Neurological Assessment Last Done: 11/17/24 21:27
ED- Pulmonary Assessment Last Done: 11/17/24 21:27
Discharge Date and Time
Print Language: JAPANESE
[2024-11-17 20:08] LABS: % Eosinophils 1.6 % (0-6); % Immature Granulocytes 0.2 % (0-0.5); % Lymphocytes 12.8 % (20.5-51.1); % Monocytes 7.9 % (1.7-9.3); % Neutrophils 76.5 % (42.2-75.2); Absolute Basophils 0.1 10^3/uL (0-0.2); Absolute Eosinophils 0.1 10^3/uL (0-0.7); Absolute Lymphocytes 0.7 10^3/uL (1.2-3.4); Absolute Monocytes 0.4 10^3/uL (0.1-0.6); Absolute Neutrophils 3.9 10^3/uL (1.4-6.5); Hematocrit 32.7 % (39.0-52.0); Hemoglobin 10.9 g/dL (13.0-18.0); Mean Corp Hgb Conc. 33.3 g/dL (33.0-37.0); Mean Corpuscular Hgb 32.4 pg (27.0-31.0); Mean Corpuscular Volume 97.3 fL (80.0-94.0); Mean Platelet Volume 10.9 fL (7.4-10.4); Nucleated Red Blood Cells % 0 % (-); Platelet Count 184 10^3/uL (130-400); Red Blood Cell Count 3.36 10^6/uL (4.70-6.10); Red Cell Dist. Width 13.7 % (11.5-14.5); White Blood Cell Count 5.1 10^3/uL (4.8-10.8)
[2024-11-17 20:19] LABS: ALT (SGPT) < 10 U/L (0-50); AST (SGOT) 16 U/L (17-59); Albumin 3.4 g/dl (3.5-5.0); Alkaline Phosphatase 104 U/L (38-126); Blood Urea Nitrogen 31 mg/dl (9-20); Calcium 9.1 mg/dl (8.4-10.2); Carbon Dioxide 36 mmol/L (22-30); Chloride 95 mmol/L (98-107); Estimated Creatinine Clearance 30 ml/min; Glucose 129 mg/dl (70-99); Potassium 3.9 mmol/L (3.5-5.1); Sodium 138 mmol/L (135-145); Total Bilirubin 0.5 mg/dl (0.2-1.3); Total Protein 5.8 g/dl (6.3-8.2); eGFR 32.91
[2024-11-17 20:54] VITALS: BP 181/74
[2024-11-17 21:00] VITALS: BP 182/74
[2024-11-17] MEDS: KEPPRA 1000 MG IV (21:58)
[2024-11-17 22:00] VITALS: BP 158/68
[2024-11-17 23:00] VITALS: BP 150/66
--- NOTE | 2024-11-17 23:00 | HPS.HSE ---
Family Physician
-
Family Physician: Aurelio Navarrete
Chief Complaint
-
Seizure
History of Present Illness
Patient is an 83 y/o male past medical history of ESRD on HD, ASCVD, DM, Hypertension and Hypothyroidism who presents following an episode of seizure like activity. Patient is unable to provide much history as he is extremely hard of hearing.
Additional history obtained from ED staff. Patient's witnessed patient having tonic-clonic movements of the upper extremities. At the time patient was not responding to her during the event which lasted about a minute. EMS described patient as
confused and post-ictal upon their arrival. Review of records indicate patient had questionable seizure during his admission in September at which time his eyes where noted to be rolled back in his head. There were no tonic-clonic movements noted
during that event. Patient did have an EEG which did not reveal any seizure activity.
Medical History
Past Medical History
Past Medical History: Reports Other
Additional Past Medical History:
ESRD on HD ([facility])
Cervical Cord Compression with LLE Weakness
Left Heel Gangrene / Wound
ASCVD (CAD, CVA and PAD)
Diabetes Mellitus
Hx PD Site Infections (Recurrent)
Hypothyroidism
Benign Hypertension
SARA on CPAP
SVT
Prostate Cancer s/p Prostatectomy
Past Surgical History: Reports Other
Additional Past Surgical History:
L IJ Tunneled HD Cath
LUE AVF
PTCA with Stents
Appendectomy
Prostatectomy
T&A
Urethral Meatotomy
Herniorrhaphy
Cervical Discectomy / Fusion
Septoplasty
Social History
Tobacco: Former Smoker
Alcohol: None
Living: With Family
Family History
Family History: Not pertinent
Allergies / Home Medications
Allergies reflects when Allergies were last updated in [email or web address].
Home Medications with original date entered in [email or web address]
Allergy/Medication List:
Allergies
Allergy/AdvReac Type Severity Reaction Status Date / Time
adhesive tape Allergy blisters Verified 09/25/24 02:00
if kept on
for long
time;rash
ciprofloxacin [From Cipro] Allergy burning of Verified 09/25/24 02:00
vein from
IV
erythromycin base Allergy Hives Verified 09/25/24 02:00
lisinopril Allergy cough Verified 09/25/24 02:00
tetracycline Allergy Hives Verified 09/25/24 02:00
tigecycline [From Tygacil] Allergy patient Verified 09/25/24 02:00
unaware of
this
allergy
Home Medications
bimatoprost 0.01 % eye drops (Lumigan) 1 drp BOTH EYES HS Eye condition 06/29/22
brinzolamide 1 % eye drops,suspension (Azopt) 1 drp BOTH EYES TID Eye condition 06/29/22
calcitriol 0.25 mcg capsule 0.5 mcg PO QPM Kidney Disease 06/29/22
famotidine 20 mg tablet (Pepcid) 20 mg PO HS Gastrointestinal issue 06/29/22
netarsudil 0.02 % eye drops (Rhopressa) 1 drp BOTH EYES DAILY Eye condition 06/29/22
pitavastatin calcium 2 mg tablet (Livalo) 2 mg PO MOTUWETHFR@2200 High cholesterol 06/29/22
sevelamer carbonate 800 mg tablet 3,200 mg PO AC Kidney Disease 06/29/22
folic acid 1 mg tablet 1 mg PO QPM Supplement 11/23/22
midodrine 2.5 mg tablet 2.5 mg PO DAILYPRN PRN BP<140/90 11/23/22
aspirin 81 mg tablet,delayed release 81 mg PO DAILY Blood Clot Prevention/Tx 02/08/23
brimonidine 0.2 %-timolol 0.5 % eye drops (Combigan) 1 drp BOTH EYES TID Eye Condition 02/08/23
torsemide 20 mg tablet 80 mg PO DAILY Fluid Retention/Swelling 02/08/23
cholecalciferol (vitamin D3) 50 mcg (2,000 unit) tablet (Vitamin D3) 50 mcg PO DAILY Supplement 05/17/23
ranolazine 500 mg tablet,extended release,12 hr 500 mg PO BID Heart Disease/Condition 05/17/23
sodium chloride 5 % eye drops (Chris 128) 1 drp BOTH EYES TID Eye Condition 05/17/23
amino acids-protein hydrolysate 16 gram-100 kcal/30 mL oral liquid (Liquacel) 30 ml PO SUTUTHSA Supplement 05/20/23
acetaminophen 650 mg tablet,extended release 650 mg PO BID PRN Pain #0 tabs 06/11/23
isosorbide mononitrate 30 mg tablet,extended release 24 hr 30 mg PO DAILY Heart disease/condition #0 tabs 06/11/23
metoprolol tartrate 25 mg tablet 12.5 mg PO HS Blood pressure 08/10/24
pantoprazole 40 mg tablet,delayed release (Protonix) 40 mg PO DAILY #30 tabs 09/27/24
polyethylene glycol 3350 17 gram oral powder packet 17 g PO DAILY #30 ea 09/27/24
sennosides 8.6 mg tablet (Tala-carolyn) 17.2 mg (2 x 8.6 mg) PO HS #60 tabs 09/27/24
Review of Systems
-
Unable to obtain full review of systems at this time due to: Patient Non-verbal
Physical Exam
Vital Signs
Vital Signs
Temp Pulse Resp BP Pulse Ox
98.2 F 87 10 158/68 97
11/17/24 19:48 11/17/24 21:30 11/17/24 21:30 11/17/24 22:00 11/17/24 22:15
Physical Exam
General: Well Developed and Well Nourished
HEENT: Anicteric and Moist mucous membranes
Respiratory: Clear and Non Labored Respirations
Cardiac: S1/S2, Regular Rhythm and Murmur
GI: Soft and Non Tender
Musculoskeletal: No Clubbing, No Cyanosis and Other (LUE AV Fistula)
Skin: Warm and Dry
Neuro: Other (Patient is extremely hard of hearing and blind making it difficult to perform neurologic evaluation. He does attempt to pull away when shake his shoulder)
Psych: Calm
Laboratory Results
-
11/17/24 19:58
11/17/24 19:58
Laboratory Results
Total Bilirubin 0.5 mg/dl (0.2-1.3) 11/17/24 19:58
AST 16 U/L (17-59) L 11/17/24 19:58
ALT < 10 U/L (0-50) 11/17/24:58
Alkaline Phosphatase 104 U/L (38-126) 11/17/24 19:58
Data Reviewed
-
Lab Data: Labs Reviewed by me
Old Records: Reviewed
Impression/Plan
-
Upper Extremity Tonic-Clonic Seizure-Like Activity, possible new onset seizure
-Consult Neurology
-Continue Keppra 1000mg q24h (renal dosing for HD)
-Check EEG
-Check Brain MRI
-Continue Seizure Precautions
ESRD on HD ()
-Patient received dialysis today - Hold on Nephrology consult unless patient will remain in the hospital until Wednesday and require inpatient dialysis
-Continue calcitriol
-Continue sevelamer
ASCVD (CAD, CVA and PAD)
-Continue aspirin
-Continue isosorbide mononitrate and Ranexa
Essential Hypertension
-Continue Metoprolol
Obstructive Sleep Apnea
-Continue CPAP on 4
Hard of Hearing
-Family notes hearing is better in Left Ear
Legal Blindness
-Continue usual eye drops
DVT proph: SCDs
Code Status: Full Code
--- NOTE | 2024-11-17 23:32 | W.PN.UPDATE ---
Update Note
Progress Note Update
Patient seen in conjunction with MICHELLE, I agree with her findings and physical I concur with assessment and plan
Briefly, this is 83-year-old with past medical history significant for end-stage renal disease on hemodialysis,Type 2 diabetes, blindness, hearing loss, obstructive sleep apnea, GERD, history of prior prostate cancer, CAD status post UT and a prior
CVA, recent admission for hematemesis/coffee-ground emesis who presents to the emergency department from home with seizure-like episode.
Patient was recently discharged from rehab after a fairly long stay. At home he is continue to have rehab and actually had a significant totally increased amount of activity yesterday. He did well she otherwise been in usual state of health up
until family noted that he had bilateral upper extremity jerking motions that lasted for about 1 minute and he was unresponsive. From then on the patient has been somnolent with decreased responsiveness consistent with a postictal state.
No prior history of seizures. No recent falls. No recent cold flulike symptoms. No recent urinary symptoms.
He has last dialysis on Wednesday and today. Since arrival in the emergency department he has been somnolent.
On arrival in the emergency department he was afebrile, blood pressure was 160/68 with a pulse of 87 and he was satting 97% on room air.
CBC was normal. His electrolytes consistent with ESRD shows no acute abnormalities.
CT of the head shows no acute intracranial process.
On my examination patient was arousable to painful stimuli as well as loud noise. Exam was nonfocal showing no particular movement preference. He was able to move all extremities but not purposefully. He is protecting his airways.
Picture is just consistent with seizure without no obvious etiology. He does not appear to have any acute infection at this time. Is afebrile without leukocytosis.
Urine but has no recent urinary symptoms. He has no cough or shortness of breath or hypoxia. Labs are unremarkable. Electrolytes are appropriate. Cannot rule out stroke entirely but no focal deficits noted.
Patient appeared to have had a possibly seizure or syncopal episode that was very brief during his last admission. He had an EEG that was negative. Patient was felt to not have had a seizure at that time.
Will admit to telemetry
- renal diet
- Neurochecks Q6
- MRI to eval stroke/mass in setting of new onset seizure
- EEG in am
- started keppra 1g q 24 hours
- neurology consult
ESRD - No indication for emergent HD. Does get HD via L[facility] AVF/ M/W/F at [facility]
- nephrology consult on wednesday
- continue mbd management
- fluid restriction, renal diet when tolerating po
- pending fistulogram as outpatient
DVT PPX - heparin sq
Code status - Full code
[2024-11-18] VITALS (12 sets, daily range): BP systolic 101–189; BP diastolic 55–78; PULSE 61–77; O2SAT 100; BMI 20.7
[2024-11-18] MEDS: TYLENOL 650 MG PO (00:55)
--- NOTE | 2024-11-18 10:45 | W.PN.HOSP.TC ---
Today's Communication/Plan
-
see outlined plan below
Assessment / Plan
Assessment / Plan
Assessment:
Suspected seizure episode with post-ictal confusion
- seizure precautions
- continue Keppra
- await MRI, EEG
- await Neuro evaluation
- PT/OT
ESRD on HD M//
- Renal consult Wednesday if Wednesday HD orders needed
- renal appropriate diet
- continue Calcitriol/Sevelamer
- continue Torsemide
Type 2 diabetes
- not on meds
- check A1c in AM
Chronic blindness
hearing loss (R>L)
obstructive sleep apnea
- continue CPAP
history of prior prostate cancer
CAD status post PR
Hx of SVT
Hx of Essential HTN
- continue ASA/Statin/Imdur/BB/Ranexa
prior CVA
HLD
- ASA/Statin
GERD
recent admission for hematemesis/coffee-ground emesis
- continue Pepcid/PPI
DVT ppx: SC Heparin
Code: Full
Anticipated Discharge: > 48 hours
Subjective/Interval History
-
Date of Service: November 18, 2024
resting comfortably
no new complaints
Objective Data
-
Vital Signs:
Vital Signs
Temp Pulse Resp BP Pulse Ox
97.4 F 68 20 150/62 94
11/18/24 07:00 11/18/24 07:00 11/18/24 07:00 11/18/24 07:00 11/18/24 07:00
Physical Exam
-
General: No Apparent Distress
HEENT: Normocephalic and Atraumatic
Respiratory: Negative Wheezes
Cardiac: Regular Rhythm and S1/S2
GI: Soft
Neuro: AO x 3
Psych: Calm and Confused (mildly)
Data Reviewed
-
Total Time Spent with Patient (in minutes): 42
Labs: Labs Reviewed by me
[2024-11-18] MEDS: RENVELA 3200 MG PO ×3 (10:50→17:18)
[2024-11-18] MEDS: IMDUR (EXTENDED RELEASE) 30 MG PO (10:51)
[2024-11-18] MEDS: DEMADEX 80 MG PO (10:51)
[2024-11-18] MEDS: RANEXA EXTENDED RELEASE 500 MG PO ×2 (10:51→21:05)
[2024-11-18] MEDS: PROTONIX 40 MG PO (10:51)
[2024-11-18] MEDS: MIRALAX 17 GRAMS PO (10:51)
[2024-11-18] MEDS: ASPIR LOW (ENTERIC COATED) 81 MG PO (10:51)
[2024-11-18] MEDS: VITAMIN D3 (cholecalciferol) 50 MCG PO (10:51)
[2024-11-18] MEDS: ALPHAGAN 0.2% EYE DROPS 1 DROP BOTH EYES ×3 (10:52→21:37)
[2024-11-18] MEDS: AZOPT 1% OPHTHALMIC SUSPENSION 1 DROP BOTH EYES ×3 (10:52→21:42)
[2024-11-18] MEDS: TIMOPTIC 0.5% OPHTHALMIC SOLUTION 1 DROP BOTH EYES ×3 (10:53→21:37)
[2024-11-18] MEDS: HEPARIN 5000 UNITS SC ×2 (11:26→21:37)
--- NOTE | 2024-11-18 16:39 | CON.NEURO ---
Neuro Assessment/Plan
Assessment
83 year old man, apparent 2nd witnessed seizure
MRI brain diffuse atrophy, microvascular changes, right parietal calcifications
EEG 09/2024 background slowing
Plan
Keppra 500 daily and 500 MWF after dialysis
Consultation
Order
Date of Consultation: 11/18/24
Requesting Provider: Celia Berry
Reason for Consult: seizure
Subjective/Objective
Subjective Data
Date of Service: November 18, 2024
from H&P:
Patient is an 83 y/o male past medical history of ESRD on HD, ASCVD, DM, Hypertension and Hypothyroidism who presents following an episode of seizure like activity. Patient is unable to provide much history as he is extremely hard of hearing.
Additional history obtained from ED staff. Patient's witnessed patient having tonic-clonic movements of the upper extremities. At the time patient was not responding to her during the event which lasted about a minute. EMS described patient as
confused and post-ictal upon their arrival. Review of records indicate patient had questionable seizure during his admission in September at which time his eyes where noted to be rolled back in his head. There were no tonic-clonic movements noted
during that event. Patient did have an EEG which did not reveal any seizure activity.
Objective Data
Vital Signs
Temp Pulse Resp BP Pulse Ox
36.7 C 73 16 144/69 99
11/18/24 11:00 11/18/24 11:00 11/18/24 11:00 11/18/24 11:00 11/18/24 11:00
Lab Results
11/17/24 19:58
11/17/24 19:58
Sodium 138 mmol/L (135-145) 11/17/24 19:58
Potassium 3.9 mmol/L (3.5-5.1) 11/17/24 19:58
BUN 31 mg/dl (9-20) H 11/17/24 19:58
Glucose 129 mg/dl (70-99) H 11/17/24 19:58
Calcium 9.1 mg/dl (8.4-10.2) 11/17/24 19:58
Patient Allergies
adhesive tape Allergy (Verified 09/25/24 02:00)
blisters if kept on for long time;rash
ciprofloxacin [From Cipro] Allergy (Verified 09/25/24 02:00)
burning of vein from IV
erythromycin base Allergy (Verified 09/25/24 02:00)
Hives
lisinopril Allergy (Verified 09/25/24 02:00)
cough
tetracycline Allergy (Verified 09/25/24 02:00)
Hives
tigecycline [From Tygacil] Allergy (Verified 09/25/24 02:00)
patient unaware of this allergy
Physical Exam
-
lethargic, slow to process, disoriented
hard of hearing
moving all extremities
Medications
-
Active Medications
Generic Name Dose Route Start Last Admin
Trade Name Freq PRN Reason Stop Dose Admin
Acetaminophen 650 mg 11/18/24 00:41 11/18/24 00:55
Acetaminophen 325 Mg Tablet PO 12/16/24 00:40 650 mg
Q4HPRN PRN Administration
mild pain/ fever>100.5F
Aspirin 81 mg 11/18/24 08:00 11/18/24 10:51
Aspirin 81 Mg (Enteric Coated) Tablet PO 12/16/24 07:59 81 mg
DAILY JOOVN Administration
Atorvastatin Calcium 10 mg 11/20/24 22:00
Atorvastatin (Lipitor) 10 Mg Tablet PO 12/18/24 21:59
MOTUWETHFR@2200 JOVON
Brimonidine Tartrate 1 drop 11/18/24 08:00 11/18/24 10:52
Brimonidine 0.2% (Ophthalmic Solution) Bottle BOTH EYES 12/16/24 07:59 1 drop
TID JOVON Administration
Brinzolamide 1 drop 11/18/24 08:00 11/18/24 10:52
Brinzolamide 1% (Ophthalmic Suspension) 10 Ml Bottle BOTH EYES 12/16/24 07:59 1 drop
TID JOVON Administration
Calcitriol 0.5 mcg 11/18/24 18:00
Calcitriol 0.25 Microgram Capsule PO 12/16/24 17:59
QPM JOVON
Cholecalciferol 50 mcg 11/18/24 08:00 11/18/24 10:51
Cholecalciferol (Vitamin D3) 50 Mcg Tablet (2,000 Units) PO 12/16/24 07:59 50 mcg
DAILY JOVON Administration
Famotidine 20 mg 11/18/24 22:00
Famotidine 20 Mg Tablet PO 12/16/24 21:59
HS JOVON
Folic Acid 1 mg 11/18/24 18:00
Folic Acid 1 Mg Tablet PO 12/16/24 17:59
QPM JOVON
Heparin Sodium 5,000 units 11/18/24 11:00 11/18/24 11:26
Heparin 5,000 Units/Ml 1 Ml Vial SC 12/16/24 10:59 5,000 units
Q12 JOVON Administration
Isosorbide Mononitrate 30 mg 11/18/24 08:00 11/18/24 10:51
Isosorbide Mononitrate 30 Mg Extended Release Tablet PO 12/16/24 07:59 30 mg
DAILY JOVON Administration
Latanoprost 1 drop 11/18/24 22:00
Latanoprost 0.005% (Ophthalmic Solution) 2.5 Ml Bottle BOTH EYES 12/16/24 21:59
HS JOVON
Levetiracetam 1,000 mg 11/18/24 22:00
Levetiracetam 500 Mg Regular Release Tablet PO 12/16/24 21:59
DAILY@2200 JOVON
Metoprolol Tartrate 12.5 mg 11/18/24 22:00
Metoprolol 12.5 Mg Regular Release Dose (1/2 Of 25 Mg Tablet) PO 12/16/24 21:59
HS JOVON
Netarsudil [ 1 drop 11/18/24 08:00
Rhopressa] 0.02 % BOTH EYES 12/16/24 07:59
Drops Instill 1 Drop DAILY JOVON
Both Eyes Daily
Pantoprazole Sodium 40 mg 11/18/24 08:00 11/18/24 10:51
Pantoprazole 40 Mg Delayed Release Tablet PO 12/16/24 07:59 40 mg
DAILY JOVON Administration
Polyethylene Glycol 17 grams 11/18/24 08:00 11/18/24 10:51
Polyethylene Glycol Powder 17 Grams Packet PO 12/16/24 07:59 17 grams
DAILY JOVON Administration
Ranolazine 500 mg 11/18/24 08:00 11/18/24 10:51
Ranolazine 500 Mg Extended Release Tablet PO 12/16/24 07:59 500 mg
BID JOVON Administration
Sennosides 17.2 mg 11/18/24 22:00
Sennosides (Senokot) 8.6 Mg Tablet PO 12/16/24 21:59
HS JOVON
Sevelamer Carbonate 3,200 mg 11/18/24 07:30 11/18/24 11:26
Sevelamer Carbonate (Renvela) 800 Mg Tablet PO 12/16/24 07:29 3,200 mg
AC JOVON Administration
Sodium Chloride 0 flush 11/17/24 23:00
Sodium Chloride 0.9% (Flush) Syringe IV 12/15/24 22:59
PER PROTOCOL JOVON
Timolol Maleate 1 drop 11/18/24 08:00 11/18/24 10:53
Timolol 0.5% (Ophthalmic Solution) Bottle BOTH EYES 12/16/24 07:59 1 drop
TID JOVON Administration
Torsemide 80 mg 11/18/24 08:00 11/18/24 10:51
Torsemide 20 Mg Tablet PO 12/16/24 07:59 80 mg
DAILY JOVON Administration
Home Medications
�Medication �Instructions �Recorded
bimatoprost 0.01 % eye drops 1 drp BOTH EYES HS Eye condition 06/29/22
(Lumigan)
brinzolamide 1 % eye 1 drp BOTH EYES TID Eye condition 06/29/22
drops,suspension (Azopt)
calcitriol 0.25 mcg capsule 0.5 mcg PO QPM Kidney Disease 06/29/22
famotidine 20 mg tablet (Pepcid) 20 mg PO HS Gastrointestinal issue 06/29/22
netarsudil 0.02 % eye drops 1 drp BOTH EYES DAILY Eye condition 06/29/22
(Rhopressa)
pitavastatin calcium 2 mg tablet 2 mg PO MOTUWETHFR@2200 High 06/29/22
(Livalo) cholesterol
sevelamer carbonate 800 mg tablet 3,200 mg PO AC Kidney Disease 06/29/22
folic acid 1 mg tablet 1 mg PO QPM Supplement 11/23/22
midodrine 2.5 mg tablet 2.5 mg PO DAILYPRN PRN BP<140/90 11/23/22
aspirin 81 mg tablet,delayed 81 mg PO DAILY Blood Clot 02/08/23
release Prevention/Tx
brimonidine 0.2 %-timolol 0.5 % 1 drp BOTH EYES TID Eye Condition 02/08/23
eye drops (Combigan)
torsemide 20 mg tablet 80 mg PO DAILY Fluid 02/08/23
Retention/Swelling
cholecalciferol (vitamin D3) 50 50 mcg PO DAILY Supplement 05/17/23
mcg (2,000 unit) tablet (Vitamin
D3)
ranolazine 500 mg tablet,extended 500 mg PO BID Heart 05/17/23
release,12 hr Disease/Condition
sodium chloride 5 % eye drops 1 drp BOTH EYES TID Eye Condition 05/17/23
(Chris 128)
amino acids-protein hydrolysate 16 30 ml PO SUTUTHSA Supplement 05/20/23
gram-100 kcal/30 mL oral liquid
(Liquacel)
acetaminophen 650 mg 650 mg PO BID PRN Pain #0 tabs 06/11/23
tablet,extended release
isosorbide mononitrate 30 mg 30 mg PO DAILY Heart 06/11/23
tablet,extended release 24 hr disease/condition #0 tabs
metoprolol tartrate 25 mg tablet 12.5 mg PO HS Blood pressure 08/10/24
pantoprazole 40 mg tablet,delayed 40 mg PO DAILY #30 tabs 09/27/24
release (Protonix)
polyethylene glycol 3350 17 gram 17 g PO DAILY #30 ea 09/27/24
oral powder packet
sennosides 8.6 mg tablet (Tala-carolyn) 17.2 mg (2 x 8.6 mg) PO HS #60 tabs 09/27/24
[2024-11-18] MEDS: FOLVITE 1 MG PO (17:18)
[2024-11-18] MEDS: ROCALTROL 0.5 MCG PO (17:18)
[2024-11-18] MEDS: PEPCID 20 MG PO (21:05)
[2024-11-18] MEDS: LOPRESSOR 12.5 MG PO (21:05)
[2024-11-18] MEDS: KEPPRA 1000 MG PO (21:07)
[2024-11-18] MEDS: SENOKOT 17.2 MG PO (21:07)
[2024-11-18] MEDS: XALATAN OPHTHALMIC SOLUTION 1 DROP BOTH EYES (21:37)
[2024-11-19 03:13] VITALS: BP 180/73
[2024-11-19 05:53] VITALS: BP 188/76
[2024-11-19] MEDS: LOPRESSOR 5 MG IV (06:11)
[2024-11-19 07:40] VITALS: BP 187/71
[2024-11-19 08:12] LABS: Hematocrit 34.6 % (39.0-52.0); Hemoglobin 11.5 g/dL (13.0-18.0); Mean Corp Hgb Conc. 33.2 g/dL (33.0-37.0); Mean Corpuscular Hgb 31.8 pg (27.0-31.0); Mean Corpuscular Volume 95.6 fL (80.0-94.0); Mean Platelet Volume 10.9 fL (7.4-10.4); Platelet Count 184 10^3/uL (130-400); Red Blood Cell Count 3.62 10^6/uL (4.70-6.10); Red Cell Dist. Width 13.7 % (11.5-14.5); White Blood Cell Count 4.8 10^3/uL (4.8-10.8)
[2024-11-19] MEDS: ASPIR LOW (ENTERIC COATED) 81 MG PO (08:12)
[2024-11-19] MEDS: VITAMIN D3 (cholecalciferol) 50 MCG PO (08:12)
[2024-11-19] MEDS: HEPARIN 5000 UNITS SC (08:12)
[2024-11-19] MEDS: IMDUR (EXTENDED RELEASE) 30 MG PO (08:12)
[2024-11-19] MEDS: MIRALAX 17 GRAMS PO (08:12)
[2024-11-19] MEDS: RANEXA EXTENDED RELEASE 500 MG PO (08:12)
[2024-11-19] MEDS: DEMADEX 80 MG PO (08:12)
[2024-11-19] MEDS: PROTONIX 40 MG PO (08:12)
[2024-11-19] MEDS: AZOPT 1% OPHTHALMIC SUSPENSION 1 DROP BOTH EYES (08:13)
[2024-11-19] MEDS: ALPHAGAN 0.2% EYE DROPS 1 DROP BOTH EYES (08:13)
[2024-11-19] MEDS: TIMOPTIC 0.5% OPHTHALMIC SOLUTION 1 DROP BOTH EYES (08:13)
[2024-11-19] MEDS: RENVELA 3200 MG PO ×2 (08:15→12:34)
[2024-11-19 08:41] LABS: Blood Urea Nitrogen 56 mg/dl (9-20); Calcium 9.6 mg/dl (8.4-10.2); Carbon Dioxide 30 mmol/L (22-30); Chloride 96 mmol/L (98-107); Estimated Creatinine Clearance 17 ml/min; Glucose 82 mg/dl (70-99); Potassium 4.2 mmol/L (3.5-5.1); Sodium 137 mmol/L (135-145); eGFR 18.05
[2024-11-19 09:34] LABS: Glycohemoglobin (HgbA1c) 5.2 % (4.0-5.6)
--- NOTE | 2024-11-19 10:38 | W.PN.HOSP.TC ---
Today's Communication/Plan
-
dc to home vn
Assessment / Plan
Assessment / Plan
Assessment:
Suspected seizure episode with post-ictal confusion
- seizure precautions
- continue Keppra 500mg daily and 500mg // post-HD
- MRI negative
- no role for EEG per Neurology
- PT/OT - home VN
ESRD on HD //
- resume HD Wednesday outpatient
- renal appropriate diet
- continue Calcitriol/Sevelamer
- continue Torsemide
Type 2 diabetes
- not on meds
- A1c 5.2%
Chronic blindness
hearing loss (R>L)
obstructive sleep apnea
- continue CPAP
history of prior prostate cancer
CAD status post ND
Hx of SVT
Hx of Essential HTN
- continue ASA/Statin/Imdur/BB/Ranexa
prior CVA
HLD
- ASA/Statin
GERD
recent admission for hematemesis/coffee-ground emesis
- continue Pepcid/PPI
DVT ppx: SC Heparin
Code: Full
More than 30 minutes spent in discharge including
Final examination of the patient
Summarizing hospital stay
Instructions for continuing care to all relevant caregivers
Preparation of discharge records, prescriptions, and referral forms
Total time spent (in minutes):41
Anticipated Discharge: Today
Subjective/Interval History
-
Date of Service: November 19, 2024
no overnight events
tolerating Keppra
denies complaints; eager to head home
Objective Data
-
Labs:
Laboratory Results
11/19/24 11/19/24
07:23 07:24
WBC 4.8
Hgb 11.5 L
Hct 34.6 L
Plt Count 184
Sodium 137
Potassium 4.2
Chloride 96 L
Carbon Dioxide 30
BUN 56 H
Creatinine 3.3 H
Glucose 82
Calcium 9.6
Vital Signs:
Vital Signs
Temp Pulse Resp BP Pulse Ox
97.4 F 106 20 188/76 100
11/19/24 07:40 11/19/24 08:12 11/19/24 07:40 11/19/24 08:12 11/19/24 07:40
Physical Exam
-
General: No Apparent Distress
HEENT: Normocephalic and Atraumatic
Respiratory: Negative Wheezes
Cardiac: Regular Rhythm and S1/S2
GI: Soft and Nontender
Genito-urinary: No Costovertebral Tender
Neuro: AO x 3
Psych: Calm
Data Reviewed
-
Total Time Spent with Patient (in minutes): 41
Labs: Labs Reviewed by me
--- NOTE | 2024-11-19 10:43 | W.DS.TRANS ---
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
-
Discharge Instructions:
Discharge Diagnosis/Procedures seizure with post-ictal confusion
Diet 2 Gram Sodium,Restrict fluids to 48 oz
Activity As tolerated
Bathing Restrictions None
Other Services VN
Instructions:
Stand-Alone Forms:
Changes to Home Medications: No
Discharge Medications:
DC Medications w/original date entered in [employer]
bimatoprost 0.01 % eye drops (Lumigan) 1 drp BOTH EYES HS Eye condition 06/29/22
brinzolamide 1 % eye drops,suspension (Azopt) 1 drp BOTH EYES TID Eye condition 06/29/22
calcitriol 0.25 mcg capsule 0.5 mcg PO QPM Kidney Disease 06/29/22
famotidine 20 mg tablet (Pepcid) 20 mg PO HS Gastrointestinal issue 06/29/22
netarsudil 0.02 % eye drops (Rhopressa) 1 drp BOTH EYES DAILY Eye condition 06/29/22
pitavastatin calcium 2 mg tablet (Livalo) 2 mg PO MOTUWETHFR@2200 High cholesterol 06/29/22
sevelamer carbonate 800 mg tablet 3,200 mg PO AC Kidney Disease 06/29/22
folic acid 1 mg tablet 1 mg PO QPM Supplement 11/23/22
midodrine 2.5 mg tablet 2.5 mg PO DAILYPRN PRN BP<140/90 11/23/22
aspirin 81 mg tablet,delayed release 81 mg PO DAILY Blood Clot Prevention/Tx 02/08/23
brimonidine 0.2 %-timolol 0.5 % eye drops (Combigan) 1 drp BOTH EYES TID Eye Condition 02/08/23
torsemide 20 mg tablet 80 mg PO DAILY Fluid Retention/Swelling 02/08/23
cholecalciferol (vitamin D3) 50 mcg (2,000 unit) tablet (Vitamin D3) 50 mcg PO DAILY Supplement 05/17/23
ranolazine 500 mg tablet,extended release,12 hr 500 mg PO BID Heart Disease/Condition 05/17/23
sodium chloride 5 % eye drops (Chris 128) 1 drp BOTH EYES TID Eye Condition 05/17/23
amino acids-protein hydrolysate 16 gram-100 kcal/30 mL oral liquid (Liquacel) 30 ml PO SUTUTHSA Supplement 05/20/23
acetaminophen 650 mg tablet,extended release 650 mg PO BID PRN Pain #0 tabs 06/11/23
isosorbide mononitrate 30 mg tablet,extended release 24 hr 30 mg PO DAILY Heart disease/condition #0 tabs 06/11/23
metoprolol tartrate 25 mg tablet 12.5 mg PO HS Blood pressure 08/10/24
pantoprazole 40 mg tablet,delayed release (Protonix) 40 mg PO DAILY #30 tabs 09/27/24
polyethylene glycol 3350 17 gram oral powder packet 17 g PO DAILY #30 ea 09/27/24
sennosides 8.6 mg tablet (Tala-carolyn) 17.2 mg (2 x 8.6 mg) PO HS #60 tabs 09/27/24
levetiracetam 500 mg tablet (Keppra) See Rx Instructions .Route .COMPLEX #42 tabs 11/19/24
Home Medication Changes
Pending Results: No
Total time spent discharging patient (in min): 41
[2024-11-19 11:20] VITALS: BP 164/71
--- NOTE | 2024-11-19 15:08 | CM ---
Initial assessment completed via chart review and phone call to .
Pt is an 83yr old admitted with seizures.
Pt has been admitted to on 2 occasions and discharged to [facility] in August and September.
Pt is for dc today to home.
At baseline, pt lives with his in a 2 story home with a ramp to enter and a stairglide to the second floor.
Pt is able to walk with a RW but does require supervision and assistance for safety.
Pt has [facility] provided assistance for 13hrs a week. Pt goes to Dialysis at [facility] and has some additional agency coverage for when he goes to aide with transport and care needs during and after.
Equipment includes W/c, RW, Stairglide, and toilet rails.
Pt has been to [facility], [facility], [facility], and [facility].
Pt uses [facility] and is active with services prior to this hospitalization.
PCP; Pepe Riley
Pharm; [facility]
PLAN; Home with and [facility]
Transport provided through Ambulance. Transport forms provided. 3p transport, IMM issued to verbally during initial call.
[2024-11-19 15:12] VITALS: BP 163/71
== END 2024-11-19 16:31 | disposition home health service (06) | DRG 100 ==
LOC: 4 WEST ACU 23:52
PROVIDERS: ADMITTING PHYSICIAN Internal Medicine; ATTENDING PHYSICIAN Internal Medicine; CONSULT PHYSICIAN Psychiatry & Neurology Clinical Neurophysiology; EMERGENCY PHYSICIAN Emergency Medicine; FAMILY PHYSICIAN Internal Medicine
DX: R56.9 Unspecified convulsions (principal); N18.6 End stage renal disease; I12.0 Hypertensive chronic kidney disease with stage 5 chronic kidney disease or end stage renal disease; G95.29 Other cord compression; I47.10 Supraventricular tachycardia, unspecified; F05 Delirium due to known physiological condition; E03.9 Hypothyroidism, unspecified; E11.22 Type 2 diabetes mellitus with diabetic chronic kidney disease; E78.00 Pure hypercholesterolemia, unspecified; G47.33 Obstructive sleep apnea (adult) (pediatric); I25.10 Atherosclerotic heart disease of native coronary artery without angina pectoris; H54.8 Legal blindness, as defined in USA; E11.51 Type 2 diabetes mellitus with diabetic peripheral angiopathy without gangrene; H91.90 Unspecified hearing loss, unspecified ear; K21.9 Gastro-esophageal reflux disease without esophagitis; I25.2 Old myocardial infarction; Z99.2 Dependence on renal dialysis; Z95.5 Presence of coronary angioplasty implant and graft; Z90.79 Acquired absence of other genital organ(s); Z87.891 Personal history of nicotine dependence; Z86.73 Personal history of transient ischemic attack (TIA), and cerebral infarction without residual deficits; Z85.46 Personal history of malignant neoplasm of prostate; Z88.1 Allergy status to other antibiotic agents; Z88.8 Allergy status to other drugs, medicaments and biological substances; Z79.82 Long term (current) use of aspirin; Z79.899 Other long term (current) drug therapy
CPT/HCPCS: 70450; 70551; 80048; 80053; 83036; 85025; 85027; 87070; 93005; 94660; 96374; 97163; 97167; 99285

== ENCOUNTER → 2024-11-30 12:11 | Outpatient (REF) | payer MEDICARE, OTHER, SELFPAY ==
[2024-11-30 16:31] LABS: % Basophils 0.9 % (0-2); % Eosinophils 1.9 % (0-6); % Immature Granulocytes 0.4 % (0-0.5); % Lymphocytes 22.5 % (20.5-51.1); % Monocytes 13.8 % (1.7-9.3); % Neutrophils 60.5 % (42.2-75.2); Absolute Basophils 0.1 10^3/uL (0-0.2); Absolute Eosinophils 0.1 10^3/uL (0-0.7); Absolute Lymphocytes 1.2 10^3/uL (1.2-3.4); Absolute Monocytes 0.7 10^3/uL (0.1-0.6); Absolute Neutrophils 3.3 10^3/uL (1.4-6.5); Hematocrit 31.5 % (39.0-52.0); Hemoglobin 10.3 g/dL (13.0-18.0); Mean Corp Hgb Conc. 32.7 g/dL (33.0-37.0); Mean Corpuscular Volume 97.8 fL (80.0-94.0); Mean Platelet Volume 11.2 fL (7.4-10.4); Nucleated Red Blood Cells % 0 % (-); Platelet Count 203 10^3/uL (130-400); Red Blood Cell Count 3.22 10^6/uL (4.70-6.10); Red Cell Dist. Width 14.6 % (11.5-14.5); White Blood Cell Count 5.4 10^3/uL (4.8-10.8)
[2024-11-30 16:36] LABS: ALT (SGPT) < 10 U/L (0-50); AST (SGOT) 13 U/L (17-59); Albumin 3.5 g/dl (3.5-5.0); Alkaline Phosphatase 72 U/L (38-126); Blood Urea Nitrogen 51 mg/dl (9-20); Calcium 9.2 mg/dl (8.4-10.2); Carbon Dioxide 31 mmol/L (22-30); Chloride 94 mmol/L (98-107); Glucose 110 mg/dl (70-99); Potassium 4.4 mmol/L (3.5-5.1); Sodium 136 mmol/L (135-145); Total Bilirubin 0.5 mg/dl (0.2-1.3); Total Protein 5.6 g/dl (6.3-8.2); eGFR 21.07
[2024-11-30 17:07] LABS: TSH Reflex To Free T4 2.57 uIU/ml (0.47-4.68)
[2024-12-01 09:48] LABS: Glycohemoglobin (HgbA1c) 5.3 % (4.0-5.6)
== END ==
LOC: HWLAB 12:11
PROVIDERS: ATTENDING PHYSICIAN Nurse Practitioner Family; FAMILY PHYSICIAN Nurse Practitioner Family
DX: Z09 Encounter for follow-up examination after completed treatment for conditions other than malignant neoplasm (principal); R56.9 Unspecified convulsions; N18.6 End stage renal disease; E11.22 Type 2 diabetes mellitus with diabetic chronic kidney disease; S12.9XXA Fracture of neck, unspecified, initial encounter
CPT/HCPCS: 36415; 72052; 80053; 83036; 84443; 85025

== ENCOUNTER → 2025-01-02 11:14 | Outpatient (REF) | payer MEDICARE, OTHER, SELFPAY | LOC: HWRAD 11:14 | PROVIDERS: ATTENDING PHYSICIAN Neurological Surgery; FAMILY PHYSICIAN Internal Medicine Geriatric Medicine | DX: S12.9XXA Fracture of neck, unspecified, initial encounter (principal) | CPT/HCPCS: 72052 ==

== ENCOUNTER 2025-05-24 11:15 | Inpatient (IN) | payer MEDICARE, OTHER, SELFPAY ==
[2025-05-24] VITALS (15 sets, daily range): BP systolic 148–171; BP diastolic 62–91; PULSE 2–80; BMI 21.0; BMI 20.7
--- NOTE | 2025-05-24 08:31 | ED.CVA ---
History of Present Illness
General
Chief Complaint: CVA/TIA Symptoms
Time Seen by Provider: 05/24/25 08:25
Nursing documentation reviewed up to this point in time: agreed with
Onset of Stroke Symptoms
Onset of symptoms known: No
Time pt last seen normal is known: Yes
Date last time pt seen normal: 05/23/25
Time last time pt seen normal: 23:00
History of Present Illness
History of Present Illness:
84-year-old male brought to the ER by EMS for evaluation of altered mental status noted by family this morning. Last known normal was 11:00 last night. Patient was found to be poorly responsive with weakness on his right side. Prehospital
personnel report leftward gaze and flaccid right upper extremity. Patient is a chronic dialysis patient, received routine treatment yesterday. He also has a history of dementia and is blind, limiting ability to provide accurate history.
Past History
Past History
ED Past Medical History: Arrthythmia (SVT), CAD, Cancer (Prostate CA), CVA (May 2022 left MCA ischemic stroke), HTN, Hypercholesterolemia, NIDDM (Diet controlled ), [place], Renal failure (Hemodialysis), Hypothyroidism, Psychiatric (Anxiety Paic )
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
ED Past Surgical History: Appendectomy, Cardiac (Angioplasty September 2021, stenting 2020 X 2), Orthopedic (Cervical spine surgery), Tonsilectomy, Urological (Prostatectomy) and Other ( dialysis catheter 2018, port for dialysis March 2021,
deviated septum repair 2004)
Social History
Tobacco: Former smoker
Alcohol: None
Drug: None
Personal:
Living: with family
Employment: Retired
Family History
Family History: Other (reviewed and noncontributory)
Phy Exam
Physical Exam
Physical Exam:
Patient is sleeping, arousable to tactile stimuli, alert, appears in no acute distress, head is NCAT, PERRL, EOMI mucous membranes moist, moving eyes in all directions of gaze, left cornea hazy, conjunctiva pink, heart regular rate and rhythm
without murmurs or ectopy, lungs with diffuse rhonchi to auscultation, no JVD, abdomen is soft and nontender on palpation, extremities without edema, left upper extremity with tortuous dialysis fistula present, positive thrill, 2+ DP and radial
pulses present symmetric
[place] Coma Scale
Eye Opening: To Pain
Verbal Response: Incomprehensible
Motor Response: Localizes to Pain
GCS Total Score: 9
Course
Orders/Labs/Results
Orders:
Orders
05/24/25 08:28
Electrocardiogram (*1) Stat
Reason for Study: Other
Other Reason for Exam: neuro symptoms
CT HEAD STROKE ALERT W/o Cont Urgent
Comment: last normal 11p
Reason For Exam: R sided weakness
CT HEAD/NECK ANG STROKE ALERT Urgent
Comment: last normal 11p
Reason For Exam: R sided weakness
Bedside Glucose- Treatment ONCE
Cardiac Monitoring- Treatment ONCE
EKG- Treatment ONCE
Pulse Ox/cont/shift [RESP] Stat
Quantity: 1
05/24/25 08:30
CR Chest Portable - 1 View Urgent
Comment:
Reason For Exam: cva
Reason Study Needs to be Portable: Unable to Transport
05/24/25 08:47
Complete Blood Count/With Diff Urgent
Comprehensive Metabolic Panel Urgent
PTT Urgent
Prothrombin Time Urgent
Troponin I Urgent
05/24/25 09:18
COVID-19 Antigen Urgent
Source: Nasal Swab
Influenza A+B Rapid Molecular Urgent
RENE Source: Nasal Swab
Specimen Description:
05/24/25 09:59
Acetaminophen Urgent
Alcohol Urgent
Salicylate Urgent
Urine Drug Abuse Screen Urgent
Date Specimen was Collected: 05/24/25
Time Specimen was Collected: 10:12
Cpap [RESP] Urgent
Patient to use own unit?: No
Set Pressure (cm H2O): 4
05/24/25 10:00
Urinalysis Reflex To Culture Urgent
Date Specimen was Collected: 05/24/25
Time Specimen was Collected: 10:12
05/24/25 10:22
Consult Neurology [NEUROLOGY CONSULT] Urgent
Consulting Provider: Dani Skinner
Was physician already notified: Yes
Reason for consult: altered mental status
05/24/25 10:37
Bipap [RESP] Urgent
Patient to use own unit?: No
Inspiratory Pressure (cm H2O): 10
Expiratory Pressure (cm H2O): 5
05/24/25 10:50
Admit/Transfer Patient As Directed
Co-Sign Provider:
Level of Care: Inpatient admission
Assign to:: Telemetry
Physician / Group: Hospitalist
Diagnosis: Change in MS
Reason for Telemetry: CVA/TIA
Date to Stop Telemetry: 05/27/25
Time to Stop Telemetry: 11:00
Reason for Hospitalization: .
Expected length of stay greater than two midnights?: Yes
ELOS- Estimated Length of Stay in days: 3
I certify the patient meets the requirements for IP care: Yes
PRN Pain Medication Management As Directed
May give lesser potent ordered pain med per pt: Yes
preference::
Protocol:: Medication orders for pain may be administered in a
manner that supports deferring to patient preference
when the pt is:
- Requesting an ordered lesser potent pain medication.
Least to most potent pain medications are defined
as: acetaminophen < NSAID < tramadol < opioids
(morphine, oxycodone, hydromorphone).
- Requesting a lesser dose of the same medication IF
ORDERED.
- Requesting a less intrusive route of administration
if both routes are prescribed by the provider (PO <
IV).
05/24/25 11:04
NT-proBNP Urgent
05/24/25 11:14
ABG [Arterial Blood Gas] Urgent
%Oxygen/Room Air: 21
05/27/25 11:00
DC Protocol for Telemetry ONCE
Abnormal Lab Results
05/24/25
08:47
RBC 3.05 L 10^6/uL
(4.70-6.10)
Hgb 10.1 L g/dL
(13.0-18.0)
Hct 30.3 L %
(39.0-52.0)
MCV 99.3 H fL
(80.0-94.0)
MCH 33.1 H pg
(27.0-31.0)
Abs Immat Gran (auto) 0.1 H 10^3/uL
(0-0.05)
Absolute Lymphs (auto) 1.1 L 10^3/uL
(1.2-3.4)
Absolute Monos (auto) 0.9 H 10^3/uL
(0.1-0.6)
Immature Gran % 0.7 H %
(0-0.5)
Lymphocytes % 15.2 L %
(20.5-51.1)
Monocytes % 11.8 H %
(1.7-9.3)
Chloride 94 L mmol/L
(98-107)
BUN 55 H mg/dl
(9-20)
Creatinine 3.0 H mg/dL
(0.7-1.3)
Glucose 107 H mg/dl
(70-99)
AST 14 L U/L
(17-59)
Troponin I 0.458 H* ng/ml
05/24/25 08:47
05/24/25 08:47
CBC shows anemia, similar to prior from 11/30/2024, no indication for transfusion
Vital Signs
Initial and Last Documented VS:
Initial Vital Signs
Pulse BP Pulse Ox
78 170/72 99
05/24/25 08:44 05/24/25 08:44 05/24/25 08:44
Last Documented Vital Signs
Temp Pulse Resp BP Pulse Ox
98.6 F 77 20 156/81 98
05/24/25 11:00 05/24/25 11:00 05/24/25 11:00 05/24/25 11:00 05/24/25 11:00
MDM/Problems Addressed
Differential Diagnosis Includes:
Intracranial hemorrhage, acute ischemic stroke, seizure, hypertensive emergency, occult infection along with other etiologies considered
Chronic conditions affecting care:
Hypertension, dementia, hard of hearing, renal failure, seizure disorder, advanced age
*Radiology
Radiology exam reviewed: preliminary read by ED provider (I independently viewed and interpreted portable chest x-ray showing mild increased pulmonary vascular congestion, no focal infiltrate)
*Pulse Oximetry
SaO2: 97
Oxygen Mode of Delivery: Room air
Patient hypoxic: no
*EKG
Interpreted by ED Provider?: Yes (I independently viewed and interpreted twelve-lead EKG showing sinus rhythm with first-degree AV block, rate 78, leftward axis, right bundle branch block, inferior Q waves, no ST elevation, isolated PVC, this is an
abnormal tracing without significant change compared to prior from 11/17/2024)
*P[employer]asing [employer] Clerk Interpretation
Rate: normal (I independently viewed and interpreted rhythm strip showing sinus rhythm with first-degree AV block, PVCs)
*Critical Care Note
Total Time (30-74mins, 75-104mins- exclusive of procedures): see below
comment:
Critical care statement: A total of 40 minutes of critical care time was provided for this patient. This includes management of unstable vital signs, evaluation of the patient at bedside, reviewing the patient's pertinent medical records, discussion
with consultants, review of old EKGs and review of pertinent medical records. This time with separate from time utilized to perform the aforementioned documented procedures
Update Note
Update Note:
Patient would not be a TNK candidate as his symptoms have improved along with unknown onset of symptoms. Will obtain CT angio for further evaluation.
1010: I reviewed neg CT with Dr Nina. I went to reevaluate patient. He is still sleeping very comfortably. and long-term caregiver are present at bedside. tells me that earlier this year he had a similar reaction to medications that
caused him to sleep very deeply for 4 days. She denies any recent change in his medications. He is receiving his routine dialysis. No described incidents over the past few days. Patient at baseline is typically able to speak and assist with
ADLs. He utilizes a walker but does spend a fair amount of time in a wheelchair. Patient is very hard of hearing and visually impaired. I discussed with them no clear etiology of symptoms today. Troponin is elevated, however this may be related
to his chronic renal disease, will repeat. No evidence for acute ischemia on EKG. Will place patient on his routine CPAP given he is somnolent with witnessed episodes of apnea-this is his baseline per and caregiver at bedside. ABG is added
along with serum and urine drug screens. I reviewed full patient presentation along with pending tests with the hospitalist who accepts patient for admission for further care.
Hospitalist requesting neuroconsult- this was placed and rn lactation doc notified. RT recommended bipap for pt given continued apnea on cpap- this order was placed. CTA without LVO, concern for possible aspiration as debris seen in R bronchus-
hospitalist updated. Pt stable.
ED Attending Note
-
Portions of this chart may have been created with voice recognition software.� Occasional wrong word or��sound alike� substitutions may have occurred due to the inherent limitations of voice recognition software.
Discharge Plan
Departure
Patient Disposition: Admit
Date of Disposition: 05/24/25
Time of Disposition: 10:12
Presentation/result/management discussed w/ accepting MD/DO: Hospitalist
Discharge Problem:
Acute alteration in mental status, Sleep apnea
Interventions
Interventions:
*Risk Screen - Suicide Last Done: 05/24/25 08:51
*General Assessment Last Done: 05/24/25 08:51
*Neglect/Abuse Screening Last Done: 05/24/25 08:51
*ED- Fall Risk Assessment Last Done: 05/24/25 08:51
*ED COVID-19 Vaccine History Last Done: 05/24/25 08:51
*ED Influenza Vaccine History Last Done: 05/24/25 08:51
ED- Pulmonary Assessment Last Done: 05/24/25 08:51
ED- Neurological Assessment Last Done: 05/24/25 08:51
ED- Cardiac Assessment Last Done: 05/24/25 08:51
ED Swallowing Screen Last Done: 05/24/25 08:51
--- NOTE | 2025-05-24 08:55 | EDRN ---
IV team was notified to attempt to place an 18G PIV for CT scan
[2025-05-24 08:56] LABS: Hematocrit 30.3 % (39.0-52.0); Hemoglobin 10.1 g/dL (13.0-18.0); Mean Corp Hgb Conc. 33.3 g/dL (33.0-37.0); Mean Corpuscular Volume 99.3 fL (80.0-94.0); Nucleated Red Blood Cells % 0 % (-); Platelet Count 228 10^3/uL (130-400); Red Cell Dist. Width 13.8 % (11.5-14.5)
[2025-05-24 09:07] LABS: INR 0.95; PT 13.2 Sec (11.4-14.6)
[2025-05-24 09:08] LABS: APTT 27.7 Sec (23.4-35.0)
--- NOTE | 2025-05-24 09:16 | EDRN ---
the pts and family are currently at the pts bedside attempting to speak to the pt, the pt is snoring and only responsive to pain at this time, awaiting for the pt to be brought to CT scan, IV team was able to successfully place a PIV for CT scan
[2025-05-24 09:18] LABS: ALT (SGPT) 11 U/L (0-50); AST (SGOT) 14 U/L (17-59); Albumin 4.1 g/dl (3.5-5.0); Alkaline Phosphatase 83 U/L (38-126); Blood Urea Nitrogen 55 mg/dl (9-20); Calcium 9.6 mg/dl (8.4-10.2); Carbon Dioxide 29 mmol/L (22-30); Chloride 94 mmol/L (98-107); Estimated Creatinine Clearance 19 ml/min; Glucose 107 mg/dl (70-99); Potassium 4.3 mmol/L (3.5-5.1); Sodium 135 mmol/L (135-145); Total Protein 7.1 g/dl (6.3-8.2); eGFR 20.11
[2025-05-24 09:24] LABS: Troponin I 0.458 ng/ml
--- NOTE | 2025-05-24 10:20 | EDRN ---
Dr. Tolentino ordered for the pt to be on CPAP, this RN reached out to respiratory who is currently at the pts bedside placing CPAP
--- NOTE | 2025-05-24 10:36 | EDRN ---
respiratory placed the pt on CPAP 10/5 on RA Sp02 98%
--- NOTE | 2025-05-24 10:51 | HPS.HSE ---
Addendum entered and electronically signed by Anup Garza MD 05/24/25 12:47:
Addendum
I interviewed and examined the patient. Discussed with Dr. Monahan and agree on note below with the following notes
84 old male was hard to wake up today by his . Was last seen last night after eating sandwich for dinner with no choking or coughing
He was noted to have left-sided gaze with right-sided weakness. Normal blood sugar. No hypoxia noted by EMT.
Upon arrival to the ER, patient was able to move right side and did not have the gaze. He was lethargic with depressed mentation. He fell back asleep and BiPAP was placed. Per , patient does not sleep without CPAP
Imaging studies of the brain no acute finding but possible debris's in the trachea noted by head CT
Chest x-ray interpreted by me with right lower opacity
Physical Exam
General: Not in respiratory distress but not responsive fully
HEENT: Moist mucous membrane, BiPAP on
Respiratory: Limited with BiPAP on.
Cardiac: S1/S2, Regular Rhythm and Murmur (2/6 systolic murmur, best heard in lower sternal border.);
GI: Soft, Non Tender, Non Distended and Normal Bowel Sounds
Genito-urinary: No Maguire
Musculoskeletal: No Clubbing, No Cyanosis, Edema, Left Upper Extremity (Dialysis fistula noted, positive thrill.) and No Edema
Skin: Warm
Neuro: Patient is lethargic, he is sleeping, did not wake up during encounter
Psych: Lethargic
Assessment and plan
#Change in mental status/rule out stroke/seizure/toxic metabolic encephalopathy
Admit the patient to high-level care
History of seizure disorder discussed with neurologist at bedside. Will rule out stroke, agreed to MRI studies
Will order EEG.
Will rule out infectious etiology for toxic metabolic encephalopathy, absence of leukocytosis and fever, will do blood culture, empiric antibiotic coverage for suspected aspiration pneumonia
Continue with Keppra per neurology
Speech evaluation
Aspiration precaution
Continue supportive care
# Debris's in the trachea. Suspect aspiration. reported that silicone seal was minced from his CPAP at home few days ago. They thought he swallowed it because he could not find the piece.
Discussed with pulmonary doctor, will do CAT scan of the chest
Might need bronchoscopy although pulmonary images look possible secretions
# End-stage renal disease on hemodialysis, Wednesday. Continue midodrine as needed. Consult nephrology. Patient is known to our service.
No issues with dialysis fistula/access.
# Positive troponin, abnormal EKG changes.
Continue with aspirin. DVT prophylaxis, okay to continue cardiac medications when more alert. Could be nonischemic myocardial injury. Will trend troponin. Consult cable inspector. Primary cable inspector Dr. Mike Pineda.
No history of chest pain per
, Confirmed with CODE STATUS, full code
Total time spent to see the patient, examined the patient, discussed treatment plan with patient, family, consultants, ER doctor, nursing staff [id number] minutes
Original Note:
Family Physician
-
Family Physician: Aurelio Navarrete
Chief Complaint
-
Stroke alert, right arm weakness.
History of Present Illness
84-year-old male with past medical history significant for ESRD on dialysis, CVA (left MCA ischemic stroke), seizure disorder, NIDDM, hypertension, hyper lipidemia, IL s/p PCI times -2021, hypothyroidism, blindness, obstructive sleep apnea,
PAD, orthostatic hypotension, sciatica, anxiety and panic disorder, history of prostrate carcinoma, osteoporotic C-spine fracture and SVT presents to the ER for evaluation of acute change in mental status via EMS. Patient last known normal was 11
PM last night. He was found to be poorly responsive with weakness on his right side.
Medical History
Past Medical History
Past Medical History: Reports Other (Arrthythmia (SVT), CAD, Cancer (Prostate CA), CVA (May 2022 left MCA ischemic stroke), HTN, Hypercholesterolemia, NIDDM (Diet controlled ), IL, Renal failure (Hemodialysis), Hypothyroidism, Psychiatric
(Anxiety) seizure disorder and Other (blind from diabetic retinopathy, orthostatic hypot)
Past Surgical History: Reports Other (Appendectomy, Cardiac (Angioplasty September 2021, stenting 2020 X 2), Orthopedic (Cervical spine surgery), Tonsilectomy, Urological (Prostatectomy) and Other ( dialysis catheter 2018, port for dialysis
March 2021, deviated septum repair 2004))
Social History
Unable to obtain full social history at this time due to: Other (Both dementia and Acuity)
Tobacco: Former Smoker
Alcohol: None
Drug: None
Personal:
Living: With Family
Employment: Retired
Family History
Family History: Not pertinent
Allergies / Home Medications
Allergies reflects when Allergies were last updated in [facility].
Home Medications with original date entered in [facility]
Allergy/Medication List:
Allergies
Allergy/AdvReac Type Severity Reaction Status Date / Time
adhesive tape Allergy blisters Verified 09/25/24 02:00
if kept on
for long
time;rash
ciprofloxacin (From Cipro) Allergy burning of Verified 09/25/24 02:00
vein from
IV
erythromycin base Allergy Hives Verified 09/25/24 02:00
lisinopril Allergy cough Verified 09/25/24 02:00
tetracycline Allergy Hives Verified 09/25/24 02:00
tigecycline (From Tygacil) Allergy patient Verified 09/25/24 02:00
unaware of
this
allergy
Home Medications
bimatoprost 0.01 % eye drops (Lumigan) 1 drp BOTH EYES HS Eye condition 06/29/22
brinzolamide 1 % eye drops,suspension (Azopt) 1 drp BOTH EYES TID Eye condition 06/29/22
calcitriol 0.25 mcg capsule 0.5 mcg PO QPM Kidney Disease 06/29/22
famotidine 20 mg tablet (Pepcid) 20 mg PO HS Gastrointestinal issue 06/29/22
netarsudil 0.02 % eye drops (Rhopressa) 1 drp BOTH EYES DAILY Eye condition 06/29/22
pitavastatin calcium 2 mg tablet (Livalo) 2 mg PO MOTUWETHFR@2200 High cholesterol 06/29/22
sevelamer carbonate 800 mg tablet 3,200 mg PO AC Kidney Disease 06/29/22
folic acid 1 mg tablet 1 mg PO QPM Supplement 11/23/22
midodrine 2.5 mg tablet 2.5 mg PO DAILYPRN PRN BP<140/90 11/23/22
aspirin 81 mg tablet,delayed release 81 mg PO DAILY Blood Clot Prevention/Tx 02/08/23
brimonidine 0.2 %-timolol 0.5 % eye drops (Combigan) 1 drp BOTH EYES TID Eye Condition 02/08/23
torsemide 20 mg tablet 80 mg PO DAILY Fluid Retention/Swelling 02/08/23
cholecalciferol (vitamin D3) 50 mcg (2,000 unit) tablet (Vitamin D3) 50 mcg PO DAILY Supplement 05/17/23
ranolazine 500 mg tablet,extended release,12 hr 500 mg PO BID Heart Disease/Condition 05/17/23
sodium chloride 5 % eye drops (Chris 128) 1 drp BOTH EYES TID Eye Condition 05/17/23
acetaminophen 650 mg tablet,extended release 650 mg PO BID PRN Pain #0 tabs 06/11/23
isosorbide mononitrate 30 mg tablet,extended release 24 hr 30 mg PO DAILY Heart disease/condition #0 tabs 06/11/23
metoprolol tartrate 25 mg tablet 12.5 mg PO HS Blood pressure 08/10/24
polyethylene glycol 3350 17 gram oral powder packet 17 g PO DAILY #30 ea 09/27/24
dextran 70-hypromellose eye drops in a dropperette (Artificial Tears (PF) drops in a dropperette) 1 drp ophthalmic (eye) PRN PRN dry eyes 05/24/25
levetiracetam 500 mg tablet 500 mg PO MOWEFR 05/24/25
levetiracetam 500 mg tablet (Keppra) 500 mg PO DAILY 05/24/25
Review of Systems
-
Unable to obtain full review of systems at this time due to: Acuity
Physical Exam
Vital Signs
Vital Signs
Temp Pulse Resp BP Pulse Ox
99.1 F 77 16 171/83 97
05/24/25 08:51 05/24/25 08:51 05/24/25 08:51 05/24/25 08:51 05/24/25 09:06
Physical Exam
General: No Apparent Distress
HEENT: Moist mucous membranes and PERRLA (In the right, left cornea-hazy.)
Respiratory: Rhonchi (Diffuse rhonchi to auscultation left greater than right, diminished breath sounds in the right base.); No Wheezes or Rales
Cardiac: S1/S2, Regular Rhythm and Murmur (2/6 systolic murmur, best heard in lower sternal border.); No Rub, Gallop, JVD or HJR
GI: Soft, Non Tender, Non Distended and Normal Bowel Sounds
Genito-urinary: Deferred by me
Musculoskeletal: No Clubbing, No Cyanosis, Edema, Left Upper Extremity (Dialysis fistula noted, positive thrill.) and No Edema
Skin: Warm
Neuro: AO x 3 and No Motor Deficits
Psych: Calm
Laboratory Results
-
05/24/25 08:47
05/24/25 08:47
Laboratory Results
PT 13.2 Sec (11.4-14.6) 05/24/25 08:47
INR 0.95 05/24/25 08:47
APTT 27.7 Sec (23.4-35.0) 05/24/25 08:47
Total Bilirubin 0.9 mg/dl (0.2-1.3) 05/24/25 08:47
AST 14 U/L (17-59) L 05/24/25 08:47
ALT 11 U/L (0-50) 05/24/25 08:47
Alkaline Phosphatase 83 U/L (38-126) 05/24/25 08:47
Troponin I 0.458 ng/ml H* 05/24/25 08:47
Data Reviewed
-
Diagnostic Radiology: Image Personally Visualized and interpreted, Report Reviewed by me, Discussed with Physician and Discussed with Family
CT Scan: Image Personally Visualized and interpreted, Report Reviewed by me, Discussed with Physician and Discussed with Family
Lab Data: Labs Reviewed by me, Discussed with Physician and Discussed with Family
Impression/Plan
-
IMPRESSION: 84-year-old male with past medical history significant for ESRD on dialysis, CVA (left MCA ischemic stroke), NIDDM, hypertension, hyper lipidemia, IL s/p PCI times -2020, 2021, hypothyroidism, blindness, obstructive sleep apnea, PAD,
orthostatic hypotension, sciatica, anxiety and panic disorder, history of prostrate carcinoma, and SVT presents to the ER for evaluation of acute change in mental status via EMS. CT head and CTA-no acute changes noted, chest x-ray-shows mild
pulmonary edema, suspect congestive heart failure.
PLAN:
Acute toxic metabolic encephalopathy-
No leukocytosis, vital signs stable upon arrival.
Acute onset, unclear etiology.
ABG with alkalosis
At patient's baseline with SARA. COVID, toxicology, urine analysis pending.
Likely a confluence of heart failure and pneumonia. As evidenced on chest x-ray-acute pulmonary edema and right lower lobe pneumonia possibly.
Admit to telemetry.
Monitor for mental status improvement.
Acute heart failure-unknown type
Chest x-ray shows acute pulmonary edema, unclear etiology.
HFpEF in the past, echo from 2022 with EF of 60 to 65%.
Salt and fluid restriction, daily weights
Monitor I's and O's, obtain proBNP, order echocardiogram.
Consult cardiology.
On torsemide 80 mg at home daily.
Hold oral torsemide, start the patient on IV torsemide.
Continue metoprolol, GDMT limited from orthostatic hypotension.
Right lower lobe pneumonia-
Concern for aspiration, n.p.o. for now
IV antibiotics
Speech therapy consult for evaluation of aspiration when patient more awake.
Aspiration precautions.
ESRD on dialysis-
Wednesday, Wednesday, Wednesday regimen.
Nephrology consulted.
Elevated troponins-
Likely type II demand ischemia.
Could not rule out the possibility of IL, patient nonverbal.
No EKG changes could not assess if patient has chest pain.
CAD with angina-
ASCVD-
Patient on isosorbide mononitrate, Aspirin, ranolazine.
Continue these medications.
Hold oral medications for now.
QTc prolongation on EKG-
First-degree AV block, obtain EKG in the AM.
Avoid all QT prolonging agents.
Seizure disorder-
On Keppra, last seizure episode was in November 2024.
Patient compliant with Keppra dosing.
Switch to IV Keppra till patient is more awake.
Hyperphosphatemia from ESRD-
Continue home dose sevelamer.
Hypothyroidism-
Not on any medications.
Orthostatic hypotension-
On midodrine at home, hold for now.
NIDDM-
Last check blood glucose was in the p.m. yesterday.
10 6 in the AM.
Usually diet controlled.
Accu-Cheks and lower assistance sliding scale.
Obstructive sleep apnea-
Continue home CPAP, vital signs stable
Obtain ABG.
History of C-spine fracture
Use a soft collar, continue using soft collar when patient more awake.
Glaucoma and blindness-
Continue home eyedrops.
DVT prophylaxis-
Heparin subcu
CODE STATUS-
Full code.
Workup-
EKG- SINUS RHYTHM WITH 1ST DEGREE A-V BLOCK WITH OCCASIONAL PREMATURE VENTRICULAR
COMPLEXES
LEFT AXIS DEVIATION
RIGHT BUNDLE BRANCH BLOCK
INFERIOR INFARCT (CITED ON OR BEFORE 13-Nov-2023)
ABNORMAL ECG
Chest x-ray-05/24/2025-
IMPRESSION:
Findings suggest congestive heart failure/early pulmonary edema. There is patchy airspace disease in the right lower lobe and early pneumonia cannot be excluded. There are small bilateral pleural effusions.
Head and neck CTA-05/24/2025-
1. No evidence of large vessel occlusion, or arterial dissection.
2. Bilateral carotid bulb plaque, associated with less than 50% stenosis on each side.
3. Small bilateral pleural effusions, partially imaged.
4. Small amount of debris within the trachea, extending into the right mainstem bronchus. Please correlate for symptoms of aspiration.
5. 1.9 cm left thyroid nodule. Consider nonemergent thyroid ultrasound for further characterization.
Head CT-05/24/2025-
There are moderate changes of cortical atrophy and chronic ischemic disease. There are no acute findings
Echocardiogram-2022-
CONCLUSIONS
1. Left ventricle: Left ventricular chamber dimensions are within normal
limits. Systolic function is preserved with an estimated ejection fraction is
60-65%. Mild concentric LVH. Indeterminate diastolic function.
2. Right ventricle: Normal
3. Atria: Normal
4. Mitral valve: The mitral leaflets are thickened and calcified. There is
mild restriction to leaflet tip mobility and mild to moderate mitral stenosis
with a mean mitral valve gradient of 7 mmHg. No mitral regurgitation
5. Aortic valve: The aortic valve leaflets are thickened and calcified with
restricted leaflet mobility. Mild aortic stenosis. The mean aortic valve
gradient is 12 mmHg and the peak aortic velocity measures 2.3 m/s. Trace
aortic insufficiency.
6. Tricuspid valve: No tricuspid regurgitation.
7. When compared to the most recent echocardiogram from 05/19/2022 significant
changes have occurred. The mitral leaflets are now thickened and restricted
with a mean mitral valve gradient of 7 mmHg. The aortic valve leaflets also
appear more thickened and calcified. Mild aortic stenosis is now present with
a mean gradient of 12 and peak velocity of 2.3 m/s
[2025-05-24 11:26] LABS: B.E. 5.1 mmol/L; HCO3 29.0 mmol/L (21-28); O2 Saturation % 97.1 % (94-98); PCO2 39 mmHg (35-48); PO2 87 mmHg (83-108)
--- NOTE | 2025-05-24 11:36 | EDRN ---
the patient is now on Bipap
--- NOTE | 2025-05-24 11:36 | EDRN ---
neurology currently at the pts bedside
--- NOTE | 2025-05-24 11:36 | CON.NEURO4 ---
Addendum entered and electronically signed by Dani Skinner MD 05/24/25 20:39:
I have seen and examined the patient on 05/24/2025. I also discussed the patient's assessment and the management plan with nurse practitioner Kathy Baptiste. I agree with the nurse practitioner Kathy Baptiste's findings and the management plan.
The patient is an 84 years old male who presented to the ER for altered mental status. The patient was unable to communicate verbally however he was able to move his feet to verbal commands. The history was obtained from the patient's and the
caregiver. The last known normal time was last night on 05/23/2025 at around 11 PM. This morning he was excessively drowsy and therefore patient was brought to the ER. CT of the head and CTA head and neck were negative for any acute
abnormalities. The patient had MRI of the brain done on 11/18/2024 which did not show acute intracranial abnormality.
The possibility of a seizure cannot be ruled out as he has a history of seizure disorder and is on Keppra. Will get EEG as well as MRI of the brain. The chest x-ray raises the concern for pneumonia. 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
encephalopathy and there is a concern about aspiration pneumonia for which empiric antibiotic coverage has been started. Will keep the patient on IV Keppra 500 mg twice a day.
Will follow-up.
Original Note:
Consultation - Neurology 4
-
CONSULTING PHYSICIAN: Dani Skinner MD
REFERRING PHYSICIAN: ER/Dr. Tolentino
DICTATED BY: MICHELLE Martinez
DATE/TIME OF REQUEST: 05/24/25
DATE/TIME OF CONSULTATION: 05/24/25
Reason for Consultation: Change in mental status
History of Present Illness:
This is an 84-year-old male who has presented to the hospital with report of change in mental status. Patient is followed by our outpatient Neurology service for a left centrum semiovale ischemic stroke in 2021 and seizures.
From previous encounter by MICHELLE Baldwin on 05/17/25:
'81-year-old male patient with a complicated past medical history of end-stage renal disease on hemodialysis. Artery disease status post stent, peripheral artery disease who presented to the hospital on 05/21/2022 With increased confusion, right
gaze preference, right facial droop and right arm weakness. Hand on aspirin and clopidogrel and has been compliant. Denies any previous history of stroke or TIA.- patient had MRI of the brain and was found to have a left MCA stroke without
hemorrhagic conversion.
-CTA of the head and neck completed showed no suspicious findings or significant atherosclerotic narrowing of the carotid or vertebral arterial system bilaterally. No evidence of intracranial carotid artery or vertebral artery dissection
bilaterally. Blood flow within the left M1 segment and proximal to mid left M2 segment with findings suspicious for distal left M2 thrombus with accompanying not vascularization/nonopacification of the anterior M2 division and thready appearance of
the posterior M2 division. Dual antiplatelet therapy with Brilinta and aspirin. He is since remained on aspirin.
Etiology was thought by Dr. Vasquez to be likely atherothrombotic given extensive vascular disease with hypertension, diabetes, renal failure, coronary artery disease. He could not rule out cardioembolic stroke.[id number] to the hospital on
07/27/2022 after he had worsening of involuntary movements. He was evaluated by neurology and thought this may be related to orthostasis and myoclonus due to metabolic abnormality. He was started on clonazepam. He has continued midodrine. Since
hospitalization unintentional movements have significantly improved. He continues on aspirin. He continues on privastatin. Cognitively he is back at baseline.�
(01/09/2025) Pt presents today for hospital follow up.-presented to the hospital 11/17/2024 with seizure activity, reported shaking movements lasting 1 minute. He had prolonged confusion, appeared post-ictal after unclear for how long. He is
incontinent at baseline, there was no tongue bite.EEG was unremarkable
-He was started on Keppra-takes 500 mg daily on off dialysis days and takes 500 mg after dialysis on dialysis day
Initially was lethargic with Keppra, but this has improved. No additional adverse side effects.
CT head completed on 11/17/2024No acute intracranial abnormality
MRI of the brain 11/18/2024No acute intracranial abnormality
Has known chronic dens fracture
No new seizure activity since discharge.
Today (05/15/2025) Pt seen in the office today with family.� Since his last visit he has continued on Keppra.� He remains seizure free.� No new stroke symptoms.� Continues on Pitavastatin and ASA for stroke prevention.
Per patient's and brass bobbin winder at bedside, he was last seen at his baseline last night (05/23/25) at 2300. This morning (05/24/25), they report that he has been excessively drowsy and unable to stay awake, prompting them to bring him to the ER
for evaluation. CT head and CTA head/neck were obtained on arrival and are negative for any acute abnormalities. CXR is suggestive of a RLL pneumonia. Patient's family reports that a small piece of plastic went missing from his bipap mouth piece
last week and they were concerned he aspirated it. She also reports that he has been compliant with his medications, he is tolerating Keppra but it does make him feel fatigued. Patient is obtunded on bipap, unable to provide a history at present.
Past Medical History: Left centrum semiovale ischemic stroke (2021), seizures, cervical myelopathy, PAD, ESRD on HD, CHF, Hypothyroidism , SARA, GERD, Vitamin D insufficiency , glaucoma, chronic pain syndrome
Surgical History: C 5-6 ACDF, tonsillectomy, prostatectomy, deviated septum repair, AV fistula, Urethral meatotomy, left LEAD POURER and tibioperoneal trunk
Family History: Reviewed and noncontributory.
Social History: Former smoker. No alcohol or illicit drug use.
Allergies: See below.
Home Medications: See below.
Review of Symptoms:
Per the HPI. I am unable to obtain a complete review of systems�because of patient's inability to provide history.
Physical Exam:
The patient is afebrile, abdomen is nondistended, breathing is unlabored on bipap, skin is warm and dry, no edema.
Neurologic Examination:
The patient is obtunded, opens eyes/obeys commands to loud voice. He is able to follow some commands, nonverbal at present. Visual li are absent bilaterally at baseline. Bilateral corneal opacification. SONYA EOMs. There is no apparent facial
asymmetry. Hearing is diminished bilaterally to normal conversation volume. Tongue palate and uvula are midline. Sternocleidomastoid strengths are full bilaterally. Motor strengths are 2/5 bilateral upper and lower extremities on medical research
Minto scale. SONYA drift. No involuntary movement noted. SONYA sensation, double simultaneous, and coordination.
Lab Results: See below.
Neuro Imaging:
1. CT Head 05/24/25: There are moderate changes of cortical atrophy and chronic ischemic disease. There are no acute findings. ASPECT score: 10.
2. CTA Head/Neck 05/24/25: No evidence of large vessel occlusion, or arterial dissection. Bilateral carotid bulb plaque, associated with less than 50% stenosis on each side. Small bilateral pleural effusions, partially imaged. Small amount of debris
within the trachea, extending into the right mainstem bronchus. Please correlate for symptoms of aspiration. 1.9 cm left thyroid nodule. Consider nonemergent thyroid ultrasound for further characterization.
Differentials for the patient's presentation include:
1. Change in mental status; uncertain etiology, possibilities include toxic metabolic encephalopathy in the setting of possible pneumonia, seizure, and less likely stroke given nonfocal exam.
Patient has the following risk factors for their symptoms: Hx stroke, hx seizure, possible pneumonia
Recommendations:
-Routine EEG pending.
-MRI brain noncontrast pending.
-Neurological checks per unit guidelines.
-Infectious workup per primary team.
-Continue home aspirin 81mg daily.
-Continue home Keppra. Consideration for changing Keppra to Vimpat eventually given report of ongoing fatigue on Keppra.
-DVT prophylaxis.
Discussed patient care with: Dr. Skinner, Dr. Garza, patient's family
Vital Signs and Labs
-
Vital Signs and Labs:
Vital Signs
Temp Pulse Resp BP Pulse Ox
98.6 F 75 20 156/81 98
05/24/25 11:00 05/24/25 11:30 05/24/25 11:00 05/24/25 11:00 05/24/25 11:00
Lab Results
05/24/25 08:47
05/24/25 08:47
PT 13.2 Sec (11.4-14.6) 05/24/25 08:47
INR 0.95 05/24/25 08:47
APTT 27.7 Sec (23.4-35.0) 05/24/25 08:47
Sodium 135 mmol/L (135-145) 05/24/25 08:47
Potassium 4.3 mmol/L (3.5-5.1) 05/24/25 08:47
BUN 55 mg/dl (9-20) H 05/24/25 08:47
Glucose 107 mg/dl (70-99) H 05/24/25 08:47
Calcium 9.6 mg/dl (8.4-10.2) 05/24/25 08:47
Medications
-
Home Medications
�Medication �Instructions �Recorded
bimatoprost 0.01 % eye drops 1 drp BOTH EYES HS Eye condition 06/29/22
(Lumigan)
brinzolamide 1 % eye 1 drp BOTH EYES TID Eye condition 06/29/22
drops,suspension (Azopt)
calcitriol 0.25 mcg capsule 0.5 mcg PO QPM Kidney Disease 06/29/22
famotidine 20 mg tablet (Pepcid) 20 mg PO HS Gastrointestinal issue 06/29/22
netarsudil 0.02 % eye drops 1 drp BOTH EYES DAILY Eye condition 06/29/22
(Rhopressa)
pitavastatin calcium 2 mg tablet 2 mg PO MOTUWETHFR@2200 High 06/29/22
(Livalo) cholesterol
sevelamer carbonate 800 mg tablet 3,200 mg PO AC Kidney Disease 06/29/22
folic acid 1 mg tablet 1 mg PO QPM Supplement 11/23/22
midodrine 2.5 mg tablet 2.5 mg PO DAILYPRN PRN BP<140/90 11/23/22
aspirin 81 mg tablet,delayed 81 mg PO DAILY Blood Clot 02/08/23
release Prevention/Tx
brimonidine 0.2 %-timolol 0.5 % 1 drp BOTH EYES TID Eye Condition 02/08/23
eye drops (Combigan)
torsemide 20 mg tablet 80 mg PO DAILY Fluid 02/08/23
Retention/Swelling
cholecalciferol (vitamin D3) 50 50 mcg PO DAILY Supplement 05/17/23
mcg (2,000 unit) tablet (Vitamin
D3)
ranolazine 500 mg tablet,extended 500 mg PO BID Heart 05/17/23
release,12 hr Disease/Condition
sodium chloride 5 % eye drops 1 drp BOTH EYES TID Eye Condition 05/17/23
(Chris 128)
acetaminophen 650 mg 650 mg PO BID PRN Pain #0 tabs 06/11/23
tablet,extended release
isosorbide mononitrate 30 mg 30 mg PO DAILY Heart 06/11/23
tablet,extended release 24 hr disease/condition #0 tabs
metoprolol tartrate 25 mg tablet 12.5 mg PO HS Blood pressure 08/10/24
polyethylene glycol 3350 17 gram 17 g PO DAILY #30 ea 09/27/24
oral powder packet
dextran 70-hypromellose eye drops 1 drp ophthalmic (eye) PRN PRN dry 05/24/25
in a dropperette (Artificial Tears eyes
(PF) drops in a dropperette)
levetiracetam 500 mg tablet 500 mg PO MOWEFR 05/24/25
levetiracetam 500 mg tablet 500 mg PO DAILY 05/24/25
(Keppra)
--- NOTE | 2025-05-24 11:45 | EDRN ---
orders were placed for Tele, this RN reached out to Dr. Anup Garza and asked for orders to be changed to IMU due to the pt being on Bipap now
--- NOTE | 2025-05-24 13:01 | EDRN ---
this RN processed admission orders and notified pharmacy
--- NOTE | 2025-05-24 14:00 | EDRN ---
this RN spoke to Dr. Anup Garza and per the provider Bipap will be PRN, this RN placed the pt on 6L NC, Sp02 99%
[2025-05-24 14:28] LABS: Urine Character Cloudy (Clear)
--- NOTE | 2025-05-24 14:33 | EDRN ---
EEG currently being set up
[2025-05-24 14:34] LABS: COVID-19 Antigen Negative (Negative)
[2025-05-24 14:38] LABS: Troponin I 0.384 ng/ml
--- NOTE | 2025-05-24 14:44 | EDRN ---
case management currently at the pts bedside
[2025-05-24 14:48] LABS: Acetaminophen < 10 ug/ml (10-30); Salicylate < 1.0 mg/dl (2.0-20.0)
[2025-05-24 15:13] LABS: Urine Squamous Cell 0-2 /LPF (Few)
[2025-05-24 15:14] LABS: Urine Red Blood Cell >100 /HPF (0-2)
[2025-05-24 15:15] LABS: Urine White Cell >100 /HPF (0-5)
--- NOTE | 2025-05-24 15:26 | CON.CAR ---
Addendum entered and electronically signed by Phillip Brennan MD 05/24/25 17:53:
I saw and examined the patient.
The Stage Set Designer's note was reviewed and I agree with the note.
Comment:
GEN: Unresponsive, not following commands
HEENT: supple, anicteric, mmm
LUNGS: Bilateral rhonchi
CV: Reg, S1/S2, 1/6 syst LSB, no gallop
ABD: soft, BS+, NT/ND
EXT: No edema
NEURO: Gross non-focal
SKIN: No rash
Plan:
84-year-old male with past medical history of coronary artery disease and history of LAD PCI in 2020 presents with change in mental status. He also has a history of end-stage renal disease on dialysis, diabetes, neuropathy, blindness, obstructive
sleep apnea on CPAP, hypertension, hyperlipidemia, and seizures. We were asked to see him to evaluate a cardiac troponin of 0.4.
CT scan reviewed which revealed no clear aortic pathology. No carotid stenosis, bilateral small pleural effusions with possible debris in the trachea.
ECG with sinus rhythm with right bundle branch block and nonspecific T wave abnormalities
Neurology evaluation includes possible seizure versus other pathology. Agree with MRI of the brain.
At this point he is unable to swallow medication. Would start IV Lopressor 5 mg IV Q6 and follow heart rate/blood pressure.
Would trend troponin and treat this conservatively for now. I suspect this is a nonischemic myocardial injury.
Continue antibiotics.
Would resume aspirin, isosorbide, and Ranexa when okay to take pills.
I suspect he may be mildly volume overloaded. Would resume Demadex 80 mg p.o. daily. Continue volume removal via hemodialysis.
Original Note:
Consultation
Consultation Request
Date/Time Consultation Requested: 05/24/2025
Date/Time Consultation Performed: 05/24/2025
Requesting Provider: Dr. Garza
Performing Provider: Dr. Brennan
Reason for Consultation: Elevated troponin
Medical History
-
History of Present Illness:
Patient presents to the hospital today with change in mental status from home and cardiology is consulted for elevated troponin. Initial troponin was 0.458 and then trended down to 0.384. No reports of chest pain, the patient is obtunded currently
and awaiting MRI. Patient normally lives at home with his , but this morning he did not wake up like normal and his called 911. Patient appeared normal around that time at 2300 last night. In the ER patient has right sided weakness and a
left-sided gaze. Patient has difficulty with vision and hearing at a baseline, but is generally awake and responsive. CT scan of the head suggest debris in the trachea and patient's reported that a piece of his CPAP was missing within the
last couple of weeks and they assumed that the patient had accidentally swallowed it.
PMH:
Previous admission for new onset seizures 11/2024
CAD
NSTEMI with multivessel coronary artery disease involving left anterior descending, diagonal, OM, and small caliber PDA by cath 04/15/21
s/p stent of 3.0 mm Synergy ARIANNA mid LAD and 2.25 mm Synergy ARIANNA diagonal branch 04/17/2021
medical mgmt of residual OM/circ and PDA disease
Mild by echo 06/08/2023
ESRD on dialysis
DM 2
Diabetic neuropathy
Blindness
PAD
HTN
Hyperlipidemia
SARA on CPAP
Overweight
Former smoker
Sciatica
History of neck surgery with neuropathy
History of prostatectomy for prostate cancer 2000
Anemia of CKD
LE wounds s/p L heel debridement
Past Medical History
Past Medical History: Other (In HPI)
Past Surgical History: Cardiac (Diagonal PCI 2020, LAD PCI 2020), Orthopedic, Tonsilectomy and Urological (Prostatectomy)
Social History
Tobacco: Former Smoker
Alcohol: None
Drug: None
Personal:
Living: With Family
Family History
Family History: Diabetes, Hypertension and Other (CVA)
Allergies / Home Medications
Allergy/AdvReac Type Severity Reaction Status Date / Time
adhesive tape Allergy blisters Verified 09/25/24 02:00
if kept on
for long
time;rash
ciprofloxacin (From Cipro) Allergy burning of Verified 09/25/24 02:00
vein from
IV
erythromycin base Allergy Hives Verified 09/25/24 02:00
lisinopril Allergy cough Verified 09/25/24 02:00
tetracycline Allergy Hives Verified 09/25/24 02:00
tigecycline (From Tygacil) Allergy patient Verified 09/25/24 02:00
unaware of
this
allergy
�Medication �Instructions �Recorded �Confirmed �Type
bimatoprost 0.01 % eye drops 1 drp BOTH EYES HS Eye condition 06/29/22 05/24/25 History
(Lumigan)
brinzolamide 1 % eye 1 drp BOTH EYES TID Eye condition 06/29/22 05/24/25 History
drops,suspension (Azopt)
calcitriol 0.25 mcg capsule 0.5 mcg PO QPM Kidney Disease 06/29/22 05/24/25 History
famotidine 20 mg tablet (Pepcid) 20 mg PO HS Gastrointestinal issue 06/29/22 05/24/25 History
netarsudil 0.02 % eye drops 1 drp BOTH EYES DAILY Eye condition 06/29/22 05/24/25 History
(Rhopressa)
pitavastatin calcium 2 mg tablet 2 mg PO MOTUWETHFR@2200 High 06/29/22 05/24/25 History
(Livalo) cholesterol
sevelamer carbonate 800 mg tablet 3,200 mg PO AC Kidney Disease 06/29/22 05/24/25 History
folic acid 1 mg tablet 1 mg PO QPM Supplement 11/23/22 05/24/25 History
midodrine 2.5 mg tablet 2.5 mg PO DAILYPRN PRN BP<140/90 11/23/22 05/24/25 History
aspirin 81 mg tablet,delayed 81 mg PO DAILY Blood Clot 02/08/23 05/24/25 History
release Prevention/Tx
brimonidine 0.2 %-timolol 0.5 % 1 drp BOTH EYES TID Eye Condition 02/08/23 05/24/25 History
eye drops (Combigan)
torsemide 20 mg tablet 80 mg PO DAILY Fluid 02/08/23 05/24/25 History
Retention/Swelling
cholecalciferol (vitamin D3) 50 50 mcg PO DAILY Supplement 05/17/23 05/24/25 History
mcg (2,000 unit) tablet (Vitamin
D3)
ranolazine 500 mg tablet,extended 500 mg PO BID Heart 05/17/23 05/24/25 History
release,12 hr Disease/Condition
sodium chloride 5 % eye drops 1 drp BOTH EYES TID Eye Condition 05/17/23 05/24/25 History
(Chris 128)
acetaminophen 650 mg 650 mg PO BID PRN Pain #0 tabs 06/11/23 05/24/25 Rx
tablet,extended release
isosorbide mononitrate 30 mg 30 mg PO DAILY Heart 06/11/23 05/24/25 Rx
tablet,extended release 24 hr disease/condition #0 tabs
metoprolol tartrate 25 mg tablet 12.5 mg PO HS Blood pressure 08/10/24 05/24/25 History
polyethylene glycol 3350 17 gram 17 g PO DAILY #30 ea 09/27/24 05/24/25 Rx
oral powder packet
dextran 70-hypromellose eye drops 1 drp ophthalmic (eye) PRN PRN dry 05/24/25 05/24/25 History
in a dropperette (Artificial Tears eyes
(PF) drops in a dropperette)
levetiracetam 500 mg tablet 500 mg PO MOWEFR@1800 05/24/25 05/24/25 History
levetiracetam 500 mg tablet 500 mg PO DAILY 05/24/25 05/24/25 History
(Keppra)
Review of Systems
-
History Source: Patient and Family
All other systems: Negative unless noted
Physical Exam
Vital Signs
Temp Pulse Resp BP Pulse Ox
98.6 F 83 20 162/70 100
05/24/25 14:00 05/24/25 14:00 05/24/25 14:00 05/24/25 14:00 05/24/25 14:00
GEN: Obtunded, unresponsive
HEENT: MMM
LUNGS: 6 L NC. No audible wheeze
CV: SR on telemetry. Reg, S1/S2, 2/6 systolic murmur LSB
ABD: ND
EXT: No edema B/L LE
NEURO: Obtunded and unresponsive
SKIN: No rash
Lab Results
05/24/25 08:47
05/24/25 08:47
Troponin I 0.384 ng/ml H* 05/24/25 13:46
[id number] Pept Cancelled 05/24/25 11:04
Impression / Plan
-
Primary Customer Advisor Specialist: Dr. NEFTALI Pineda
Impression:
Admitted with change in mental status 05/24/2025
Previous admission for new onset seizures 11/2024
Change in mental status with possible TME vs seizure vs CVA
Debris in the trachea seen on CT 05/24/2025
Elevated troponin
CAD
NSTEMI with multivessel coronary artery disease involving left anterior descending, diagonal, OM, and small caliber PDA by cath 04/15/21
s/p stent of 3.0 mm Synergy ARIANNA mid LAD and 2.25 mm Synergy ARIANNA diagonal branch 04/17/2021
medical mgmt of residual OM/circ and PDA disease
Mild by echo 06/08/2023
ESRD on dialysis
DM 2
Diabetic neuropathy
Blindness
PAD
HTN
Hyperlipidemia
SARA on CPAP
Overweight
Former smoker
Sciatica
History of neck surgery with neuropathy
History of prostatectomy for prostate cancer 2000
Anemia of CKD
LE wounds s/p L heel debridement
Echo 04/12/21: Technically difficult study, left ventricular ejection fraction greater than 70 to 75%, wall motion analysis limited by image quality, enlarged right ventricle with normal right ventricular systolic function, calcified aortic valve with
significantly reduced leaflet excursion, accurate aortic transvalvular gradients cannot be obtained due to limited visualization poor image quality
Echo 10/09/21: LVEF 55-60%, no RWMA, mild cLVH, enlarged right ventricle with reduced RV systolic function, aortic sclerosis without stenosis, mild MS, trace MR
Echo 06/08/23: EF 60 to 65%, mild to moderate MS with mean gradient 7 mmHg, no MR, mild mean gradient 12 mmHg
Plan:
-Patient presents to the hospital today with change in mental status from home and cardiology is consulted for elevated troponin. Initial troponin was 0.458 and then trended down to 0.384. No reports of chest pain, the patient is obtunded
currently and awaiting MRI. Patient normally lives at home with his , but this morning he did not wake up like normal and his called 911. Patient appeared normal around that time at 2300 last night. In the ER patient has right sided
weakness and a left-sided gaze. Patient has difficulty with vision and hearing at a baseline, but is generally awake and responsive. CT scan of the head suggest debris in the trachea and patient's reported that a piece of his CPAP was missing
within the last couple of weeks and they assumed that the patient had accidentally swallowed it.
-ECG reviewed by me is SR with chronic RBBB and occasional PVCs
-Patient is obtunded and initial CT of the head was negative for acute intracranial abnormality within ASPECT score of 10. MRI of the brain is pending
-CT of the head suggest debris in the trachea, TT communication by me with hospitalist attending to inquire about ENT consult for debris removal
-From a cardiac standpoint, initial troponin was 0.458 and then trended down to 0.384. Patient is obtunded and so impossible to tell if he has been having any chest pain. ECG without acute ischemic change.
-Check echo.
-Patient has known CAD with previous LAD and diagonal PCI in 2020 and there has been medical management of residual OM, circumflex and PDA disease since then. Patient is not a candidate for invasive evaluation at this time.
-Outpatient dose of Ranexa 500 mg BID will have to be held while patient is obtunded, it cannot be crushed
-Outpatient dose of Imdur ER 30 mg daily will have to be held while patient is obtunded, it cannot be crushed
-Outpatient dose of aspirin 81 mg daily could be given crushed in applesauce or could consider rectal aspirin pending results of MRI of brain and improvement in mental status
-Outpatient dose of Lopressor 12.5 mg at bedtime can be crushed in applesauce or could consider Lopressor 5 mg IV every 6 hours. Lopressor 5 mg IV every 6 hours ordered by ok 05/24/2025
-Outpatient dose of torsemide 80 mg daily can be crushed in applesauce or could consider IV dosing vs volume management with HD alone. He still makes some urine apparently.
--- NOTE | 2025-05-24 15:36 | CM ---
Patient was admitted to and seen in ED with and family member Cesar. Patient had recently been hospitalized and discharged to [facility] (08/10-08/28). Prior to SNF stay patient resided with his spouse in a two story home with a ramp to
enter. The patient has a stair glide, rolling walker, wheelchair, and toilet rails in the home. The patient has had [facility] and would like to have them restarted at discharge. The patient has been to [facility], and [facility],
[facility]. Patient does not want to return to SNF, especially [facility]. The patient receives HD -W- at [facility] chair time is 11:45am. Patient uses [facility] transport to return home from HD. continues to be available for
discharge planning needs.
Plan: home with VN vs SNF; pending medical treatment plan
[2025-05-24] MEDS: KEPPRA 500 MG IV (15:44)
--- NOTE | 2025-05-24 15:57 | W.CON.NEPH ---
Consultation
-
Date/Time Consultation Requested: 05/24/25 1300
Date/Time Consultation Performed: 05/24/25 1530
Requesting Provider: Anup Andres
Performing Provider: Katie Owens
Reason for Consultation: ESRD
Medical History
-
Chief Complaint: AMS
History of Present Illness:
This is an 84-year-old gentleman who is well-known to us for his end-stage renal disease on hemodialysis Wednesdays at [facility]. He dialyzes through a left upper extremity AV fistula. known intradialytic hypotension with
midodrine as needed as a result. He has diabetes mellitus type 2 though not on insulin therapy at this time. He also has secondary hyperparathyroidism which is controlled with calcitriol,hyperphosphatemia on renvela, h/o SZDO on keppra since November
admit, osteoporotic C-spine fracture presents to the ER for evaluation of acute change in mental status via EMS. Patient last known normal was 11 PM last night. He was found to be poorly responsive with weakness on his right side and left side
gaze this morning. In ER is lethargic and moving extremities. CT head was negative. but there is concern of debris noted in trachea. HOwever CT chest did not confirm this, has bilat mod pleural effusion. Incidentally he also noted to have left
thyroid mass. Nephrology consulted for ESRD management. at bedside provided most of the history. No reported h/o fever, cp or sob. He is complaint with wearing CPAP when sleeps with known SARA. No diarrhea or abd pain. has mild chr cough.
Past Medical History
ESRD, Diazemuls type II, hypertension, secondary hyperparathyroidism, anemia, prostate cancer status post prostatectomy, arthritis, coronary artery disease with stenting, cervical arthropathy and neuropathy, left upper extremity AV fistula, history
of central stenosis, sciatica, sleep apnea, hypothyroidism, amatory dysfunction, recurrent myoclonus
Past Surgical History: Other ((Appendectomy, Cardiac (Angioplasty September 2021, stenting 2020 X 2), Orthopedic (Cervical spine surgery), Tonsilectomy, Urological (Prostatectomy) and Other ( dialysis catheter 2018, port for dialysis March
2020, deviated septum repair 2004))
Social History
Tobacco: Former Smoker
Alcohol: None
Drug: None
Personal:
Living: With Family
Family History
Family History: Not Pertinent
Allergies / Home Medications
Allergy/AdvReac Type Severity Reaction Status Date / Time
adhesive tape Allergy blisters Verified 09/25/24 02:00
if kept on
for long
time;rash
ciprofloxacin (From Cipro) Allergy burning of Verified 09/25/24 02:00
vein from
IV
erythromycin base Allergy Hives Verified 09/25/24 02:00
lisinopril Allergy cough Verified 09/25/24 02:00
tetracycline Allergy Hives Verified 09/25/24 02:00
tigecycline (From Tygacil) Allergy patient Verified 09/25/24 02:00
unaware of
this
allergy
�Medication �Instructions �Recorded �Confirmed �Type
bimatoprost 0.01 % eye drops 1 drp BOTH EYES HS Eye condition 06/29/22 05/24/25 History
(Lumigan)
brinzolamide 1 % eye 1 drp BOTH EYES TID Eye condition 06/29/22 05/24/25 History
drops,suspension (Azopt)
calcitriol 0.25 mcg capsule 0.5 mcg PO QPM Kidney Disease 06/29/22 05/24/25 History
famotidine 20 mg tablet (Pepcid) 20 mg PO HS Gastrointestinal issue 06/29/22 05/24/25 History
netarsudil 0.02 % eye drops 1 drp BOTH EYES DAILY Eye condition 06/29/22 05/24/25 History
(Rhopressa)
pitavastatin calcium 2 mg tablet 2 mg PO MOTUWETHFR@2200 High 06/29/22 05/24/25 History
(Livalo) cholesterol
sevelamer carbonate 800 mg tablet 3,200 mg PO AC Kidney Disease 06/29/22 05/24/25 History
folic acid 1 mg tablet 1 mg PO QPM Supplement 11/23/22 05/24/25 History
midodrine 2.5 mg tablet 2.5 mg PO DAILYPRN PRN BP<140/90 11/23/22 05/24/25 History
aspirin 81 mg tablet,delayed 81 mg PO DAILY Blood Clot 02/08/23 05/24/25 History
release Prevention/Tx
brimonidine 0.2 %-timolol 0.5 % 1 drp BOTH EYES TID Eye Condition 02/08/23 05/24/25 History
eye drops (Combigan)
torsemide 20 mg tablet 80 mg PO DAILY Fluid 02/08/23 05/24/25 History
Retention/Swelling
cholecalciferol (vitamin D3) 50 50 mcg PO DAILY Supplement 05/17/23 05/24/25 History
mcg (2,000 unit) tablet (Vitamin
D3)
ranolazine 500 mg tablet,extended 500 mg PO BID Heart 05/17/23 05/24/25 History
release,12 hr Disease/Condition
sodium chloride 5 % eye drops 1 drp BOTH EYES TID Eye Condition 05/17/23 05/24/25 History
(Chris 128)
acetaminophen 650 mg 650 mg PO BID PRN Pain #0 tabs 06/11/23 05/24/25 Rx
tablet,extended release
isosorbide mononitrate 30 mg 30 mg PO DAILY Heart 06/11/23 05/24/25 Rx
tablet,extended release 24 hr disease/condition #0 tabs
metoprolol tartrate 25 mg tablet 12.5 mg PO HS Blood pressure 08/10/24 05/24/25 History
polyethylene glycol 3350 17 gram 17 g PO DAILY #30 ea 09/27/24 05/24/25 Rx
oral powder packet
dextran 70-hypromellose eye drops 1 drp ophthalmic (eye) PRN PRN dry 05/24/25 05/24/25 History
in a dropperette (Artificial Tears eyes
(PF) drops in a dropperette)
levetiracetam 500 mg tablet 500 mg PO MOWEFR@1800 05/24/25 05/24/25 History
levetiracetam 500 mg tablet 500 mg PO DAILY 05/24/25 05/24/25 History
(Keppra)
Review of Systems
-
Unable to obtain full review of systems at this time due to: Acuity
Physical Exam
Vital Signs
Vital Signs
Temp Pulse Resp BP Pulse Ox
98.6 F 83 20 162/70 100
05/24/25 14:00 05/24/25 14:00 05/24/25 14:00 05/24/25 14:00 05/24/25 14:00
Lab Results
WBC 7.2 10^3/uL (4.8-10.8) 05/24/25 08:47
RBC 3.05 10^6/uL (4.70-6.10) L 05/24/25 08:47
Hgb 10.1 g/dL (13.0-18.0) L 05/24/25 08:47
Hct 30.3 % (39.0-52.0) L 05/24/25 08:47
Plt Count 228 10^3/uL (130-400) 05/24/25 08:47
Sodium 135 mmol/L (135-145) 05/24/25 08:47
Potassium 4.3 mmol/L (3.5-5.1) 05/24/25 08:47
Chloride 94 mmol/L (98-107) L 05/24/25 08:47
Carbon Dioxide 29 mmol/L (22-30) 05/24/25 08:47
BUN 55 mg/dl (9-20) H 05/24/25 08:47
Creatinine 3.0 mg/dL (0.7-1.3) H 05/24/25 08:47
eGFR 20.11 05/24/25 08:47
Glucose 107 mg/dl (70-99) H 05/24/25 08:47
Calcium 9.6 mg/dl (8.4-10.2) 05/24/25 08:47
Bib-J-Fbzxvxxfcfv Pept Cancelled 05/24/25 11:04
Albumin 4.1 g/dl (3.5-5.0) 05/24/25 08:47
Physical Exam
General: No Distress, Nontoxic and Other (non responding)
HEENT: Facial Symmetry and Neck Supple
Respiratory: Normal Excursion, Nonlabored Respirations and Other (decreased BS)
Cardiac: S1/S2, Regular Rate/Rhythm and Murmur
Breast: Deferred by me
Abdomen: Soft, Nontender and Nondistended
Musculoskeletal: No Cyanosis and No Edema
Skin: No Rash
Neuro: Other (unable to assess)
Psych: Other (unable to assess)
Vascular Access: AVF
Data Reviewed
-
Labs: Labs Reviewed by me and Discussed with Family
Assessment/Plan
-
Assessment:
Change in mental status/rule out stroke/seizure/toxic metabolic encephalopathy
History of seizure disorder
Debris's in the trachea. Suspect aspiration.
Positive troponin, abnormal EKG changes.
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
History CVA
Chronic cerebrovascular disease
Left brachiobasilic AV fistula
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
Hypertension with orthostatic hypotension in setting of advanced diabetes mellitus
Advanced diabetic retinopathy/neuropathy/blindness
Chronic pain
Anemia of CKD
Secondary hyperparathyroidism
SAAR on CPAP
Cervical cord compression with LLE Weakness
odontoid fx-c collar
Ambulatory dysfunction
Hyperphosphatemia
Multivessel CAD and severe PAD
Blind
Bilateral sensorineural hearing loss
Plan
A/w AMS, w/u in progress
hemodynamically stable
noted CT results, possible aspiration, abx per primary
MRI brain pending today -neuro follows
HD tomorrow
CT chest noted mod pleural effusion bilat, wean O2 as possible
needs CPAP when sleeps
d/w family at bedside
[2025-05-24] MEDS: UNASYN IV (16:24)
[2025-05-24] MEDS: MURO 128/ADSORBONAC 5% EYE DROPS 1 DROP BOTH EYES ×2 (16:26→22:15)
[2025-05-24] MEDS: ALPHAGAN 0.2% EYE DROPS 1 DROP OPHTH ×2 (16:52→22:27)
[2025-05-24] MEDS: AZOPT 1% OPHTHALMIC SUSPENSION 1 DROP BOTH EYES ×2 (17:34→22:19)
--- NOTE | 2025-05-24 17:38 | EEG.RPT ---
Electroencephalogram Report
Recording
Date of EE05/24/25
Type of EEG: Routine
Length of EEG recordin minutes
Done with Video Recording: Yes
Patient Status: Inpatient
Recording Conditions: Awake and Drowsy
Hyperventilation Performed: No
Photic Stimulation Performed: Yes
Report
LESS THAN 1 HOUR REPORT
LESS THAN 1 HOUR EEG INTERPRETATION:
Mildly abnormal study for age based on generalized slowing demonstrated bihemispherically equally
CLINICAL CORRELATION:
Movements were not associated with epileptiform changes.
Although normative values not been established for a person of this advanced age, the background suggests that there was bihemispheric cortical abnormalities.
Clinical correlation is advised.
METHODS:
A 21 channel digitized electroencephalogram (EEG) was performed in the [facility]. The 10/20 international system of electrode placement was used with ECG and lateral/vertical eye movements recorded. Persyst quantitative EEG
analysis system was utilized.
ELECTROENCEPHALOGRAPHER IMPRESSION(S):
Quality of study
Fair due to muscle artifact
Background
Medium amplitude
Fair anterior-posterior voltage gradient differentiated
Theta maximal background demonstrated, typically delta
Sleep
Drowsiness present
Hyperventilation
Not performed
Photic Stimulation
No driving
ECG
Unremarkable
[2025-05-24] MEDS: TIMOPTIC 0.5% OPHTHALMIC SOLUTION 1 DROP OPHTH ×2 (18:31→22:22)
[2025-05-24] MEDS: LOPRESSOR 5 MG IV ×2 (18:35→23:13)
[2025-05-24] MEDS: HEPARIN 5000 UNITS SC (20:40)
[2025-05-24 22:23] LABS: Glucose - Point of Care 113 mg/dl (70-99)
[2025-05-24] MEDS: XALATAN OPHTHALMIC SOLUTION 1 DROP BOTH EYES (23:13)
--- NOTE | 2025-05-24 23:35 | PTCARENOTE ---
Received patient from ER. Patient is very drowsy, not responding verbal/ tactile stimuli. Nonverbal at this time. Notified MICHELLE Lam. Stable vitals. on 4L n/c 95-96%. NSR with BBBc/ first degree AVB in 60s. Bed alarm in place for safety.
incontinent of urine. call silva within reach
[2025-05-25] VITALS (29 sets, daily range): BP systolic 90–169; BP diastolic 47–77; PULSE 2–68; BMI 20.6
[2025-05-25] MEDS: LOPRESSOR 5 MG IV (05:06)
[2025-05-25 05:12] LABS: Glucose - Point of Care 104 mg/dl (70-99)
[2025-05-25] MEDS: HEPARIN 500 UNITS IV ×2 (07:25→08:25)
[2025-05-25 07:45] LABS: Hematocrit 28.8 % (39.0-52.0); Hemoglobin 9.7 g/dL (13.0-18.0); Mean Corp Hgb Conc. 33.7 g/dL (33.0-37.0); Mean Corpuscular Volume 98.6 fL (80.0-94.0); Platelet Count 233 10^3/uL (130-400); Red Cell Dist. Width 14.0 % (11.5-14.5)
[2025-05-25 08:06] LABS: Blood Urea Nitrogen 67 mg/dl (9-20); Calcium 9.3 mg/dl (8.4-10.2); Carbon Dioxide 26 mmol/L (22-30); Chloride 96 mmol/L (98-107); Estimated Creatinine Clearance 14 ml/min; Glucose 91 mg/dl (70-99); Potassium 4.3 mmol/L (3.5-5.1); Sodium 134 mmol/L (135-145); eGFR 13.43
[2025-05-25] MEDS: MANNITOL 25% 12.5 GRAMS IV (08:44)
[2025-05-25] MEDS: RETACRIT 4000 UNITS IV (08:44)
[2025-05-25] MEDS: FLEXBUMIN 25% FOR HEMODIALYSIS 12.5 GRAMS IV (08:45)
--- NOTE | 2025-05-25 08:48 | W.PN.CARDCBS ---
Today's Communication / Plan
-
Continue hemodialysis.
Check echocardiogram
I suspect abnormal troponin is likely nonischemic myocardial injury
Continue evaluation for change in mental status
Continue IV Lopressor for now.
Continue conservative therapy for known coronary artery disease. Continue aspirin, Imdur, Ranexa orally when able to take p.o. medication
Impression / Plan
-
Primary Manager Field Investigations: Dr. NEFTALI Pineda
Impression:
Admitted with change in mental status 05/24/2025
Previous admission for new onset seizures 11/2024
Change in mental status with possible TME vs seizure vs CVA
Debris in the trachea seen on CT 05/24/2025
Elevated troponin
CAD
NSTEMI with multivessel coronary artery disease involving left anterior descending, diagonal, OM, and small caliber PDA by cath 04/15/21
s/p stent of 3.0 mm Synergy ARIANNA mid LAD and 2.25 mm Synergy ARIANNA diagonal branch 04/17/2021
medical mgmt of residual OM/circ and PDA disease
Mild by echo 06/08/2023
ESRD on dialysis
DM 2
Diabetic neuropathy
Blindness
PAD
HTN
Hyperlipidemia
SARA on CPAP
Overweight
Former smoker
Sciatica
History of neck surgery with neuropathy
History of prostatectomy for prostate cancer 2000
Anemia of CKD
LE wounds s/p L heel debridement
Echo 04/12/21: Technically difficult study, left ventricular ejection fraction greater than 70 to 75%, wall motion analysis limited by image quality, enlarged right ventricle with normal right ventricular systolic function, calcified aortic valve with
significantly reduced leaflet excursion, accurate aortic transvalvular gradients cannot be obtained due to limited visualization poor image quality
Echo 10/09/21: LVEF 55-60%, no RWMA, mild cLVH, enlarged right ventricle with reduced RV systolic function, aortic sclerosis without stenosis, mild MS, trace MR
Echo 06/08/23: EF 60 to 65%, mild to moderate MS with mean gradient 7 mmHg, no MR, mild mean gradient 12 mmHg
Plan:
84-year-old male with past medical history of coronary artery disease and history of LAD PCI in 2020 presents with change in mental status. He also has a history of end-stage renal disease on dialysis, diabetes, neuropathy, blindness, obstructive
sleep apnea on CPAP, hypertension, hyperlipidemia, and seizures. We were asked to see him to evaluate a cardiac troponin of 0.4.
CT scan reviewed which revealed no clear aortic pathology. No carotid stenosis, bilateral small pleural effusions with possible debris in the trachea.
ECG with sinus rhythm with right bundle branch block and nonspecific T wave abnormalities
Neurology evaluation includes possible seizure versus other pathology. Agree with MRI of the brain. Mental status remains very poor
Continues on hemodialysis.
Troponin has trended down I suspect this is a nonischemic myocardial injury. Check echocardiogram. Plan would be for conservative care
Continue antibiotics.
Would resume aspirin, isosorbide, and Ranexa when okay to take pills.
I suspect he may be mildly volume overloaded. Would resume Demadex 80 mg p.o. daily. Continue volume removal via hemodialysis.
Progress Note - Manager Field Investigations
Subjective
Date of Service: May 25, 2025
On hemodialysis. Remains somewhat unresponsive. Blood pressure has been stable.
Objective
Labs:
05/25/25 07:37
05/25/25 07:37
Labs
Hgb 9.7 g/dL (13.0-18.0) L 05/25/25 07:37
Hct 28.8 % (39.0-52.0) L 05/25/25 07:37
Plt Count 233 10^3/uL (130-400) 05/25/25 07:37
PT 13.2 Sec (11.4-14.6) 05/24/25 08:47
INR 0.95 05/24/25 08:47
APTT 27.7 Sec (23.4-35.0) 05/24/25 08:47
Sodium 134 mmol/L (135-145) L 05/25/25 07:37
Potassium 4.3 mmol/L (3.5-5.1) 05/25/25 07:37
BUN 67 mg/dl (9-20) H 05/25/25 07:37
Creatinine 4.2 mg/dL (0.7-1.3) H* 05/25/25 07:37
Glucose 91 mg/dl (70-99) 05/25/25 07:37
Troponins
05/24/25 05/24/25
08:47 13:46
Troponin I 0.458 H* 0.384 H*
Vital Signs and I&O:
Vital Signs
Temp Pulse Resp BP Pulse Ox
97.9 F 57 16 146/54 100
05/25/25 07:14 05/25/25 06:00 05/25/25 06:00 05/25/25 06:00 05/25/25 06:00
Vital Signs
Temp Pulse Resp BP Pulse Ox
97.9 F 57 16 146/54 100
05/25/25 07:14 05/25/25 06:00 05/25/25 06:00 05/25/25 06:00 05/25/25 06:00
Physical Exam
Physical Exam
GEN: No distress, not following commands
HEENT: supple, anicteric, mmm
LUNGS: CTA, no wheezes/rales
CV: Reg, S1/S2, 1/6 syst LSB, no gallop
ABD: soft, BS+, NT/ND
EXT: No edema
NEURO: not following commands
SKIN: No rash
[2025-05-25] MEDS: TIMOPTIC 0.5% OPHTHALMIC SOLUTION 1 DROP OPHTH ×3 (08:49→21:50)
[2025-05-25] MEDS: AZOPT 1% OPHTHALMIC SUSPENSION 1 DROP BOTH EYES ×3 (08:50→21:50)
[2025-05-25] MEDS: MURO 128/ADSORBONAC 5% EYE DROPS 1 DROP BOTH EYES ×3 (08:50→21:50)
[2025-05-25] MEDS: ALPHAGAN 0.2% EYE DROPS 1 DROP OPHTH ×3 (08:50→20:25)
[2025-05-25] MEDS: HEPARIN SC (08:50)
--- NOTE | 2025-05-25 09:06 | PTCARENOTE ---
Patient received from mine shifter. Patient resting comfortably in bed. AAOx0 due to extreme drowsiness and no response to either verbal/tactile stimuli. VSS. On BiPAP HS, 4L N/C when off. HD this AM, labs to be drawn then. Pending MRI,
possible metal discovered during CT near trachea. No other testing scheduled at this time. Call silva in reach.
--- NOTE | 2025-05-25 09:26 | CON.PUL ---
Consultation
Consultation Request
Date/Time Consultation Requested: 05/25/2025-8 AM
Date/Time Consultation Performed: 05/25/2025-8:30 AM
Requesting Provider: Hospitalist
Performing Provider: Dr. Ferro
Reason for Consultation: Shortness of breath and mental status changes
Medical History
-
Chief Complaint: Shortness of breath
History of Present Illness:
84-year-old former smoking male with underlying CAD, prostate cancer, SVT, CVA 2021, hypertension, hyperlipidemia, diabetes, hypothyroid, seizure disorder, anxiety who presented poorly responsive with new onset weakness on the right side and
possible aspiration event-pulmonary consulted for possible aspiration 05/25/2025. Patient is unresponsive this morning when I am seeing him on BiPAP. The patient is unable to provide any review of systems.
Past Medical History
Past Medical History: None (CAD/stent. SVT. Prostate cancer. 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 Hypertension. Hyperlipidemia. Diabetes. Renal failure/hemodialysis. Hypothyroid. Anxiety. Seizure disorder. Diabetic retinopathy.)
Past Surgical History: None (Appendectomy. Cervical spine surgery. Tonsillectomy. Prostatectomy. Peritoneal dialysis catheter 2018. Port for dialysis March 2021. Deviated septum repair.)
Social History
Tobacco: Former Smoker
Alcohol: None
Drug: None
Personal:
Living: With Family
Occupational Exposures: No known asbestos exposure
Environmental Exposures: No known tuberculosis exposure
Family History
Family History: Reviewed & Not Pertinent
Allergies / Home Medications
Allergies
Allergy/AdvReac Type Severity Reaction Status Date / Time
adhesive tape Allergy blisters Verified 09/25/24 02:00
if kept on
for long
time;rash
ciprofloxacin (From Cipro) Allergy burning of Verified 09/25/24 02:00
vein from
IV
erythromycin base Allergy Hives Verified 09/25/24 02:00
lisinopril Allergy cough Verified 09/25/24 02:00
tetracycline Allergy Hives Verified 09/25/24 02:00
tigecycline (From Tygacil) Allergy patient Verified 09/25/24 02:00
unaware of
this
allergy
Home Medications
�Medication �Instructions �Recorded �Confirmed �Last Taken �Type
bimatoprost 0.01 % eye drops 1 drp BOTH EYES HS Eye condition 06/29/22 05/24/25 05/19/23 17:30 History
(Lumigan)
brinzolamide 1 % eye 1 drp BOTH EYES TID Eye condition 06/29/22 05/24/25 05/19/23 16:30 History
drops,suspension (Azopt)
calcitriol 0.25 mcg capsule 0.5 mcg PO QPM Kidney Disease 06/29/22 05/24/25 05/19/23 17:00 History
famotidine 20 mg tablet (Pepcid) 20 mg PO HS Gastrointestinal issue 06/29/22 05/24/25 05/19/23 17:00 History
netarsudil 0.02 % eye drops 1 drp BOTH EYES DAILY Eye condition 06/29/22 05/24/25 05/20/23 07:00 History
(Rhopressa)
pitavastatin calcium 2 mg tablet 2 mg PO MOTUWETHFR@2200 High 06/29/22 05/24/25 05/19/23 16:30 History
(Livalo) cholesterol
sevelamer carbonate 800 mg tablet 3,200 mg PO AC Kidney Disease 06/29/22 05/24/25 05/19/23 16:00 History
folic acid 1 mg tablet 1 mg PO QPM Supplement 11/23/22 05/24/25 05/19/23 16:30 History
midodrine 2.5 mg tablet 2.5 mg PO DAILYPRN PRN BP<140/90 11/23/22 05/24/25 05/16/23 History
aspirin 81 mg tablet,delayed 81 mg PO DAILY Blood Clot 02/08/23 05/24/25 05/20/23 07:45 History
release Prevention/Tx
brimonidine 0.2 %-timolol 0.5 % 1 drp BOTH EYES TID Eye Condition 02/08/23 05/24/25 05/19/23 16:30 History
eye drops (Combigan)
torsemide 20 mg tablet 80 mg PO DAILY Fluid 02/08/23 05/24/25 05/20/23 12:23 History
Retention/Swelling
cholecalciferol (vitamin D3) 50 50 mcg PO DAILY Supplement 05/17/23 05/24/25 05/19/23 16:30 History
mcg (2,000 unit) tablet (Vitamin
D3)
ranolazine 500 mg tablet,extended 500 mg PO BID Heart 05/17/23 05/24/25 05/19/23 16:30 History
release,12 hr Disease/Condition
sodium chloride 5 % eye drops 1 drp BOTH EYES TID Eye Condition 05/17/23 05/24/25 05/19/23 16:30 History
(Chris 128)
acetaminophen 650 mg 650 mg PO BID PRN Pain #0 tabs 06/11/23 05/24/25 05/19/23 17:00 Rx
tablet,extended release
isosorbide mononitrate 30 mg 30 mg PO DAILY Heart 06/11/23 05/24/25 05/19/23 07:30 Rx
tablet,extended release 24 hr disease/condition #0 tabs
metoprolol tartrate 25 mg tablet 12.5 mg PO HS Blood pressure 08/10/24 05/24/25 Unknown History
polyethylene glycol 3350 17 gram 17 g PO DAILY #30 ea 09/27/24 05/24/25 Unknown Rx
oral powder packet
dextran 70-hypromellose eye drops 1 drp ophthalmic (eye) PRN PRN dry 05/24/25 05/24/25 Unknown History
in a dropperette (Artificial Tears eyes
(PF) drops in a dropperette)
levetiracetam 500 mg tablet 500 mg PO MOWEFR@1800 05/24/25 05/24/25 Unknown History
levetiracetam 500 mg tablet 500 mg PO DAILY 05/24/25 05/24/25 Unknown History
(Keppra)
Review of Systems
-
Unable to Obtain full review of systems at this time due to: Other ( per HPI)
Vitals / Labs / Diagnostic Testing
Vital Signs
Temp Pulse Resp BP Pulse Ox
97.9 F 57 16 146/54 100
05/25/25 07:14 05/25/25 06:00 05/25/25 06:00 05/25/25 06:00 05/25/25 06:00
Lab Data
05/25/25 07:37
05/25/25 07:37
Laboratory Results
05/24/25
11:14
pH 7.48 H
pCO2 39
pO2 87
HCO3 29.0 H
O2 Delivery Level
Microbiology
05/24/25 13:46 Nasal Swab Influenza Types A & B (CHAVEZ) - Final
Negative for Influenza A & B, NAAT
Negative results must be combined with clinical observations
and patient history.
Nucleic Acid Amplification test (NAAT)performed on the
[employer] platform.
Diagnostic Testing:
Physical Exam
-
Exam:
Well-nourished and well-developed in no apparent distress
HEENT-atraumatic, normocephalic
Neck-supple, no JVD, no bruit
Heart-regular rate and rhythm-no murmurs, rubs or gallops
Chest with diminished breath sounds, rare crackles at the bases, no wheezes or rhonchi
Abdomen-soft, nontender, nondistended, no hepatosplenomegaly
Extremities-no cyanosis, clubbing, edema and good peripheral pulses
Integument-intact, no rashes, lesions or ecchymosis
Neurologically, not moving extremities
Assessment
-
84-year-old former smoking male with underlying CAD, prostate cancer, SVT, CVA 2021, hypertension, hyperlipidemia, diabetes, hypothyroid, seizure disorder, anxiety who presented poorly responsive with new onset weakness on the right side and
possible aspiration event-pulmonary consulted for possible aspiration 05/25/2025.
Acute mental status changes/toxic metabolic encephalopathy rule out OFFICE SPECIALIST event
Heart failure preserved EF
Right lower lobe pneumonia-aspiration risk
Possible aspiration event-initial CT neck with some debris in the trachea, subsequent CT chest without obvious airway debris
Overweight
End-stage renal disease on hemodialysis
Elevated troponin
QT prolongation
Hyperglycemia
Conditions present prior to admission:
Recent admission for new onset seizures November 2024
CAD/stent.
SVT.
SARA on CPAP-diagnosed in the told he had severe 'AHI-91' SARA on for more than 10 [id number] 10 cm residual 150 mg in the past
Prostate cancer/prostatectomy 2000
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
Former smoker-quit 1967
Hypertension.
Hyperlipidemia.
Diabetes.
Renal failure/hemodialysis.
Secondary hyperparathyroidism
History of intubation 05/2022 post COVID on hemodialysis-extubated after 1 day
Hypothyroid.
Anxiety.
Seizure disorder.
Diabetic retinopathy.
Glaucoma
Lower extremity wounds status post heel debridement
Appendectomy. Cervical spine surgery. Tonsillectomy. Prostatectomy. Peritoneal dialysis catheter 2018. Port for dialysis March 2021. Deviated septum repair.
Plan
Acute alteration in mental status rule out OFFICE SPECIALIST event-seizure, stroke, etc.
Question of aspiration event at home including possible CPAP paraphernalia-reviewed CT neck-appeared to be some mucous and no evidence for airway obstruction/debris on CT chest
Hold off on bronchoscopy at this point
Supplemental oxygen as needed
CPAP/BiPAP/noninvasive ventilation as needed-currently on 5 cm with set rate of 14 and 6 L oxygen
Nebulizers if needed-currently not spastic
Aspiration precautions
Neurology evaluation ongoing
Routine EEG
Brain MRI noncontrast pending
Continue Keppra
Check cultures
Sputum culture if possible
Empiric antibiotics-Unasyn initiated
Diuresis as tolerated
Monitor renal function, electrolytes, intake/output, lower extremity edema and weight
Replace electrolytes as needed
Cardiology evaluation
Nephrology evaluation
Hemodialysis per nephrology
DVT prophylaxis-on heparin
GI prophylaxis-Pepcid
Nutrition
Early mobilization
Last saw in the office 11/05/2022 and has not followed up since-patient is to call CPAP was not functioning September 2024-told patient needed to be seen prior to new CPAP equipment prescription
Diagnostic data:
CT Head 05/24/25: There are moderate changes of cortical atrophy and chronic ischemic disease. There are no acute findings. ASPECT score: 10.
CTA Head/Neck 05/24/25: No evidence of large vessel occlusion, or arterial dissection. Bilateral carotid bulb plaque, associated with less than 50% stenosis on each side. Small bilateral pleural effusions, partially imaged. Small amount of debris
within the trachea, extending into the right mainstem bronchus. Please correlate for symptoms of aspiration. 1.9 cm left thyroid nodule. Consider nonemergent thyroid ultrasound for further characterization.
Echo 04/12/21: Technically difficult study, left ventricular ejection fraction greater than 70 to 75%, wall motion analysis limited by image quality, enlarged right ventricle with normal right ventricular systolic function, calcified aortic valve with
significantly reduced leaflet excursion, accurate aortic transvalvular gradients cannot be obtained due to limited visualization poor image quality
Echo 10/09/21: LVEF 55-60%, no RWMA, mild cLVH, enlarged right ventricle with reduced RV systolic function, aortic sclerosis without stenosis, mild MS, trace MR
Echo 06/08/23: EF 60 to 65%, mild to moderate MS with mean gradient 7 mmHg, no MR, mild mean gradient 12 mmHg
Data Reviewed
-
PFT: Report reviewed by me
EKG: Report reviewed by me
Radiology: Image personally visualized and interpreted and Report reviewed by me
CT Scan: Report reviewed by me
Medical Tests (Nuc Med, Echo etc): Report reviewed by me
Labs: Labs reviewed by me
Old Records: Reviewed
Total Time Spent with Patient (in minutes): 65
--- NOTE | 2025-05-25 10:10 | W.PN.HOSP.TC ---
Addendum entered and electronically signed by Anup Garza MD 05/25/25 15:58:
Addendum
Updated the
Original Note:
Today's Communication/Plan
-
Seizure medication per neurology
IV BB
rectal aspirin
Aspiration precautions
remove Bi pap to Room air, use nasal O2 as needed,
Assessment / Plan
Assessment / Plan
Physical Exam
General: not responsive or talkative , on Bi pap
HEENT: Moist mucous membrane, BiPAP on
Respiratory: Limited with BiPAP on.
Cardiac: S1/S2, Regular Rhythm and Murmur (2/6 systolic murmur, best heard in lower sternal border.);
GI: Soft, Non Tender, Non Distended and Normal Bowel Sounds
Genito-urinary: No Maguire
Musculoskeletal: No Clubbing, No Cyanosis, Edema, Left Upper Extremity (Dialysis fistula noted, positive thrill.) and No Edema
Skin: Warm
Neuro: Patient is still not responsive
Psych: Lethargic
Assessment and plan
#Change in mental status/rule out stroke/seizure/toxic metabolic encephalopathy
Possible post seizure
TME which is probably from UTI// PNA
F/w neurology recommendations
Still aspiration precautions
No seizure activity noted, remain on high level care
Await MRI
c/w Keppra per neurology
# No debris in trachea per CT chest
Chronic HFpEF, not in acute failure
# Right lower lobe aspiration pneumonia
c/w IV abx
f/w blood and urine culture
# SARA
on C pap
he is kept on O2 and Bi pap while mentation is depressed. No hypoxia detected.
# UTI, c/w IV Abx
# End-stage renal disease on hemodialysis, Wednesday. Continue midodrine as needed. Consult nephrology. Patient is known to our service.
No issues with dialysis fistula/access.
# Positive troponin, abnormal EKG changes.
H xof CAD
He was placed on IV metoprolol 5 mg q 6 H ATC,
Continue with aspirin, change to rectal . DVT prophylaxis, okay to continue cardiac medications when more alert. Troponin elevation c/w nonischemic myocardial injury. Troponin trending down. Consulted cath lab tech. Primary cath lab tech Dr. Mckeon
Pineda.
No history of chest pain per
# Anemia of chronic disease
# Hyponatremia
, Confirmed with CODE STATUS, full code
Total time spent to see the patient, examined the patient, discussed treatment plan with patient, family, consultants, ER doctor, nursing staff [email or web address] minutes
Anticipated Discharge: > 48 hours
Subjective/Interval History
-
Date of Service: May 25, 2025
No fevers
No pain issues
used Bi pap during sleep
Objective Data
-
Labs:
Laboratory Results
05/25/25
07:37
WBC 5.8
Hgb 9.7 L
Hct 28.8 L
Plt Count 233
Sodium 134 L
Potassium 4.3
Chloride 96 L
Carbon Dioxide 26
BUN 67 H
Creatinine 4.2 H*
Glucose 91
Calcium 9.3
Vital Signs:
Vital Signs
Temp Pulse Resp BP Pulse Ox
97.9 F 57 16 146/54 100
05/25/25 07:14 05/25/25 06:00 05/25/25 06:00 05/25/25 06:00 05/25/25 06:00
--- NOTE | 2025-05-25 11:51 | W.PN.NEPH.HD ---
Assessment
-
Tolerating HD seen on dialysis
Progress Note - Hemodialysis
-
Date of Service: May 25, 2025
Duration: 30 minutes and 3 hours
Potassium Bath: 2
Calcium Bath: 2.5
Opti-Dialyzer: 160
Ultrafiltration: Other (1.5-2)
Blood Flow: 400
Dialysate Flow: 600
Heparin: no
EPO: no
[2025-05-25] MEDS: KEPPRA 500 MG IV ×2 (11:52→20:24)
[2025-05-25] MEDS: UNASYN IV ×2 (11:53→21:50)
[2025-05-25] MEDS: ASPIRIN 300 MG RECTAL (11:54)
[2025-05-25 12:12] LABS: Glucose - Point of Care 86 mg/dl (70-99)
--- NOTE | 2025-05-25 12:18 | CM ---
F/U: Hospitalist Notes are stating that patient is still receiving seizure medication per neurology, RN stated now hanging IV Unison per I.D, given rectal aspirin, there is aspiration precautions, and removing BIPAP to Room air, use nasal O2 as
needed, thus patient is not ready yet. PT/OT has not worked with this patient and there are no orders yet. Case Management Notes states that patient does NOT want SNF especially at [facility] when ready. CM to F/U. PLAN: Home PT (?).
[2025-05-25] MEDS: NSS (PRESERVATIVE FREE) 10 ML IV (12:27)
[2025-05-25] MEDS: PROTONIX IV 40 MG IV (12:27)
[2025-05-25] MEDS: D10W 500 IV (12:59)
--- NOTE | 2025-05-25 17:25 | W.PN.NEURO.1 ---
Today's Communication / Plan
-
MRI Brain: VERY LARGE ACUTE ISCHEMIC INFARCT in the LEFT MIDDLE CEREBRAL ARTERY TERRITORY involving the left frontal lobe, left parietal lobe, left temporal lobe, left insular cortex, and periventricular left frontal lobe. Severe cytotoxic edema
throughout the cortical heredia matter of the left cerebral hemisphere.
Assessment and Plan:
The patient had a VERY LARGE ACUTE ISCHEMIC INFARCT in the LEFT MIDDLE CEREBRAL ARTERY TERRITORY. The patient needs an echocardiogram. He also needs a Holter monitor at the time of discharge as MRI shows multiple strokes which appear to be
embolic in etiology.
The plan is to give aspirin 300 mg daily per rectum. The patient is unable to take medications orally.
IV Keppra 500 mg twice a day.
Seizure precautions.
Subjective/Objective
Subjective Data
Date of Service: May 25, 2025
The patient is an 84 years old male who presented to the ER for altered mental status. The patient was unable to communicate verbally however he was able to move his feet to verbal commands. The history was obtained from the patient's and the
caregiver. The last known normal time was last night on 05/23/2025 at around 11 PM. This morning he was excessively drowsy and therefore patient was brought to the ER. CT of the head and CTA head and neck were negative for any acute
abnormalities. The patient had MRI of the brain done on 11/18/2024 which did not show acute intracranial abnormality.
CT of the head and CTA head and neck were negative for any acute abnormalities.
EEG: Mildly abnormal study for age based on generalized slowing demonstrated bihemispherically equally. No epileptiform activity was seen.
MRI Brain: VERY LARGE ACUTE ISCHEMIC INFARCT in the LEFT MIDDLE CEREBRAL ARTERY TERRITORY involving the left frontal lobe, left parietal lobe, left temporal lobe, left insular cortex, and periventricular left frontal lobe. Severe cytotoxic edema
throughout the cortical heredia matter of the left cerebral hemisphere.
Assessment and Plan:
The patient had a VERY LARGE ACUTE ISCHEMIC INFARCT in the LEFT MIDDLE CEREBRAL ARTERY TERRITORY. The patient needs an echocardiogram. He also needs a Holter monitor at the time of discharge as MRI shows multiple strokes which appear to be
embolic in etiology.
The plan is to give aspirin 300 mg daily per rectum. The patient is unable to take medications orally.
IV Keppra 500 mg twice a day.
Seizure precautions.
Objective Data
Vital Signs
Temp Pulse Resp BP Pulse Ox
36.3 C 63 18 168/62 100
05/25/25 15:35 05/25/25 11:30 05/25/25 11:30 05/25/25 11:15 05/25/25 10:11
Lab Results
05/25/25 07:37
05/25/25 07:37
PT 13.2 Sec (11.4-14.6) 05/24/25 08:47
INR 0.95 05/24/25 08:47
APTT 27.7 Sec (23.4-35.0) 05/24/25 08:47
Sodium 134 mmol/L (135-145) L 05/25/25 07:37
Potassium 4.3 mmol/L (3.5-5.1) 05/25/25 07:37
BUN 67 mg/dl (9-20) H 05/25/25 07:37
Glucose 91 mg/dl (70-99) 05/25/25 07:37
Calcium 9.3 mg/dl (8.4-10.2) 05/25/25 07:37
Kwx-O-Zaesrxrngag Pept Cancelled 05/24/25 11:04
Ur Buprenorphine Negative (Negative) 05/24/25 13:46
Patient Allergies
adhesive tape Allergy (Verified 09/25/24 02:00)
blisters if kept on for long time;rash
ciprofloxacin (From Cipro) Allergy (Verified 09/25/24 02:00)
burning of vein from IV
erythromycin base Allergy (Verified 09/25/24 02:00)
Hives
lisinopril Allergy (Verified 09/25/24 02:00)
cough
tetracycline Allergy (Verified 09/25/24 02:00)
Hives
tigecycline (From Tygacil) Allergy (Verified 09/25/24 02:00)
patient unaware of this allergy
Vital Signs and Labs
-
Vital Signs and Labs:
Vital Signs
Temp Pulse Resp BP Pulse Ox
36.3 C 63 18 168/62 100
05/25/25 15:35 05/25/25 11:30 05/25/25 11:30 05/25/25 11:15 05/25/25 10:11
Lab Results
05/25/25 07:37
05/25/25 07:37
PT 13.2 Sec (11.4-14.6) 05/24/25 08:47
INR 0.95 05/24/25 08:47
APTT 27.7 Sec (23.4-35.0) 05/24/25 08:47
Sodium 134 mmol/L (135-145) L 05/25/25 07:37
Potassium 4.3 mmol/L (3.5-5.1) 05/25/25 07:37
BUN 67 mg/dl (9-20) H 05/25/25 07:37
Glucose 91 mg/dl (70-99) 05/25/25 07:37
Calcium 9.3 mg/dl (8.4-10.2) 05/25/25 07:37
Vpi-R-Dulgrrcglkk Pept Cancelled 05/24/25 11:04
Ur Buprenorphine Negative (Negative) 05/24/25 13:46
Medications
-
Active Medications
Generic Name Dose Route Start Last Admin
Trade Name Freq PRN Reason Stop Dose Admin
Acetaminophen 650 mg 05/24/25 13:32
Acetaminophen 650 Mg Rectal Suppository RECTAL 06/21/25 13:31
Q6HPRN PRN
pain/fever
Albumin Human 12.5 grams 05/25/25 08:00 05/25/25 08:45
Albumin 12.5 Grams/50 Ml Bag *For Hemodialysis* IV 05/25/25 23:59 12.5 grams
HD-Q1HPRN PRN Administration
SBP < 90 mmHg
Aspirin 300 mg 05/25/25 12:00 05/25/25 11:54
Aspirin 300 Mg Rectal Suppository RECTAL 06/22/25 11:59 300 mg
DAILY JOVON Administration
Brimonidine Tartrate 0 drop 05/24/25 16:00 05/25/25 08:50
Brimonidine 0.2% (Ophthalmic Solution) Bottle OPHTH 06/21/25 15:59 1 drop
TID JOVON Administration
Brinzolamide 0 drop 05/24/25 16:00 05/25/25 08:50
Brinzolamide 1% (Ophthalmic Suspension) 10 Ml Bottle BOTH EYES 06/21/25 15:59 1 drop
TID JOVON Administration
Heparin Sodium 5,000 units 05/24/25 20:00 05/25/25 08:50
Heparin 5,000 Units/Ml 1 Ml Vial SC 06/21/25 19:59 Not Given
Q12 JOVON
Hydralazine HCl 5 mg 05/25/25 11:07
Hydralazine 20 Mg/Ml Vial IV 06/22/25 11:06
Q4HPRN PRN
sbp more than 165
Ampicillin Sodium/Sulbactam 60 mls @ 120 mls/hr 05/25/25 10:00 05/25/25 11:53
Sodium 1.5 gm/ Sodium Chloride IV 60 mls
Q12H JOVON Administration
Dextrose 500 mls @ 30 mls/hr 05/25/25 12:00 05/25/25 12:59
D10w IV 500 mls
[id number] JOVON Administration
Latanoprost 0 drop 05/24/25 22:00 05/24/25 23:13
Latanoprost 0.005% (Ophthalmic Solution) 2.5 Ml Bottle BOTH EYES 06/21/25 21:59 1 drop
HS JOVON Administration
Levetiracetam 500 mg 05/24/25 14:00 05/25/25 11:52
Levetiracetam (100 Mg/Ml) 500 Mg/5 Ml Vial IV 06/21/25 13:59 500 mg
DAILY JOVON Administration
Mannitol 12.5 grams 05/25/25 08:00 05/25/25 08:44
Mannitol 25% (12.5 Grams/50 Ml) Vial IV 05/25/25 23:59 12.5 grams
HD-Q1HPRN PRN Administration
SBP < 90 mmHg
Metoprolol Tartrate 2.5 mg 05/25/25 16:00
Metoprolol 5 Mg/5 Ml Vial IV 06/22/25 15:59
Q8 JOVON
Midodrine 2.5 mg 05/24/25 13:00
Midodrine 2.5 Mg Tablet PO
DAILYPRN PRN
BP<140/90
Pantoprazole Sodium 40 mg 05/25/25 12:00 05/25/25 12:27
Pantoprazole Sodium 40 Mg/10 Ml Vial IV 06/22/25 11:59 40 mg
DAILY JOVON Administration
Sodium Chloride 0 drop 05/24/25 16:00 05/25/25 08:50
Sodium Chloride 5% (Ophthalmic Solution) 15 Ml Bottle BOTH EYES 06/21/25 15:59 1 drop
TID JOVON Administration
Sodium Chloride 0 flush 05/24/25 16:00
Sodium Chloride 0.9% (Flush) Syringe IV 06/21/25 15:59
PER PROTOCOL JOVON
Sodium Chloride 10 ml 05/25/25 12:00 05/25/25 12:27
Sodium Chloride 0.9% (Preservative Free) 10 Ml Vial IV 06/22/25 11:59 10 ml
DAILY JOVON Administration
Timolol Maleate 0 drop 05/24/25 16:00 05/25/25 08:49
Timolol 0.5% (Ophthalmic Solution) Bottle OPHTH 06/21/25 15:59 1 drop
TID JOVON Administration
Home Medications
�Medication �Instructions �Recorded
bimatoprost 0.01 % eye drops 1 drp BOTH EYES HS Eye condition 06/29/22
(Lumigan)
brinzolamide 1 % eye 1 drp BOTH EYES TID Eye condition 06/29/22
drops,suspension (Azopt)
calcitriol 0.25 mcg capsule 0.5 mcg PO QPM Kidney Disease 06/29/22
famotidine 20 mg tablet (Pepcid) 20 mg PO HS Gastrointestinal issue 06/29/22
netarsudil 0.02 % eye drops 1 drp BOTH EYES DAILY Eye condition 06/29/22
(Rhopressa)
pitavastatin calcium 2 mg tablet 2 mg PO MOTUWETHFR@2200 High 06/29/22
(Livalo) cholesterol
sevelamer carbonate 800 mg tablet 3,200 mg PO AC Kidney Disease 06/29/22
folic acid 1 mg tablet 1 mg PO QPM Supplement 11/23/22
midodrine 2.5 mg tablet 2.5 mg PO DAILYPRN PRN BP<140/90 11/23/22
aspirin 81 mg tablet,delayed 81 mg PO DAILY Blood Clot 02/08/23
release Prevention/Tx
brimonidine 0.2 %-timolol 0.5 % 1 drp BOTH EYES TID Eye Condition 02/08/23
eye drops (Combigan)
torsemide 20 mg tablet 80 mg PO DAILY Fluid 02/08/23
Retention/Swelling
cholecalciferol (vitamin D3) 50 50 mcg PO DAILY Supplement 05/17/23
mcg (2,000 unit) tablet (Vitamin
D3)
ranolazine 500 mg tablet,extended 500 mg PO BID Heart 05/17/23
release,12 hr Disease/Condition
sodium chloride 5 % eye drops 1 drp BOTH EYES TID Eye Condition 05/17/23
(Chris 128)
acetaminophen 650 mg 650 mg PO BID PRN Pain #0 tabs 06/11/23
tablet,extended release
isosorbide mononitrate 30 mg 30 mg PO DAILY Heart 06/11/23
tablet,extended release 24 hr disease/condition #0 tabs
metoprolol tartrate 25 mg tablet 12.5 mg PO HS Blood pressure 08/10/24
polyethylene glycol 3350 17 gram 17 g PO DAILY #30 ea 09/27/24
oral powder packet
dextran 70-hypromellose eye drops 1 drp ophthalmic (eye) PRN PRN dry 05/24/25
in a dropperette (Artificial Tears eyes
(PF) drops in a dropperette)
levetiracetam 500 mg tablet 500 mg PO MOWEFR@1800 05/24/25
levetiracetam 500 mg tablet 500 mg PO DAILY 05/24/25
(Keppra)
[2025-05-25] MEDS: LOPRESSOR 2.5 MG IV (17:50)
[2025-05-25 18:13] LABS: Glucose - Point of Care 64 mg/dl (70-99)
--- NOTE | 2025-05-25 18:32 | PTCARENOTE ---
Addendum entered by Eugene Hernandez RN 05/25/25 18:45:
updated by Dr. Garza
Original Note:
Dr. Garza notified of MRI results and will update . Neurology also made aware of results.
[2025-05-25 19:01] LABS: Glucose - Point of Care 98 mg/dl (70-99)
[2025-05-25] MEDS: HEPARIN 5000 UNITS SC (20:20)
[2025-05-25 21:23] LABS: Glucose - Point of Care 84 mg/dl (70-99)
[2025-05-25] MEDS: XALATAN OPHTHALMIC SOLUTION 1 DROP BOTH EYES (21:51)
--- NOTE | 2025-05-25 22:35 | PTCARENOTE ---
assumed care of pt from dayshift RN after change of shift report. pt is drowsy, arousable to deep tactile stimulation. pt is currently on bipap with 10/5 and 2L. satting 99%. npo maintained. assessment as documented. call light in reach.
[2025-05-25 23:09] LABS: Glucose - Point of Care 84 mg/dl (70-99)
[2025-05-26] VITALS (41 sets, daily range): BP systolic 69–207; BP diastolic 23–104; PULSE 2–59
[2025-05-26] MEDS: LOPRESSOR 2.5 MG IV ×4 (01:11→23:56)
[2025-05-26 03:10] LABS: Glucose - Point of Care 102 mg/dl (70-99)
[2025-05-26] MEDS: D10W 500 IV (03:14)
[2025-05-26 05:48] LABS: Glucose - Point of Care 130 mg/dl (70-99)
--- NOTE | 2025-05-26 08:11 | W.PN.CARDCBS ---
Today's Communication / Plan
-
MRI results reviewed. He had a very large stroke. His mental status remains extremely poor.
Abnormal troponin is likely nonischemic myocardial injury
We will check an echocardiogram and follow him on telemetry. There is no clear signs of atrial fibrillation. For now continue ASA.
Continue CPAP
Would continue conservative therapy and begin discussions regarding palliative care/hospice
Impression / Plan
-
Primary Sweet Good[employer] Machine Operator: Dr. NEFTALI Pineda
Impression:
Admitted with change in mental status 05/24/2025
Large acute CVA
Previous admission for new onset seizures 11/2024
Debris in the trachea seen on CT 05/24/2025
Elevated troponin
CAD
NSTEMI with multivessel coronary artery disease involving left anterior descending, diagonal, OM, and small caliber PDA by cath 04/15/21
s/p stent of 3.0 mm Synergy ARIANNA mid LAD and 2.25 mm Synergy ARIANNA diagonal branch 04/17/2021
medical mgmt of residual OM/circ and PDA disease
Mild by echo 06/08/2023
ESRD on dialysis
DM 2
Diabetic neuropathy
Blindness
PAD
HTN
Hyperlipidemia
SARA on CPAP
Overweight
Former smoker
Sciatica
History of neck surgery with neuropathy
History of prostatectomy for prostate cancer 2000
Anemia of CKD
LE wounds s/p L heel debridement
Echo 04/12/21: Technically difficult study, left ventricular ejection fraction greater than 70 to 75%, wall motion analysis limited by image quality, enlarged right ventricle with normal right ventricular systolic function, calcified aortic valve with
significantly reduced leaflet excursion, accurate aortic transvalvular gradients cannot be obtained due to limited visualization poor image quality
Echo 10/09/21: LVEF 55-60%, no RWMA, mild cLVH, enlarged right ventricle with reduced RV systolic function, aortic sclerosis without stenosis, mild MS, trace MR
Echo 06/08/23: EF 60 to 65%, mild to moderate MS with mean gradient 7 mmHg, no MR, mild mean gradient 12 mmHg
Plan:
84-year-old male with past medical history of coronary artery disease and history of LAD PCI in 2020 presents with change in mental status. He also has a history of end-stage renal disease on dialysis, diabetes, neuropathy, blindness, obstructive
sleep apnea on CPAP, hypertension, hyperlipidemia, and seizures. We were asked to see him to evaluate a cardiac troponin of 0.4.
CT scan reviewed which revealed no clear aortic pathology. No carotid stenosis, bilateral small pleural effusions with possible debris in the trachea.
ECG with sinus rhythm with right bundle branch block and nonspecific T wave abnormalities
Mental status continues to be very poor. MRI of the brain was reviewed. It reveals a large acute ischemic infarct in the left middle cerebral artery involving the left frontal lobe, parietal lobe, temporal lobe, and insular cortex. There is also
multiple small chronic ischemic infarcts in the right frontal, parietal, thalamic and cerebellar hemispheres.
Will check echocardiogram. His mental status remains extremely poor. I reviewed his telemetry. There is no significant atrial fibrillation. Continue to monitor.
Continues on hemodialysis.
Troponin has trended down I suspect this is a nonischemic myocardial injury. Check echocardiogram. Plan would be for conservative care
Continue antibiotics.
Would resume aspirin, isosorbide, and Ranexa when okay to take pills.
I suspect he may be mildly volume overloaded. Would resume Demadex 80 mg p.o. daily. I am not sure how much urine he makes on his own. continue volume removal via hemodialysis.
With large stroke, end-stage renal disease on dialysis and very poor mental status, at this point it would be reasonable to start considering palliative care/hospice.
Progress Note - [employer] Machine Operator
Subjective
Date of Service: May 26, 2025
Patient continues to be minimally responsive. He opens his eyes somewhat but does not follow commands.
Objective
Labs:
05/25/25 07:37
Labs
Hgb 9.7 g/dL (13.0-18.0) L 05/25/25 07:37
Hct 28.8 % (39.0-52.0) L 05/25/25 07:37
Plt Count 233 10^3/uL (130-400) 05/25/25 07:37
PT 13.2 Sec (11.4-14.6) 05/24/25 08:47
INR 0.95 05/24/25 08:47
APTT 27.7 Sec (23.4-35.0) 05/24/25 08:47
Sodium 134 mmol/L (135-145) L 05/25/25 07:37
Potassium 4.3 mmol/L (3.5-5.1) 05/25/25 07:37
BUN 67 mg/dl (9-20) H 05/25/25 07:37
Creatinine 4.2 mg/dL (0.7-1.3) H* 05/25/25 07:37
Glucose 91 mg/dl (70-99) 05/25/25 07:37
Troponins
05/24/25 05/24/25
08:47 13:46
Troponin I 0.458 H* 0.384 H*
Vital Signs and I&O:
Vital Signs
Temp Pulse Resp BP Pulse Ox
97.7 F 56 13 140/34 100
05/26/25 03:37 05/26/25 06:15 05/26/25 06:15 05/26/25 06:00 05/26/25 06:15
Vital Signs
Temp Pulse Resp BP Pulse Ox
97.7 F 56 13 140/34 100
05/26/25 03:37 05/26/25 06:15 05/26/25 06:15 05/26/25 06:00 05/26/25 06:15
Intake & Output
05/24/25 05/25/25 05/26/25 05/27/25
06:59 06:59 06:59 06:59
Intake Total 150 / 150
Balance 150 / 150
Physical Exam
Physical Exam
GEN: No distress, not following commands
HEENT: supple, mmm, BIPAP
LUNGS: CTA, no wheezes/rales
CV: Reg, S1/S2, 1/6 syst LSB, no gallop
ABD: soft, BS+, NT/ND
EXT: No edema
NEURO: unable to assess
SKIN: No rash
[2025-05-26] MEDS: ALPHAGAN 0.2% EYE DROPS 1 DROP OPHTH ×3 (08:12→23:23)
[2025-05-26] MEDS: ASPIRIN 300 MG RECTAL (08:12)
[2025-05-26] MEDS: AZOPT 1% OPHTHALMIC SUSPENSION 1 DROP BOTH EYES ×3 (08:12→23:23)
[2025-05-26] MEDS: NSS (PRESERVATIVE FREE) 10 ML IV (08:13)
[2025-05-26] MEDS: KEPPRA 500 MG IV (08:13)
[2025-05-26] MEDS: HEPARIN 5000 UNITS SC (08:13)
[2025-05-26] MEDS: PROTONIX IV 40 MG IV (08:15)
[2025-05-26] MEDS: MURO 128/ADSORBONAC 5% EYE DROPS 1 DROP BOTH EYES ×3 (08:15→23:23)
[2025-05-26] MEDS: TIMOPTIC 0.5% OPHTHALMIC SOLUTION 1 DROP OPHTH ×3 (08:15→23:22)
[2025-05-26] MEDS: UNASYN IV ×2 (10:23→23:20)
[2025-05-26 10:40] LABS: Glucose - Point of Care 88 mg/dl (70-99)
--- NOTE | 2025-05-26 10:50 | W.PN.NEPH.PH ---
Today's Communication / Plan
-
Supportive care
Assessment/Plan
-
Assessment:
Change in mental status/rule out stroke/seizure/toxic metabolic encephalopathy
History of seizure disorder
Debris's in the trachea. Suspect aspiration.
Positive troponin, abnormal EKG changes.
ESRD due to diabetic nephropathy on HD since April 2021-[facility]
History CVA
Chronic cerebrovascular disease
Left brachiobasilic AV fistula
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
Hypertension with orthostatic hypotension in setting of advanced diabetes mellitus
Advanced diabetic retinopathy/neuropathy/blindness
Chronic pain
Anemia of CKD
Secondary hyperparathyroidism
SARA on CPAP
Cervical cord compression with LLE Weakness
odontoid fx-c collar
Ambulatory dysfunction
Hyperphosphatemia
Multivessel CAD and severe PAD
Blind
Bilateral sensorineural hearing loss
Plan
Remains encephalopathic
MRI brain = large left ischemic infarct
Discussed with critical care hospitalist and family as patient's prognosis guarded to poor. Patient will require mechanical ventilation for airway protection. Goals of cares to be considered pending further evaluation.
Neurology noted
Dialysis Wednesday though unlikely will be proceeding
d/w family at bedside

33 minutes critical care time
-
-
Date of Service: May 26, 2025
CC / HPI / ROS
-
Chief Complaint:
Altered mental
History of Present Illness:
ESRD with altered mental status acute CVA
Review of Systems:
Unobtainable/encephalopathic
Labs
-
Labs:
WBC 5.8 10^3/uL (4.8-10.8) 05/25/25 07:37
RBC 2.92 10^6/uL (4.70-6.10) L 05/25/25 07:37
Hgb 9.7 g/dL (13.0-18.0) L 05/25/25 07:37
Hct 28.8 % (39.0-52.0) L 05/25/25 07:37
Plt Count 233 10^3/uL (130-400) 05/25/25 07:37
eGFR 13.43 05/25/25 07:37
Elh-Z-[id number] Pept Cancelled 05/24/25 11:04
Albumin 4.1 g/dl (3.5-5.0) 05/24/25 08:47
Physical Exam
-
Vital Signs:
Vital Signs
Temp Pulse Resp BP Pulse Ox
97.9 F 56 13 132/57 100
05/26/25 08:27 05/26/25 08:14 05/26/25 06:15 05/26/25 08:14 05/26/25 06:15
--- NOTE | 2025-05-26 10:57 | W.PN.HOSP.TC ---
Today's Communication/Plan
-
ICU care with intubation, tube feeding, supportive care
Assessment / Plan
Assessment / Plan
Physical Exam
General: not responsive or talkative , on Bi pap
HEENT: Moist mucous membrane, BiPAP on
Respiratory: Limited with BiPAP on.
Cardiac: S1/S2, Regular Rhythm and Murmur (2/6 systolic murmur, best heard in lower sternal border.);
GI: Soft, Non Tender, Non Distended and Normal Bowel Sounds
Genito-urinary: No Maguire
Musculoskeletal: No Clubbing, No Cyanosis, Edema, Left Upper Extremity (Dialysis fistula noted, positive thrill.) and No Edema
Skin: Warm
Neuro: Patient is still not responsive
Psych: Lethargic
Assessment and plan
# Acute very large ischemic stroke in middle cerebral territory with coma
Out of Window for thrombolytics as it was a wake up unresponsiveness situation
Negative EEG for seizures
c/w rectal aspirin until NG
c/w IV Keppra
c/w supportive care
Failed weaning off Bi pap, s/p intubation for airway protection + ongoing aspiration. Subsequent Feeding tube
Will need to continue goal of care discussion with family. Poor prognosis
# No debris in trachea per CT chest
# Aspiration PNA
c/w IV Abx
Blood culture positive, suspect contamination, will repeat blood cultures, no fevers , no leukocytosis
Chronic HFpEF, not in acute failure
# SARA
Intubated now
# UTI with E Coli, damon- sensitive microbe, c/w IV Abx
# End-stage renal disease on hemodialysis, Wednesday. Continue midodrine as needed. f/w nephrology. Patient is known to our service.
No issues with dialysis fistula/access.
# Hypoglycemia
c/w dextrose gtt then start tube feeding
# Positive troponin, abnormal EKG changes.
H xof CAD
He was placed on IV metoprolol 5 mg q 8 H ATC,
Continue with aspirin, change to rectal . DVT prophylaxis, okay to continue cardiac medications when more alert. Troponin elevation c/w nonischemic myocardial injury. Troponin trending down. Consulted group chief operator. Primary group chief operator Dr. Mckeon
Ed[place].
No history of chest pain per
# Anemia of chronic disease
# Hyponatremia
, Confirmed with CODE STATUS, full code
Total time spent to see the patient, examined the patient, discussed treatment plan with patient, family, consultants, ER doctor, nursing staff [id number] minutes
Anticipated Discharge: > 48 hours
Subjective/Interval History
-
Date of Service: May 26, 2025
Unresponsive
Objective Data
-
Labs:
Laboratory Results
05/26/25
07:12
Sodium Pending
Potassium Pending
Chloride Pending
Carbon Dioxide Pending
BUN Pending
Creatinine Pending
Glucose Pending
Calcium Pending
Vital Signs:
Vital Signs
Temp Pulse Resp BP Pulse Ox
97.9 F 56 13 132/57 100
05/26/25 08:27 05/26/25 08:14 05/26/25 06:15 05/26/25 08:14 05/26/25 06:15
I&O
05/25/25 05/26/25 05/27/25
06:59 06:59 06:59
Intake Total 150 / 150
Balance 150 / 150
--- NOTE | 2025-05-26 11:12 | OR.RPT ---
Operative Report
Operative Report
Rapid sequence intubation
Indication. Altered mental status, airway protection, ongoing aspiration
Consent: Emergent procedure, verbal consent obtained from spouse at bedside
Pre-medications: Fentanyl 50 mcg IV was given, however IV infiltrated,
Patient was placed in Davis position. BIPAP was continued to preoxygenate, subsequently [id number] ventilation was applied, saturation prior to intubation 100%. 20 mg of Etomidate was given as an induction agent followed by 40 mg of Rocuronium
as paralytic. Oral suctioning was performed which showed thick secretions iin the posterior pharynx. GlideScope was used, blade size #3, grade 1 view of vocal cords was obtained. Thick mucous and crusted secretions noted covering vocal cords.
Suctioning was performed again, and I could see plugs of secretions beyong vocal cords inside the tracheal lumen. ET tube, 8.0, was attempted under direct visualization but could not be advanced easily,subsequently a smaller tube, 7.0 was advanced
without any difficulty. Color change was confirmed and patient was bagged again. Subsequently patient was connected to ventilator. Bilateral good air entry noted. Tube was secured at 23 cm at the teeth. Patient tolerated the procedure well.
Lowest SpO2 was 99% during the procedure.
Time spent: 25 min
Complications: None
Date of Service: 05/26/2025
--- NOTE | 2025-05-26 11:18 | W.PN.INTV ---
Today's Communication / Plan
Recommendations
- Transferred to ICU, emergent intubation and mechanical ventilation
- Volume assist-control, 450/16/40%/5
- As needed fentanyl for sedation, follow-up ABG
- Place Keofeed and initiate tube feeding
- Follow-up CT head
- Ongoing goals of care discussions, prognosis is poor
Assessment
-
84-year-old former smoking male with underlying CAD, prostate cancer, SVT, CVA 2021, hypertension, hyperlipidemia, diabetes, hypothyroid, seizure disorder, anxiety who presented poorly responsive with new onset weakness on the right side and
possible aspiration event-pulmonary consulted for possible aspiration 05/25/2025.
05/26, patient noted to be essentially unresponsive. Minimal withdrawal to sternal rub. Continued to be on BiPAP. Upon attempting to take BiPAP off, patient noted to have paradoxical breathing with shallow rapid breaths. Also tongue Dropping in
the back and I could hear audible rattling secretions. Patient emergently transferred to ICU
#1. Acute stroke, large, with worsening encephalopathy
-Neurology service on case
-Mental status continues to be very poor, patient unable to protect airway, has been on BiPAP for more than 24 hours with ongoing aspiration
-Emergent transfer to ICU for airway protection
-Has been on IV Keppra, continue. Await further neurology recommendations
-Follow-up CT to evaluate for cerebral edema, midline shift etc.
-Ceribell (bedside EEG) to evaluate for any nonconvulsive seizures
-Hold off any antiplatelet/anticoagulant until at least follow-up CT completed to evaluate for any hemorrhagic conversion
-Minimize sedation
#2. Acute respiratory failure, aspiration pneumonia, inability to protect airway
-Suspect it is in the setting of large stroke
-05/26, patient transferred to ICU, emergently intubated and mechanically ventilated. Thick crusted secretions noted in the posterior pharynx as well as covering the vocal cords and into the tracheal lumen
-Had not elevated, placed Keofeed tube, follow-up chest x-ray
-Continue Unasyn for aspiration pneumonia
-Fentanyl as needed and subsequent infusion for sedation if needed
-Initiate volume assist-control, 450/16/40%/5. Follow-up ABG in 45 minutes
-Daily SAT SBT
#3. H/o SARA
- Currently intubated, mechanically ventilated. Uses CPAP at baseline.
- Patient follows up with [facility] pulmonary clinic, last saw Dr. Arvizu in 2022
#4. H/o Seizures:
- Continue Keppra
- Bedside EEG
Goals of care discussion, 05/26: Met with patient's spouse at bedside. Patient's prognosis is poor. With large stroke noted on imaging, patient's mental status may not improve enough to be successfully weaned from ventilator. We discussed the
option of pursuing more comfort focused, palliative care. We also discussed that in the event patient is unable to be weaned off ventilator, options will include long-term ventilatory support via tracheostomy and feeding tube versus reconsideration
of more palliative approach. Patient's wants to discuss further with the family and at this point requests intubation and mechanical ventilation and see how patient does over the next 24 to 48 hours.
GI prophylaxis. IV Protonix
DVT prophylaxis. Hold subcu heparin pending CT
Other medical diagnoses:
- End-stage renal disease, on hemodialysis. Nephrology service on case
- UTI, on antibiotic
- Minimally elevated troponin. Suspect secondary to acute critical illness with large volume stroke, aspiration. Cardiology service on case
- H/o CAD, s/p PCI in 2020
- Hypothyroidism
- Hypertension, hyperlipidemia
- Prior history of smoking
- History of prostatectomy for CA prostate
- Blindness
- Diabetes mellitus
Critical Care time 65 mins -- The patient is admitted for acute critical illness for the treatment of vital organ failure and/or prevention of further life-threatening conditions. Total care includes time spent in review of history, physical exam,
medications, hemodynamic/ventilator parameters, laboratory data, imaging and discussion with house staff, pharmacy, respiratory therapy, dental receptionist, and nursing.
Last saw in the office 11/05/2022 and has not followed up since-patient is to call CPAP was not functioning September 2024-told patient needed to be seen prior to new CPAP equipment prescription
Diagnostic data:
CT Head 05/24/25: There are moderate changes of cortical atrophy and chronic ischemic disease. There are no acute findings. ASPECT score: 10.
CTA Head/Neck 05/24/25: No evidence of large vessel occlusion, or arterial dissection. Bilateral carotid bulb plaque, associated with less than 50% stenosis on each side. Small bilateral pleural effusions, partially imaged. Small amount of debris
within the trachea, extending into the right mainstem bronchus. Please correlate for symptoms of aspiration. 1.9 cm left thyroid nodule. Consider nonemergent thyroid ultrasound for further characterization.
Echo 04/12/21: Technically difficult study, left ventricular ejection fraction greater than 70 to 75%, wall motion analysis limited by image quality, enlarged right ventricle with normal right ventricular systolic function, calcified aortic valve with
significantly reduced leaflet excursion, accurate aortic transvalvular gradients cannot be obtained due to limited visualization poor image quality
Echo 10/09/21: LVEF 55-60%, no RWMA, mild cLVH, enlarged right ventricle with reduced RV systolic function, aortic sclerosis without stenosis, mild MS, trace MR
Echo 06/08/23: EF 60 to 65%, mild to moderate MS with mean gradient 7 mmHg, no MR, mild mean gradient 12 mmHg
Subjective Dataa
Subjective Data
Date of Service:
Date of Service: May 26, 2025
Subjective:
Patient on BiPAP, essentially unresponsive.
Review of Systems
General: Unobtainable - Pat Unresp
Objective Data
Data Reviewed
Vital Signs / I&O / Oxygen:
Vital Signs
Temp Pulse Resp BP Pulse Ox
97.9 F 56 13 132/57 100
05/26/25 08:27 05/26/25 08:14 05/26/25 06:15 05/26/25 08:14 05/26/25 11:02
Intake and Output
05/25/25 05/26/25 05/27/25
06:59 06:59 06:59
Intake Total 150 / 150
Balance 150 / 150
SaO2 100
Nasal Cannula flow liters per 4
minute
Physical Exam
General: Comfortable
HEENT: Normocephalic
Cardiovascular: S1-S2
Respiratory: Rhonchi
GI: Soft and Non Distended
Neurology: Unresponsive
Skin: Warm
Labs/Micro/Reports
Lab Data
05/25/25 07:37
Microbiology
05/24/25 21:53 Blood/Venous Blood Culture - Preliminary
Staphylococcus species
05/24/25 21:53 Blood/Venous Gram Stain - Preliminary
05/24/25 22:33 Nose MRSA Screen - Final
No Methicillin Resistant Staphylococcus aureus isolated.
05/24/25 13:46 Urine Urine Culture - Final
Escherichia coli
05/24/25 13:46 Nasal Swab Influenza Types A & B (CHAVEZ) - Final
Negative for Influenza A & B, NAAT
Negative results must be combined with clinical observations
and patient history.
Nucleic Acid Amplification test (NAAT)performed on the
[employer] platform.
[2025-05-26 11:56] LABS: B.E. 4.8 mmol/L; HCO3 28.1 mmol/L (21-28); O2 Saturation % 98.8 % (94-98); PCO2 36 mmHg (35-48); PO2 364 mmHg (83-108)
--- NOTE | 2025-05-26 13:15 | PTCARENOTE ---
see nursing shift assessment. pt minimally to responsive to painful stimuli this am. sat 99 to 100 on bipap. seen by hospitalist. pt transferred to icu for intubation r/t poor responsiveness. . report given to Ania. dr Garza discussed with family.
[2025-05-26] MEDS: SUBLIMAZE 50 MCG IV ×2 (13:30→16:00)
[2025-05-26 13:49] LABS: Blood Urea Nitrogen 44 mg/dl (9-20); Calcium 9.4 mg/dl (8.4-10.2); Carbon Dioxide 27 mmol/L (22-30); Chloride 95 mmol/L (98-107); Estimated Creatinine Clearance 16 ml/min; Glucose 137 mg/dl (70-99); Potassium 4.2 mmol/L (3.5-5.1); Sodium 135 mmol/L (135-145); eGFR 16.71
[2025-05-26 14:36] LABS: Glucose - Point of Care 98 mg/dl (70-99)
--- NOTE | 2025-05-26 14:41 | PTCARENOTE ---
Transfer
11:00 transfer from IMU to ICU requires intubation; Received on BIPAP; Intubated in ICU
pt does not open eyes to painful stimuli. Moves RT Upper and Lower Extremities. Moves left arm, does not appear to be able to move left leg;
pt noted to reach for ETT; soft restraints applied to b/l UE to prevent to remove ETT. left pupils not reactive (chronic) RT pupils +2 sluggish
abdomen soft, hypoactive bowel sound x 4 quadrants. Dopphoff inserted Left. Placement confirmed by abdominal X-Ray
Anuric secondary to chronic Dialysis . Left AV fistula : + bruit and thrill
Left upper arm mid-line inserted . IV team unable to place PICC line
CT head done, results pending. pt on continues Cerebellum, no seizure activities recorded
pt on Dextrose 10 at 30/hr Accu check at 14:00-- 98 will continue Accu check Q 6 hours
Blood culture send results pending
HOB elevated family at bedside
--- NOTE | 2025-05-26 16:22 | W.PN.NEURO.1 ---
Today's Communication / Plan
-
The patient had a VERY LARGE ACUTE ISCHEMIC INFARCT in the LEFT MIDDLE CEREBRAL ARTERY TERRITORY. The MRI of the brain showed that the patient had multiple strokes which are bilateral and appear to be secondary to emboli, likely cardioemboli.
The plan is to give aspirin 300 mg daily per rectum.
Continue Keppra for history of seizures.
Seizure precautions.
Today, was unresponsive, and he is status post intubation for airway protection.
The patient will given aspirin per rectum. Will continue Keppra. The patient is being treated for aspiration pneumonia and UTI. He also has end-stage renal disease and is on hemodialysis.
I had a detailed discussion with the patient's and the caregiver, regarding the assessment and the management plan, and they were told about the poor prognosis. The patient's and the caregiver verbalized understanding of our discussion.
Subjective/Objective
Subjective Data
Date of Service: May 26, 2025
The patient is an 84 years old male who presented to the ER for altered mental status. The patient was unable to communicate verbally however he was able to move his feet to verbal commands. The history was obtained from the patient's and the
caregiver. The last known normal time was on 05/23/2025 at around 11 pm. The patient was not a candidate for thrombolytic therapy as he was out of the time window.
MRI Brain: VERY LARGE ACUTE ISCHEMIC INFARCT in the LEFT MIDDLE CEREBRAL ARTERY TERRITORY involving the left frontal lobe, left parietal lobe, left temporal lobe, left insular cortex, and periventricular left frontal lobe. Severe cytotoxic edema
throughout the cortical heredia matter of the left cerebral hemisphere.
Assessment and Plan:
The patient had a VERY LARGE ACUTE ISCHEMIC INFARCT in the LEFT MIDDLE CEREBRAL ARTERY TERRITORY. The MRI of the brain showed that the patient had multiple strokes which are bilateral and appear to be secondary to emboli, likely cardioemboli.
The plan is to give aspirin 300 mg daily per rectum.
Continue Keppra for history of seizures.
Seizure precautions.
Today, was unresponsive, and he is status post intubation for airway protection.
The patient will given aspirin per rectum. Will continue Keppra. The patient is being treated for aspiration pneumonia and UTI. He also has end-stage renal disease and is on hemodialysis.
I had a detailed discussion with the patient's and the caregiver, regarding the assessment and the management plan, and they were told about the poor prognosis. The patient's and the caregiver verbalized understanding of our discussion.
Objective Data
Vital Signs
Temp Pulse Resp BP Pulse Ox
36.6 C 70 15 96/59 100
05/26/25 15:23 05/26/25 15:30 05/26/25 15:30 05/26/25 15:30 05/26/25 16:00
Lab Results
05/25/25 07:37
05/26/25 13:11
PT 13.2 Sec (11.4-14.6) 05/24/25 08:47
INR 0.95 05/24/25 08:47
APTT 27.7 Sec (23.4-35.0) 05/24/25 08:47
Sodium 135 mmol/L (135-145) 05/26/25 13:11
Potassium 4.2 mmol/L (3.5-5.1) 05/26/25 13:11
BUN 44 mg/dl (9-20) H 05/26/25 13:11
Glucose 137 mg/dl (70-99) H 05/26/25 13:11
Calcium 9.4 mg/dl (8.4-10.2) 05/26/25 13:11
Pyw-Z-Qcgqawkgsif Pept Cancelled 05/24/25 11:04
Ur Buprenorphine Negative (Negative) 05/24/25 13:46
Patient Allergies
adhesive tape Allergy (Verified 09/25/24 02:00)
blisters if kept on for long time;rash
ciprofloxacin (From Cipro) Allergy (Verified 09/25/24 02:00)
burning of vein from IV
erythromycin base Allergy (Verified 09/25/24 02:00)
Hives
lisinopril Allergy (Verified 09/25/24 02:00)
cough
tetracycline Allergy (Verified 09/25/24 02:00)
Hives
tigecycline (From Tygacil) Allergy (Verified 09/25/24 02:00)
patient unaware of this allergy
Vital Signs and Labs
-
Vital Signs and Labs:
Vital Signs
Temp Pulse Resp BP Pulse Ox
36.6 C 70 15 96/59 100
05/26/25 15:23 05/26/25 15:30 05/26/25 15:30 05/26/25 15:30 05/26/25 16:00
Lab Results
05/25/25 07:37
05/26/25 13:11
PT 13.2 Sec (11.4-14.6) 05/24/25 08:47
INR 0.95 05/24/25 08:47
APTT 27.7 Sec (23.4-35.0) 05/24/25 08:47
Sodium 135 mmol/L (135-145) 05/26/25 13:11
Potassium 4.2 mmol/L (3.5-5.1) 05/26/25 13:11
BUN 44 mg/dl (9-20) H 05/26/25 13:11
Glucose 137 mg/dl (70-99) H 05/26/25 13:11
Calcium 9.4 mg/dl (8.4-10.2) 05/26/25 13:11
Uox-F-Mudvjnvfsjo Pept Cancelled 05/24/25 11:04
Ur Buprenorphine Negative (Negative) 05/24/25 13:46
Medications
-
Active Medications
Generic Name Dose Route Start Last Admin
Trade Name Freq PRN Reason Stop Dose Admin
Acetaminophen 650 mg 05/24/25 13:32
Acetaminophen 650 Mg Rectal Suppository RECTAL 06/21/25 13:31
Q6HPRN PRN
pain/fever
Aspirin 300 mg 05/25/25 12:00 05/26/25 08:12
Aspirin 300 Mg Rectal Suppository RECTAL 06/22/25 11:59 300 mg
On Hold: 05/26/25 11:26 DAILY JOVON Administration
Brimonidine Tartrate 0 drop 05/24/25 16:00 05/26/25 08:12
Brimonidine 0.2% (Ophthalmic Solution) Bottle OPHTH 06/21/25 15:59 1 drop
TID JOVON Administration
Brinzolamide 0 drop 05/24/25 16:00 05/26/25 08:12
Brinzolamide 1% (Ophthalmic Suspension) 10 Ml Bottle BOTH EYES 06/21/25 15:59 1 drop
TID JOVON Administration
Fentanyl Citrate 50 mcg 05/26/25 10:26
Fentanyl (50 Mcg/Ml) 100 Mcg/2 Ml Ampul IV 06/09/25 10:25
[id number] PRN
see protocol
Protocol
Heparin Sodium 5,000 units 05/24/25 20:00 05/26/25 08:13
Heparin 5,000 Units/Ml 1 Ml Vial SC 06/21/25 19:59 5,000 units
On Hold: 05/26/25 11:26 Q12 JOVON Administration
Hydralazine HCl 5 mg 05/25/25 11:07
Hydralazine 20 Mg/Ml Vial IV 06/22/25 11:06
Q4HPRN PRN
sbp more than 165
Ampicillin Sodium/Sulbactam 60 mls @ 120 mls/hr 05/25/25 10:00 05/26/25 10:23
Sodium 1.5 gm/ Sodium Chloride IV 60 mls
Q12H JOVON Administration
Dextrose 500 mls @ 30 mls/hr 05/25/25 12:00 05/26/25 03:14
D10w IV 500 mls
.[id number] JOVON Administration
Fentanyl Citrate 1,000 mcg in 100 mls @ 0 mls/hr 05/26/25 10:30
Sublimaze IV
PER PROTOCOL JOVON
Protocol
Per Protocol
Latanoprost 0 drop 05/24/25 22:00 05/25/25 21:51
Latanoprost 0.005% (Ophthalmic Solution) 2.5 Ml Bottle BOTH EYES 06/21/25 21:59 1 drop
HS JOVON Administration
Levetiracetam 500 mg 05/24/25 14:00 05/26/25 08:13
Levetiracetam (100 Mg/Ml) 500 Mg/5 Ml Vial IV 06/21/25 13:59 500 mg
DAILY JOVON Administration
Levetiracetam 500 mg 05/25/25 20:00 05/25/25 20:24
Levetiracetam (100 Mg/Ml) 500 Mg/5 Ml Vial IV 06/22/25 19:59 500 mg
MoWeFr@1800 JOVON Administration
Metoprolol Tartrate 2.5 mg 05/25/25 16:00 05/26/25 08:14
Metoprolol 5 Mg/5 Ml Vial IV 06/22/25 15:59 2.5 mg
Q8 JOVON Administration
Midodrine 2.5 mg 05/24/25 13:00
Midodrine 2.5 Mg Tablet PO
DAILYPRN PRN
BP<140/90
Pantoprazole Sodium 40 mg 05/25/25 12:00 05/26/25 08:15
Pantoprazole Sodium 40 Mg/10 Ml Vial IV 06/22/25 11:59 40 mg
DAILY JOVON Administration
Polyethylene Glycol 17 grams 05/27/25 08:00
Polyethylene Glycol Powder 17 Grams Packet TUBE 06/24/25 07:59
DAILY JOVON
Sodium Chloride 0 drop 05/24/25 16:00 05/26/25 08:15
Sodium Chloride 5% (Ophthalmic Solution) 15 Ml Bottle BOTH EYES 06/21/25 15:59 1 drop
TID JOVON Administration
Sodium Chloride 0 flush 05/24/25 16:00
Sodium Chloride 0.9% (Flush) Syringe IV 06/21/25 15:59
PER PROTOCOL JOVON
Sodium Chloride 10 ml 05/25/25 12:00 05/26/25 08:13
Sodium Chloride 0.9% (Preservative Free) 10 Ml Vial IV 06/22/25 11:59 10 ml
DAILY JOVON Administration
Timolol Maleate 0 drop 05/24/25 16:00 05/26/25 08:15
Timolol 0.5% (Ophthalmic Solution) Bottle OPHTH 06/21/25 15:59 1 drop
TID JOVON Administration
Home Medications
�Medication �Instructions �Recorded
bimatoprost 0.01 % eye drops 1 drp BOTH EYES HS Eye condition 06/29/22
(Lumigan)
brinzolamide 1 % eye 1 drp BOTH EYES TID Eye condition 06/29/22
drops,suspension (Azopt)
calcitriol 0.25 mcg capsule 0.5 mcg PO QPM Kidney Disease 06/29/22
famotidine 20 mg tablet (Pepcid) 20 mg PO HS Gastrointestinal issue 06/29/22
netarsudil 0.02 % eye drops 1 drp BOTH EYES DAILY Eye condition 06/29/22
(Rhopressa)
pitavastatin calcium 2 mg tablet 2 mg PO MOTUWETHFR@2200 High 06/29/22
(Livalo) cholesterol
sevelamer carbonate 800 mg tablet 3,200 mg PO AC Kidney Disease 06/29/22
folic acid 1 mg tablet 1 mg PO QPM Supplement 11/23/22
midodrine 2.5 mg tablet 2.5 mg PO DAILYPRN PRN BP<140/90 11/23/22
aspirin 81 mg tablet,delayed 81 mg PO DAILY Blood Clot 02/08/23
release Prevention/Tx
brimonidine 0.2 %-timolol 0.5 % 1 drp BOTH EYES TID Eye Condition 02/08/23
eye drops (Combigan)
torsemide 20 mg tablet 80 mg PO DAILY Fluid 02/08/23
Retention/Swelling
cholecalciferol (vitamin D3) 50 50 mcg PO DAILY Supplement 05/17/23
mcg (2,000 unit) tablet (Vitamin
D3)
ranolazine 500 mg tablet,extended 500 mg PO BID Heart 05/17/23
release,12 hr Disease/Condition
sodium chloride 5 % eye drops 1 drp BOTH EYES TID Eye Condition 05/17/23
(Chris 128)
acetaminophen 650 mg 650 mg PO BID PRN Pain #0 tabs 06/11/23
tablet,extended release
isosorbide mononitrate 30 mg 30 mg PO DAILY Heart 06/11/23
tablet,extended release 24 hr disease/condition #0 tabs
metoprolol tartrate 25 mg tablet 12.5 mg PO HS Blood pressure 08/10/24
polyethylene glycol 3350 17 gram 17 g PO DAILY #30 ea 09/27/24
oral powder packet
dextran 70-hypromellose eye drops 1 drp ophthalmic (eye) PRN PRN dry 05/24/25
in a dropperette (Artificial Tears eyes
(PF) drops in a dropperette)
levetiracetam 500 mg tablet 500 mg PO MOWEFR@1800 05/24/25
levetiracetam 500 mg tablet 500 mg PO DAILY 05/24/25
(Keppra)
--- NOTE | 2025-05-26 17:57 | PTCARENOTE ---
- Patient open his eyes to sternum rub. moves b/l UE and Rt LE. RT pupil +2 sluggish to light . left pupil not reactive (chronic ) soft Restraints b/l UE to prevent pt remove ETT
-Normal Sinus Rhythm 64. BP via right forearm: 169/58 MA 92 - metoprolol 2.5 IV administer per order. No edema. S1/s2. No murmur
- Intubated: ETT: #7/24cm RT lip Vent: SAMV: 16/420/+5/40%
- Anuric, on chronic dialysis
-Dobhoff in place
-RT Upper midline : D5 10 30/hr Accu checks Q 6 hrs
[2025-05-26 19:13] LABS: Glucose - Point of Care 121 mg/dl (70-99)
[2025-05-26] MEDS: D10W IV (20:19)
[2025-05-26 23:14] LABS: Glucose - Point of Care 149 mg/dl (70-99)
[2025-05-26] MEDS: XALATAN OPHTHALMIC SOLUTION 1 DROP BOTH EYES (23:25)
[2025-05-27] VITALS (97 sets, daily range): BP systolic 52–214; BP diastolic 23–131; BMI 20.2
[2025-05-27] MEDS: NEO-SYNEPHRINE 250 IV (00:48)
--- NOTE | 2025-05-27 01:27 | PTCARENOTE ---
Pt BG 149, D10W D/C'd for now. Pt received scheduled Metoprolol 2.5mg, HR 115bpm and his BP dropped to 60/40. Car started. Metoprolol discontinued.
[2025-05-27 04:00] LABS: Hematocrit 31.4 % (39.0-52.0); Hemoglobin 10.7 g/dL (13.0-18.0); Mean Corp Hgb Conc. 34.1 g/dL (33.0-37.0); Mean Corpuscular Volume 101.3 fL (80.0-94.0); Nucleated Red Blood Cells % 0.3 % (-); Platelet Count 279 10^3/uL (130-400); Red Cell Dist. Width 14.2 % (11.5-14.5)
[2025-05-27 04:27] LABS: ALT (SGPT) 13 U/L (0-50); AST (SGOT) 20 U/L (17-59); Albumin 3.8 g/dl (3.5-5.0); Alkaline Phosphatase 73 U/L (38-126); Blood Urea Nitrogen 50 mg/dl (9-20); Calcium 9.4 mg/dl (8.4-10.2); Carbon Dioxide 26 mmol/L (22-30); Chloride 94 mmol/L (98-107); Estimated Creatinine Clearance 13 ml/min; Glucose 131 mg/dl (70-99); Magnesium 2.2 mg/dl (1.6-2.3); Potassium 4.3 mmol/L (3.5-5.1); Sodium 134 mmol/L (135-145); Total Protein 6.5 g/dl (6.3-8.2); eGFR 13.05
[2025-05-27 05:10] LABS: Glucose - Point of Care 153 mg/dl (70-99)
[2025-05-27 06:03] LABS: B.E. 1.6 mmol/L; HCO3 25.8 mmol/L (21-28); O2 Saturation % 98.2 % (94-98); PCO2 38 mmHg (35-48); PO2 168 mmHg (83-108)
--- NOTE | 2025-05-27 07:42 | PTCARENOTE ---
- 0700 patient in bed. Intubated, NOT on sedation.
- Does not open eyes to stimuli; moves b/l arms and RT leg. Slight movement left leg; strong gag reflex with cough. right pupil +2 sluggish; left pupil legally (chronic ) . Restraints b/l soft to prevent pt of pulling ETT
- Received on Car 60 mcg; SBP 177 via RT Forearm; Car turned off; Repeat BP 132/86 w MAP 101; RT arm +3 edema most likely from infiltrated RT AC which was discontinue yesterday
- ETT: #7/ RT lip; Vent settings: (S)CMV: 420/16/40%/+5; SpO2 100%; Peak 25; own RR 16 b/min. White thin secretion oral and ETT large amount
-GI: soft non tender +normal BS
-Anuric, Dialysis patient bladder scanned previous shift 200.
-Lines: R UE : midline: + blood return ; flushed, RT food # 24 capped flushed
-HOB elevated
[2025-05-27] MEDS: AZOPT 1% OPHTHALMIC SUSPENSION 1 DROP BOTH EYES ×3 (07:53→21:25)
[2025-05-27] MEDS: TIMOPTIC 0.5% OPHTHALMIC SOLUTION 1 DROP OPHTH ×3 (07:54→21:23)
[2025-05-27] MEDS: ALPHAGAN 0.2% EYE DROPS 1 DROP OPHTH ×3 (07:54→21:24)
[2025-05-27] MEDS: UNASYN IV ×2 (07:55→21:37)
[2025-05-27] MEDS: KEPPRA 500 MG IV (08:15)
[2025-05-27] MEDS: PROTONIX IV 40 MG IV (08:15)
[2025-05-27] MEDS: NSS (PRESERVATIVE FREE) 10 ML IV (08:15)
[2025-05-27] MEDS: MURO 128/ADSORBONAC 5% EYE DROPS 1 DROP BOTH EYES ×3 (08:16→21:27)
[2025-05-27] MEDS: MIRALAX 17 GRAMS TUBE (08:16)
[2025-05-27] MEDS: HEPARIN 5000 UNITS SC ×2 (08:16→20:12)
[2025-05-27] MEDS: ASPIRIN 300 MG RECTAL (08:17)
--- NOTE | 2025-05-27 08:57 | W.PN.CARDCBS ---
Today's Communication / Plan
-
He is now intubated and sedated.
He is status post large stroke and mental status is very poor.
Abnormal troponin is likely nonischemic myocardial injury.
Continue aspirin and volume removal via hemodialysis.
Continue supportive care with Car-Synephrine for his blood pressure.
Check echocardiogram, but long-term prognosis is extremely poor.
Would consider hospice/palliative care
Impression / Plan
-
Primary Research Manufacturing Operator: Dr. NEFTALI Pineda
Impression:
Admitted with change in mental status 05/24/2025
Large acute CVA
Previous admission for new onset seizures 11/2024
Debris in the trachea seen on CT 05/24/2025
Elevated troponin
CAD
NSTEMI with multivessel coronary artery disease involving left anterior descending, diagonal, OM, and small caliber PDA by cath 04/15/21
s/p stent of 3.0 mm Synergy ARIANNA mid LAD and 2.25 mm Synergy ARIANNA diagonal branch 04/17/2021
medical mgmt of residual OM/circ and PDA disease
Mild by echo 06/08/2023
ESRD on dialysis
DM 2
Diabetic neuropathy
Blindness
PAD
HTN
Hyperlipidemia
SARA on CPAP
Overweight
Former smoker
Sciatica
History of neck surgery with neuropathy
History of prostatectomy for prostate cancer 2000
Anemia of CKD
LE wounds s/p L heel debridement
Echo 04/12/21: Technically difficult study, left ventricular ejection fraction greater than 70 to 75%, wall motion analysis limited by image quality, enlarged right ventricle with normal right ventricular systolic function, calcified aortic valve with
significantly reduced leaflet excursion, accurate aortic transvalvular gradients cannot be obtained due to limited visualization poor image quality
Echo 10/09/21: LVEF 55-60%, no RWMA, mild cLVH, enlarged right ventricle with reduced RV systolic function, aortic sclerosis without stenosis, mild MS, trace MR
Echo 06/08/23: EF 60 to 65%, mild to moderate MS with mean gradient 7 mmHg, no MR, mild mean gradient 12 mmHg
Plan:
84-year-old male with past medical history of coronary artery disease and history of LAD PCI in 2020 presents with change in mental status. He also has a history of end-stage renal disease on dialysis, diabetes, neuropathy, blindness, obstructive
sleep apnea on CPAP, hypertension, hyperlipidemia, and seizures. We were asked to see him to evaluate a cardiac troponin of 0.4.
CT scan reviewed which revealed no clear aortic pathology. No carotid stenosis, bilateral small pleural effusions with possible debris in the trachea.
ECG with sinus rhythm with right bundle branch block and nonspecific T wave abnormalities
He is now intubated on the ventilator due to airway protection. MRI of the brain was reviewed. It reveals a large acute ischemic infarct in the left middle cerebral artery involving the left frontal lobe, parietal lobe, temporal lobe, and insular
cortex. There is also multiple small chronic ischemic infarcts in the right frontal, parietal, thalamic and cerebellar hemispheres.
Will check echocardiogram. His mental status remains extremely poor. I reviewed his telemetry. There is no significant atrial fibrillation. Continue to monitor.
Continues on hemodialysis.
Troponin has trended down I suspect this is a nonischemic myocardial injury. Check echocardiogram. Plan would be for conservative care
Continue antibiotics. Continue aspirin per rectum.
I suspect he may be mildly volume overloaded. I am not sure how much urine he makes on his own. continue volume removal via hemodialysis.
With large stroke, end-stage renal disease on dialysis and very poor mental status, I would recommend comfort care.
Progress Note - Research Manufacturing Operator
Subjective
Date of Service: May 27, 2025
Remains intubated and sedated.
Objective
Labs:
05/27/25 03:38
05/27/25 03:38
Labs
Hgb 10.7 g/dL (13.0-18.0) L 05/27/25 03:38
Hct 31.4 % (39.0-52.0) L 05/27/25 03:38
Plt Count 279 10^3/uL (130-400) 05/27/25 03:38
PT 13.2 Sec (11.4-14.6) 05/24/25 08:47
INR 0.95 05/24/25 08:47
APTT 27.7 Sec (23.4-35.0) 05/24/25 08:47
Sodium 134 mmol/L (135-145) L 05/27/25 03:38
Potassium 4.3 mmol/L (3.5-5.1) 05/27/25 03:38
BUN 50 mg/dl (9-20) H 05/27/25 03:38
Creatinine 4.3 mg/dL (0.7-1.3) H* 05/27/25 03:38
Glucose 131 mg/dl (70-99) H 05/27/25 03:38
Troponins
05/24/25 05/24/25
08:47 13:46
Troponin I 0.458 H* 0.384 H*
Vital Signs and I&O:
Vital Signs
Temp Pulse Resp BP Pulse Ox
99.2 F 67 16 128/55 100
05/27/25 07:17 05/27/25 08:15 05/27/25 08:15 05/27/25 08:00 05/27/25 08:15
Vital Signs
Temp Pulse Resp BP Pulse Ox
99.2 F 67 16 128/55 100
05/27/25 07:17 05/27/25 08:15 05/27/25 08:15 05/27/25 08:00 05/27/25 08:15
Intake & Output
05/25/25 05/26/25 05/27/25 05/28/25
06:59 06:59 06:59 06:59
Intake Total 150 / 150 366 / 366 0 / 0
Balance 150 / 150 366 / 366 0 / 0
Physical Exam
Physical Exam
GEN: No distress, intubated
HEENT: supple, anicteric, mmm, ET tube
LUNGS: CTA, no wheezes/rales
CV: Reg, S1/S2, 1/6 syst LSB, no gallop
ABD: soft, BS+, NT/ND
EXT: No edema
NEURO: unable to assess
SKIN: No rash
--- NOTE | 2025-05-27 09:30 | W.PN.INTV ---
Today's Communication / Plan
Recommendations
- Resume rectal aspirin and subcu heparin
- Advance tube feeding to goal
- Daily SAT/SBT
- Ongoing goals of care discussions
Assessment
-
84-year-old former smoking male with underlying CAD, prostate cancer, SVT, CVA 2021, hypertension, hyperlipidemia, diabetes, hypothyroid, seizure disorder, anxiety who presented poorly responsive with new onset weakness on the right side and
possible aspiration event-pulmonary consulted for possible aspiration 05/25/2025.
05/26, patient noted to be essentially unresponsive. Minimal withdrawal to sternal rub. Continued to be on BiPAP. Upon attempting to take BiPAP off, patient noted to have paradoxical breathing with shallow rapid breaths. Also tongue Dropping in
the back and I could hear audible rattling secretions. Patient emergently transferred to ICU and intubated for airway protection 05/26.
#1. Acute stroke, large, with worsening encephalopathy
- Neurology service on case
- Mental status continues to be very poor, patient was unable to protect airway, had been on BiPAP for more than 24 hours with ongoing aspiration, intubated 05/26
- Has been on IV Keppra, continue. Await further neurology recommendations
- Follow-up CT with evolving infarction, no hemorrhagic conversion noted
- Ceribell (bedside EEG) without evidence of nonconvulsive seizure activity. Discontinue EEG
- Resume aspirin rectally and subcu heparin for DVT prophylaxis considering CTs without any hemorrhagic conversion.
- Avoid sedation, as needed fentanyl pushes only
#2. Acute respiratory failure, aspiration pneumonia, inability to protect airway
-Suspect it is in the setting of large stroke
-05/26, patient transferred to ICU, emergently intubated and mechanically ventilated. Thick crusted secretions noted in the posterior pharynx as well as covering the vocal cords and into the tracheal lumen
-Head end elevated, placed Keofeed tube, continue tube feeding
-Continue Unasyn for aspiration pneumonia
-Fentanyl as needed and subsequent infusion for sedation if needed
-Daily SAT SBT
#3. H/o SARA
- Currently intubated, mechanically ventilated. Uses CPAP at baseline.
- Patient follows up with [facility] pulmonary clinic, last saw Dr. Arvizu in 2022
#4. H/o Seizures:
- Continue Keppra
- Bedside EEG
Goals of care discussion, 05/26: Met with patient's spouse at bedside. Patient's prognosis is poor. With large stroke noted on imaging, patient's mental status may not improve enough to be successfully weaned from ventilator. We discussed the
option of pursuing more comfort focused, palliative care. We also discussed that in the event patient is unable to be weaned off ventilator, options will include long-term ventilatory support via tracheostomy and feeding tube versus reconsideration
of more palliative approach. Patient's wants to discuss further with the family and at this point requests intubation and mechanical ventilation and see how patient does over the next 24 to 48 hours.
GI prophylaxis. IV Protonix
DVT prophylaxis. Hold subcu heparin pending CT
Other medical diagnoses:
- End-stage renal disease, on hemodialysis. Nephrology service on case
- UTI, on antibiotic
- Minimally elevated troponin. Suspect secondary to acute critical illness with large volume stroke, aspiration. Cardiology service on case
- H/o CAD, s/p PCI in 2020
- Hypothyroidism
- Hypertension, hyperlipidemia
- Prior history of smoking
- History of prostatectomy for CA prostate
- Blindness
- Diabetes mellitus
Critical Care time 38 mins -- The patient is admitted for acute critical illness for the treatment of vital organ failure and/or prevention of further life-threatening conditions. Total care includes time spent in review of history, physical exam,
medications, hemodynamic/ventilator parameters, laboratory data, imaging and discussion with house staff, pharmacy, respiratory therapy, piano refinisher, and nursing.
Last saw in the office 11/05/2022 and has not followed up since-patient is to call CPAP was not functioning September 2024-told patient needed to be seen prior to new CPAP equipment prescription
Diagnostic data:
CT Head 05/24/25: There are moderate changes of cortical atrophy and chronic ischemic disease. There are no acute findings. ASPECT score: 10.
CTA Head/Neck 05/24/25: No evidence of large vessel occlusion, or arterial dissection. Bilateral carotid bulb plaque, associated with less than 50% stenosis on each side. Small bilateral pleural effusions, partially imaged. Small amount of debris
within the trachea, extending into the right mainstem bronchus. Please correlate for symptoms of aspiration. 1.9 cm left thyroid nodule. Consider nonemergent thyroid ultrasound for further characterization.
Echo 04/12/21: Technically difficult study, left ventricular ejection fraction greater than 70 to 75%, wall motion analysis limited by image quality, enlarged right ventricle with normal right ventricular systolic function, calcified aortic valve with
significantly reduced leaflet excursion, accurate aortic transvalvular gradients cannot be obtained due to limited visualization poor image quality
Echo 10/09/21: LVEF 55-60%, no RWMA, mild cLVH, enlarged right ventricle with reduced RV systolic function, aortic sclerosis without stenosis, mild MS, trace MR
Echo 06/08/23: EF 60 to 65%, mild to moderate MS with mean gradient 7 mmHg, no MR, mild mean gradient 12 mmHg
Subjective Dataa
Subjective Data
Date of Service:
Date of Service: May 27, 2025
Subjective:
Patient currently intubated, mechanically ventilated.
Review of Systems
General: Unobtainable - Pat Unresp
Objective Data
Data Reviewed
Vital Signs / I&O / Oxygen:
Vital Signs
Temp Pulse Resp BP Pulse Ox
99.2 F 67 16 128/55 100
05/27/25 07:17 05/27/25 08:15 05/27/25 08:15 05/27/25 08:00 05/27/25 08:15
Intake and Output
05/26/25 05/27/25 05/28/25
06:59 06:59 06:59
Intake Total 150 / 150 366 / 366 0 / 0
Balance 150 / 150 366 / 366 0 / 0
SaO2 [A/C] 97
SaO2 [SIMV] 99
SaO2 100
Nasal Cannula flow liters per 4
minute
Physical Exam
General: Comfortable
HEENT: Normocephalic
Cardiovascular: S1-S2
Respiratory: Clear
GI: Soft and Non Distended
Neurology: Other (Minimally responsive, withdraws to pain)
Skin: Warm
Labs/Micro/Reports
Lab Data
05/27/25 03:38
05/27/25 03:38
Laboratory Results
05/26/25 05/27/25
11:44 05:50
pH 7.50 H 7.44
pCO2 36 38
pO2 364 H 168 H
HCO3 28.1 H 25.8
O2 Delivery Level
Microbiology
05/24/25 21:53 Blood/Venous Blood Culture - Preliminary
Staphylococcus species
05/24/25 21:53 Blood/Venous Gram Stain - Preliminary
05/24/25 22:33 Nose MRSA Screen - Final
No Methicillin Resistant Staphylococcus aureus isolated.
05/24/25 13:46 Urine Urine Culture - Final
Escherichia coli
05/24/25 13:46 Nasal Swab Influenza Types A & B (CHAVEZ) - Final
Negative for Influenza A & B, NAAT
Negative results must be combined with clinical observations
and patient history.
Nucleic Acid Amplification test (NAAT)performed on the
[employer] platform.
--- NOTE | 2025-05-27 09:47 | W.PN.HOSP.TC ---
Today's Communication/Plan
-
Unresponsive, no improvement, off sedation
Instability in BP
Tube feeding
Assessment / Plan
Assessment / Plan
Physical Exam
General: not responsive or talkative , on Bi pap
HEENT: Moist mucous membrane, BiPAP on
Respiratory: Limited with BiPAP on.
Cardiac: S1/S2, Regular Rhythm and Murmur (2/6 systolic murmur, best heard in lower sternal border.);
GI: Soft, Non Tender, Non Distended and Normal Bowel Sounds
Genito-urinary: No Maguire
Musculoskeletal: No Clubbing, No Cyanosis, Edema, Left Upper Extremity (Dialysis fistula noted, positive thrill.) and No Edema
Skin: Warm
Neuro: Patient is still not responsive , purposeless movements in upper and lower extremities at times.
Psych: Lethargic
Assessment and plan
# Acute very large ischemic stroke in middle cerebral territory with coma
Out of Window for thrombolytics as it was a wake up unresponsiveness situation
Negative EEG & monitoring for seizures
c/w rectal aspirin
Feeding tube
Off sedation and unresponsive
BP seems to fluctuate, needed Car-Synephrine at one point post intubation, BP is elevated without drips. Blood pressure instability could be secondary to impaired brain function/ central post large stroke.
c/w IV Keppra
c/w supportive care
Will need to continue goal of care discussion with family. Poor prognosis
Appreciate ICU doctor help
# No debris in trachea per CT chest
# Aspiration PNA
c/w IV Abx for 5 days for PNA/ Urine colonization
Blood culture showed contamination,
Repeat blood cultures, no fevers , no leukocytosis
# Chronic HFpEF, not in acute failure
# SARA
Intubated now
# Urine colonization with E Coli, damon- sensitive microbe, c/w IV Abx which will help if it is real infection.
# End-stage renal disease on hemodialysis, Wednesday. Continue midodrine as needed. f/w nephrology. Patient is known to our service.
No issues with dialysis fistula/access.
# Hypoglycemia
c/w dextrose gtt then start tube feeding
# Abnormal troponin is likely nonischemic myocardial injury
He had Positive troponin, abnormal EKG changes.
H xof CAD
c/w BB as BP tolerates
Continue with aspirin. DVT prophylaxis. Consulted contract paralegal, order echo, recommend hospice care. Primary contract paralegal Dr. Mike Pineda.
No history of chest pain per
# Anemia of chronic disease
# Hyponatremia
# Full code per , will c/w discussion of GOC.
Total time spent to see the patient, examined the patient, discussed treatment plan with patient, family, consultants, nursing staff around 57 minutes
Anticipated Discharge: > 48 hours
Subjective/Interval History
-
Date of Service: May 27, 2025
Remains unresponsive
Intubated
Afebrile
Objective Data
-
Labs:
Laboratory Results
05/27/25 05/27/25
03:38 05:50
WBC 7.3
Hgb 10.7 L
Hct 31.4 L
Plt Count 279
HCO3 25.8
Sodium 134 L
Potassium 4.3
Chloride 94 L
Carbon Dioxide 26
BUN 50 H
Creatinine 4.3 H*
Glucose 131 H
Calcium 9.4
Total Bilirubin 1.2
AST 20
ALT 13
Alkaline Phosphatase 73
Vital Signs:
Vital Signs
Temp Pulse Resp BP Pulse Ox
99.2 F 67 16 128/55 100
05/27/25 07:17 05/27/25 08:15 05/27/25 08:15 05/27/25 08:00 05/27/25 08:15
I&O
05/26/25 05/27/25 05/28/25
06:59 06:59 06:59
Intake Total 150 / 150 366 / 366 0 / 0
Balance 150 / 150 366 / 366 0 / 0
--- NOTE | 2025-05-27 10:44 | W.PN.NEURO.1 ---
Today's Communication / Plan
-
The patient was seen and examined today. The patient is intubated however he is not sedated at this time.
The right pupil is reactive to light, the left pupil does not react to light possibly because of corneal opacity.
The corneal reflexes were present bilaterally.
The plan is to continue supportive care.
Prognosis is guarded to poor. Discussed with ICU team.
The family was not available today to discuss further management plan including the CODE STATUS, however I had a detailed discussion with the patient's and the caregiver yesterday, regarding the assessment and the management plan. Discussed
with ICU team.
Subjective/Objective
Subjective Data
Date of Service: May 27, 2025
The patient had a VERY LARGE ACUTE ISCHEMIC INFARCT in the LEFT MIDDLE CEREBRAL ARTERY TERRITORY. The MRI of the brain showed that the patient had multiple strokes which are bilateral and appear to be secondary to emboli, likely cardioemboli.
The plan is to give aspirin 300 mg daily per rectum.
Continue Keppra for history of seizures.
Seizure precautions.
Today, was unresponsive, and he is status post intubation for airway protection.
The patient is being treated for aspiration pneumonia. He also has end-stage renal disease and is on hemodialysis.
TODAY:
The patient was seen and examined today. The patient is intubated however he is not sedated at this time.
The right pupil is reactive to light, the left pupil does not react to light possibly because of corneal opacity.
The corneal reflexes were present bilaterally.
The plan is to continue supportive care.
The family was not available today to discuss further management plan including the CODE STATUS, however I had a detailed discussion with the patient's and the caregiver yesterday, regarding the assessment and the management plan. Discussed
with ICU team.
Objective Data
Vital Signs
Temp Pulse Resp BP Pulse Ox
37.3 C 67 16 128/55 100
05/27/25 07:17 05/27/25 08:15 05/27/25 08:15 05/27/25 08:00 05/27/25 08:15
Lab Results
05/27/25 03:38
05/27/25 03:38
PT 13.2 Sec (11.4-14.6) 05/24/25 08:47
INR 0.95 05/24/25 08:47
APTT 27.7 Sec (23.4-35.0) 05/24/25 08:47
Sodium 134 mmol/L (135-145) L 05/27/25 03:38
Potassium 4.3 mmol/L (3.5-5.1) 05/27/25 03:38
BUN 50 mg/dl (9-20) H 05/27/25 03:38
Glucose 131 mg/dl (70-99) H 05/27/25 03:38
Calcium 9.4 mg/dl (8.4-10.2) 05/27/25 03:38
Mml-N-Wujhywrrexh Pept Cancelled 05/24/25 11:04
Ur Buprenorphine Negative (Negative) 05/24/25 13:46
Patient Allergies
adhesive tape Allergy (Verified 09/25/24 02:00)
blisters if kept on for long time;rash
ciprofloxacin (From Cipro) Allergy (Verified 09/25/24 02:00)
burning of vein from IV
erythromycin base Allergy (Verified 09/25/24 02:00)
Hives
lisinopril Allergy (Verified 09/25/24 02:00)
cough
tetracycline Allergy (Verified 09/25/24 02:00)
Hives
tigecycline (From Tygacil) Allergy (Verified 09/25/24 02:00)
patient unaware of this allergy
Vital Signs and Labs
-
Vital Signs and Labs:
Vital Signs
Temp Pulse Resp BP Pulse Ox
36.9 C 68 16 150/57 100
05/27/25 11:55 05/27/25 12:32 05/27/25 12:32 05/27/25 12:32 05/27/25 15:08
Lab Results
05/27/25 03:38
05/27/25 03:38
PT 13.2 Sec (11.4-14.6) 05/24/25 08:47
INR 0.95 05/24/25 08:47
APTT 27.7 Sec (23.4-35.0) 05/24/25 08:47
Sodium 134 mmol/L (135-145) L 05/27/25 03:38
Potassium 4.3 mmol/L (3.5-5.1) 05/27/25 03:38
BUN 50 mg/dl (9-20) H 05/27/25 03:38
Glucose 131 mg/dl (70-99) H 05/27/25 03:38
Calcium 9.4 mg/dl (8.4-10.2) 05/27/25 03:38
Ekt-K-Cdwhptextbv Pept Cancelled 05/24/25 11:04
Ur Buprenorphine Negative (Negative) 05/24/25 13:46
Medications
-
Active Medications
Generic Name Dose Route Start Last Admin
Trade Name Freq PRN Reason Stop Dose Admin
Acetaminophen 650 mg 05/24/25 13:32
Acetaminophen 650 Mg Rectal Suppository RECTAL 06/21/25 13:31
Q6HPRN PRN
pain/fever
Aspirin 300 mg 05/25/25 12:00 05/27/25 08:17
Aspirin 300 Mg Rectal Suppository RECTAL 06/22/25 11:59 300 mg
DAILY JOVON Administration
Brimonidine Tartrate 0 drop 05/24/25 16:00 05/27/25 07:54
Brimonidine 0.2% (Ophthalmic Solution) Bottle OPHTH 06/21/25 15:59 1 drop
TID JOVON Administration
Brinzolamide 0 drop 05/24/25 16:00 05/27/25 07:53
Brinzolamide 1% (Ophthalmic Suspension) 10 Ml Bottle BOTH EYES 06/21/25 15:59 1 drop
TID JOVON Administration
Fentanyl Citrate 50 mcg 05/26/25 10:26 05/26/25 16:00
Fentanyl (50 Mcg/Ml) 100 Mcg/2 Ml Ampul IV 06/09/25 10:25 50 mcg
[id number] PRN Administration
see protocol
Protocol
Heparin Sodium 5,000 units 05/24/25 20:00 05/27/25 08:16
Heparin 5,000 Units/Ml 1 Ml Vial SC 06/21/25 19:59 5,000 units
Q12 JOVON Administration
Hydralazine HCl 5 mg 05/25/25 11:07
Hydralazine 20 Mg/Ml Vial IV 06/22/25 11:06
Q4HPRN PRN
sbp more than 165
Ampicillin Sodium/Sulbactam 60 mls @ 120 mls/hr 05/25/25 10:00 05/27/25 07:55
Sodium 1.5 gm/ Sodium Chloride IV 60 mls
Q12H JOVON Administration
Fentanyl Citrate 1,000 mcg in 100 mls @ 0 mls/hr 05/26/25 10:30
Sublimaze IV
PER PROTOCOL JOVON
Protocol
Per Protocol
Phenylephrine HCl 50 mg in 250 mls @ 0 mls/hr 05/27/25 00:45 05/27/25 00:48
Car-Synephrine IV 250 mls
PER PROTOCOL JOVON Administration
Protocol
Per Protocol
Latanoprost 0 drop 05/24/25 22:00 05/26/25 23:25
Latanoprost 0.005% (Ophthalmic Solution) 2.5 Ml Bottle BOTH EYES 06/21/25 21:59 1 drop
HS JOVON Administration
Levetiracetam 500 mg 05/24/25 14:00 05/27/25 08:15
Levetiracetam (100 Mg/Ml) 500 Mg/5 Ml Vial IV 06/21/25 13:59 500 mg
DAILY JOVON Administration
Levetiracetam 500 mg 05/25/25 20:00 05/25/25 20:24
Levetiracetam (100 Mg/Ml) 500 Mg/5 Ml Vial IV 06/22/25 19:59 500 mg
MoWeFr@1800 JOVON Administration
Mannitol 12.5 grams 05/28/25 08:00
Mannitol 25% (12.5 Grams/50 Ml) Vial IV 05/28/25 23:59
HD-Q1HPRN PRN
SBP < 90 mmHg
Midodrine 2.5 mg 05/24/25 13:00
Midodrine 2.5 Mg Tablet PO
DAILYPRN PRN
BP<140/90
Pantoprazole Sodium 40 mg 05/25/25 12:00 05/27/25 08:15
Pantoprazole Sodium 40 Mg/10 Ml Vial IV 06/22/25 11:59 40 mg
DAILY JOVON Administration
Polyethylene Glycol 17 grams 05/27/25 08:00 05/27/25 08:16
Polyethylene Glycol Powder 17 Grams Packet TUBE 06/24/25 07:59 17 grams
DAILY JOVON Administration
Sodium Chloride 0 drop 05/24/25 16:00 05/27/25 08:16
Sodium Chloride 5% (Ophthalmic Solution) 15 Ml Bottle BOTH EYES 06/21/25 15:59 1 drop
TID JOVON Administration
Sodium Chloride 0 flush 05/24/25 16:00
Sodium Chloride 0.9% (Flush) Syringe IV 06/21/25 15:59
PER PROTOCOL JOVON
Sodium Chloride 10 ml 05/25/25 12:00 05/27/25 08:15
Sodium Chloride 0.9% (Preservative Free) 10 Ml Vial IV 06/22/25 11:59 10 ml
DAILY JOVON Administration
Timolol Maleate 0 drop 05/24/25 16:00 05/27/25 07:54
Timolol 0.5% (Ophthalmic Solution) Bottle OPHTH 06/21/25 15:59 1 drop
TID JOVON Administration
Home Medications
�Medication �Instructions �Recorded
bimatoprost 0.01 % eye drops 1 drp BOTH EYES HS Eye condition 06/29/22
(Lumigan)
brinzolamide 1 % eye 1 drp BOTH EYES TID Eye condition 06/29/22
drops,suspension (Azopt)
calcitriol 0.25 mcg capsule 0.5 mcg PO QPM Kidney Disease 06/29/22
famotidine 20 mg tablet (Pepcid) 20 mg PO HS Gastrointestinal issue 06/29/22
netarsudil 0.02 % eye drops 1 drp BOTH EYES DAILY Eye condition 06/29/22
(Rhopressa)
pitavastatin calcium 2 mg tablet 2 mg PO MOTUWETHFR@2200 High 06/29/22
(Livalo) cholesterol
sevelamer carbonate 800 mg tablet 3,200 mg PO AC Kidney Disease 06/29/22
folic acid 1 mg tablet 1 mg PO QPM Supplement 11/23/22
midodrine 2.5 mg tablet 2.5 mg PO DAILYPRN PRN BP<140/90 11/23/22
aspirin 81 mg tablet,delayed 81 mg PO DAILY Blood Clot 02/08/23
release Prevention/Tx
brimonidine 0.2 %-timolol 0.5 % 1 drp BOTH EYES TID Eye Condition 02/08/23
eye drops (Combigan)
torsemide 20 mg tablet 80 mg PO DAILY Fluid 02/08/23
Retention/Swelling
cholecalciferol (vitamin D3) 50 50 mcg PO DAILY Supplement 05/17/23
mcg (2,000 unit) tablet (Vitamin
D3)
ranolazine 500 mg tablet,extended 500 mg PO BID Heart 05/17/23
release,12 hr Disease/Condition
sodium chloride 5 % eye drops 1 drp BOTH EYES TID Eye Condition 05/17/23
(Chris 128)
acetaminophen 650 mg 650 mg PO BID PRN Pain #0 tabs 06/11/23
tablet,extended release
isosorbide mononitrate 30 mg 30 mg PO DAILY Heart 06/11/23
tablet,extended release 24 hr disease/condition #0 tabs
metoprolol tartrate 25 mg tablet 12.5 mg PO HS Blood pressure 08/10/24
polyethylene glycol 3350 17 gram 17 g PO DAILY #30 ea 09/27/24
oral powder packet
dextran 70-hypromellose eye drops 1 drp ophthalmic (eye) PRN PRN dry 05/24/25
in a dropperette (Artificial Tears eyes
(PF) drops in a dropperette)
levetiracetam 500 mg tablet 500 mg PO MOWEFR@1800 05/24/25
levetiracetam 500 mg tablet 500 mg PO DAILY 05/24/25
(Keppra)
[2025-05-27 12:10] LABS: Glucose - Point of Care 113 mg/dl (70-99)
--- NOTE | 2025-05-27 15:37 | W.PN.NEPH.PH ---
Today's Communication / Plan
-
Dialysis tomorrow
Assessment/Plan
-
Assessment:
Change in mental status/rule out stroke/seizure/toxic metabolic encephalopathy
History of seizure disorder
Debris's in the trachea. Suspect aspiration.
Positive troponin, abnormal EKG changes.
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
History CVA
Chronic cerebrovascular disease
Left brachiobasilic AV fistula
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
Hypertension with orthostatic hypotension in setting of advanced diabetes mellitus
Advanced diabetic retinopathy/neuropathy/blindness
Chronic pain
Anemia of CKD
Secondary hyperparathyroidism
SARA on CPAP
Cervical cord compression with LLE Weakness
odontoid fx-c collar
Ambulatory dysfunction
Hyperphosphatemia
Multivessel CAD and severe PAD
Blind
Bilateral sensorineural hearing loss
Plan
Remains encephalopathic
MRI brain = large left ischemic infarct
Discussed with critical care hospitalist and family as patient's prognosis guarded to poor.
Mechanical ventilation for airway protection
goals of cares being discussed
He is for dialysis tomorrow but but futile at this point, unfortunately. Will continue until told otherwise as he is hemodynamically stable
d/w family at bedside

33 minutes critical care time
-
-
Date of Service: May 27, 2025
CC / HPI / ROS
-
Chief Complaint:
Altered mental
History of Present Illness:
ESRD with altered mental status acute CVA
Review of Systems:
Unobtainable/encephalopathic intubated
Labs
-
Labs:
WBC 7.3 10^3/uL (4.8-10.8) 05/27/25 03:38
RBC 3.10 10^6/uL (4.70-6.10) L 05/27/25 03:38
Hgb 10.7 g/dL (13.0-18.0) L 05/27/25 03:38
Hct 31.4 % (39.0-52.0) L 05/27/25 03:38
Plt Count 279 10^3/uL (130-400) 05/27/25 03:38
Sodium 134 mmol/L (135-145) L 05/27/25 03:38
Potassium 4.3 mmol/L (3.5-5.1) 05/27/25 03:38
Chloride 94 mmol/L (98-107) L 05/27/25 03:38
Carbon Dioxide 26 mmol/L (22-30) 05/27/25 03:38
BUN 50 mg/dl (9-20) H 05/27/25 03:38
Creatinine 4.3 mg/dL (0.7-1.3) H* 05/27/25 03:38
eGFR 13.05 05/27/25 03:38
Glucose 131 mg/dl (70-99) H 05/27/25 03:38
Calcium 9.4 mg/dl (8.4-10.2) 05/27/25 03:38
Lmh-M-Focskjrdaag Pept Cancelled 05/24/25 11:04
Albumin 3.8 g/dl (3.5-5.0) 05/27/25 03:38
Physical Exam
-
Vital Signs:
Vital Signs
Temp Pulse Resp BP Pulse Ox
98.4 F 68 16 150/57 100
05/27/25 11:55 05/27/25 12:32 05/27/25 12:32 05/27/25 12:32 05/27/25 15:08
[2025-05-27] MEDS: SUBLIMAZE 50 MCG IV ×2 (16:52→20:11)
--- NOTE | 2025-05-27 18:14 | W.RAPID.EEG ---
Rapid EEG
-
Procedure Date: 05/27/25
Results:
IMPRESSION:
No evidence of status epilepticus
Diagnostic Recording Time: 18:01:12 (1081 minutes)
Recording 1:
Start Time: May 26, 2025 14:21 PM End Time: May 27, 2025 08:22 AM
Recording Technique: This EEG was obtained using a 10 lead, 8 channel system positioned circumferentially without any parasagittal coverage (rapid EEG).Computer selected EEG is reviewed as well as background features and all clinically significant
events. Clarity algorithm utilized and implemented to provide analysis of underlying activity and seizure detection used to facilitate reading. ICD-10 Code OM72O40
Clinical History: EVELIN RICHARDSON is a 84 year old Prior Seizure patient undergoing EEG to screen for non-convulsive status epilepticus.
Disclaimer: EEG findings should be interpreted in the context of clinical history and other tests. A normal EEG does not rule out epilepsy or other conditions, and an abnormal EEG is not diagnostic on its own. Technical factors may affect
interpretation. Clinical context is required.
[2025-05-27 18:48] LABS: Glucose - Point of Care 87 mg/dl (70-99)
--- NOTE | 2025-05-27 19:03 | PTCARENOTE ---
Repaints intubated , off sedation. Fentanyl 50 IV push prn given x 1 during this shift for vent dysrhythmia.
No change neuro assessment
Normal Sinus Rhythm on telemetry 65; BP via RT Forearm fluctuates between SbP : 139 to 163;
HOB elevated
[2025-05-27] MEDS: XALATAN OPHTHALMIC SOLUTION 1 DROP BOTH EYES (21:26)
[2025-05-27] MEDS: APRESOLINE 5 MG IV (21:37)
[2025-05-27 23:12] LABS: Glucose - Point of Care 103 mg/dl (70-99)
[2025-05-28] VITALS (53 sets, daily range): BP systolic 98–199; BP diastolic 47–105; BMI 20.1
--- NOTE | 2025-05-28 00:01 | PTCARENOTE ---
Pt intubated, not sedated. GCS fluctuating 7-9 this shift. Inconsistent but opens eyes to voice, looks toward right side (toward voice). Right pupil 2 sluggish, left eye completely white. LUE 2/5, 3/5 in all other 3 extremities. Pt seen reaching up
for ETT with RUE, restraints in place for safety. PRN fentanyl for pain, given once so far this shift. Afebrile. NSR on monitor. 60-70. BP 140-150, with Hydralazine PRN if sustained systolic 160. Midline in RUE, PIV in RLE. #7 ett @24. AC
40%/16/420/5, sat 99%. DHT in left nare at 63, awaiting dietary recs. Incontinent of bowels. Anuric. HD scheduled for Wednesday. Will monitor.
[2025-05-28 03:28] LABS: Hematocrit 28.8 % (39.0-52.0); Hemoglobin 9.8 g/dL (13.0-18.0); Mean Corp Hgb Conc. 34.0 g/dL (33.0-37.0); Mean Corpuscular Volume 101.1 fL (80.0-94.0); Platelet Count 223 10^3/uL (130-400); Red Cell Dist. Width 14.3 % (11.5-14.5)
[2025-05-28 03:47] LABS: Blood Urea Nitrogen 63 mg/dl (9-20); Calcium 9.2 mg/dl (8.4-10.2); Carbon Dioxide 25 mmol/L (22-30); Chloride 96 mmol/L (98-107); Estimated Creatinine Clearance 11 ml/min; Glucose 95 mg/dl (70-99); Potassium 4.2 mmol/L (3.5-5.1); Sodium 134 mmol/L (135-145); eGFR 10.64
[2025-05-28 04:59] LABS: B.E. 0.5 mmol/L; HCO3 24.3 mmol/L (21-28); O2 Saturation % 98.7 % (94-98); PCO2 35 mmHg (35-48); PO2 294 mmHg (83-108)
[2025-05-28 05:13] LABS: Glucose - Point of Care 107 mg/dl (70-99)
--- NOTE | 2025-05-28 05:55 | PTCARENOTE ---
AM care provided. No change in previous assessment. Will monitor.
[2025-05-28] MEDS: APRESOLINE 5 MG IV (06:37)
--- NOTE | 2025-05-28 07:42 | W.PN.NEPH.PH ---
Today's Communication / Plan
-
Dialysis today,'s unless family pulls support
Assessment/Plan
-
Assessment:
Change in mental status/rule out stroke/seizure/toxic metabolic encephalopathy
History of seizure disorder
Debris's in the trachea. Suspect aspiration.
Positive troponin, abnormal EKG changes.
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
History CVA
Chronic cerebrovascular disease
Left brachiobasilic AV fistula
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
Hypertension with orthostatic hypotension in setting of advanced diabetes mellitus
Advanced diabetic retinopathy/neuropathy/blindness
Chronic pain
Anemia of CKD
Secondary hyperparathyroidism
SARA on CPAP
Cervical cord compression with LLE Weakness
odontoid fx-c collar
Ambulatory dysfunction
Hyperphosphatemia
Multivessel CAD and severe PAD
Blind
Bilateral sensorineural hearing loss
Plan
Remains encephalopathic
MRI brain = large left ischemic infarct
previously discussed with critical care hospitalist and family as patient's prognosis guarded to poor.
Mechanical ventilation for airway protection
goals of cares being discussed
He is for dialysis today but but futile at this point, unfortunately. Will continue until told otherwise as he is hemodynamically stable
patient critically ill in setting of evolving CVA requiring mechanical ventilation, 31 minutes critical care time spent with patient
d/w family at bedside

33 minutes critical care time
-
-
Date of Service: May 28, 2025
CC / HPI / ROS
-
Chief Complaint:
Altered mental
History of Present Illness:
ESRD with altered mental status acute CVA Wednesday
Remains intubated with FiO2 40%
Remains on IV hydralazine for baseline hemodynamic viability
Review of Systems:
Intubated with stable FiO2
No fevers
Unobtainable/encephalopathic intubated
Labs
-
Labs:
WBC 6.6 10^3/uL (4.8-10.8) 05/28/25 02:56
RBC 2.85 10^6/uL (4.70-6.10) L 05/28/25 02:56
Hgb 9.8 g/dL (13.0-18.0) L 05/28/25 02:56
Hct 28.8 % (39.0-52.0) L 05/28/25 02:56
Plt Count 223 10^3/uL (130-400) D 05/28/25 02:56
Sodium 134 mmol/L (135-145) L 05/28/25 02:56
Potassium 4.2 mmol/L (3.5-5.1) 05/28/25 02:56
Chloride 96 mmol/L (98-107) L 05/28/25 02:56
Carbon Dioxide 25 mmol/L (22-30) 05/28/25 02:56
BUN 63 mg/dl (9-20) H 05/28/25 02:56
Creatinine 5.1 mg/dL (0.7-1.3) H* 05/28/25 02:56
eGFR 10.64 05/28/25 02:56
Glucose 95 mg/dl (70-99) 05/28/25 02:56
Calcium 9.2 mg/dl (8.4-10.2) 05/28/25 02:56
Eki-G-Wwuljorcliw Pept Cancelled 05/24/25 11:04
Albumin 3.8 g/dl (3.5-5.0) 05/27/25 03:38
Physical Exam
-
Vital Signs:
Vital Signs
Temp Pulse Resp BP Pulse Ox
97.5 F 66 0 173/55 98
05/28/25 07:28 05/28/25 06:37 05/28/25 05:45 05/28/25 06:37 05/28/25 05:45
Cardiovascular:: Regular rate and rhythm (Tachycardic)
Respiratory:: Bilateral: Coarse
Lung Excursion:: Normal
Abdomen:: Nontender and Soft
Bowel Sounds:: Decreased
Extremity Edema:: +1: Bilateral:
Maguire Catheter: No
Other Findings::
General: poorly responsive intubated
--- NOTE | 2025-05-28 08:18 | W.PN.INTV ---
Today's Communication / Plan
Recommendations
- Today I had an extensive goals of care discussion with patient's + son, and plan to withdraw care tomorrow once additional family members arrive from out of
- Rectal aspirin and subcu heparin
- Given that we are going to be withdrawing care tomorrow, no need for tube feeds at the
- Daily SAT/SBT, currently unresponsive
- Can once ready to terminally extubate, then stop all medications unless tailored for comfort
Assessment
-
84-year-old former smoking male with underlying CAD, prostate cancer, SVT, CVA 2021, hypertension, hyperlipidemia, diabetes, hypothyroid, seizure disorder, anxiety who presented poorly responsive with new onset weakness on the right side and
possible aspiration event-pulmonary consulted for possible aspiration 05/25/2025.
05/26, patient noted to be essentially unresponsive. Minimal withdrawal to sternal rub. Continued to be on BiPAP. Upon attempting to take BiPAP off, patient noted to have paradoxical breathing with shallow rapid breaths. Also tongue Dropping in
the back and I could hear audible rattling secretions. Patient emergently transferred to ICU and intubated for airway protection 05/26.
#1. Acute ischemic infarct involving the left MCA territory
- Neurology service on case
- Mental status had been poor, patient was unable to protect airway, had been on BiPAP for more than 24 hours with ongoing aspiration, intubated 05/26
- Has been on IV Keppra, continue. Defer AEDs to neuro
- Follow-up CT (last performed 05/26/2025) with evolving infarction, no hemorrhagic conversion noted
- Ceribell (bedside EEG) without evidence of nonconvulsive seizure activity. Discontinued EEG
- Resume aspirin rectally and subcu heparin for DVT prophylaxis considering CTs without any hemorrhagic conversion.
- Avoid sedation, as needed fentanyl pushes only
#2. Acute respiratory failure, aspiration pneumonia, inability to protect airway
-Suspect it is in the setting of large stroke
-05/26, patient transferred to ICU, emergently intubated and mechanically ventilated. Thick crusted secretions noted in the posterior pharynx as well as covering the vocal cords and into the tracheal lumen
-Head end elevated; no need for tube feeds as plan to withdraw care tomorrow
-Continue Unasyn for aspiration pneumonia - would plan for 6-7 days ABx total
-Fentanyl as needed, however limit sedation to help prognosticate
-Daily SAT SBT if clinically appropriate
#3. H/o SARA
- Currently intubated, mechanically ventilated. Uses CPAP at baseline.
- Patient follows up with [facility] pulmonary clinic, last saw Dr. Arvizu in 2022
#4. H/o Seizures:
- Continue Keppra
- Currently has no seizure activity he, and cranial nerve function intact however he does remain apneic when he is placed onto an SBT
Goals of care discussion with Dr. Christian, 05/26: Met with patient's spouse at bedside. Patient's prognosis is poor. With large stroke noted on imaging, patient's mental status may not improve enough to be successfully weaned from ventilator. We
discussed the option of pursuing more comfort focused, palliative care. We also discussed that in the event patient is unable to be weaned off ventilator, options will include long-term ventilatory support via tracheostomy and feeding tube versus
reconsideration of more palliative approach. Patient's wants to discuss further with the family and at this point requests intubation and mechanical ventilation and see how patient does over the next 24 to 48 hours.
GI prophylaxis. IV Protonix
DVT prophylaxis. HSQ
Other medical diagnoses:
- End-stage renal disease, on hemodialysis. Nephrology service on case
- UTI, on antibiotic
- Minimally elevated troponin. Suspect secondary to acute critical illness with large volume stroke, aspiration. Cardiology service on case
- H/o CAD, s/p PCI in 2020
- Hypothyroidism
- Hypertension, hyperlipidemia
- Prior history of smoking
- History of prostatectomy for CA prostate
- Blindness
- Diabetes mellitus
Critical care statement: A total of 42 minutes of critical care time was provided for this patient today. This includes management of unstable vital signs, evaluation of the patient at bedside, reviewing the patient's pertinent medical records
including radiographs, microbiology, laboratory evaluations, and discussion with primary team, consultants, pharmacy, nutrition, physical therapy, case management, charge nurse, critical care nursing, and respiratory therapy.
Diagnostic data:
CT Head 05/24/25: There are moderate changes of cortical atrophy and chronic ischemic disease. There are no acute findings. ASPECT score: 10.
CTA Head/Neck 05/24/25: No evidence of large vessel occlusion, or arterial dissection. Bilateral carotid bulb plaque, associated with less than 50% stenosis on each side. Small bilateral pleural effusions, partially imaged. Small amount of debris
within the trachea, extending into the right mainstem bronchus. Please correlate for symptoms of aspiration. 1.9 cm left thyroid nodule. Consider nonemergent thyroid ultrasound for further characterization.
Echo 04/12/21: Technically difficult study, left ventricular ejection fraction greater than 70 to 75%, wall motion analysis limited by image quality, enlarged right ventricle with normal right ventricular systolic function, calcified aortic valve with
significantly reduced leaflet excursion, accurate aortic transvalvular gradients cannot be obtained due to limited visualization poor image quality
Echo 10/09/21: LVEF 55-60%, no RWMA, mild cLVH, enlarged right ventricle with reduced RV systolic function, aortic sclerosis without stenosis, mild MS, trace MR
Echo 06/08/23: EF 60 to 65%, mild to moderate MS with mean gradient 7 mmHg, no MR, mild mean gradient 12 mmHg
Subjective Dataa
Subjective Data
Date of Service:
Date of Service: May 28, 2025
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
Subjective:
Patient seen and evaluated this morning. Currently remains intubated - he is unresponsive. Afebrile overnight. , Dolores, and son, Fabrizio, both present at bedside. Patient does make occasional movements of his left arm + left leg. He does not
appear to make any purposeful movements, however.
Review of Systems
General: Unobtainable - Pat Unresp
Objective Data
Data Reviewed
Vital Signs / I&O / Oxygen:
Vital Signs
Temp Pulse Resp BP Pulse Ox
97.5 F 112 11 168/56 98
05/28/25 07:28 05/28/25 07:45 05/28/25 07:45 05/28/25 07:30 05/28/25 08:00
Intake and Output
05/27/25 05/28/25 05/29/25
06:59 06:59 06:59
Intake Total 366 / 366 100 / 100
Balance 366 / 366 100 / 100
SaO2 [A/C] 98
SaO2 [SIMV] 95
SaO2 100
Nasal Cannula flow liters per 4
minute
Physical Exam
General: Respiratory Distress (n), Comfortable, Chills (negative) and Sweats (negative)
HEENT: Normocephalic, Anicteric and Other (ETT in place)
Cardiovascular: S1-S2 and Peripheral Edema (negative)
Respiratory: Wheeze (negative), Rhonchi (negative), Non-Labored Respirations and ET Tube (Mechanical breath sounds heard bilaterally)
GI: Soft, Non Distended, Non Tender and Normal Bowel Sounds
Neurology: Tremors (negative), Unresponsive and Other (Right pupil 3 mm; left pupil unable to be seen due to cataract; gag reflex intact; corneal reflexes bilaterally intact)
Skin: Warm, Dry, Cyanosis (negative) and Jaundice (negative)
Labs/Micro/Reports
Lab Data
05/28/25 02:56
05/28/25 02:56
Laboratory Results
05/28/25
04:50
pH 7.45
pCO2 35
pO2 294 H
HCO3 24.3
O2 Delivery Level
Microbiology
05/26/25 13:11 Blood/Venous Blood Culture - Preliminary
No Growth in 24 hours- Final report to follow
05/24/25 21:53 Blood/Venous Blood Culture - Preliminary
Coagulase neg. staphylococcus
Additional testing on request
05/24/25 21:53 Blood/Venous Gram Stain - Preliminary
05/24/25 22:33 Nose MRSA Screen - Final
No Methicillin Resistant Staphylococcus aureus isolated.
05/24/25 13:46 Urine Urine Culture - Final
Escherichia coli
[2025-05-28] MEDS: KEPPRA 500 MG IV ×2 (08:19→18:19)
[2025-05-28] MEDS: HEPARIN 5000 UNITS SC ×3 (08:19→22:14)
[2025-05-28] MEDS: PROTONIX IV 40 MG IV (08:19)
[2025-05-28] MEDS: NSS (PRESERVATIVE FREE) 10 ML IV (08:19)
[2025-05-28] MEDS: SUBLIMAZE 50 MCG IV ×3 (08:20→22:14)
[2025-05-28] MEDS: ALPHAGAN 0.2% EYE DROPS 1 DROP OPHTH ×3 (08:21→21:04)
[2025-05-28] MEDS: TIMOPTIC 0.5% OPHTHALMIC SOLUTION 1 DROP OPHTH ×3 (08:21→21:05)
[2025-05-28] MEDS: AZOPT 1% OPHTHALMIC SUSPENSION 1 DROP BOTH EYES ×3 (08:21→21:04)
[2025-05-28] MEDS: MURO 128/ADSORBONAC 5% EYE DROPS 1 DROP BOTH EYES ×3 (08:21→21:05)
[2025-05-28] MEDS: ASPIRIN 300 MG RECTAL (08:22)
[2025-05-28] MEDS: MIRALAX TUBE (08:22)
--- NOTE | 2025-05-28 09:14 | CHAP ---
Addendum entered by Gillian Linares 05/28/25 09:51:
Mr. Molina did receive Sacrament of the Sick from [facility] of [facility] as requested.
Original Note:
Binder Coverstitch request relayed to [facility] for Sacrament of the Sick. Awaiting confirmation that he did indeed receive the sacrament.
--- NOTE | 2025-05-28 09:18 | W.PN.CARDCBS ---
Today's Communication / Plan
-
Hospice/comfort care appears to be appropriate with poor chances of neurologic recovery
No further recommendations
Sign off
Impression / Plan
-
Primary Mirror Fabrication Supervisor: Dr. NEFTALI Pineda
Impression:
Admitted with change in mental status 05/24/2025
Large acute CVA
Previous admission for new onset seizures 11/2024
Debris in the trachea seen on CT 05/24/2025
Elevated troponin
CAD
NSTEMI with multivessel coronary artery disease involving left anterior descending, diagonal, OM, and small caliber PDA by cath 04/15/21
s/p stent of 3.0 mm Synergy ARIANNA mid LAD and 2.25 mm Synergy ARIANNA diagonal branch 04/17/2021
medical mgmt of residual OM/circ and PDA disease
Mild by echo 06/08/2023
ESRD on dialysis
DM 2
Diabetic neuropathy
Blindness
PAD
HTN
Hyperlipidemia
SARA on CPAP
Overweight
Former smoker
Sciatica
History of neck surgery with neuropathy
History of prostatectomy for prostate cancer 2000
Anemia of CKD
LE wounds s/p L heel debridement
Echo 04/12/21: Technically difficult study, left ventricular ejection fraction greater than 70 to 75%, wall motion analysis limited by image quality, enlarged right ventricle with normal right ventricular systolic function, calcified aortic valve with
significantly reduced leaflet excursion, accurate aortic transvalvular gradients cannot be obtained due to limited visualization poor image quality
Echo 10/09/21: LVEF 55-60%, no RWMA, mild cLVH, enlarged right ventricle with reduced RV systolic function, aortic sclerosis without stenosis, mild MS, trace MR
Echo 06/08/23: EF 60 to 65%, mild to moderate MS with mean gradient 7 mmHg, no MR, mild mean gradient 12 mmHg
Plan:
He remains unresponsive with very poor prognosis
Nephrology is managing volume status
Hospice/comfort care appears to be appropriate
No further recommendations
Will sign off
PREADMIT DATA
84-year-old male with past medical history of coronary artery disease and history of LAD PCI in 2020 presents with change in mental status. He also has a history of end-stage renal disease on dialysis, diabetes, neuropathy, blindness, obstructive
sleep apnea on CPAP, hypertension, hyperlipidemia, and seizures. We were asked to see him to evaluate a cardiac troponin of 0.4.
Progress Note - Mirror Fabrication Supervisor
Subjective
Date of Service: May 28, 2025
Unresponsive
Objective
Labs:
05/28/25 02:56
05/28/25 02:56
Labs
Hgb 9.8 g/dL (13.0-18.0) L 05/28/25 02:56
Hct 28.8 % (39.0-52.0) L 05/28/25 02:56
Plt Count 223 10^3/uL (130-400) D 05/28/25 02:56
PT 13.2 Sec (11.4-14.6) 05/24/25 08:47
INR 0.95 05/24/25 08:47
APTT 27.7 Sec (23.4-35.0) 05/24/25 08:47
Sodium 134 mmol/L (135-145) L 05/28/25 02:56
Potassium 4.2 mmol/L (3.5-5.1) 05/28/25 02:56
BUN 63 mg/dl (9-20) H 05/28/25 02:56
Creatinine 5.1 mg/dL (0.7-1.3) H* 05/28/25 02:56
Glucose 95 mg/dl (70-99) 05/28/25 02:56
Vital Signs and I&O:
Vital Signs
Temp Pulse Resp BP Pulse Ox
97.5 F 112 11 168/56 98
05/28/25 07:28 05/28/25 07:45 05/28/25 07:45 05/28/25 07:30 05/28/25 08:00
Vital Signs
Temp Pulse Resp BP Pulse Ox
97.5 F 112 11 168/56 98
05/28/25 07:28 05/28/25 07:45 05/28/25 07:45 05/28/25 07:30 05/28/25 08:00
Intake & Output
05/26/25 05/27/25 05/28/25 05/29/25
06:59 06:59 06:59 06:59
Intake Total 150 / 150 366 / 366 100 / 100
Balance 150 / 150 366 / 366 100 / 100
Physical Exam
Physical Exam
General: Unresponsive
Neck: Supple, no JVD, HJR, carotids +2 B/L, no bruits bilaterally.
Heart: Non displaced PMI, RRR, no murmurs, No S3, S4, no rubs.
Lungs: Scattered rhonchi
Extremities: No clubbing, cyanosis or edema bilaterally.
Neuro: Unresponsive
--- NOTE | 2025-05-28 09:50 | W.PN.HOSP.TC ---
Today's Communication/Plan
-
Dialysis today
Family intends to withdraw care tomorrow
Assessment / Plan
Assessment / Plan
Assessment and plan:
# Acute very large ischemic stroke in middle cerebral territory with coma
Out of Window for thrombolytics as it was a wake up unresponsiveness situation
Negative EEG & monitoring for seizures
Appreciate crane operator cab input, status post emergent intubation 05/26
Off sedation and unresponsive
Continue rectal aspirin, IV Keppra
Family intends to withdraw care 05/29
# No debris in trachea per CT chest
# Aspiration PNA
Continue IV Abx for 5 days for PNA/ Urine colonization
Blood culture showed contamination
Repeat blood cultures, no fevers, no leukocytosis
# Chronic HFpEF, not in acute failure
# SARA
Intubated
# Urine colonization with E Coli, damon- sensitive microbe
Continue IV Abx which will help if it is real infection.
# End-stage renal disease on hemodialysis, Wednesday
No issues with dialysis fistula/access
Appreciate nephrology input, continue dialysis until care is withdrawn
# Hypoglycemia
IV dextrose prn
# Abnormal troponin is likely nonischemic myocardial injury
He had Positive troponin, abnormal EKG changes.
Hx of CAD
No history of chest pain per
Seen by cardiology, who recommends hospice
# Anemia of chronic disease
# Hyponatremia
DVT prophylaxis�subcu heparin
DNR
Total time spent to see the patient on the floor, examine the patient, review data and lab results, discuss treatment plan with patient, nursing staff around 45 minutes.
Physical Exam
General: not responsive or talkative, intubated
HEENT: Moist mucous membrane, BiPAP on
Respiratory: Limited with BiPAP on.
Cardiac: S1/S2, Regular Rhythm and Murmur (2/6 systolic murmur, best heard in lower sternal border.);
GI: Soft, Non Tender, Non Distended and Normal Bowel Sounds
Genito-urinary: No Maguire
Musculoskeletal: No Clubbing, No Cyanosis, Edema, Left Upper Extremity (Dialysis fistula noted, positive thrill.) and No Edema
Skin: Warm
Neuro: Patient is still not responsive, purposeless movements in upper and lower extremities at times.
Psych: Lethargic
Anticipated Discharge: Within 24 hours
Subjective/Interval History
-
Date of Service: May 28, 2025
Patient is intubated. No fever, no vomiting
Objective Data
-
Labs:
Laboratory Results
05/28/25 05/28/25
02:56 04:50
WBC 6.6
Hgb 9.8 L
Hct 28.8 L
Plt Count 223 D
HCO3 24.3
Sodium 134 L
Potassium 4.2
Chloride 96 L
Carbon Dioxide 25
BUN 63 H
Creatinine 5.1 H*
Glucose 95
Calcium 9.2
Vital Signs:
Vital Signs
Temp Pulse Resp BP Pulse Ox
97.5 F 112 11 168/56 98
05/28/25 07:28 05/28/25 07:45 05/28/25 07:45 05/28/25 07:30 05/28/25 08:00
I&O
05/27/25 05/28/25 05/29/25
06:59 06:59 06:59
Intake Total 366 / 366 100 / 100
Balance 366 / 366 100 / 100
--- NOTE | 2025-05-28 10:03 | PTCARENOTE ---
ROUND NOTES
Apneic upon SAT/SBT.
GOC discussion with family.
[2025-05-28] MEDS: UNASYN IV ×3 (11:19→18:55)
[2025-05-28 11:58] LABS: Glucose - Point of Care 101 mg/dl (70-99)
--- NOTE | 2025-05-28 13:18 | W.PN.UPDATE ---
Update Note
Progress Note Update
Had discussion with the patient's , Dolores, and the son, Fabrizio, about patient's code status. They wish to transition him to DNR/DNI. Plan is to withdraw care tomorrow after additional family members arrive here to the hospital. All questions were
answered. They are aware that if the patient's heart were to stop that we will not resuscitate him, and we will allow him to pass peacefully; also, if he were to either self extubate or if endotracheal tube becomes dislodged and he comes off the
ventilator, that we will not reintubate him. They are okay with this plan and they said that the rest of the family is also okay with the plan.
--- NOTE | 2025-05-28 13:20 | W.PN.NEPH.HD ---
Assessment
-
Patient seen on dialysis
Patient remains intubated and poorly responsive
Dialysis treatment reduced to 2 hours as this will be his last dialysis treatment
Plan is to push forward with withdrawal of care tomorrow
Discussed with and son
Progress Note - Hemodialysis
-
Date of Service: May 28, 2025
Duration: 2 hours
Potassium Bath: 3
Calcium Bath: 2.5
Opti-Dialyzer: 160
Ultrafiltration: EDW
Blood Flow: 400
Dialysate Flow: 600
Heparin: None
--- NOTE | 2025-05-28 13:44 | PTCARENOTE ---
Receiving HD now.
Code status changed to DNR.
Plan is to W/D tomorrow when all family arrives.
--- NOTE | 2025-05-28 14:41 | CM ---
Intubated, HD, GOC discussed with family, now DNR. Tomorrow will withdraw care.
--- NOTE | 2025-05-28 16:23 | PTCARENOTE ---
HD finished.
No further changes in assessment.
[2025-05-28 18:04] LABS: Glucose - Point of Care 98 mg/dl (70-99)
[2025-05-28] MEDS: XALATAN OPHTHALMIC SOLUTION 1 DROP BOTH EYES (21:04)
[2025-05-29] VITALS (17 sets, daily range): BP systolic 87–154; BP diastolic 41–122; BMI 19.6
--- NOTE | 2025-05-29 00:17 | PTCARENOTE ---
GCS 7-8, no commands. Withdraws to pain. Reflexes intact. Not overbreathing the vent. No change in previous assessment. Fentanyl PRN for pain. Will monitor
[2025-05-29] MEDS: HEPARIN 5000 UNITS SC (07:40)
[2025-05-29] MEDS: PROTONIX IV 40 MG IV (07:40)
[2025-05-29] MEDS: KEPPRA 500 MG IV (07:41)
[2025-05-29] MEDS: NSS (PRESERVATIVE FREE) 10 ML IV (07:41)
[2025-05-29] MEDS: UNASYN IV (07:41)
[2025-05-29] MEDS: MURO 128/ADSORBONAC 5% EYE DROPS 1 DROP BOTH EYES (07:42)
[2025-05-29] MEDS: AZOPT 1% OPHTHALMIC SUSPENSION 1 DROP BOTH EYES (07:42)
[2025-05-29] MEDS: TIMOPTIC 0.5% OPHTHALMIC SOLUTION 1 DROP OPHTH (07:42)
--- NOTE | 2025-05-29 07:42 | W.PN.NEPH.PH ---
Today's Communication / Plan
-
For withdrawal of care later this afternoon
No more dialysis
Assessment/Plan
-
Assessment:
Change in mental status/rule out stroke/seizure/toxic metabolic encephalopathy
History of seizure disorder
Debris's in the trachea. Suspect aspiration.
Positive troponin, abnormal EKG changes.
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
History CVA
Chronic cerebrovascular disease
Left brachiobasilic AV fistula
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
Hypertension with orthostatic hypotension in setting of advanced diabetes mellitus
Advanced diabetic retinopathy/neuropathy/blindness
Chronic pain
Anemia of CKD
Secondary hyperparathyroidism
SARA on CPAP
Cervical cord compression with LLE Weakness
odontoid fx-c collar
Ambulatory dysfunction
Hyperphosphatemia
Multivessel CAD and severe PAD
Blind
Bilateral sensorineural hearing loss
Plan
Remains encephalopathic
MRI brain = large left ischemic infarct
previously discussed with critical care hospitalist and family as patient's prognosis guarded to poor.
Mechanical ventilation for airway protection
Plan will be for withdrawal of care today

-
-
Date of Service: May 29, 2025
CC / HPI / ROS
-
Chief Complaint:
Altered mental
History of Present Illness:
ESRD with altered mental status acute CVA Wednesday
Remains intubated with FiO2 40%
Remains on IV hydralazine for baseline hemodynamic viability
Review of Systems:
Intubated with stable FiO2
No fevers
Unobtainable/encephalopathic intubated
Labs
-
Labs:
WBC 6.6 10^3/uL (4.8-10.8) 10/20/25 02:56
RBC 2.85 10^6/uL (4.70-6.10) L 05/28/25 02:56
Hgb 9.8 g/dL (13.0-18.0) L 05/28/25 02:56
Hct 28.8 % (39.0-52.0) L 05/28/25 02:56
Plt Count 223 10^3/uL (130-400) D 05/28/25 02:56
Sodium 134 mmol/L (135-145) L 05/28/25 02:56
Potassium 4.2 mmol/L (3.5-5.1) 05/28/25 02:56
Chloride 96 mmol/L (98-107) L 05/28/25 02:56
Carbon Dioxide 25 mmol/L (22-30) 05/28/25 02:56
BUN 63 mg/dl (9-20) H 05/28/25 02:56
Creatinine 5.1 mg/dL (0.7-1.3) H* 05/28/25 02:56
eGFR 10.64 05/28/25 02:56
Glucose 95 mg/dl (70-99) 05/28/25 02:56
Calcium 9.2 mg/dl (8.4-10.2) 05/28/25 02:56
Inn-[id number] Pept Cancelled 05/24/25 11:04
Albumin 3.8 g/dl (3.5-5.0) 05/27/25 03:38
Physical Exam
-
Vital Signs:
Vital Signs
Temp Pulse Resp BP Pulse Ox
98.6 F 118 11 96/74 99
05/29/25 07:22 05/29/25 05:30 05/29/25 05:30 05/29/25 05:00 05/29/25 05:30
Cardiovascular:: Regular rate and rhythm (Tachycardic)
Respiratory:: Bilateral: Coarse
Lung Excursion:: Normal
Abdomen:: Nontender and Soft
Bowel Sounds:: Decreased
Extremity Edema:: +1: Bilateral:
Maguire Catheter: No
Other Findings::
General: poorly responsive intubated
[2025-05-29] MEDS: MIRALAX TUBE (07:43)
[2025-05-29] MEDS: ASPIRIN RECTAL (07:43)
[2025-05-29] MEDS: ALPHAGAN 0.2% EYE DROPS 1 DROP OPHTH (07:43)
--- NOTE | 2025-05-29 08:00 | PTCARENOTE ---
GCS 7-8, no commands. Withdraws to pain. Reflexes intact. Overbreathing the vent. No change in previous assessment. Will monitor
--- NOTE | 2025-05-29 08:12 | W.PN.INTV ---
Today's Communication / Plan
Recommendations
- Plan to terminally extubate later this morning/afternoon with transition to comfort care measures
- Emotional support provided
- Rn Transplant services offered
- Continue all medications including aspirin + Unasyn until family ready to transition to comfort care
- No need for SBT given he remains unresponsive and plans to terminally extubate today
Once patient is transitioned to comfort care, I will TRX him to [facility] and Pulmonary/Critical Care service will sign off. Please call back with any questions or concerns.
Assessment
-
84-year-old former smoking male with underlying CAD, prostate cancer, SVT, CVA 2021, hypertension, hyperlipidemia, diabetes, hypothyroid, seizure disorder, anxiety who presented poorly responsive with new onset weakness on the right side and
possible aspiration event-pulmonary consulted for possible aspiration 05/25/2025.
05/26, patient noted to be essentially unresponsive. Minimal withdrawal to sternal rub. Continued to be on BiPAP. Upon attempting to take BiPAP off, patient noted to have paradoxical breathing with shallow rapid breaths. Also tongue Dropping in
the back and I could hear audible rattling secretions. Patient emergently transferred to ICU and intubated for airway protection 05/26.
#1. Acute ischemic infarct involving the left MCA territory
- Neurology service on case
- Mental status had been poor, patient was unable to protect airway, had been on BiPAP for more than 24 hours with ongoing aspiration, intubated 05/26
- Has been on IV Keppra, continue. Defer AEDs to neuro
- Follow-up CT (last performed 05/26/2025) with evolving infarction, no hemorrhagic conversion noted
- Ceribell (bedside EEG) without evidence of nonconvulsive seizure activity. Discontinued EEG
- Has been on aspirin rectally and subcu heparin for DVT prophylaxis considering CTs without any hemorrhagic conversion.
- Patient is being transitioned to comfort care today
#2. Acute respiratory failure, aspiration pneumonia, inability to protect airway
-Suspect it is in the setting of large stroke
-05/26, patient transferred to ICU, emergently intubated and mechanically ventilated. Thick crusted secretions noted in the posterior pharynx as well as covering the vocal cords and into the tracheal lumen
-Head end elevated; no need for tube feeds as plan to withdraw care today
-Continue Unasyn for aspiration pneumonia - would plan for 6-7 days ABx total -antibiotics will stop today as we prepare to transition to comfort care
-Plan to terminally extubate once family ready to transition to comfort care measures
#3. H/o SARA
- Currently intubated, mechanically ventilated. Uses CPAP at baseline.
- Patient follows up with [facility] pulmonary clinic, last saw Dr. Arvizu in 2022
#4. H/o Seizures:
- Continue Keppra, with plans to stop once we transition to comfort care
- Currently has no seizure activity he, and cranial nerve function intact however he does remain apneic when he is placed onto an SBT
Goals of care discussion with Dr. Christian, 05/26: Met with patient's spouse at bedside. Patient's prognosis is poor. With large stroke noted on imaging, patient's mental status may not improve enough to be successfully weaned from ventilator. We
discussed the option of pursuing more comfort focused, palliative care. We also discussed that in the event patient is unable to be weaned off ventilator, options will include long-term ventilatory support via tracheostomy and feeding tube versus
reconsideration of more palliative approach. Patient's wants to discuss further with the family and at this point requests intubation and mechanical ventilation and see how patient does over the next 24 to 48 hours.
GI prophylaxis. IV Protonix
DVT prophylaxis. HSQ
Family is at bedside and the brother, son, and additional family/friends. Plan is to withdraw care later this morning/afternoon. All questions were answered and emotional support provided. Once patient is transitioned to comfort care, I will
TRX him to [facility] and Pulmonary/Critical Care service will sign off. Please call back with any questions or concerns.
Other medical diagnoses:
- End-stage renal disease, on hemodialysis. Nephrology service on case
- UTI, on antibiotic
- Minimally elevated troponin. Suspect secondary to acute critical illness with large volume stroke, aspiration. Cardiology service on case
- H/o CAD, s/p PCI in 2020
- Hypothyroidism
- Hypertension, hyperlipidemia
- Prior history of smoking
- History of prostatectomy for CA prostate
- Blindness
- Diabetes mellitus
Critical care statement: A total of 38 minutes of critical care time was provided for this patient today. This includes management of unstable vital signs, evaluation of the patient at bedside, reviewing the patient's pertinent medical records
including radiographs, microbiology, laboratory evaluations, and discussion with primary team, consultants, pharmacy, nutrition, physical therapy, case management, charge nurse, critical care nursing, and respiratory therapy.
Diagnostic data:
CT Head 05/24/25: There are moderate changes of cortical atrophy and chronic ischemic disease. There are no acute findings. ASPECT score: 10.
CTA Head/Neck 05/24/25: No evidence of large vessel occlusion, or arterial dissection. Bilateral carotid bulb plaque, associated with less than 50% stenosis on each side. Small bilateral pleural effusions, partially imaged. Small amount of debris
within the trachea, extending into the right mainstem bronchus. Please correlate for symptoms of aspiration. 1.9 cm left thyroid nodule. Consider nonemergent thyroid ultrasound for further characterization.
Echo 04/12/21: Technically difficult study, left ventricular ejection fraction greater than 70 to 75%, wall motion analysis limited by image quality, enlarged right ventricle with normal right ventricular systolic function, calcified aortic valve with
significantly reduced leaflet excursion, accurate aortic transvalvular gradients cannot be obtained due to limited visualization poor image quality
Echo 10/09/21: LVEF 55-60%, no RWMA, mild cLVH, enlarged right ventricle with reduced RV systolic function, aortic sclerosis without stenosis, mild MS, trace MR
Echo 06/08/23: EF 60 to 65%, mild to moderate MS with mean gradient 7 mmHg, no MR, mild mean gradient 12 mmHg
Subjective Dataa
Subjective Data
Date of Service:
Date of Service: May 29, 2025
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
Subjective:
Pt seen and evaluated this AM. Remains intubated. Plan to withdraw care later today.
Review of Systems
General: Unobtainable - Pat Unresp
Objective Data
Data Reviewed
Vital Signs / I&O / Oxygen:
Vital Signs
Temp Pulse Resp BP Pulse Ox
98.6 F 117 14 105/47 100
05/29/25 07:22 05/29/25 08:15 05/29/25 08:15 05/29/25 08:00 05/29/25 08:15
Intake and Output
05/28/25 05/29/25 05/30/25
06:59 06:59 06:59
Intake Total 100 / 100 0 / 0
Output Total 0 / 0
Balance 100 / 100 0 / 0
SaO2 [A/C] 99
SaO2 [SIMV] 95
SaO2 100
Nasal Cannula flow liters per 4
minute
Physical Exam
General: Respiratory Distress (n), Comfortable, Chills (negative) and Sweats (negative)
HEENT: Normocephalic, Anicteric and Other (ETT in place)
Cardiovascular: S1-S2 and Peripheral Edema (negative)
Respiratory: Wheeze (negative), Rhonchi (negative), Non-Labored Respirations and ET Tube (Mechanical breath sounds heard bilaterally)
GI: Soft, Non Distended, Non Tender and Normal Bowel Sounds
Neurology: Tremors (negative), Unresponsive (Resists with his left hand, trying to move me away when I am evaluating him) and Other (Right pupil 3 mm; left pupil unable to be seen due to cataract; gag reflex intact; corneal reflexes of left eye is
intact, right eye there is no corneal reflex)
Skin: Warm, Dry, Cyanosis (negative) and Jaundice (negative)
Labs/Micro/Reports
Lab Data
05/28/25 02:56
05/28/25 02:56
Microbiology
05/26/25 13:11 Blood/Venous Blood Culture - Preliminary
No Growth in 48 hours- Final report to follow
05/24/25 21:53 Blood/Venous Blood Culture - Preliminary
Coagulase neg. staphylococcus
Additional testing on request
05/24/25 21:53 Blood/Venous Gram Stain - Preliminary
05/24/25 22:33 Nose MRSA Screen - Final
No Methicillin Resistant Staphylococcus aureus isolated.
05/24/25 13:46 Urine Urine Culture - Final
Escherichia coli
--- NOTE | 2025-05-29 13:01 | W.PN.UPDATE ---
Update Note
Progress Note Update
Spoke with family this morning, including the patient's brother, the patient's son and . The patient's brother is upset that we are withdrawing care, and I explained to him what the alternative lifestyle would be if we do not withdraw from care
- this would include being fully dependent on machines to live, and staying in the correction on dialysis with poor quality of life. After speaking with him, he seems to understand now the rationale behind the family wanting to withdraw care.
Family is just waiting for the brother to have his time with [place], and then once the brother leaves then they will be ready to transition to comfort care measures. I updated the hospitalist, Dr. Ronquillo.
[2025-05-29] MEDS: NSS (PRESERVATIVE FREE) 0.5 ML IV (13:03)
[2025-05-29] MEDS: ATIVAN 1 MG IV (13:04)
[2025-05-29] MEDS: MORPHINE SULFATE 4 MG IV (13:04)
--- NOTE | 2025-05-29 13:18 | PTCARENOTE ---
Morphine and ativan given as ordered. Extubated for comfort care with family at bedside. GOL notified.
--- NOTE | 2025-05-29 13:26 | RESPNOTE ---
Patient extubated to room air at 13:12, family at bedside.
--- NOTE | 2025-05-29 14:59 | CM ---
Patient has been extubated and is now comfort care. Family at bedside.
--- NOTE | 2025-05-29 15:09 | W.PN.HOSP.TC ---
Today's Communication/Plan
-
Comfort care measures only
Assessment / Plan
Assessment / Plan
Assessment and plan:
# Acute very large ischemic stroke in middle cerebral territory with coma
Out of Window for thrombolytics as it was a wake up unresponsiveness situation
Negative EEG & monitoring for seizures
Appreciate state archivist input, status post emergent intubation 05/26
Off sedation and unresponsive
Appreciate state archivist input, family withdrew care 05/29 afternoon
Continue comfort care measures only
# No debris in trachea per CT chest
# Aspiration PNA
# Chronic HFpEF, not in acute failure
# SARA
# Urine colonization with E Coli, damon- sensitive microbe
# End-stage renal disease on hemodialysis, Wednesday
Appreciate nephrology input, no more dialysis
# Hypoglycemia
# Abnormal troponin is likely nonischemic myocardial injury
He had Positive troponin, abnormal EKG changes.
Hx of CAD
No history of chest pain per
Seen by cardiology, who recommends hospice
# Anemia of chronic disease
# Hyponatremia
DNR
Total time spent to see the patient on the floor, examine the patient, review data and lab results, discuss treatment plan with patient, nursing staff around 40 minutes.
Physical Exam
General: not responsive or talkative
HEENT: eyes closed
Respiratory: CTAB
Cardiac: S1/S2, Regular Rhythm and Murmur (2/6 systolic murmur, best heard in lower sternal border.);
GI: Soft, Non Tender, Non Distended and Normal Bowel Sounds
Musculoskeletal: No Clubbing, No Cyanosis, Edema, Left Upper Extremity (Dialysis fistula noted, positive thrill.) and No Edema
Skin: Warm
Neuro: Patient is still not responsive, purposeless movements in upper and lower extremities at times.
Psych: sleeping
Anticipated Discharge: Within 24 hours
Subjective/Interval History
-
Date of Service: May 29, 2025
Patient extubated and transitioned to comfort care this afternoon. No fever, no vomiting.
Objective Data
-
Vital Signs:
Vital Signs
Temp Pulse Resp BP Pulse Ox
98.6 F 117 14 105/47 100
05/29/25 07:22 05/29/25 08:15 05/29/25 08:15 05/29/25 08:00 05/29/25 08:15
I&O
05/28/25 05/29/25 05/30/25
06:59 06:59 06:59
Intake Total 100 / 100 0 / 0
Output Total 0 / 0
Balance 100 / 100 0 / 0
--- NOTE | 2025-05-29 19:15 | PTCARENOTE ---
Assumed care. Patient received lying still in bed with eyes closed, respirations irregular but nonlabored, sats 97% on RA. See maintenance service technician charted on worklist flowsheet. Patient is comfort cares. Minimally responsive with positive cough reflex and
very weak gag. Nonverbal. Withdraws BLEs with cares, some movement noted of RUE--? purposeful. BBS diminished t/o. Sonorous at times. BUE edema 3+, elevated on pillows. LUE with AV fistula, positive bruit and thrill. RUE with Midline that flushes
easily. Incontinent of large soft BM. Partial cares given, perineal care, skin care, oral care, complete linen change. Barrier ointment to perirectal, sacrum and bilateral buttocks. Turned every 2 hours and repositioned prn. Upper airway congestion
with productive cough, suctioned for moderate thick white secretions. Bed in low and locked position. Hourly rounds.
--- NOTE | 2025-05-29 23:00 | PTCARENOTE ---
One minute and 16 second run of Vtach noted. Strips posted in chart. Patient does not appear in any distress.
[2025-05-30] VITALS (10 sets, daily range): BP systolic 57–137; BP diastolic 39–107
--- NOTE | 2025-05-30 02:43 | PTCARENOTE ---
Eran Stoke Respirations noted at times with periods of apnea. No apparent signs of distress. Calm. Frequent PVCs noted on CM.
--- NOTE | 2025-05-30 07:46 | PTCARENOTE ---
Received pt on comfort care. He is sonorous, not following commands. Right U/E rigid. Draws his legs up with stimulation. Left eye opaque, right pupil sluggishly responsive. Lungs dim throughout. Left AV fistula +bruit, +thrill. Right U/E midline
flushed and patent. Repositioned for comfort. Am care performed. Safe environment maintained.
[2025-05-30] MEDS: DILAUDID 0.5 MG IV ×3 (08:00→12:28)
--- NOTE | 2025-05-30 08:56 | PTCARENOTE ---
Pt's son Fabrizio ([phone]) was provided an update over the phone. I verified his phone # to notify him of any S/S of decline. He is aware there are no changes but required medication for end of life dyspnea. He verbalized his understanding.
Supportive care provided.
--- NOTE | 2025-05-30 09:29 | W.PN.HOSP.TC ---
Today's Communication/Plan
-
Continue comfort care measures only
Assessment / Plan
Assessment / Plan
Assessment and plan:
# Acute very large ischemic stroke in middle cerebral territory with coma
Out of Window for thrombolytics as it was a wake up unresponsiveness situation
Negative EEG & monitoring for seizures
Appreciate personnel manager input, status post emergent intubation 05/26
Off sedation and unresponsive
Appreciate personnel manager input, family withdrew care 05/29
Continue comfort care measures only
# No debris in trachea per CT chest
# Aspiration PNA
# Chronic HFpEF, not in acute failure
# SARA
# Urine colonization with E Coli, damon- sensitive microbe
# End-stage renal disease on hemodialysis, Wednesday
Appreciate nephrology input, no more dialysis
# Hypoglycemia
# Abnormal troponin is likely nonischemic myocardial injury
He had Positive troponin, abnormal EKG changes.
Hx of CAD
No history of chest pain per
Seen by cardiology, who recommends hospice
# Anemia of chronic disease
# Hyponatremia
DNR
Physical Exam
General: not responsive or talkative
HEENT: eyes closed
Respiratory: CTAB
Cardiac: S1/S2, Regular Rhythm and Murmur (2/6 systolic murmur, best heard in lower sternal border.);
GI: Soft, Non Tender, Non Distended and Normal Bowel Sounds
Musculoskeletal: No Clubbing, No Cyanosis, Edema, Left Upper Extremity (Dialysis fistula noted, positive thrill.)
Neuro: Patient is still not responsive, purposeless movements in upper and lower extremities at times.
Anticipated Discharge: 24 - 48 hours
Subjective/Interval History
-
Date of Service: May 30, 2025
Patient resting comfortably. No fever, no vomiting.
Objective Data
-
Vital Signs:
Vital Signs
Temp Pulse Resp BP Pulse Ox
98 F 78 13 82/46 92
05/30/25 07:16 05/30/25 06:12 05/30/25 06:12 05/30/25 06:12 05/30/25 06:12
I&O
05/29/25 05/30/25 05/31/25
06:59 06:59 06:59
Intake Total 0 / 0 0 / 0
Output Total 0 / 0
Balance 0 / 0 0 / 0
--- NOTE | 2025-05-30 11:26 | PTCARENOTE ---
Medicated as indicated for end of life dyspnea. Mouth care performed. Repositioned.
--- NOTE | 2025-05-30 12:40 | PTCARENOTE ---
pt transferred to room 3137 via bed. Hydromorphone was administered prior and straight catheterized for 300ml/s milky brown urine, after bladder scanning for 425ml's. Nurse Cheryl notified of interventions. Family provided escort to [address] [place] [address].
--- NOTE | 2025-05-30 13:10 | CM ---
Patient transferred to Room 2137. Was terminally extubated on 05/29/25. Comfort measures. Family with patient.
[2025-05-31] MEDS: ATIVAN 2 MG IV (04:34)
[2025-05-31] MEDS: DILAUDID 0.5 MG IV ×2 (04:34→06:34)
[2025-05-31] MEDS: NSS (PRESERVATIVE FREE) 1 ML IV (04:35)
[2025-05-31] MEDS: LEVSIN ORAL DROPS 0.125 MG SL (06:32)
--- NOTE | 2025-05-31 08:03 | W.PN.DEATH ---
Pronouncement of
-
Called to see patient to pronounce.
No spontaneous heart tones or respirations noted.
Patient not responsive to verbal stimuli.
Patient is pronounced .
Time of : 07:15
Date of : 05/31/25
Cause of : Stroke
Family Notified: Yes (spouse over the phone. expressed my condolence)
--- NOTE | 2025-05-31 08:51 | W.DCSUMMARY ---
Discharge Summary
Discharge Data
Date of Admission: 05/24/25
Date of Discharge: 05/31/25
-
Pending Results: No
Hospital Course
Discharge diagnosis:
Acute large ischemic stroke in middle cerebral artery territory with coma
Aspiration pneumonia
Chronic heart failure with a preserved ejection fraction
Obstructive sleep apnea
End-stage renal failure on dialysis
Hypoglycemia
Consults: [employer] Jointer, neurology, cardiology, nephrology
Hospital course:
84-year-old former smoking male with a past medical history of CAD, prostate cancer, SVT, CVA 2021, hypertension, hyperlipidemia, diabetes, hypothyroidism, seizure disorder, and anxiety was brought in by his family for difficulty waking up, and was
found to have a large acute stroke in the MCA territory with a coma. Patient was seen in conjunction with neurology and cardiology. He received IV antibiotics for aspiration pneumonia. He then developed respiratory failure, and was emergently
intubated on 05/26/2025. He was seen in conjunction with nephrology and received dialysis per his usual schedule. Patient had a very poor prognosis, and remained comatose. Family transitioned him to comfort care measures only on 05/29/2025. He
peacefully on 05/31/2025 at 07:15. Family was notified, condolences were offered.
Discharge Plan
-
Patient Disposition:
Date/Time
Date/Time: 05/31/25 07:15
Discharge Date and Time
Discharge Date/Time: 05/31/25 07:15
Print Language: MALAWIAN
--- NOTE | 2025-05-31 11:10 | CM ---
patient chart reviewed
comfort measures
today
== END 2025-05-31 07:15 | disposition expired | DRG 64 ==
LOC: 2 NORTH 11:15
PROVIDERS: Internal Medicine; Nurse Practitioner Family; ADMITTING PHYSICIAN Internal Medicine; ATTENDING PHYSICIAN Family Medicine; CONSULT PHYSICIAN Internal Medicine; CONSULT PHYSICIAN Internal Medicine Cardiovascular Disease; CONSULT PHYSICIAN Internal Medicine Critical Care Medicine; CONSULT PHYSICIAN Psychiatry & Neurology Neurology; EMERGENCY PHYSICIAN Emergency Medicine
PROC: 5A1945Z Respiratory Ventilation, 24-96 Consecutive Hours (ICD-10-PCS; 2025-05-26)
PROC: 0BH17EZ Insertion of Endotracheal Airway into Trachea, Via Natural or Artificial Opening (ICD-10-PCS; 2025-05-26)
DX: I63.9 Cerebral infarction, unspecified (principal); G92.8 Other toxic encephalopathy; N18.6 End stage renal disease; J69.0 Pneumonitis due to inhalation of food and vomit; R40.20 Unspecified coma; E87.3 Alkalosis; I50.32 Chronic diastolic (congestive) heart failure; I13.2 Hypertensive heart and chronic kidney disease with heart failure and with stage 5 chronic kidney disease, or end stage renal disease; I5A Non-ischemic myocardial injury (non-traumatic); E87.1 Hypo-osmolality and hyponatremia; Z99.2 Dependence on renal dialysis; Z87.891 Personal history of nicotine dependence; G47.33 Obstructive sleep apnea (adult) (pediatric); I25.10 Atherosclerotic heart disease of native coronary artery without angina pectoris; G40.909 Epilepsy, unspecified, not intractable, without status epilepticus; E83.39 Other disorders of phosphorus metabolism; E03.9 Hypothyroidism, unspecified; I95.1 Orthostatic hypotension; H54.7 Unspecified visual loss; H40.9 Unspecified glaucoma; Z51.5 Encounter for palliative care; D63.8 Anemia in other chronic diseases classified elsewhere; Z66 Do not resuscitate; Z11.52 Encounter for screening for COVID-19
CPT/HCPCS: 36600; 70450; 70496; 70498; 70551; 71045; 71250; 80048; 80053; 80143; 80177; 80179; 80306; 80307; 81003; 81015; 82077; 82805; 82962; 83735; 84484; 85025; 85027; 85610; 85730; 87040; 87070; 87077; 87086; 87154; 87186; 87205; 87502; 87811; 93005; 94002; 94003; 94660; 95816; 99291; P9047; Q5106; Q9967